=== PATIENT | female | born 1965 | race African-American/Black ===

== ENCOUNTER 2018-10-23 08:36 | Emergency (ER) | payer MEDICARE, MEDICAID ==
--- NOTE | 2018-10-23 09:16 | RAD ---
EXAM: XR Ankle Rt 3 View STANDARD PROVIDED CLINICAL HISTORY: Pain FINDINGS: There is no evidence for fracture or other acute osseous abnormality. Alignment appears anatomic. Sofia nt spaces appear preserved. IMPRESSION: No evidence for an acute osseous abnormality. If there is persistent clinical concern, conservative m anagement and follow-up imaging advised.
[2018-10-23] MEDS ORDERED: Ibuprofen 800 MG TAB ONE (09:46)
== END 2018-10-23 09:52 | disposition home or self-care (01) ==
LOC: ERS 08:36
DX: M77.9 Enthesopathy, unspecified (principal); Q85.00 Neurofibromatosis, unspecified; M41.9 Scoliosis, unspecified

== ENCOUNTER 2019-11-24 17:56 | Emergency (ER) | payer MEDICARE, OTHER ==
[2019-11-25 14:12] LABS: SARS-CoV-2 MS2 Positive; SARS-CoV-2 N Gene Positive; SARS-CoV-2 S Gene Positive; SARS-CoV-2 by NAA DETECTED (NotDetected); SARS-CoV-2 orf1ab Positive
== END 2019-11-24 18:16 | disposition home or self-care (01) ==
LOC: ERS 17:56
DX: U07.1 COVID-19 (principal); G43.909 Migraine, unspecified, not intractable, without status migrainosus; Z79.899 Other long term (current) drug therapy
CPT/HCPCS: 99283; U0003; 87635

== ENCOUNTER 2020-01-09 09:10 | Emergency (ER) | payer MEDICARE, OTHER ==
[2020-01-09 18:07] LABS: SARS-CoV-2 MS2 Positive; SARS-CoV-2 N Gene Negative; SARS-CoV-2 S Gene Negative; SARS-CoV-2 by NAA Not Detected (NotDetected); SARS-CoV-2 orf1ab Negative
== END 2020-01-09 09:40 | disposition home or self-care (01) ==
LOC: ERS 09:10
DX: R05 Cough (principal); Z20.828 Contact with and (suspected) exposure to other viral communicable diseases; G43.909 Migraine, unspecified, not intractable, without status migrainosus; Z79.899 Other long term (current) drug therapy
CPT/HCPCS: 99283; U0003; 87635

== ENCOUNTER 2020-03-03 14:11 | Inpatient (IN) | payer MEDICARE, OTHER ==
[2020-03-03] MEDS ORDERED: Rocuronium Bromide 10 MG/ML (10ML VIAL) ONE ×2 (14:32→17:20)
[2020-03-03] MEDS ORDERED: Fentanyl 100 MCG/2 ML VIAL ONE (14:47)
[2020-03-03 15:07] LABS: Actual Bicarbonate (HCO3a) 29.6 mEq/L (22-28); Analyzer IN Cardio ER; Base Excess (BEa) 3.7 mEq/L (-2.0 to +3.0); CO2 Tension 49.2 mmHg (35.0-45.0); Calcium, Ionized (arterial) 1.11 mmol/L (1.12-1.30); Carboxyhemoglobin (COHb) 5.8 gm% (0.0-3.0); Hemoglobin (Hb) 15.1 g/dL (12.0-16.0); O2 Tension (PaO2), arterial 223.1 mmHg (80.0-100.0); Potassium - ABG Lab 4.34 mmol/L (3.70-5.30)
[2020-03-03 15:13] LABS: Puncture Site RBRACH
[2020-03-03] MEDS ORDERED: fentaNYL Citrate/PF 2,000 MCG in Sodium Chloride 0.9% 60 ML IV SCH (15:15)
[2020-03-03 15:43] LABS: Hemoglobin 15.1 g/dL (12.0-16.0); Mean Corpuscular HGB CONC 30.3 g/dL (32.0-36.0); Mean Corpuscular Hemoglobin 27.8 pg (27.0-31.0); Mean Corpuscular Volume 91.5 fL (78.0-98.0); Mean Platelet Volume 9.4 fL (7.4-10.4); Platelet Count 269 thou/uL (130-400); RBC Distribution Width 15.2 % (11.5-14.5); Red Blood Cell (RBC) Count 5.42 mill/uL (4.20-5.40)
[2020-03-03 15:59] LABS: Anisocytosis SLIGHT = 6-15 cells (100X) (0-5/hpf); Eosinophils 1 % (0-10); Lymphocytes 24 % (21-51); MDiff Complete? YES; Monocytes 4 % (0-10); Neutrophil 71 % (42-75); Nucleated RBC 1 % (0); Platelet Morphology Comment Appears Adequate; Polychromasia SLIGHT = 2-3 cells (100X) (0-2/hpf)
[2020-03-03] MEDS ORDERED: Propofol 1,000 MG/100 ML VIAL IV ONE (16:00)
[2020-03-03 16:02] LABS: ALT (SGPT) 45 U/L (8-55); AST (SGOT) 29 U/L (5-34); Albumin 3.4 g/dL (3.5-5.0); Alkaline Phosphatase 61 U/L (40-110); Anion Gap 17 mmol/L (10-20); BUN (Urea Nitrogen) 29 mg/dL (9.8-20.1); Bilirubin, Total 1.2 mg/dL (0.2-1.2); CK (CPK) 68 U/L (29-168); Calc. Creatinine Clearance 0 mL/min (70-130); Calcium 8.5 mg/dL (7.8-10.44); Carbon Dioxide 30 mmol/L (22-29); Chloride 99 mmol/L (98-107); Globulin 3.2 g/dL (2.4-3.5); Glucose 93 mg/dL (70-105); Potassium 4.9 mmol/L (3.5-5.1); Protein, Total 6.6 g/dL (6.0-8.3); Sodium 141 mmol/L (136-145)
[2020-03-03] MEDS ORDERED: Furosemide 40 MG/4 ML VIAL ONE (16:02)
[2020-03-03 16:03] LABS: Bacteria/HPF None Seen HPF (None Seen); Bilirubin Negative (Negative); Blood, Urine Negative (Negative); Clarity Clear (Clear); Glucose, Urine (Dipstick) Normal (Negative); Ketone, Urine Negative (Negative); Leukocyte Negative Leu/uL (Negative); Nitrite Negative (Negative); Protein, Urine (Dipstick) 30 mg/dL (Neg-Trace); RBC/HPF 0-3 HPF (0-3); Specific Gravity, Urine 1.012 (1.002-1.036); Squamous Epithelial 0-3 HPF (0-3); WBC/HPF 0-3 HPF (0-3); pH, Urine 5.5 (5.0-9.0)
--- NOTE | 2020-03-03 16:35 | RAD ---
PORTABLE CHEST: Date: 03-03-2020 PROVIDED CLINICAL HISTORY: Difficulty breathing FINDINGS: Comparison is made with 10-27-15. Evaluation is limited by patient body habitus. Spinal faheem and surgical clips overlying the mediastinum are again noted. There is mass like density a t the right lung apex, incompletely characterized on the basis of this study. Absence of multiple lef t sided ribs. Diffuse bilateral airspace disease and prominence of the pulmonary vasculature. Presume d endotracheal tube and enteric catheter, the tip of the presumed endotracheal tube terminating over the thoracic inlet and the tip of the enteric catheter not visualized but below the diaphragm. IMPRESSION: 1. Limited study. Incompletely characterized mass-like density at the right lung apex. Extensive bilateral airspace disease and pulmonary vascular congestion, the former of which may reflect alveol ar edema and/or pneumonia. POS: ANOOP
[2020-03-03] MEDS ORDERED: cefTRIAXone\\ROCEPHIN 2 GM VIAL ONE (17:14)
[2020-03-03] MEDS ORDERED: Azithromycin 500 MG VIAL ONE (17:14)
--- NOTE | 2020-03-03 18:03 | RAD ---
Chest AP view INDICATION: Emergency examination chest pain COMPARISON: March 03, 2020 at 3:18 PM FINDINGS: Lungs: Masslike density in the right lung apex is stable. Scattered airspace disease is stable. Cardiac silhouette: Moderate cardiomegaly is stable. Pulmonary vasculature: Pulmonary vascular congestion persists Pleural spaces: Small bilateral pleural effusions, right greater than left persists. Upper abdomen: No abnormality seen. Osseous structures: No acute osseous abnormality. Additional findings: Patient remains intubated with gastric catheter placement. IMPRESSION: Stable exam
[2020-03-03] MEDS ORDERED: Acetaminophen 325 MG TAB PO PRN (18:16)
[2020-03-03] MEDS ORDERED: Ondansetron PF 4 MG/2 ML Vial IVP PRN (18:16)
[2020-03-03] MEDS ORDERED: Ventilator Sedation Protocol 1 EACH FS SCH (18:16)
[2020-03-03] MEDS ORDERED: Communication Order-Pharmacy FS SCH (18:16)
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
[2020-03-03] MEDS ORDERED: Enoxaparin Sodium 40 MG/0.4 ML SYRINGE SC SCH (18:30)
[2020-03-03] MEDS ORDERED: Morphine 2 MG/ML VIAL SLOW IVP PRN (19:30)
[2020-03-03] MEDS ORDERED: DISCONTINUE PREVIOUS NARCOTIC PAIN MEDICATIONS AND BENZODIAZEPINES FS SCH (19:30)
[2020-03-03] MEDS ORDERED: Propofol BOLUS 1,000 MG/100 ML VIAL IV PRN (19:30)
[2020-03-03] MEDS ORDERED: Fentanyl BOLUS 250 ML IVPB PRN (19:30)
--- NOTE | 2020-03-03 19:33 | CT ---
CT Brain WO Con: 03/03/2020 7:10 PM CLINICAL HISTORY: Altered mental status. IMAGING TECHNIQUE: Multiple CT images were obtained of the brain without IV contrast. COMPARISON: CT the brain dated October 27, 2015 FINDINGS: BRAIN: Evidence of acute infarct: None. Evidence of chronic ischemic change:None. Evidence of intracranial hemorrhage: None. Evidence of brain volume loss:None. Evidence of midline shift: Third ventricle and septum pellucidum are midline. Ventricles: Normal. No hydrocephalus. SKULL: Intact. VISUALIZED PARANASAL SINUSES: There is a suspected periodontal cyst projecting in the region of the inferior aspect of the right maxillary sinus. MASTOID AIR CELLS: Clear. EXTRACRANIAL SOFT TISSUES: Normal. IMPRESSION: No acute intracranial abnormality.
[2020-03-03] MEDS: Lactated Ringer's 1,000 ML IV SCH (20:48)
[2020-03-03] MEDS: Cefepime 2 GM in Sodium Chloride 0.9% 100 ML IVPB SCH (20:48)
[2020-03-03] MEDS: Famotidine/PF 20 mg/2ml Vial SLOW IVP SCH (20:49)
[2020-03-03] MEDS: methylPREDNISolone Sod Succ 40 MG VIAL IVP SCH (20:49)
[2020-03-03] MEDS ORDERED: Vancomycin HCl 2.5 GM in Sodium Chloride 0.9% 500 ML IVPB SCH (22:00)
[2020-03-03] MEDS: Propofol 1,000 MG/100 ML VIAL IV PRN (22:41)
[2020-03-04] MEDS: fentaNYL Citrate/PF 2,000 MCG in Sodium Chloride 0.9% 60 ML IV SCH ×2 (02:25→15:09)
--- NOTE | 2020-03-04 02:47 | CON ---
DATE OF CONSULTATION: 03/03/2020 INDICATION FOR CONSULTATION: Respiratory failure. HISTORY OF PRESENT ILLNESS: Ms. Parr is a 54-year-old female for whom we have relatively little information. It has been reported that she had COVID in October, but was not hospitalized rather self quarantine. We do not have access to confirmatory studies. She presented to the emergency room today with symptoms of increasing shortness of breath. It was reported that these had been present for a month, although the exact duration is unclear. In the emergency room, she was extremely hypertensive with blood pressure as high as 220/120. She was tachycardic and had marginal oxygen saturation even on non-rebreather face mask. There was some description that she was drooling and was unable to control her airway. There was no report of significant tongue or neck swelling and she was apparently intubated for inability to control her airway without difficulty. She did extubate herself in the emergency room and required repeat intubation, again without difficulty. She had a chest x-ray demonstrating normal size cardiac silhouette. She has a faheem overlying the entire thoracic spine. There are surgical clips in the upper mediastinum. There are multiple left ribs, which have been removed presumably as a conduit for her surgical procedures. There is some density in the right apex, which is poorly defined. There is also what appears to be an area of consolidation in the right base. She has been given broad-spectrum antibiotic therapy. COVID test has been obtained and is pending. Influenza test is negative. Pulmonary Service is consulted. I have reviewed the medical record. No family is available. SOCIAL HISTORY: The patient is a 54-year-old female. She reportedly has an intolerance to aspirin. I do not have her medication list from home. The remainder of her social history is unknown. PAST MEDICAL HISTORY: Remarkable for neurofibromatosis with multiple fibroma over the skin. She is obese. There is comment about possible DVT in the past, although I am not sure what the source for that. REVIEW OF SYSTEMS: Unobtainable. PHYSICAL EXAMINATION: VITAL SIGNS: Height 5 feet 2 inches, weight 270, with BMI of 49. Current blood pressure is 154/108 with heart rate of 102 and saturation 94%. She is currently receiving ventilatory support including FiO2 of 50%. She is orally intubated. HEENT: Shows no icterus. I cannot evaluate her oropharynx. NECK: Enlarged. LUNGS: Coarse rhonchi bilaterally. HEART: Regular rate and rhythm with a grade 1 murmur. ABDOMEN: Obese. Bowel sounds are normal. There is no guarding. SKIN: Diffuse neurofibroma. She has some erythema and warmth of the left lower calf with a possible cellulitis. NEUROLOGIC: She is sedated and not responsive. LABORATORY DATA: White count 8000, hemoglobin 15.1 with hematocrit of 49.6, and platelet count of 269,000. She had 71 segs, 24 lymphocytes. No bands were noted. A blood gas on the ventilator showed pH of 7.4, CO2 of 49, PO2 of 222, and bicarbonate of 29. This was obtained with a rate of 16, tidal volume 500, pressure support of 10, PEEP of 5 and FiO2 of 100%. Chemistries include sodium 141, potassium 4.9, chloride 99, CO2 is 30, BUN is 29, creatinine 1.1. Liver tests are negative. Troponin was negative. BNP minimally elevated at 360. Urinalysis was negative and flu swab is negative A and negative B. COVID test is pending. X-rays are as described above. IMPRESSION: 1. Acute on chronic respiratory failure. It is reported that the patient has had symptoms for as much as a month prior to presentation, but clearly worsened now. There was a description of drooling and question whether she may have been developing angioedema. We do not have her medication list. She was quite hypertensive and certainly that may have contributed with evidence of diastolic dysfunction. I am concerned that she could have an underlying infection. She reportedly had COVID earlier this year, although self quarantine and we do not have confirmation of her test is quite possible that was erroneous and she could have baltazar now. She also could have community-acquired pneumonia and appropriate broad-spectrum antibiotic therapy has been provided. I think it would be reasonable to get an echocardiogram to rule out diastolic dysfunction and given her obesity, she may well have obstructive sleep apnea with cor pulmonale/obesity hypoventilation syndrome. 2. Neurofibromatosis. 3. History of faheem at the thoracic spine via the left thoracotomy approach with multiple ribs resected. 4. Density in the right upper lobe, unclear. At some point, she will need a CT scan, but certainly that is not a pressing issue at this moment. 5. Possible cellulitis of the left lower leg, on antibiotics. PLAN: She is admitted to the intensive care unit, receiving ventilatory support. We will wean as tolerated. She has pending COVID test and that would definitely alter our management if it were to be positive. I think an echocardiogram would be reasonable at some point and CT of the chest also reasonable, both easily deferred until she is a bit more stable and we have a better handle on her underlying pathology. She is receiving broad-spectrum antibiotics. Blood pressure control will be initiated. Thank you for this very challenging consultation. Critical care time 55 minutes. Job ID: [id number]
[2020-03-04 03:22] LABS: #Basophils 0.1 thou/uL (0.0-0.2); #Monocytes 0.4 thou/uL (0.11-0.59); %Basophils 1.3 % (0.0-1.0); %Eosinophils 0.4 % (0.0-10.0); %Lymphocytes 9.9 % (21.0-51.0); %Monocytes 4.5 % (0.0-10.0); %Neutrophils 83.9 % (42.0-75.0); Hemoglobin 14.7 g/dL (12.0-16.0); Mean Corpuscular HGB CONC 31.2 g/dL (32.0-36.0); Mean Corpuscular Hemoglobin 27.8 pg (27.0-31.0); Mean Corpuscular Volume 89.1 fL (78.0-98.0); Mean Platelet Volume 8.9 fL (7.4-10.4); Platelet Count 264 thou/uL (130-400); RBC Distribution Width 15.4 % (11.5-14.5); Red Blood Cell (RBC) Count 5.28 mill/uL (4.20-5.40); White Blood Cell (WBC) Count 9.5 thou/uL (4.8-10.8)
[2020-03-04 03:46] LABS: ALT (SGPT) 40 U/L (8-55); AST (SGOT) 31 U/L (5-34); Albumin 2.9 g/dL (3.5-5.0); Alkaline Phosphatase 52 U/L (40-110); Anion Gap 17 mmol/L (10-20); BUN (Urea Nitrogen) 24 mg/dL (9.8-20.1); Bilirubin, Total 1.5 mg/dL (0.2-1.2); Calc. Creatinine Clearance 130 mL/min (70-130); Calcium 8.5 mg/dL (7.8-10.44); Carbon Dioxide 29 mmol/L (22-29); Chloride 100 mmol/L (98-107); Globulin 3.2 g/dL (2.4-3.5); Glucose 95 mg/dL (70-105); Protein, Total 6.1 g/dL (6.0-8.3); Sodium 142 mmol/L (136-145)
[2020-03-04] MEDS: Propofol 1,000 MG/100 ML VIAL IV PRN ×5 (04:19→19:44)
[2020-03-04] MEDS: methylPREDNISolone Sod Succ 40 MG VIAL IVP SCH ×3 (05:09→21:19)
[2020-03-04] MEDS: Lorazepam 2 MG/ML VIAL SLOW IVP PRN ×2 (07:22→15:57)
[2020-03-04 08:00] LABS: Actual Bicarbonate (HCO3a) 32.6 mEq/L (22-28); CO2 Tension 44.8 mmHg (35.0-45.0); Calcium, Ionized (arterial) 1.07 mmol/L (1.12-1.30); Carboxyhemoglobin (COHb) 1.6 gm% (0.0-3.0); Hemoglobin (Hb) 15.1 g/dL (12.0-16.0); O2 Tension (PaO2), arterial 63.8 mmHg (80.0-100.0); Potassium - ABG Lab 3.86 mmol/L (3.70-5.30); pH, Arterial 7.48 (7.35-7.45)
[2020-03-04 08:04] LABS: Puncture Site RR
[2020-03-04] MEDS: Lactated Ringer's 1,000 ML IV SCH ×2 (09:00→20:01)
[2020-03-04] MEDS: Cefepime 2 GM in Sodium Chloride 0.9% 100 ML IVPB SCH ×2 (09:07→20:00)
[2020-03-04] MEDS: Famotidine/PF 20 mg/2ml Vial SLOW IVP SCH ×2 (09:08→20:00)
[2020-03-04] MEDS: Vancomycin 1.5 GRAM/300 ML BAG 1.5 GM in Premix Bag 1 BAG IVPB SCH ×2 (09:50→21:19)
--- NOTE | 2020-03-04 10:28 | PRG ---
DATE OF SERVICE: 03/04/2020 SUBJECTIVE: Luma Parr remains in the vent, intubated. Sedated. OBJECTIVE: VITAL SINGS: Her blood pressure is 130/86 and pulse 113. She is on 30% and PEEP of . She is afebrile. Sats are 98%. CHEST: Decreased breath sounds. No wheezing. No crackles. CARDIAC: Normal S1 and S2. No gallops. ABDOMEN: Soft. DIAGNOSTIC STUDIES: LABORATORY RESULTS: White count 9000, H and H is 14 and 47, platelet count is normal. PO2 of 63, pCO2 of 44, pH of 7.48, rate of 16, PEEP of 5. Lytes are normal. BNP 358. IMPRESSION: Respiratory failure, baltazar positive status two months ago. Repeat test pending. pneumonia, a thoracic faheem in place. PLAN: Agree with the antibiotics, broad-spectrum steroids. Awaiting results of the repeat test before we decide additional treatment at this stage. As of today, she is not weanable. Probably start nutrition. One-half hour critical care time. Job ID: [id number]
[2020-03-04 13:01] LABS: SARS-CoV-2 MS2 Positive; SARS-CoV-2 N Gene Negative; SARS-CoV-2 S Gene Negative; SARS-CoV-2 by NAA Not Detected (NotDetected); SARS-CoV-2 orf1ab Negative
--- NOTE | 2020-03-04 14:06 | PDOC.HOSPP ---
- Subjective Encounter Date: 03/04/20 Encounter Time: 14:02 non-verbal Subjective: Ms. Parr is a 54-year-old female who was admitted to the hospital for altered mental status. She was intubated when she arrived in the emergency room. There is no clear history about while is her chief complaint HPI. However she was sick enough to be intubated and I saw her in ICU today. She remains on a ve ntilator. Apparently she was diagnosed with Covid earlier in the summer. No other information is obtainable at this time. She is being followed by pulmonary services who are managing the vent. Her Covid screen here is negative. - Objective Vital Signs & Weight: Vital Signs (12 hours) Temp Pulse Resp BP Pulse Ox 03/04/20 12:00 98.9 F 16 03/04/20 11:09 95 107/56 L 03/04/20 10:00 16 03/04/20 08:00 99.0 F 22 H 92 L 03/04/20 07:32 113 H 133/86 03/04/20 06:00 16 03/04/20 04:00 97.6 F 16 03/04/20 02:30 110 H 148/112 H Weight Admit Weight 270 lb Weight 270 lb 1.06 oz Most Recent Monitor Data Heart Rate from ECG 92 NIBP 102/57 NIBP BP-Mean 72 Respiration from ECG 16 SpO2 92 I&O: 03/03/20 03/04/20 03/05/20 06:59 06:59 06:59 Intake Total 1281.1 Output Total 2110 281 Balance -828.9 -281 Result Diagrams: 03/04/20 03:13 03/04/20 03:13 Additional Labs: Accuchecks 03/04/20 03/04/20 03/03/20 10:06 04:22 22:45 POC Glucose 93 93 75 Radiology Reviewed by me: Yes EKG Reviewed by me: Yes Hospitalist ROS - Review of Systems Constitutional: reports: weakness All other systems reviewed; all pertinent +/- noted in HPI/Subj - Medication Medications: Active Medications Generic Name Dose Route Start Last Admin Trade Name Freq PRN Reason Stop Dose Admin Famotidine 20 mg 03/03/20 21:00 03/04/20 09:08 Famotidine/Pf 20 Mg/2ml Vial SLOW IVP 20 mg Q12HR HALIE Administration Vancomycin HCl 1.5 gm/ Device 300 mls @ 200 mls/hr 03/04/20 10:00 03/04/20 09:50 IVPB 300 mls 1000,2200 HALIE Administration Cefepime HCl 2 gm/ Sodium 100 mls @ 200 mls/hr 03/03/20 21:00 03/04/20 09:07 Chloride IVPB 100 mls Q12HR HALIE Administration Lactated Ringer's 1,000 mls @ 75 mls/hr 03/03/20 18:30 03/04/20 09:00 Lactated Ringer's IV 1,000 mls .[id number] HALIE Administration Fentanyl Citrate 2,000 mcg/ 100 mls @ 0 mls/hr 03/03/20 19:30 03/04/20 02:25 Sodium Chloride IV 04/02/20 19:30 100 mls INF HALIE Administration Protocol Per Protocol Lorazepam 2 mg 03/03/20 19:30 03/04/20 07:22 Lorazepam 2 Mg/Ml Vial SLOW IVP 04/02/20 19:30 2 mg Q1H PRN Administration Breakthrough agitation Methylprednisolone Sodium Succinate 40 mg 03/03/20 22:00 03/04/20 05:09 Methylprednisolone Sod Succ 40 Mg Vial IVP 40 mg Q8HR HALIE Administration Propofol 1,000 mg 03/03/20 19:30 03/04/20 12:45 Propofol 1,000 Mg/100 Ml Vial IV 04/02/20 19:30 1,000 mg INF PRN Administration TO ACHIEVE GOAL RASS Protocol Sodium Chloride 10 ml 03/03/20 21:00 03/04/20 09:08 Flush - Normal Saline 10 Ml Syringe IVF 10 ml Q12HR HALIE Administration - Exam General Appearance: ill appearing ENT: moist mucosa Neck: supple, no JVD, no lymphadenopathy Heart: RRR, no murmur, no gallops, no rubs, normal peripheral pulses Respiratory: CTAB, normal chest expansion, no tachypnea, normal percussion Gastrointestinal: soft, non-tender, non-distended, normal bowel sounds, no palpable masses, no hepatomegaly, no splenomegaly Musculoskeletal: normal tone, no muscle wasting Psychiatric: somnolent (intubated) Hosp A/P (1) Respiratory failure with hypoxia and hypercapnia Code(s): J96.91 - RESPIRATORY FAILURE, UNSPECIFIED WITH HYPOXIA; J96.92 - RESPIR ATORY FAILURE, UNSPECIFIED WITH HYPERCAPNIA Status: Acute Qualifiers: Chronicity: acute Qualified Code(s): J96.01 - Acute respiratory failure with hypoxia; J96.02 - Acute respiratory failure with hypercapnia Plan: She was intubated in the emergency room. She remains intubated but she is in the process of being weaned off. Unclear etiology of respiratory failure. Her Covid screening was negative. May be bacterial pneumonia. Checks x-ray shows extensive bilateral infiltrate. I agree with IV antibiotics. (2) PNA (pneumonia) Code(s): J18.9 - PNEUMONIA, UNSPECIFIED ORGANISM Status: Acute Qualifiers: Pneumonia type: due to unspecified organism Laterality: bilateral Lung location: lower lobe of lung Qualified Code(s): J18.9 - Pneumonia, unspecified organism Plan: I agree with empiric IV antibiotics. (3) Neurofibromatosis Status: Chronic (4) Congestive heart failure (CHF) Code(s): I50.9 - HEART FAILURE, UNSPECIFIED Status: Acute Qualifiers: Heart failure chronicity: acute Plan: This is suspected based on her symptoms and based on her BNP being elevated in addition to the chest x-ray. She could benefit from diuresis. I would like to obtain an echocardiogram. She may ultimately need engineer conductor input. - Plan #1. Acute respiratory failure with hypoxia. Likely secondary to combination of pneumonia and CHF. She is currently intubated and on mechanical ventilation. This will be continued for now until she can be weaned off. 2. Suspected bacterial pneumonia. Likely community-acquired from gram-positive infections. Continue empiric IV antibiotics. 3. Congestive heart failure. She does have evidence of increased pulmonary vascularization suspicious for CHF. Her BNP is also elevated. I agree with diuresis. 4. Metabolic encephalopathy. Likely combination of 1 and 2 above.
[2020-03-04 14:36] LABS: Medtox Reader # READER 1
[2020-03-04 14:37] LABS: Amphetamine Not Detected (NotDetected); Barbiturates Screen Not Detected (NotDetected); Benzodiazepine Screen Detected (NotDetected); Cocaine Metabolite Screen Detected (NotDetected); Medtox Control Line Valid? VALID (VALID); Methadone Not Detected (NotDetected); Methamphetamine Not Detected (NotDetected); Opiate Screen Not Detected (NotDetected); Oxycodone Screen Not Detected (NotDetected); Phencyclidine (PCP) Not Detected (NotDetected); THC/Cannabinoid Screen Not Detected (NotDetected); Tricyclic Screen Detected (NotDetected)
[2020-03-04 17:41] LABS: Anisocytosis SLIGHT = 6-15 cells (100X) (0-5/hpf); Band 1 % (5-11); Hemoglobin 14.1 g/dL (12.0-16.0); Lymphocytes 6 % (21-51); MDiff Complete? YES; Mean Corpuscular HGB CONC 31.6 g/dL (32.0-36.0); Mean Corpuscular Volume 88.6 fL (78.0-98.0); Mean Platelet Volume 9.4 fL (7.4-10.4); Monocytes 5 % (0-10); Neutrophil 88 % (42-75); Platelet Count 268 thou/uL (130-400); Platelet Morphology Comment Appears Adequate; RBC Distribution Width 15.7 % (11.5-14.5); Red Blood Cell (RBC) Count 5.02 mill/uL (4.20-5.40); Target Cells SLIGHT = 2-5 cells (100X) (0-1/hpf); White Blood Cell (WBC) Count 9.9 thou/uL (4.8-10.8)
[2020-03-05] MEDS: Propofol 1,000 MG/100 ML VIAL IV PRN ×2 (00:36→04:28)
[2020-03-05 04:07] LABS: Anion Gap 18 mmol/L (10-20); BUN (Urea Nitrogen) 22 mg/dL (9.8-20.1); Calc. Creatinine Clearance 132 mL/min (70-130); Calcium 7.9 mg/dL (7.8-10.44); Carbon Dioxide 25 mmol/L (22-29); Chloride 103 mmol/L (98-107); Glucose 105 mg/dL (70-105); Potassium 3.9 mmol/L (3.5-5.1); Sodium 142 mmol/L (136-145)
[2020-03-05] MEDS: Lorazepam 2 MG/ML VIAL SLOW IVP PRN (04:29)
[2020-03-05] MEDS: fentaNYL Citrate/PF 2,000 MCG in Sodium Chloride 0.9% 60 ML IV SCH (04:56)
[2020-03-05] MEDS: methylPREDNISolone Sod Succ 40 MG VIAL IVP SCH ×3 (06:31→21:21)
[2020-03-05 07:26] LABS: Actual Bicarbonate (HCO3a) 30.2 mEq/L (22-28); Base Excess (BEa) 7.2 mEq/L (-2.0 to +3.0); CO2 Tension 37.1 mmHg (35.0-45.0); Calcium, Ionized (arterial) 1.03 mmol/L (1.12-1.30); Hemoglobin (Hb) 14.2 g/dL (12.0-16.0); Potassium - ABG Lab 3.44 mmol/L (3.70-5.30); pH, Arterial 7.53 (7.35-7.45)
[2020-03-05 07:29] LABS: O2 Tension (PaO2), arterial 54.8 mmHg (80.0-100.0); Puncture Site RR
[2020-03-05 07:30] LABS: ALV-art Gradient 255.325 mmHg (0-20)
[2020-03-05] MEDS: Famotidine/PF 20 mg/2ml Vial SLOW IVP SCH ×2 (08:43→20:11)
[2020-03-05] MEDS: Vancomycin 1.5 GRAM/300 ML BAG 1.5 GM in Premix Bag 1 BAG IVPB SCH ×2 (08:43→22:05)
--- NOTE | 2020-03-05 09:07 | RAD ---
Exam: Chest one view HISTORY:Ventilated patient. Respiratory distress. Comparison: 03/03/2020 FINDINGS: Cardiac silhouette:Limited evaluation cardiac silhouette bibasilar opacities. Lines and tubes: Stable endotracheal tube, nasogastric tube. Aorta: Unremarkable Pulmonary vessels: Normal Costophrenic angles: Slight worsening bilateral pleural effusions. LUNGS: Persistent multifocal opacities. Pneumothorax: None Osseous abnormalities: Chronic changes to the left ribs. Single Alvares faheem is identified. IMPRESSION: Persistent multi focal interstitial and alveolar opacities. Bilateral effusions.
[2020-03-05 09:39] LABS: Vancomycin, Trough 31.2 ug/mL
[2020-03-05] MEDS: Cefepime 2 GM in Sodium Chloride 0.9% 100 ML IVPB SCH ×2 (09:41→20:11)
--- NOTE | 2020-03-05 09:46 | PRG ---
DATE OF SERVICE: 03/05/2020 SUBJECTIVE: Luma Parr is a morbidly obese female, remains intubated in the vent, sedated. Blood gas shows ongoing severe hypoxemia. X-ray pending this morning. OBJECTIVE: VITAL SIGNS: Pulse 76, saturations 100% on the vent, respirations 13, blood pressure . CHEST: Decreased breath sounds. No wheezing. CARDIAC: Normal S1 and S2. No gallops. ABDOMEN: . NEUROLOGIC: Sedated. LABORATORY DATA: White count 9000, H and H of 14 and 44, platelet count is normal. PO2 of 54, pCO2 of 30, pH 7.54, rate of 16, 50%, PEEP of 8. Lytes are normal. She had a coronavirus test, which was positive in October. Negative right now. She had cocaine and benzos in serology. So far cultures are negative. ASSESSMENT: Respiratory failure, congestive heart failure, pneumonia, morbid obesity. PLAN: Continue antibiotics, neb treatments, supportive care. She is not weanable. We are going to start nutrition. If cultures are negative, we are going to try and de-escalate all her antibiotics. One-half hour of critical care time. Job ID: [id number]
[2020-03-05] MEDS: Lactated Ringer's 1,000 ML IV SCH ×2 (13:58→22:06)
[2020-03-05] MEDS ORDERED: diphenhydrAMINE 12.5 MG/5 ML UDCUP PO PRN (13:59)
--- NOTE | 2020-03-05 14:05 | PDOC.HOSPP ---
- Subjective Encounter Date: 03/05/20 Encounter Time: 14:03 Subjective: Ms. Parr was seen and evaluated. Her urine drug screen showed cocaine, benzodiazepine and tricyclic antidepressants. Her chest x-ray showed a multifocal pneumonia. She is appropriately on IV antibiotics. She was just extubated this morning and seems somewhat groggy and confused. - Objective Vital Signs & Weight: Vital Signs (12 hours) Temp Pulse Resp BP Pulse Ox 03/05/20 12:00 97.8 F 03/05/20 10:16 98 03/05/20 10:00 25 H 03/05/20 09:15 103 H 141/107 H 03/05/20 08:00 97.4 F L 03/05/20 07:25 10 L 96 03/05/20 07:03 83 127/82 03/05/20 06:00 16 03/05/20 04:00 98.5 F 16 03/05/20 02:05 84 Weight Admit Weight 270 lb Weight 270 lb 1.06 oz Most Recent Monitor Data Heart Rate from ECG 100 NIBP 143/108 NIBP BP-Mean 119 Respiration from ECG 15 SpO2 92 I&O: 03/04/20 03/05/20 03/06/20 06:59 06:59 06:59 Intake Total 1281.1 3064.2 Output Total 2110 1086 310 Balance -828.9 1978.2 -310 Result Diagrams: 03/04/20 16:37 03/05/20 03:34 Additional Labs: Accuchecks 03/05/20 03/04/20 03:38 15:44 POC Glucose 99 96 Radiology Reviewed by me: Yes EKG Reviewed by me: Yes Hospitalist ROS - Review of Systems ROS unobtainable: due to mental status Constitutional: reports: chills Respiratory: reports: cough, shortness of breath, SOB with excertion, sputum Cardiovascular: reports: paroxysmal noc. dyspnea Gastrointestinal: reports: nausea, vomiting, abdominal pain, constipation Neurological: reports: weakness, numbness, confusion - Medication Medications: Active Medications Generic Name Dose Route Start Last Admin Trade Name Freq PRN Reason Stop Dose Admin Famotidine 20 mg 03/03/20 21:00 03/05/20 08:43 Famotidine/Pf 20 Mg/2ml Vial SLOW IVP 20 mg Q12HR HALIE Administration Vancomycin HCl 1.5 gm/ Device 300 mls @ 200 mls/hr 03/04/20 10:00 03/05/20 08:43 IVPB 300 mls 1000,2200 HALIE Administration Cefepime HCl 2 gm/ Sodium 100 mls @ 200 mls/hr 03/03/20 21:00 03/05/20 09:41 Chloride IVPB 100 mls Q12HR HALIE Administration Lactated Ringer's 1,000 mls @ 75 mls/hr 03/03/20 18:30 03/05/20 13:58 Lactated Ringer's IV 1,000 mls .[id number] HALIE Administration Fentanyl Citrate 2,000 mcg/ 100 mls @ 0 mls/hr 03/03/20 19:30 03/05/20 04:56 Sodium Chloride IV 04/02/20 19:30 100 mls INF HALIE Administration Protocol Per Protocol Lorazepam 2 mg 03/03/20 19:30 03/05/20 04:29 Lorazepam 2 Mg/Ml Vial SLOW IVP 04/02/20 19:30 2 mg Q1H PRN Administration Breakthrough agitation Methylprednisolone Sodium Succinate 40 mg 03/03/20 22:00 03/05/20 13:58 Methylprednisolone Sod Succ 40 Mg Vial IVP 40 mg Q8HR HALIE Administration Propofol 1,000 mg 03/03/20 19:30 03/05/20 04:28 Propofol 1,000 Mg/100 Ml Vial IV 04/02/20 19:30 1,000 mg INF PRN Administration TO ACHIEVE GOAL RASS Protocol Sodium Chloride 10 ml 03/03/20 21:00 03/05/20 08:48 Flush - Normal Saline 10 Ml Syringe IVF 10 ml Q12HR HALIE Administration - Exam General Appearance: NAD, ill appearing Eye: PERRL ENT: normocephalic atraumatic, no oropharyngeal lesions, moist mucosa Neck: supple, symmetric, no JVD, no lymphadenopathy, no carotid bruit Heart: RRR, no murmur, no gallops Respiratory: CTAB, no ronchi, normal chest expansion, no tachypnea, rales Gastrointestinal: soft, non-tender, non-distended, normal bowel sounds, no palpable masses, no hepatomegaly, no splenomegaly Extremities: 2+ LE edema Neurological: cranial nerve grossly intact Musculoskeletal: normal tone, normal strength, no muscle wasting Psychiatric: normal affect, normal behavior, A&O x 3, flat affect, somnolent Hosp A/P (1) Respiratory failure with hypoxia and hypercapnia Code(s): J96.91 - RESPIRATORY FAILURE, UNSPECIFIED WITH HYPOXIA; J96.92 - RESPIRATORY FAILURE, UNSPECIFIED WITH HYPERCAPNIA Status: Acute Qualifiers: Chronicity: acute Qualified Code(s): J96.01 - Acute respiratory failure with hypoxia; J96.02 - Acute respiratory failure with hypercapnia (2) PNA (pneumonia) Code(s): J18.9 - PNEUMONIA, UNSPECIFIED ORGANISM Status: Acute Qualifiers: Pneumonia type: due to unspecified organism Laterality: bilateral Lung location: lower lobe of lung Qualified Code(s): J18.9 - Pneumonia, unspecified organism (3) Neurofibromatosis Status: Chronic (4) Congestive heart failure (CHF) Code(s): I50.9 - HEART FAILURE, UNSPECIFIED Status: Acute Qualifiers: Heart failure chronicity: acute (5) Polysubstance abuse Code(s): F19.10 - OTHER PSYCHOACTIVE SUBSTANCE ABUSE, UNCOMPLICATED Status: Acute Plan: Supportive care. - Plan #1. Acute respiratory failure with hypoxia. Likely secondary to combination of pneumonia and CHF. She is currently intubated and on mechanical ventilation. This will be continued for now until she can be weaned off. 03/05/2020. She was just extubated this morning. We appreciate pulmonary services. 2. Suspected bacterial pneumonia. Likely community-acquired from gram-positive infections. Continue empiric IV antibiotics. 3. Congestive heart failure. She does have evidence of increased pulmonary vascularization suspicious for CHF. Her BNP is also elevated. I agree with diuresis. 4. Metabolic encephalopathy. Likely combination of 1 and 2 above. #5. Polysubstance abuse. Her urine drug screen showed cocaine, benzodiazepines and tricyclic antidepressants.
[2020-03-05] MEDS ORDERED: Nitroglycerin 50 MG/250 ML BOT 0 ML ONE (14:28)
[2020-03-05] MEDS ORDERED: HYDROCORTISONE BUTYRATE 0.1% TOP SCH (21:00)
[2020-03-05 21:57] LABS: Vancomycin, Trough 27.8 ug/mL
[2020-03-06] MEDS ORDERED: Lorazepam 2 MG/ML VIAL SLOW IVP SCH ×2 (03:15→23:59)
[2020-03-06 06:09] LABS: #Basophils 0.1 thou/uL (0.0-0.2); #Lymphocytes 0.7 thou/uL (1.20-3.40); #Monocytes 0.4 thou/uL (0.11-0.59); #Neutrophils 7.3 thou/uL (1.40-6.50); %Eosinophils 0.2 % (0.0-10.0); %Lymphocytes 8.2 % (21.0-51.0); %Monocytes 4.9 % (0.0-10.0); %Neutrophils 85.7 % (42.0-75.0); Hemoglobin 15.2 g/dL (12.0-16.0); Mean Corpuscular HGB CONC 30.7 g/dL (32.0-36.0); Mean Corpuscular Hemoglobin 27.9 pg (27.0-31.0); Mean Corpuscular Volume 91.1 fL (78.0-98.0); Mean Platelet Volume 9.4 fL (7.4-10.4); Platelet Count 258 thou/uL (130-400); RBC Distribution Width 15.9 % (11.5-14.5); Red Blood Cell (RBC) Count 5.43 mill/uL (4.20-5.40); White Blood Cell (WBC) Count 8.5 thou/uL (4.8-10.8)
[2020-03-06 06:30] LABS: Anion Gap 18 mmol/L (10-20); BUN (Urea Nitrogen) 27 mg/dL (9.8-20.1); CRP (Inflammatory) 1.59 mg/dL (= or < 0.5); Calc. Creatinine Clearance 143 mL/min (70-130); Calcium 7.9 mg/dL (7.8-10.44); Carbon Dioxide 24 mmol/L (22-29); Chloride 104 mmol/L (98-107); Glucose 118 mg/dL (70-105); Potassium 3.9 mmol/L (3.5-5.1); Sodium 142 mmol/L (136-145)
[2020-03-06] MEDS: methylPREDNISolone Sod Succ 40 MG VIAL IVP SCH ×3 (06:30→22:37)
--- NOTE | 2020-03-06 07:57 | RAD ---
Chest AP view INDICATION: Intubation COMPARISON: Prior exam dated March 05, 2020 FINDINGS: Lungs: Bilateral airspace disease is stable. Right upper lobe masslike density is stable. Cardiac silhouette: Cardiomegaly is stable. Pulmonary vasculature: Pulmonary vascular congestion persists Pleural spaces: There are small bilateral pleural effusions which are stable Upper abdomen: No abnormality seen. Osseous structures: Chest wall deformity of the left hemithorax is stable. Additional findings: Patient has been extubated with removal of a gastric catheter. Surgical clips o verlying the upper mediastinum is stable. Thoracolumbar spinal consultation is stable. IMPRESSION: Interval extubation and gastric catheter removal. Stable stable cardiomegaly and pulmonary vascular c ongestion with bilateral airspace disease and small bilateral pleural effusions. Findings are suspicious for CHF; however, superimposed pneumonia is not excluded. Right upper lobe lung mass is st able.
[2020-03-06] MEDS ORDERED: DC Sedation Protocol FS ONE (08:00)
[2020-03-06] MEDS ORDERED: Furosemide 40 MG/4 ML VIAL IVP SCH (08:15)
--- NOTE | 2020-03-06 08:28 | PRG ---
DATE OF SERVICE: 03/06/2020 SUBJECTIVE: Keshav remains in the ICU. She was extubated yesterday, remains encephalopathic. OBJECTIVE: VITAL SIGNS: Temperature is 98, pulse 87, blood pressure respiratory rate 18, saturation . CHEST: Bilateral rhonchi. CARDIAC: Normal S1, S2. No gallops. ABDOMEN: No masses. LABORATORY DATA: White count 8000, H and H 15 and 49, and platelets 258. Lytes are normal. We are awaiting results of the echo. Vancomycin levels elevated. All cultures are negative. Chest x-ray read this morning, shows a questionable right-sided density, may be some airspace disease, small pleural effusion. PLAN: I am going to give a trial of Lasix and Haldol. Supportive care. Switch over to high-flow. One-half hour of critical care time. Job ID: [id number]
[2020-03-06] MEDS: Cefepime 2 GM in Sodium Chloride 0.9% 100 ML IVPB SCH ×2 (09:24→19:58)
[2020-03-06] MEDS: Famotidine/PF 20 mg/2ml Vial SLOW IVP SCH ×2 (09:25→19:58)
[2020-03-06] MEDS: Haloperidol Lactate 5 MG/ML VIAL SLOW IVP PRN ×2 (09:25→13:31)
[2020-03-06] MEDS: Lactated Ringer's 1,000 ML IV SCH (09:27)
[2020-03-06] MEDS ORDERED: Metoprolol Tartrate 5 MG/5 ML VIAL IVP PRN (15:38)
--- NOTE | 2020-03-06 15:41 | PDOC.HOSPP ---
- Subjective Encounter Date: 03/06/20 Encounter Time: 15:39 Subjective: Patient remains in the ICU where I saw and evaluated her this evening. She remains extubated but appears to be confused. She is on high flow nasal cannula. We will continue on current management plan. - Objective Vital Signs & Weight: Vital Signs (12 hours) Temp Pulse Ox 03/06/20 10:00 96 03/06/20 09:00 97.9 F 03/06/20 04:00 98.0 F Weight Admit Weight 270 lb Weight 270 lb 1.06 oz Most Recent Monitor Data Heart Rate from ECG 75 NIBP 178/138 NIBP BP-Mean 151 Respiration from ECG 11 SpO2 95 I&O: 03/05/20 03/06/20 03/07/20 06:59 06:59 06:59 Intake Total 3064.2 977.1 Output Total 1086 1010 725 Balance 1978.2 -32.9 -725 Result Diagrams: 03/06/20 06:00 03/06/20 06:00 Additional Labs: Accuchecks 03/06/20 03/05/20 03/05/20 10:27 22:10 17:14 POC Glucose 157 H 114 H 104 H Radiology Reviewed by me: Yes EKG Reviewed by me: Yes Hospitalist ROS - Review of Systems ROS unobtainable: due to mental status Constitutional: reports: weakness, malaise Respiratory: reports: cough, shortness of breath, SOB with excertion Cardiovascular: reports: edema Neurological: reports: weakness, confusion - Medication Medications: Active Medications Generic Name Dose Route Start Last Admin Trade Name Freq PRN Reason Stop Dose Admin Diphenhydramine HCl 25 mg 03/05/20 13:59 03/05/20 21:17 Diphenhydramine 12.5 Mg/5 Ml Udcup PO 25 mg Q8H PRN Administration Topical Irritations Famotidine 20 mg 03/03/20 21:00 03/06/20 09:25 Famotidine/Pf 20 Mg/2ml Vial SLOW IVP 20 mg Q12HR HALIE Administration Haloperidol Lactate 5 mg 03/06/20 08:03 03/06/20 13:31 Haloperidol Lactate 5 Mg/Ml Vial SLOW IVP 5 mg Q4H PRN Administration Agitation Cefepime HCl 2 gm/ Sodium 100 mls @ 200 mls/hr 03/03/20 21:00 03/06/20 09:24 Chloride IVPB 100 mls Q12HR HALIE Administration Dexmedetomidine HCl 400 mcg/ 100 mls @ 0 mls/hr 03/06/20 04:30 03/06/20 09:25 Sodium Chloride IVPB 100 mls INF HALIE Administration Per Protocol Lactated Ringer's 1,000 mls @ 50 mls/hr 03/06/20 08:01 03/06/20 09:27 Lactated Ringer's IV Not Given .Q20H HALIE Methylprednisolone Sodium Succinate 40 mg 03/03/20 22:00 03/06/20 13:31 Methylprednisolone Sod Succ 40 Mg Vial IVP 40 mg Q8HR HALIE Administration Sodium Chloride 10 ml 03/03/20 21:00 03/06/20 09:27 Flush - Normal Saline 10 Ml Syringe IVF Not Given Q12HR HALIE - Exam General Appearance: awake alert, ill appearing Eye: PERRL ENT: normocephalic atraumatic, moist mucosa Neck: supple, symmetric, no lymphadenopathy Heart: RRR, no murmur, normal peripheral pulses Respiratory: CTAB, no wheezes, no rales, normal chest expansion Gastrointestinal: soft, non-tender, non-distended, normal bowel sounds, no palpable masses Extremities: no cyanosis, 2+ LE edema Neurological: cranial nerve grossly intact, normal sensation to touch, no weakness, no new deficit Musculoskeletal: normal tone, generalized weakness Psychiatric: somnolent, lethargic Hosp A/P (1) Respiratory failure with hypoxia and hypercapnia Code(s): J96.91 - RESPIRATORY FAILURE, UNSPECIFIED WITH HYPOXIA; J96.92 - RESPIRATORY FAILURE, UNSPECIFIED WITH HYPERCAPNIA Status: Acute Qualifiers: Chronicity: acute Qualified Code(s): J96.01 - Acute respiratory failure with hypoxia; J96.02 - Acute respiratory failure with hypercapnia (2) PNA (pneumonia) Code(s): J18.9 - PNEUMONIA, UNSPECIFIED ORGANISM Status: Acute Qualifiers: Pneumonia type: due to unspecified organism Laterality: bilateral Lung location: lower lobe of lung Qualified Code(s): J18.9 - Pneumonia, unspecified organism (3) Neurofibromatosis Status: Chronic (4) Congestive heart failure (CHF) Code(s): I50.9 - HEART FAILURE, UNSPECIFIED Status: Acute Qualifiers: Heart failure chronicity: acute (5) Polysubstance abuse Code(s): F19.10 - OTHER PSYCHOACTIVE SUBSTANCE ABUSE, UNCOMPLICATED Status: Acute - Plan plan discussed w/ family, cartwright catheter, PT/OT, speech therapy, respiratory therapy, incentive spirometry #1. Acute respiratory failure with hypoxia. Likely secondary to combination of pneumonia and CHF. She is currently intubated and on mechanical ventilation. This will be continued for now until she can be weaned off. 03/05/2020. She was just extubated this morning. We appreciate pulmonary services. 03/06/2020. She remains extubated but on high flow nasal cannula. 2. Suspected bacterial pneumonia. Likely community-acquired from gram-positive infections. Continue empiric IV antibiotics. 3. Congestive heart failure. She does have evidence of increased pulmonary vascularization suspicious for CHF. Her BNP is also elevated. I agree with diuresis. 4. Metabolic encephalopathy. Likely combination of 1 and 2 above. #5. Polysubstance abuse. Her urine drug screen showed cocaine, benzodiazepines and tricyclic antidepressants.
[2020-03-06] MEDS: Enalaprilat Dihydrate 1.25 MG/ML VIAL SLOW IVP SCH ×2 (18:39→22:41)
[2020-03-06] MEDS ORDERED: Lorazepam 0.5 MG TAB PO SCH (23:59)
[2020-03-07] MEDS: Lactated Ringer's 1,000 ML IV SCH (03:35)
[2020-03-07] MEDS: Enalaprilat Dihydrate 1.25 MG/ML VIAL SLOW IVP SCH ×3 (05:38→18:24)
[2020-03-07] MEDS: methylPREDNISolone Sod Succ 40 MG VIAL IVP SCH ×2 (05:39→14:48)
[2020-03-07] MEDS: Haloperidol Lactate 5 MG/ML VIAL SLOW IVP PRN ×2 (07:24→11:50)
--- NOTE | 2020-03-07 08:48 | PRG ---
DATE OF SERVICE: 03/07/2020 SUBJECTIVE: Luma Parr is a morbidly obese female, remains in the ICU. She is still encephalopathic, but better. She is complaining of significant leg pain and swelling, painful to touch. X-ray shows worsening what looks like pulmonary edema. OBJECTIVE: VITAL SIGNS: Temperature 98, blood pressure 106/74, sats on 5 L at about 96%, she was on high flow earlier. CHEST: Decreased breath sounds. No wheezing. CARDIAC: Normal S1 and S2. No gallop. ABDOMEN: No masses. LABORATORY DATA: Her glucose is 103, C-reactive protein 1.59, and prolactin is 0.06. Her I's and O's have been consistently even. IMPRESSION: Abnormal x-ray, rule out congestive heart failure, awaiting echo, slightly elevated BNP, leg swelling, rule out deep venous thrombosis, morbid obesity, encephalopathy. I am concerned about overall status that she is not getting better, morbidly obese patient who has probably gotten sleep apnea. We are going to try and avoid intubation if possible. She has probably gotten [id number] respiratory failure with a faheem in the back. Continue antibiotics, steroids, and diuretics will be initiated. One-half hour of critical care time. Job ID: [id number]
--- NOTE | 2020-03-07 09:03 | RAD ---
PORTABLE CHEST: Date: 03/07/2020 HISTORY: CCU follow-up. Ventilator follow-up. COMPARISON: 03/06/2020. FINDINGS: Cardiomegaly with vascular congestion. Bilateral lung opacification. The right lung base is opacified obscuring the hemidiaphragm. Findings suggest bilateral effusions with diffuse bilateral infiltrates . There may be associated edema. More confluent infiltrate in the right upper lobe is again noted. IMPRESSION: Not significantly changed from yesterday. POS: AGW
[2020-03-07] MEDS: Furosemide 40 MG/4 ML VIAL IVP SCH (09:16)
[2020-03-07] MEDS: Enoxaparin Sodium 40 MG/0.4 ML SYRINGE SC SCH ×2 (09:16→20:16)
[2020-03-07] MEDS: Cefepime 2 GM in Sodium Chloride 0.9% 100 ML IVPB SCH ×2 (09:16→20:16)
[2020-03-07] MEDS: Famotidine/PF 20 mg/2ml Vial SLOW IVP SCH ×2 (09:16→20:17)
--- NOTE | 2020-03-07 09:27 | ULT ---
ULTRASOUND DOPPLER DUPLEX VENOUS BILATERAL LOWER EXTREMITIES: DATE: 03/07/2020 HISTORY: 54-year-old female with bilateral lower extremity pain and swelling TECHNIQUE: Grayscale, color-flow, and spectral analysis, of major veins of bilateral lower extremities. FINDINGS: There is demonstration of blood flow with normal compressibility, of the bilateral common femoral, pr ofunda femoral, greater saphenous, femoral, popliteal, and posterior tibial, veins. There is at least mild soft tissue edema in the bilateral lower extremities. There is increased transmission of c ardiac pulsatility in the pulse Doppler waveforms, suggestive of congestive heart failure. IMPRESSION: 1. No deep venous thrombosis of bilateral lower extremities. 2. At least mild bilateral lower extremity soft tissue edema. 3. Evidence for congestive heart failure
--- NOTE | 2020-03-07 17:45 | PDOC.HOSPP ---
- Subjective Encounter Date: 03/07/20 Encounter Time: 17:17 Subjective: Patient seen and evaluated earlier today. She remains extubated but somewhat delirious. Her family member was at the bedside when I visited. We will continue antibiotic. PT and OT evaluation has been obtained. I will also continue her on diuretics. - Objective Vital Signs & Weight: Vital Signs (12 hours) BP Pulse Ox 03/07/20 11:50 166/104 H 03/07/20 08:00 94 L 03/07/20 05:38 166/104 H Weight Admit Weight 270 lb Weight 272 lb 11.389 oz Most Recent Monitor Data Heart Rate from ECG 89 NIBP 140/108 NIBP BP-Mean 118 Respiration from ECG 14 SpO2 95 I&O: 03/06/20 03/07/20 03/08/20 06:59 06:59 06:59 Intake Total 977.1 1662 313 Output Total 1010 1539 2370 Balance -32.9 123 -2057 Result Diagrams: 03/06/20 06:00 03/06/20 06:00 Additional Labs: Accuchecks 03/07/20 03/07/20 03/06/20 11:27 04:35 22:10 POC Glucose 157 H 103 H 89 03/06/20 17:51 POC Glucose 114 H Radiology Reviewed by me: Yes EKG Reviewed by me: Yes Hospitalist ROS - Review of Systems ROS unobtainable: due to mental status Cardiovascular: reports: chest pain, orthopnea, paroxysmal noc. dyspnea, edema - Medication Medications: Active Medications Generic Name Dose Route Start Last Admin Trade Name Freq PRN Reason Stop Dose Admin Enalaprilat 2.5 mg 03/06/20 18:00 03/07/20 11:50 Enalaprilat Dihydrate 1.25 Mg/Ml Vial SLOW IVP 2.5 mg Q6HR HALIE Administration Enoxaparin Sodium 40 mg 03/07/20 09:00 03/07/20 09:16 Enoxaparin Sodium 40 Mg/0.4 Ml Syringe SC 40 mg 0900,2100 HALIE Administration Famotidine 20 mg 03/03/20 21:00 03/07/20 09:16 Famotidine/Pf 20 Mg/2ml Vial SLOW IVP 20 mg Q12HR HALIE Administration Furosemide 40 mg 03/07/20 09:00 03/07/20 09:16 Furosemide 40 Mg/4 Ml Vial IVP 40 mg DAILY HALIE Administration Haloperidol Lactate 5 mg 03/06/20 08:03 03/07/20 11:50 Haloperidol Lactate 5 Mg/Ml Vial SLOW IVP 5 mg Q4H PRN Administration Agitation Cefepime HCl 2 gm/ Sodium 100 mls @ 200 mls/hr 03/03/20 21:00 03/07/20 09:16 Chloride IVPB 100 mls Q12HR HALIE Administration Lactated Ringer's 1,000 mls @ 50 mls/hr 03/06/20 08:01 03/07/20 03:35 Lactated Ringer's IV 1,000 mls .Q20H HALIE Administration Methylprednisolone Sodium Succinate 40 mg 03/03/20 22:00 03/07/20 14:48 Methylprednisolone Sod Succ 40 Mg Vial IVP 40 mg Q8HR HALIE Administration Sodium Chloride 10 ml 03/03/20 21:00 03/07/20 09:26 Flush - Normal Saline 10 Ml Syringe IVF Not Given Q12HR HALIE - Exam General Appearance: awake alert, ill appearing Eye: PERRL ENT: normocephalic atraumatic, no oropharyngeal lesions, moist mucosa Neck: supple, no lymphadenopathy Heart: RRR, no murmur, normal peripheral pulses Respiratory: CTAB, no wheezes, no rales, normal percussion Gastrointestinal: soft, non-tender, non-distended, normal bowel sounds Extremities: 2+ LE edema Psychiatric: normal affect, normal behavior, A&O x 3 Hosp A/P (1) Respiratory failure with hypoxia and hypercapnia Code(s): J96.91 - RESPIRATORY FAILURE, UNSPECIFIED WITH HYPOXIA; J96.92 - RESPIRATORY FAILURE, UNSPECIFIED WITH HYPERCAPNIA Status: Acute Qualifiers: Chronicity: acute Qualified Code(s): J96.01 - Acute respiratory failure with hypoxia; J96.02 - Acute respiratory failure with hypercapnia (2) PNA (pneumonia) Code(s): J18.9 - PNEUMONIA, UNSPECIFIED ORGANISM Status: Acute Qualifiers: Pneumonia type: due to unspecified organism Laterality: bilateral Lung location: lower lobe of lung Qualified Code(s): J18.9 - Pneumonia, unspecified organism (3) Neurofibromatosis Status: Chronic (4) Congestive heart failure (CHF) Code(s): I50.9 - HEART FAILURE, UNSPECIFIED Status: Acute Qualifiers: Heart failure chronicity: acute (5) Polysubstance abuse Code(s): F19.10 - OTHER PSYCHOACTIVE SUBSTANCE ABUSE, UNCOMPLICATED Status: Acute - Plan #1. Acute respiratory failure with hypoxia. Likely secondary to combination of pneumonia and CHF. She is currently intubated and on mechanical ventilation. This will be continued for now until she can be weaned off. 03/05/2020. She was just extubated this morning. We appreciate pulmonary services. 03/06/2020. She remains extubated but on high flow nasal cannula. 2. Suspected bacterial pneumonia. Likely community-acquired from gram-positive infections. Continue empiric IV antibiotics. 3. Congestive heart failure. She does have evidence of increased pulmonary vascularization suspicious for CHF. Her BNP is also elevated. I agree with diuresis. 4. Metabolic encephalopathy. Likely combination of 1 and 2 above. #5. Polysubstance abuse. Her urine drug screen showed cocaine, benzodiazepines and tricyclic antidepressants.
[2020-03-08] MEDS: methylPREDNISolone Sod Succ 40 MG VIAL IVP SCH ×4 (01:42→21:16)
[2020-03-08] MEDS: Enalaprilat Dihydrate 1.25 MG/ML VIAL SLOW IVP SCH ×4 (02:04→20:22)
[2020-03-08] MEDS: Melatonin 3 MG TAB PO PRN ×2 (02:09→20:27)
[2020-03-08 04:05] LABS: Anion Gap 13 mmol/L (10-20); BUN (Urea Nitrogen) 21 mg/dL (9.8-20.1); Calc. Creatinine Clearance 182 mL/min (70-130); Calcium 8.2 mg/dL (7.8-10.44); Carbon Dioxide 30 mmol/L (22-29); Chloride 101 mmol/L (98-107); Glucose 104 mg/dL (70-105); Potassium 3.9 mmol/L (3.5-5.1); Sodium 140 mmol/L (136-145)
[2020-03-08 04:54] LABS: Band 1 % (5-11); Hemoglobin 14.9 g/dL (12.0-16.0); Lymphocytes 15 % (21-51); MDiff Complete? YES; Mean Corpuscular HGB CONC 30.8 g/dL (32.0-36.0); Mean Corpuscular Hemoglobin 28.3 pg (27.0-31.0); Mean Platelet Volume 9.3 fL (7.4-10.4); Monocytes 4 % (0-10); Neutrophil 80 % (42-75); Platelet Count 210 thou/uL (130-400); RBC Distribution Width 15.6 % (11.5-14.5); Red Blood Cell (RBC) Count 5.24 mill/uL (4.20-5.40); White Blood Cell (WBC) Count 7.3 thou/uL (4.8-10.8)
[2020-03-08] MEDS: Lactated Ringer's 1,000 ML IV SCH ×2 (05:51→20:23)
--- NOTE | 2020-03-08 08:09 | RAD ---
Chest AP view INDICATION: Chest pain COMPARISON: Prior exam dated March 07, 2020 FINDINGS: Lungs: Bilateral airspace disease is stable. Right upper lobe lung mass is stable. Cardiac silhouette: Cardiomegaly is stable. Pulmonary vasculature: Pulmonary vascular congestion persists. Pleural spaces: Small bilateral pleural effusions persist. No pneumothorax is grossly evident. Soft tissues limits evaluation of the lung apices. Upper abdomen: No abnormality seen. Osseous structures: Chronic osseous changes are stable. Additional findings: None. IMPRESSION: Stable examination. No pneumothorax.
[2020-03-08] MEDS: Cefepime 2 GM in Sodium Chloride 0.9% 100 ML IVPB SCH ×2 (09:21→20:23)
[2020-03-08] MEDS: Enoxaparin Sodium 40 MG/0.4 ML SYRINGE SC SCH ×2 (09:22→20:24)
[2020-03-08] MEDS: Famotidine/PF 20 mg/2ml Vial SLOW IVP SCH ×2 (09:22→20:23)
[2020-03-08] MEDS: Furosemide 40 MG/4 ML VIAL SLOW IVP SCH ×2 (09:22→12:51)
[2020-03-08] MEDS: Furosemide 40 MG/4 ML VIAL IVP SCH (09:26)
--- NOTE | 2020-03-08 10:57 | PRG ---
DATE OF SERVICE: 03/08/2020 SUBJECTIVE: This morning, the patient is awake, alert, responsive, less agitated. OBJECTIVE: VITAL SIGNS: Temperature 97. On nasal O2 at 4 L, saturations are 95%. Blood pressure 131/81. I's and O's have been consistently even. CHEST: No wheezing. No crackles. CARDIAC: Normal S1, normal S2. No gallops. ABDOMEN: Massive. NEUROLOGIC: She is otherwise unremarkable. DIAGNOSTIC STUDIES: X-ray shows a density in the right apex and haziness, unknown findings. Echo showed normal EF, and venogram bilaterally was done for significant pain and swelling, which showed no evidence of any clots. IMPRESSION: Respiratory failure, metabolic encephalopathy. Normal EF. Abnormal x-ray. Hypertension. PLAN: A CT chest is being ordered. She can be transferred out of the ICU to medical floor. Continue PT, supportive care. Pulmonary is going to follow while in the MICU. Job ID: [id number]
[2020-03-08 11:59] VITALS: BMI 49.8
--- NOTE | 2020-03-08 12:26 | CT ---
CT OF CHEST PERFORMED WITH CONTRAST ENHANCEMENT: History: Chest pain, pleural effusion. Evaluation of abnormal chest radiograph with right lung mass. Comparison: Portable chest performed earlier today. 06-24-2013, in addition to the previous chest radi ograph. FINDINGS: The left lung is clear of any infiltrative process. There is some linear scarring in the left base. L eft rib deformity and what appears to be surgical resection of some of the posterior left ribs is aga in noted. 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 This accounts for a portion of the density seen within the right upper lobe. The remainder of the density is related to a moderate right sided pleural effusion. There is right lower lobe atelectatic lung ch anges seen. Thyroid gland is normal in size and appearance. Thoracic aorta is normal in caliber. No mediastinal l ymphadenopathy. Visualized liver parenchyma shows no focal findings. Small gallstones are present. Edema changes with in the subcutaneous fat are consistent with some anasarca type change. IMPRESSION: Large right lateral meningocele. This accounts for some of the density in the right upper chest. The remainder of the density is related to a moderate right sided pleural effusion. Pronounced atelectati c change of the right lower lobe. 2. Deformity to the left chest wall, unchanged since the prior exam. 3. Anasarca changes. 4. Small gallstones. POS: RILEY
[2020-03-08] MEDS ORDERED: Iopamidol-370 76% 500 ML 1 ML ONE (14:03)
--- NOTE | 2020-03-08 15:20 | PDOC.HOSPP ---
- Subjective Encounter Date: 03/08/20 Encounter Time: 15:17 Subjective: Ms. 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 She required intubation and mechanical ventilation on arrival but now she is e xtubated. She has evidence of pulmonary vascular congestion concerning for CHF. There is also an element of pneumonia. She is on diuresis and also empiric antibiotics. Her urine drug screen showed benzodiazepines, cocaine tricyclic antidepressants. - Objective Vital Signs & Weight: Vital Signs (12 hours) Temp BP Pulse Ox 03/08/20 12:51 166/104 H 03/08/20 11:19 98.2 F 03/08/20 08:00 97 03/08/20 07:17 97.8 F 03/08/20 05:51 166/104 H 03/08/20 03:59 97.8 F Weight Admit Weight 270 lb 1.06 oz Weight 272 lb 11.389 oz Most Recent Monitor Data Heart Rate from ECG 102 NIBP 153/111 NIBP BP-Mean 125 Respiration from ECG 24 SpO2 96 I&O: 03/07/20 03/08/20 03/09/20 06:59 06:59 06:59 Intake Total 1662 689 Output Total 1539 3520 150 Balance 123 -2831 -150 Result Diagrams: 03/08/20 03:19 03/08/20 03:19 Additional Labs: Accuchecks 03/08/20 03/08/20 12:01 05:58 POC Glucose 120 H 104 H Radiology Reviewed by me: Yes EKG Reviewed by me: Yes Hospitalist ROS - Review of Systems Respiratory: reports: shortness of breath Gastrointestinal: reports: nausea - Medication Medications: Active Medications Generic Name Dose Route Start Last Admin Trade Name Freq PRN Reason Stop Dose Admin Enalaprilat 2.5 mg 03/06/20 18:00 03/08/20 12:51 Enalaprilat Dihydrate 1.25 Mg/Ml Vial SLOW IVP 2.5 mg Q6HR HALIE Administration Enoxaparin Sodium 40 mg 03/07/20 09:00 03/08/20 09:22 Enoxaparin Sodium 40 Mg/0.4 Ml Syringe SC 40 mg 0900,2100 HALIE Administration Famotidine 20 mg 03/03/20 21:00 03/08/20 09:22 Famotidine/Pf 20 Mg/2ml Vial SLOW IVP 20 mg Q12HR HALIE Administration Furosemide 40 mg 03/08/20 14:00 03/08/20 12:51 Furosemide 40 Mg/4 Ml Vial SLOW IVP 40 mg 0600,1400 HALIE Administration Haloperidol Lactate 5 mg 03/06/20 08:03 03/07/20 11:50 Haloperidol Lactate 5 Mg/Ml Vial SLOW IVP 5 mg Q4H PRN Administration Agitation Cefepime HCl 2 gm/ Sodium 100 mls @ 200 mls/hr 03/03/20 21:00 03/08/20 09:21 Chloride IVPB 100 mls Q12HR HALIE Administration Lactated Ringer's 1,000 mls @ 50 mls/hr 03/06/20 08:01 03/08/20 05:51 Lactated Ringer's IV 1,000 mls .Q20H HALIE Administration Melatonin 3 mg 03/06/20 23:54 03/08/20 02:09 Melatonin 3 Mg Tab PO 3 mg HSPRN PRN Administration Insomnia Methylprednisolone Sodium Succinate 40 mg 03/03/20 22:00 03/08/20 12:51 Methylprednisolone Sod Succ 40 Mg Vial IVP 40 mg Q8HR HALIE Administration Sodium Chloride 10 ml 03/03/20 21:00 03/08/20 09:23 Flush - Normal Saline 10 Ml Syringe IVF 10 ml Q12HR HALIE Administration - Exam General Appearance: awake alert, ill appearing Eye: PERRL, anicteric sclera ENT: normocephalic atraumatic, no oropharyngeal lesions, moist mucosa Neck: supple, symmetric, no JVD, no thyromegaly, no lymphadenopathy Heart: RRR, no murmur Respiratory: CTAB, no wheezes, no rales, no ronchi, normal chest expansion, rhonchi Gastrointestinal: soft, non-tender, non-distended, normal bowel sounds Musculoskeletal: normal tone, normal strength, no muscle wasting Psychiatric: normal affect, normal behavior, A&O x 3 Hosp A/P (1) Respiratory failure with hypoxia and hypercapnia Code(s): J96.91 - RESPIRATORY FAILURE, UNSPECIFIED WITH HYPOXIA; J96.92 - RESPIRATORY FAILURE, UNSPECIFIED WITH HYPERCAPNIA Status: Acute Qualifiers: Chronicity: acute Qualified Code(s): J96.01 - Acute respiratory failure with hypoxia; J96.02 - Acute respiratory failure with hypercapnia (2) PNA (pneumonia) Code(s): J18.9 - PNEUMONIA, UNSPECIFIED ORGANISM Status: Acute Qualifiers: Pneumonia type: due to unspecified organism Laterality: bilateral Lung location: lower lobe of lung Qualified Code(s): J18.9 - Pneumonia, unspecified organism (3) Neurofibromatosis Status: Chronic (4) Congestive heart failure (CHF) Code(s): I50.9 - HEART FAILURE, UNSPECIFIED Status: Acute Qualifiers: Heart failure chronicity: acute (5) Polysubstance abuse Code(s): F19.10 - OTHER PSYCHOACTIVE SUBSTANCE ABUSE, UNCOMPLICATED Status: Acute - Plan #1. Acute respiratory failure with hypoxia. Likely secondary to combination of pneumonia and CHF. She is currently intubated and on mechanical ventilation. This will be continued for now until she can be weaned off. 03/05/2020. She was just extubated this morning. We appreciate pulmonary services. 03/06/2020. She remains extubated but on high flow nasal cannula. 2. Suspected bacterial pneumonia. Likely community-acquired from gram-positive infections. Continue empiric IV antibiotics. 3. Congestive heart failure. She does have evidence of increased pulmonary vascularization suspicious for CHF. Her BNP is also elevated. I agree with diuresis. 4. Metabolic encephalopathy. Likely combination of 1 and 2 above. #5. Polysubstance abuse. Her urine drug screen showed cocaine, benzodiazepines and tricyclic antidepressants.
[2020-03-09] MEDS: Enalaprilat Dihydrate 1.25 MG/ML VIAL SLOW IVP SCH ×4 (01:43→19:59)
[2020-03-09] MEDS: methylPREDNISolone Sod Succ 40 MG VIAL IVP SCH ×2 (05:33→15:03)
[2020-03-09] MEDS: Furosemide 40 MG/4 ML VIAL SLOW IVP SCH ×2 (05:34→15:03)
[2020-03-09 05:49] LABS: #Lymphocytes 0.9 thou/uL (1.20-3.40); #Monocytes 0.5 thou/uL (0.11-0.59); #Neutrophils 6.2 thou/uL (1.40-6.50); %Basophils 0.1 % (0.0-1.0); %Eosinophils 0.2 % (0.0-10.0); %Lymphocytes 11.1 % (21.0-51.0); %Neutrophils 81.6 % (42.0-75.0); Hemoglobin 15.5 g/dL (12.0-16.0); Mean Corpuscular HGB CONC 30.3 g/dL (32.0-36.0); Mean Corpuscular Hemoglobin 28.1 pg (27.0-31.0); Mean Corpuscular Volume 92.9 fL (78.0-98.0); Mean Platelet Volume 9.3 fL (7.4-10.4); Platelet Count 185 thou/uL (130-400); RBC Distribution Width 15.2 % (11.5-14.5); White Blood Cell (WBC) Count 7.6 thou/uL (4.8-10.8)
[2020-03-09 06:12] LABS: Anion Gap 14 mmol/L (10-20); BUN (Urea Nitrogen) 21 mg/dL (9.8-20.1); Calc. Creatinine Clearance 182 mL/min (70-130); Calcium 8.9 mg/dL (7.8-10.44); Carbon Dioxide 31 mmol/L (22-29); Chloride 101 mmol/L (98-107); Glucose 109 mg/dL (70-105); Potassium 3.8 mmol/L (3.5-5.1); Sodium 142 mmol/L (136-145)
[2020-03-09] MEDS: Cefepime 2 GM in Sodium Chloride 0.9% 100 ML IVPB SCH ×2 (08:34→20:01)
[2020-03-09] MEDS: Famotidine/PF 20 mg/2ml Vial SLOW IVP SCH ×2 (08:34→20:01)
[2020-03-09] MEDS: Enoxaparin Sodium 40 MG/0.4 ML SYRINGE SC SCH ×2 (08:34→20:02)
--- NOTE | 2020-03-09 08:52 | RAD ---
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 Heart size: Within normal limits. Lungs: Clear of acute process. Stable appearing small-moderate right-sided pleural effusion. Stable left costophrenic angle blunting . IMPRESSION: Stable appearing right-sided pleural effusion with numerous other findings but stable from prior stud y.
[2020-03-09] MEDS: Lactated Ringer's 1,000 ML IV SCH (16:30)
--- NOTE | 2020-03-09 17:35 | PDOC.HOSPP ---
- Subjective Encounter Date: 03/09/20 Encounter Time: 16:00 Subjective: F/u : pleural effusion, SOB The patient still feels short of breath when she lays down. She used melatonin to help her sleep, but she wakes up in the middle of the night and can't go back to sleep. She states she has sleep apnea and was diagnosed at [facility] with it, but never got her CPAP machine because she could not afford it She was on 5L of oxygen yesterday and has been weaned down to 3L. She denies cough or chest pain. She states her SOB started a month before she got admitted to the hospital and has been gradual. She was told she had a pleural effusion at that time, but no thoracentesis or drainage was recommended The patient states that she had venous stasis surgery last month and was prescribed narcotics on discharge. She sold her drugs for money and planned to spend her money on clothes and food, but instead bought drugs with it. She then smoked crack for two days straight. She says "I was so high, I don't even know how I made it home. I told my daughter to call the ambulance and next thing I knew I was in the hospital." She was previously sober for three years. - Objective Vital Signs & Weight: Vital Signs (12 hours) Temp Pulse Resp BP BP Pulse Ox 03/09/20 12:39 98.1 F 107 H 18 152/99 H 91 L 03/09/20 11:29 143/91 H 03/09/20 10:35 96 03/09/20 08:13 98.2 F 111 H 20 156/99 H 96 03/09/20 05:47 145/87 H 03/09/20 05:45 98.4 F 87 18 145/87 H 95 Weight Admit Weight 270 lb 1.06 oz Weight 272 lb 11.389 oz Most Recent Monitor Data Heart Rate from ECG 102 NIBP 153/111 NIBP BP-Mean 125 Respiration from ECG 24 SpO2 96 I&O: 03/08/20 03/09/20 03/10/20 06:59 06:59 06:59 Intake Total 689 120 Output Total 3520 150 Balance -2831 -30 Result Diagrams: 03/09/20 05:21 03/09/20 05:21 Additional Labs: Accuchecks 03/09/20 03/09/20 03/09/20 16:29 11:40 04:40 POC Glucose 102 H 132 H 112 H 03/09/20 00:32 POC Glucose 107 H Hospitalist ROS - Review of Systems Constitutional: denies: fever, chills - Medication Medications: Active Medications Generic Name Dose Route Start Last Admin Trade Name Freq PRN Reason Stop Dose Admin Enalaprilat 2.5 mg 03/06/20 18:00 03/09/20 11:29 Enalaprilat Dihydrate 1.25 Mg/Ml Vial SLOW IVP 2.5 mg Q6HR HALIE Administration Enoxaparin Sodium 40 mg 03/07/20 09:00 03/09/20 08:34 Enoxaparin Sodium 40 Mg/0.4 Ml Syringe SC 40 mg 0900,2100 HALIE Administration Famotidine 20 mg 03/03/20 21:00 03/09/20 08:34 Famotidine/Pf 20 Mg/2ml Vial SLOW IVP 20 mg Q12HR HALIE Administration Furosemide 40 mg 03/08/20 14:00 03/09/20 15:03 Furosemide 40 Mg/4 Ml Vial SLOW IVP 40 mg 0600,1400 HALIE Administration Haloperidol Lactate 5 mg 03/06/20 08:03 03/07/20 11:50 Haloperidol Lactate 5 Mg/Ml Vial SLOW IVP 5 mg Q4H PRN Administration Agitation Cefepime HCl 2 gm/ Sodium 100 mls @ 200 mls/hr 03/03/20 21:00 03/09/20 08:34 Chloride IVPB 100 mls Q12HR HALIE Administration Lactated Ringer's 1,000 mls @ 50 mls/hr 03/06/20 08:01 03/09/20 16:30 Lactated Ringer's IV Not Given .Q20H HALIE Melatonin 3 mg 03/06/20 23:54 03/08/20 20:27 Melatonin 3 Mg Tab PO 3 mg HSPRN PRN Administration Insomnia Methylprednisolone Sodium Succinate 40 mg 03/03/20 22:00 03/09/20 15:03 Methylprednisolone Sod Succ 40 Mg Vial IVP 40 mg Q8HR HALIE Administration Sodium Chloride 10 ml 03/03/20 21:00 03/09/20 08:35 Flush - Normal Saline 10 Ml Syringe IVF Not Given Q12HR HALIE - Exam General Appearance: NAD, awake alert General - other findings: morbidly obese Eye: anicteric sclera ENT: normocephalic atraumatic, no oropharyngeal lesions Neck: no JVD Heart: RRR, no murmur, no gallops, no rubs Respiratory: CTAB, no wheezes, no rales, no ronchi Gastrointestinal: soft, non-tender, non-distended, normal bowel sounds Extremities: no cyanosis, no clubbing, 1+ LE edema Skin - other findings: neurofibromatosis spot diffuse over body Neurological: cranial nerve grossly intact Musculoskeletal: normal tone, normal strength, no muscle wasting Hosp A/P - Plan Chest CT 03/08: extensive anasarca. Large right lateral meningocele. Atelectasis right lower lobe. Anasarca. Small gallstones Chest X ray 03/09: stable right sided pleural effusion ECHO: severe MR This is a 54 year old female with history of drug addiction, sleep apnea, who presented with shortness of breath after she smoked crack for two days. She was intubated and subsequently extubated on 03/05 and transferred to the floor . She continues on IV cefepime and diuretics Acute hypoxic respiratory failure - secondary to pulmonary edema possibly from severe MR, versus pneumonia - CT chest showed extensive anasarca. - continue IV cefepime for one more day. Continue IV lasix. Discontinue IV steroids and switch to oral prednisone - ECHO showed severe MR. Will place cardiology consult - continue to wean oxygen sat to 92% . KASI - will order CPAP therapy for at night History of crack use/TCA/benzo - patient states she will go to meetings on discharge, doesn't want rehab at this time Neurofibromatosis - follows with MD Castillo
--- NOTE | 2020-03-09 18:47 | PRG ---
DATE OF SERVICE: 03/09/2020 SUBJECTIVE: Luma Parr is clinically unchanged. She is sitting on the side of the bed. OBJECTIVE: VITAL SIGNS: She is afebrile, heart rate is 105, respiratory rate is 18, oximetry is 96% on 2 L cannula, and blood pressure is 152/99. LUNGS: Remarkable for decreased breath sounds at right base. She has distant breath sounds because of her size. HEART: Regular rhythm. S1 and S2 are distant. ABDOMEN: Fairly large. EXTREMITIES: Unchanged. DIAGNOSTIC STUDIES: CT of her chest showed a meningocele and an adjacent effusion. I am not sure if anything needs to be done with that. I asked her if she remember what Dr. Valente said yesterday and she said he told her "don't do drugs." Dr. Valente checked out to me, did mention that she was a drug user, so not sure that was in the conversation. She did have a drug screen positive for cocaine. Her moderate to severe mitral regurgitation may explain her effusion. We will continue to follow. Job ID: [id number] [facility]
[2020-03-09] MEDS: Lorazepam 0.5 MG TAB PO PRN (19:58)
[2020-03-09] MEDS: Melatonin 3 MG TAB PO PRN (20:01)
[2020-03-10] MEDS: Enalaprilat Dihydrate 1.25 MG/ML VIAL SLOW IVP SCH ×4 (00:20→18:52)
[2020-03-10] MEDS: Furosemide 40 MG/4 ML VIAL SLOW IVP SCH ×2 (05:39→13:32)
[2020-03-10 09:19] LABS: Anion Gap 14 mmol/L (10-20); BUN (Urea Nitrogen) 20 mg/dL (9.8-20.1); Calc. Creatinine Clearance 182 mL/min (70-130); Calcium 9.2 mg/dL (7.8-10.44); Carbon Dioxide 33 mmol/L (22-29); Chloride 99 mmol/L (98-107); Glucose 111 mg/dL (70-105); Potassium 3.5 mmol/L (3.5-5.1); Sodium 142 mmol/L (136-145)
[2020-03-10 09:43] LABS: Hemoglobin 15.8 g/dL (12.0-16.0); Lymphocytes 30 % (21-51); MDiff Complete? YES; Mean Corpuscular HGB CONC 29.5 g/dL (32.0-36.0); Mean Corpuscular Hemoglobin 27.3 pg (27.0-31.0); Mean Corpuscular Volume 92.5 fL (78.0-98.0); Mean Platelet Volume 9.5 fL (7.4-10.4); Monocytes 5 % (0-10); Neutrophil 65 % (42-75); Platelet Count 173 thou/uL (130-400); RBC Distribution Width 15.6 % (11.5-14.5); Red Blood Cell (RBC) Count 5.77 mill/uL (4.20-5.40); Target Cells SLIGHT = 2-5 cells (100X) (0-1/hpf); White Blood Cell (WBC) Count 8.3 thou/uL (4.8-10.8)
[2020-03-10] MEDS: predniSONE 20 MG TAB PO SCH (10:23)
[2020-03-10] MEDS: Cefuroxime Axetil 250 MG TAB PO SCH ×2 (10:24→19:35)
[2020-03-10] MEDS: Enoxaparin Sodium 40 MG/0.4 ML SYRINGE SC SCH ×2 (10:24→19:35)
[2020-03-10] MEDS: Famotidine/PF 20 mg/2ml Vial SLOW IVP SCH ×2 (10:24→19:35)
--- NOTE | 2020-03-10 16:20 | PDOC.HOSPP ---
- Subjective Encounter Date: 03/10/20 Encounter Time: 10:00 Subjective: F/u: pulmonary edema, KASI The patient is down to 1L nasal cannula 93% today. SHe reports improvement in her shortness of breath. She was sitting in the chair and sleeping with her head leaned forward on the bed, because she states this is more comfortable for her. She denies chest pain or cough SHe wore the BIPAP last night and reported urinating frequently with the BIPAP - Objective Vital Signs & Weight: Vital Signs (12 hours) Temp Pulse Resp BP BP Pulse Ox 03/10/20 15:27 93 L 03/10/20 13:32 145/94 H 03/10/20 12:43 93 L 03/10/20 12:00 93 L 03/10/20 08:16 97.9 F 97 20 153/89 H 93 L 03/10/20 08:15 93 L 03/10/20 05:39 145/94 H Weight Admit Weight 270 lb 1.06 oz Weight 272 lb 11.389 oz Most Recent Monitor Data Heart Rate from ECG 102 NIBP 153/111 NIBP BP-Mean 125 Respiration from ECG 24 SpO2 96 I&O: 03/09/20 03/10/20 03/11/20 06:59 06:59 06:59 Intake Total 120 1500 Output Total 150 Balance -30 1500 Result Diagrams: 03/10/20 08:50 03/10/20 08:50 Additional Labs: Accuchecks 03/10/20 03/10/20 03/10/20 16:02 11:07 05:32 POC Glucose 107 H 86 92 03/10/20 03/09/20 00:18 16:29 POC Glucose 114 H 102 H Hospitalist ROS - Review of Systems Constitutional: denies: fever, chills - Medication Medications: Active Medications Generic Name Dose Route Start Last Admin Trade Name Freq PRN Reason Stop Dose Admin Cefuroxime Axetil 250 mg 03/10/20 09:00 03/10/20 10:24 Cefuroxime Axetil 250 Mg Tab PO 250 mg Q12HR HALIE Administration Enalaprilat 2.5 mg 03/06/20 18:00 03/10/20 13:32 Enalaprilat Dihydrate 1.25 Mg/Ml Vial SLOW IVP 2.5 mg Q6HR HALIE Administration Enoxaparin Sodium 40 mg 03/07/20 09:00 03/10/20 10:24 Enoxaparin Sodium 40 Mg/0.4 Ml Syringe SC 40 mg 0900,2100 HALIE Administration Famotidine 20 mg 03/03/20 21:00 03/10/20 10:24 Famotidine/Pf 20 Mg/2ml Vial SLOW IVP 20 mg Q12HR HALIE Administration Furosemide 40 mg 03/08/20 14:00 03/10/20 13:32 Furosemide 40 Mg/4 Ml Vial SLOW IVP 40 mg 0600,1400 HALIE Administration Haloperidol Lactate 5 mg 03/06/20 08:03 03/07/20 11:50 Haloperidol Lactate 5 Mg/Ml Vial SLOW IVP 5 mg Q4H PRN Administration Agitation Lorazepam 0.5 mg 03/09/20 13:22 03/09/20 19:58 Lorazepam 0.5 Mg Tab PO 0.5 mg Q4H PRN Administration Anxiety Melatonin 3 mg 03/06/20 23:54 03/09/20 20:01 Melatonin 3 Mg Tab PO 3 mg HSPRN PRN Administration Insomnia Prednisone 40 mg 03/10/20 08:00 03/10/20 10:23 Prednisone 20 Mg Tab PO 40 mg QAM-WM HALIE Administration Sodium Chloride 10 ml 03/03/20 21:00 03/10/20 10:29 Flush - Normal Saline 10 Ml Syringe IVF 10 ml Q12HR HALIE Administration - Exam General Appearance: NAD, awake alert Eye: PERRL, anicteric sclera ENT: normocephalic atraumatic, no oropharyngeal lesions Neck: no JVD Heart: RRR, no murmur, no gallops, no rubs Respiratory: CTAB, no wheezes, no rales, no ronchi Gastrointestinal: soft, non-tender, non-distended, normal bowel sounds, no hepatomegaly Extremities: no cyanosis, no clubbing, no edema Skin: normal turgor, no lesions, no rashes Hosp A/P - Plan Chest CT 03/08: extensive anasarca. Large right lateral meningocele. Atelectasis right lower lobe. Anasarca. Small gallstones Chest X ray 03/09: stable right sided pleural effusion ECHO: severe MR This is a 54 year old female with history of drug addiction, sleep apnea, who presented with shortness of breath after she smoked crack for two days. She was intubated and subsequently extubated on 03/05 and transferred to the floor . She continues on IV cefepime and diuretics Acute hypoxic respiratory failure - secondary to pulmonary edema possibly from severe MR, versus pneumonia - CT chest showed extensive anasarca. Continue IV lasix 40 mg IV BID. Cardiology consulted for severe MR, recommended a MAURICE so patient was transferred to telemetry - received 7 days of cefepime. Switched to oral cefuroxime. Continue oral prednisone -wean oxygen saturation to 92% KASI - will order CPAP therapy for at night History of crack use/TCA/benzo - patient states she will go to meetings on discharge, doesn't want rehab at this time Neurofibromatosis - follows with MD Castillo
[2020-03-10] MEDS: Lorazepam 0.5 MG TAB PO PRN (19:35)
[2020-03-10] MEDS: Melatonin 3 MG TAB PO PRN (19:35)
[2020-03-10 19:49] VITALS: TEMP 98.1
--- NOTE | 2020-03-11 00:07 | CON ---
DATE OF CONSULTATION: HISTORY OF PRESENT ILLNESS: Luma Parr is a 54-year-old black female, who was admitted on March 03 with respiratory failure, requiring intubation. In October, she tested positive for COVID. Then when she presented here with increased shortness of breath, was intubated in the emergency room. Chest x-ray showed bilateral infiltrates. She was treated with antibiotics and diuresed and ultimately improved. She has a history of obstructive sleep apnea, but has never used CPAP. She denies any chest discomfort. Ultimately, she was extubated. An echocardiogram revealed moderate to severe mitral regurgitation, and Cardiology consultation is requested. PAST MEDICAL HISTORY: Neurofibromatosis, obesity. MEDICATIONS: At home, none. ALLERGIES: ASPIRIN CAUSES ASTHMA. SOCIAL HISTORY: She abuses cocaine. PHYSICAL EXAMINATION: VITAL SIGNS: Blood pressure 145/94, pulse of 97. HEENT: PERRL. CHEST: Clear. CARDIAC: S1 and S2 normal without any S3 or S4. I do not hear a murmur. ABDOMEN: Obese. Normal bowel sounds. No tenderness or organomegaly. EXTREMITIES: Revealed 2+ pretibial edema. NEUROLOGIC: Grossly intact. SKIN: Revealed neurofibromatosis. LABORATORY DATA: I do not see an EKG on the chart. Echocardiogram revealed ejection fraction of 50% to 55% with moderately enlarged right ventricle, mild left atrial enlargement, moderate to severe mitral regurgitation, and moderate tricuspid regurgitation. Hemoglobin 15.8, hematocrit 53.4, white count 8300, platelets 173,000. Sodium 142, potassium 3.5, chloride 99, carbon dioxide 33, BUN 20, creatinine 0.69. Cardiac enzymes when admitted were normal. IMPRESSION: 1. Moderate to severe mitral regurgitation seen on echocardiogram. However, the left ventricular end-diastolic dimension is 4.5 cm and she has normal ejection fraction. Her mitral regurgitation is not hemodynamically significant with such a small left ventricle. 2. Right ventricular enlargement, probably related to untreated obstructive sleep apnea. 3. Status post respiratory arrest. 4. Obesity. 5. Cocaine abuse. 6. Neurofibromatosis. 7. Untreated KASI. RECOMMENDATIONS: The patient needs to continue to be diuresed and should also be discharged on diuretics and follow up with her primary physician. We discussed the cardiac dangers of cocaine. She also needs to be treated with CPAP at home. I will make arrangements to see her again in six months and will repeat an echocardiogram at that time. Job ID: [id number] [facility]
[2020-03-11] MEDS: Lorazepam 0.5 MG TAB PO PRN (00:26)
[2020-03-11] MEDS: Enalaprilat Dihydrate 1.25 MG/ML VIAL SLOW IVP SCH ×2 (00:26→06:02)
[2020-03-11] MEDS: Furosemide 40 MG/4 ML VIAL SLOW IVP SCH (06:02)
[2020-03-11 06:36] LABS: Anion Gap 11 mmol/L (10-20); BUN (Urea Nitrogen) 18 mg/dL (9.8-20.1); Calc. Creatinine Clearance 206 mL/min (70-130); Calcium 8.8 mg/dL (7.8-10.44); Carbon Dioxide 35 mmol/L (22-29); Chloride 101 mmol/L (98-107); Glucose 84 mg/dL (70-105); Potassium 3.5 mmol/L (3.5-5.1); Sodium 143 mmol/L (136-145)
[2020-03-11 07:00] LABS: #Eosinphils 0.1 thou/uL (0.0-0.7); #Lymphocytes 1.9 thou/uL (1.20-3.40); #Neutrophils 5.1 thou/uL (1.40-6.50); %Basophils 0.3 % (0.0-1.0); %Eosinophils 1.1 % (0.0-10.0); %Lymphocytes 23.4 % (21.0-51.0); %Neutrophils 63.2 % (42.0-75.0); Hemoglobin 14.8 g/dL (12.0-16.0); Mean Corpuscular Hemoglobin 27.6 pg (27.0-31.0); Mean Corpuscular Volume 92.2 fL (78.0-98.0); Mean Platelet Volume 9.7 fL (7.4-10.4); Platelet Count 149 thou/uL (130-400); RBC Distribution Width 15.5 % (11.5-14.5); Red Blood Cell (RBC) Count 5.34 mill/uL (4.20-5.40); White Blood Cell (WBC) Count 8.1 thou/uL (4.8-10.8)
[2020-03-11 07:41] VITALS: BP 150/99
[2020-03-11] MEDS: predniSONE 20 MG TAB PO SCH (09:41)
[2020-03-11] MEDS: Cefuroxime Axetil 250 MG TAB PO SCH (09:42)
[2020-03-11] MEDS: Enoxaparin Sodium 40 MG/0.4 ML SYRINGE SC SCH (09:42)
[2020-03-11] MEDS: Famotidine/PF 20 mg/2ml Vial SLOW IVP SCH (09:43)
--- NOTE | 2020-03-11 20:06 | PDOC.DS.DS ---
Provider - Provider Date of Admission: 03/03/20 15:42 Date of Discharge: 03/11/20 Admitting Provider: Jon Devi MD Consultations: Cardiology (Dr. Bustamante) Primary Care Physician: Tarun Merida MD Course - Hospital Course Hospital Course: Brief HPI: 50-year-old female with a past medical history of obesity, headaches, neurofibromatosis who presented to the emergency room due to worsening shortness of breath. Patient reported that she had smoked crack for 2 days straight and she felt very "high". She walked to her house and the following day was unable to breathe and came to the hospital. On arrival to the ER the patient was severely hypoxic and was intubated. Her chest x-ray showed bilateral infiltrates. He had a pH of 7.4 and a PCO2 of 49 on 03/03. She was started on IV antibiotics and admitted for further workup. Hospital Course: Acute hypoxic respiratory failure pulmonary edema from severe MR versus pneumonia versus KASI: The patient was intubated. She was also started on IV Lasix for possible pulmonary edema. She was extubated on 03/05. She was transferred to the floor and was continued on IV Lasix 40 mg twice daily. She completed 7 days of IV cefepime as well. ECHO showed severe MR. Cardiology was consulted and did not recommend any valve replacement due to her normal LV size and ejection fraction. She responded very well to diuretics and was weaned off oxygen. Repeat chest ray 03/09 showed stable right sided pleural effusion. Pulmonary was following and did no trecommend any thoracentesis. She had some crackles at the lung bases, so was was discharged on cefuroxime to 50 mg p.o. every 12 hours for 2 more days for pneumonia treatment and lasix 40 mg twice daily. She does have a history of KASI and states that she was not able to afford her CPAP at [facility], [place]. She was advised to follow-up with her PCP soon as possible and get her CPAP machine. Acute encephalopathy: Patient was confused after she was extubated for few days. This may have been secondary to drug withdrawal versus delirium. Her mental status returned to normal at the time of discharge. CT scan of her head was unremarkable History of cocaine use/TCA/benzo: Patient tested positive for cocaine, TCAs and benzos. Patient stated that she had relapsed when she had received narcotics from a varicose vein surgery last month. She denied wanting to go to inpatient rehab. She will go to susbstance abuse meetings on discharge. Peripheral edema: Patient was noted to have 2-3+ peripheral edema in bilateral lower extremities. Bilateral Doppler showed no evidence of DVT. She will be discharged with diuretics Neurofibromatosis: Patient falls with MD Castillo Pertinent Studies: CT brain 03/03: no acute abnormality Chest Xray 03/03: mass like density at the right lung apex. Extensive bilateral airspace disease and pulmonary vascular congestion Chest Xray 03/05: persistent multifocal interstitial and alveolar opacities. Bilateral effusions. Chest X ray 03/06: stable cardiomegaly and pulmonary vascular congestion with bilateral airspace disease and small bilateral effusions Chest CT 03/08: extensive anasarca. Large right lateral meningocele. Atelectasis right lower lobe. Anasarca. Small gallstones Chest X ray 03/09: stable right sided pleural effusion Venogram 03/07: no DVT of bilateral lower extremities. Mild bilateral lower extremity soft tissue edema. Evidence for CHF ECHO: severe MR , moderate TR, EF 50-55%. Procedures: Intubation Resuscitation Status: 03/03/20 18:16 Resuscitation Status Routine Resuscitation Status: FULL: Full Resuscitation - Labs Lab Results: 03/11/20 06:05 03/11/20 06:05 Abnormal Lab Results - Last 48 hrs 03/10/20 08:50: Carbon Dioxide 33 H 03/10/20 08:50: RBC 5.77 H, Hct 53.4 H, MCHC 29.5 L, RDW 15.6 H 03/11/20 06:05: Carbon Dioxide 35 H 03/11/20 06:05: Hct 49.2 H, MCHC 30.0 L, RDW 15.5 H, Monocytes % 12.0 H, Monocytes # 1.0 H Microbiology - Entire Visit 03/03/20 16:27 Venous blood - Left Arm Blood Culture - Final NO GROWTH IN 5 DAYS 03/03/20 10:51 Venous blood - Left Arm Blood Culture - Final NO GROWTH IN 5 DAYS 03/04/20 15:00 Sputum Respiratory Culture - Final 03/03/20 14:55 Urine cartwright catheter Urine Culture - Final NO GROWTH AT 48 HOURS 03/03/20 15:53 Nasal swab Influenza Types A,B Direct EIA - Final - Physical Exam Vitals: Weight Admit Weight 270 lb 1.06 oz Weight 272 lb 11.389 oz Most Recent Monitor Data Heart Rate from ECG 102 NIBP 153/111 NIBP BP-Mean 125 Respiration from ECG 24 SpO2 96 Physical Exam: General Appearance: NAD, awake alert Eye: PERRL, anicteric sclera ENT: normocephalic atraumatic, no oropharyngeal lesions Neck: no JVD Heart: RRR, no murmur, no gallops, no rubs Respiratory: mild crackles at the bases Gastrointestinal: soft, non-tender, non-distended, normal bowel sounds, no hepatomegaly Extremities: no cyanosis, no clubbing, 2+ pitting edema Skin: She has multiple caf au lait spots and neurofibromas on her skin Problem - Time spent with Patient (mins): 35 Plan - Discharge Medications Prescriptions: Cefuroxime Axetil [Ceftin] 250 mg PO Q12HR #4 tab Furosemide 40 mg PO BID #60 tablet predniSONE 40 mg PO QAM-WM #4 tab Home Medications: Medication Instructions Recorded Confirmed Type Cefuroxime Axetil [Ceftin] 250 mg PO Q12HR #4 tab 03/11/20 Rx Furosemide 40 mg PO BID #60 tablet 03/11/20 Rx predniSONE 40 mg PO QAM-WM #4 tab 03/11/20 Rx Allergies: aspirin Allergy (Verified 03/03/20 20:39) Nausea - Discharge Instructions Discharge Instructions:: You presented with fluid in your lungs versus pneumonia. You were treated with antibiotics for 8 days. Continue antibiotics for two more days. Take prednisone for four more days for chest congestion. Take lasix 40 mg twice daily. You do have a leaky mitral valve, but the sample collector here (Dr. Bustamante) did not feel it needs to be replaced at this time. Follow up with your primary doctor in a week and get repeat labs with kidney function and potassium level. You still have some fluid on the right side of your chest, consider a repeat chest X ray in a week. You also have sleep apnea. Please follow up with your primary and get a CPAP machine as soon as possible. Stop smoking cocaine and marijuana and consider following up with an outpatient rehab. Activity:: Activity as Tolerated Nourishment:: Heart Healthy Diet - Follow up Plan Referrals: Pual Bustamante MD [Active] - Tarun Merida MD [Primary Care Provider] - Robert Gallegos MD [Active] - Disposition: HOME Quality - Care Measures CORE MEASURES:: N/A
--- NOTE | 2020-03-18 01:27 | PQF ---
CLINICAL DOCUMENTATION CLARIFICATION FORM: Dear : Isabel Thorpe MD Date / Time: 03/18/2020 Please exercise your independent, professional judgment in responding to the clarification form. Clinical indicators are provided on the bottom of this form for your review Please check appropriate box(es): HEART FAILURE: A. ACUITY [X ] Acute [ ] Acute on Chronic [ ] Chronic B. TYPE: [ ] Systolic / HFrEF [ X ] Diastolic / HFpEF [ ] Combined Systolic / Diastolic [ ] Hypertensive Heart and Kidney disease [ ] Hypertensive Heart Disease [ ] Hypertensive Kidney Disease [ ] Other diagnosis (Please specify if any) [ ] Unable to determine In addition, please specify: Present on Admission (POA): [ X ] Yes [ ] No [ ] Unable to determine Physician Signature: Date/Time: For continuity of documentation, please document condition throughout progress notes and discharge summary. Thank You. To be completed by CDI/Coding staff for physician review: Present Clinical Indicators - Signs / Symptoms / Labs Results and Location in Medical Record [x] Ejection Fraction = 50-55% Echo on 03/07 [ ] Dyspnea, Hypoxia [ ] Peripheral edema [x] Elevated BNP 358.8 H Laboratory on 03/03 [x] Congestive heart failure Hospitalist PN on 03/04 [x] Orthopnea / SOB / dyspnea SOB- H&P on [x] Bilateral effusion Chest x ray on 03/05 [x] Chest: Pulmonary edema ED provider report on 03/14 [ ] Arrhythmia--tachycardia Present Risk Factors Results and Location in Medical Record [ ] History of CAD/ischemic heart disease [ ] CKD Hypertension [x] KASI Hospitalist PN on 03/09 Present Treatments Results and Location in Medical Record [x] Furosemide 40 mg Medication on 03/03 [x] Furosemide 40 mg IV Medication on 03/06 [x] Furosemide 40 mg IV Medication on 03/07,03/08 [ ] Oxygen [ ] AICD [ ] Cardiology Consult CDS/Inlayer Signature: AAS Phone #: Date/Time: 03/18/2020 This is a permanent part of the Medical Record MTDD
== END 2020-03-11 12:26 | disposition home or self-care (01) | DRG 208 ==
LOC: ERS 14:11 → CCU 15:42 → IMCU/EMU 03-07 12:18 → T4-B 03-08 14:03
PROVIDERS: ADMIT Hospitalist; ATTEND Hospitalist
PROC: 5A1945Z Respiratory Ventilation, 24-96 Consecutive Hours (ICD-10-PCS; principal; 2020-03-03)
PROC: 0BH17EZ Insertion of Endotracheal Airway into Trachea, Via Natural or Artificial Opening (ICD-10-PCS; 2020-03-03)
DX: J96.01 Acute respiratory failure with hypoxia (principal); G93.41 Metabolic encephalopathy; J18.9 Pneumonia, unspecified organism; I50.31 Acute diastolic (congestive) heart failure; Z68.42 Body mass index [BMI] 45.0-49.9, adult; L03.116 Cellulitis of left lower limb; E66.01 Morbid (severe) obesity due to excess calories; F19.10 Other psychoactive substance abuse, uncomplicated; J96.02 Acute respiratory failure with hypercapnia; G47.33 Obstructive sleep apnea (adult) (pediatric); G43.909 Migraine, unspecified, not intractable, without status migrainosus; I11.0 Hypertensive heart disease with heart failure; N18.9 Chronic kidney disease, unspecified; Z88.6 Allergy status to analgesic agent; Q85.00 Neurofibromatosis, unspecified; I34.0 Nonrheumatic mitral (valve) insufficiency; F14.10 Cocaine abuse, uncomplicated; F13.10 Sedative, hypnotic or anxiolytic abuse, uncomplicated; Z20.828 Contact with and (suspected) exposure to other viral communicable diseases; Z86.19 Personal history of other infectious and parasitic diseases
CPT/HCPCS: 31500; 36415; 36416; 51702; 70450; 71045; 71260; 80048; 80053; 80202; 80306; 81003; 81015; 82550; 82805; 83880; 84145; 84484; 85025; 86140; 87040; 87070; 87086; 87205; 87635; 87804; 93005; 93306; 93970; 94003; 94660; 94760; 96365; 96366; 96368; 96375; 96376; 99292; J0456; J0692; J0696; J1630; J1650; J1940; J2060; J2704; J2920; J3010; J3370; J3490; J7030; J7512; Q0163; Q9967; S0028; U0003

== ENCOUNTER 2020-05-26 21:15 | Inpatient (IN) | payer MEDICARE, OTHER ==
[~2020-05-26 21:15] MED LIST: Iopamidol 370 76% 100 ML VIAL ONE
--- NOTE | 2020-05-26 21:56 | RAD ---
Chest one view HISTORY: Dyspnea. Chest pain COMPARISON: 03/09/2020. FINDINGS: Cardiac silhouette is magnified and upper limits of normal in size. Pulmonary vasculature u pper limits of normal. Mediastinum is midline with postoperative changes. Hemidiaphragms are better visualized than on the p rior study. Very mild bibasilar parenchymal opacity. Large homogeneous mass at the medial aspect of the right apex is unchanged in appearance. Deformity o f the left chest is stable. No evidence of pneumothorax. IMPRESSION : Interval resolution or near complete resolution of pleural fluid. Mild residual bibasilar atelectasis . No new abnormalities are demonstrated.
[2020-05-26 22:00] LABS: #Eosinphils 0.1 thou/uL (0.0-0.7); #Lymphocytes 1.6 thou/uL (1.20-3.40); #Monocytes 0.8 thou/uL (0.11-0.59); #Neutrophils 4.4 thou/uL (1.40-6.50); %Basophils 0.5 % (0.0-1.0); %Eosinophils 2.1 % (0.0-10.0); %Lymphocytes 22.5 % (21.0-51.0); %Monocytes 10.8 % (0.0-10.0); %Neutrophils 64.2 % (42.0-75.0); Hemoglobin 14.6 g/dL (12.0-16.0); Mean Corpuscular HGB CONC 29.2 g/dL (32.0-36.0); Mean Corpuscular Hemoglobin 26.8 pg (27.0-31.0); Mean Corpuscular Volume 91.8 fL (78.0-98.0); Platelet Count 223 thou/uL (130-400); RBC Distribution Width 18.2 % (11.5-14.5); Red Blood Cell (RBC) Count 5.44 mill/uL (4.20-5.40); White Blood Cell (WBC) Count 6.9 thou/uL (4.8-10.8)
[2020-05-26 22:16] LABS: ALT (SGPT) 15 U/L (8-55); AST (SGOT) 21 U/L (5-34); Albumin 3.7 g/dL (3.5-5.0); Alkaline Phosphatase 110 U/L (40-110); Anion Gap 15 mmol/L (10-20); BUN (Urea Nitrogen) 14 mg/dL (9.8-20.1); Bilirubin, Total 0.4 mg/dL (0.2-1.2); CK (CPK) 39 U/L (29-168); Calc. Creatinine Clearance 0 mL/min (70-130); Carbon Dioxide 26 mmol/L (22-29); Chloride 103 mmol/L (98-107); Globulin 4.4 g/dL (2.4-3.5); Glucose 91 mg/dL (70-105); Potassium 4.8 mmol/L (3.5-5.1); Protein, Total 8.1 g/dL (6.0-8.3); Sodium 139 mmol/L (136-145)
[2020-05-26] MEDS ORDERED: Furosemide 40 MG/4 ML VIAL ONE (22:36)
[2020-05-26] MEDS ORDERED: Ondansetron PF 4 MG/2 ML Vial ONE (23:58)
[2020-05-27 00:45] LABS: Bilirubin Negative (Negative); Blood, Urine Negative (Negative); Clarity Clear (Clear); Glucose, Urine (Dipstick) Normal (Negative); Ketone, Urine Negative (Negative); Leukocyte Negative Leu/uL (Negative); Nitrite Negative (Negative); Protein, Urine (Dipstick) Negative (Neg-Trace); Specific Gravity, Urine 1.005 (1.002-1.036); Urobilinogen Normal mg/dL (Less than 2)
[2020-05-27] MEDS ORDERED: Acetaminophen 650 MG Suppository PR PRN (03:30)
[2020-05-27] MEDS ORDERED: Ondansetron PF 4 MG/2 ML Vial IVP PRN (03:30)
[2020-05-27] MEDS ORDERED: Ondansetron ODT 4 MG TAB PO PRN (03:30)
--- NOTE | 2020-05-27 03:36 | PDOC.HHP ---
Hospitalist HPI - History of Present Illness dyspnea History of Present Illness: Case of an 54y/o with a pmhx of chf, copd, ba and nuerofibromatosis who comes to hospital due to dyspnea. patient states she was on her usual state of health until about 2 weeks ago when she noted that her urine output had decreased, she stated that her lasix medication despite her taking it, was becoming less effective. she refers she noted progressive swelling on her legs up to her abdomen which was accompanied by ASHTON, orthopnea and PND. The patient denies chest pain, nausea, vomiting, diarrhea, fever, body aches, chills, or other symptoms at this time. 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 - Family History Family History: reports: no pertinent history - Social History Smoking Status: Current every day smoker Alcohol: reports: None Drugs: reports: none Living Situation: With Family - Exam General Appearance: NAD, awake alert Eye: PERRL, anicteric sclera ENT: normocephalic atraumatic, no oropharyngeal lesions Neck: supple, symmetric, no JVD Heart: RRR, no murmur, no gallops Respiratory: CTAB, no wheezes, no rales Gastrointestinal: soft, non-tender, non-distended Extremities: no cyanosis, no clubbing, no edema Skin: normal turgor, no lesions, no rashes Neurological: cranial nerve grossly intact, normal sensation to touch, no weakness Musculoskeletal: normal tone, normal strength, no muscle wasting Psychiatric: normal affect, normal behavior, A&O x 3 Hospitalist Results - Labs Result Diagrams: 05/26/20 21:43 05/26/20 21:43 Lab results: WBC 6.9 thou/uL (4.8-10.8) 05/26/20 21:43 Hgb 14.6 g/dL (12.0-16.0) 05/26/20 21:43 Hct 49.9 % (36.0-47.0) H 05/26/20 21:43 MCV 91.8 fL (78.0-98.0) 05/26/20 21:43 Plt Count 223 thou/uL (130-400) 05/26/20 21:43 Neutrophils % 64.2 % (42.0-75.0) 05/26/20 21:43 Sodium 139 mmol/L (136-145) 05/26/20 21:43 Potassium 4.8 mmol/L (3.5-5.1) 05/26/20 21:43 Chloride 103 mmol/L (98-107) 05/26/20 21:43 Carbon Dioxide 26 mmol/L (22-29) 05/26/20 21:43 BUN 14 mg/dL (9.8-20.1) 05/26/20 21:43 Creatinine 0.91 mg/dL (0.6-1.1) 05/26/20 21:43 Glucose 91 mg/dL (70-105) 05/26/20 21:43 Calcium 9.0 mg/dL (7.8-10.44) 05/26/20 21:43 Total Bilirubin 0.4 mg/dL (0.2-1.2) 05/26/20 21:43 AST 21 U/L (5-34) 05/26/20 21:43 ALT 15 U/L (8-55) 05/26/20 21:43 Alkaline Phosphatase 110 U/L (40-110) 05/26/20 21:43 Creatine Kinase 39 U/L (29-168) 05/26/20 21:43 Troponin I 0.010 ng/mL (< 0.028) 05/26/20 21:43 B-Natriuretic Peptide 226.4 pg/mL (0-100) H 05/26/20 21:43 Serum Total Protein 8.1 g/dL (6.0-8.3) 05/26/20 21:43 Albumin 3.7 g/dL (3.5-5.0) 05/26/20 21:43 Urine Ketones Negative mg/dL (Negative) 05/27/20 00:00 Urine Blood Negative (Negative) 05/27/20 00:00 Urine Nitrite Negative (Negative) 05/27/20 00:00 Ur Leukocyte Esterase Negative Ozzy/uL (Negative) 05/27/20 00:00 Hospitalist H&P A/P - Problem (1) Acute heart failure Code(s): I50.9 - HEART FAILURE, UNSPECIFIED Status: Acute (2) Pulmonary hypertension Code(s): I27.20 - PULMONARY HYPERTENSION, UNSPECIFIED Status: Acute (3) Obesity Code(s): E66.9 - OBESITY, UNSPECIFIED Status: Acute Qualifiers: Obesity type: unspecified obesity type (4) Neurofibromatosis Status: Chronic - Plan Plan: 54y/o female with a pmhx who present with dyspnea acute decompensation of heart failure - cxr with cardiomegaly - bnp at 226, but patient is morbidly obese which affects reading - will start lasix 40mg iv q 12 - will start beta aryan and acei - cardio evaluation - chest ct with possible pulmonary edema - recent 2d echo on 03/22 showed ef 50-55% with severe MR - 88% RA, will provide 02 supplementation pulmonary htn - chest ct suggestive of R sided heart dilation consistent with pulmonary htn - consider MAURICE vs RHC for dx - could explained presenting symptoms - likely type 2 pulmonary HTN in the settting of severe MR on last echo copd - chronic, stable, not in acute exacerbation - prn duo nebs smoker - advice to quit
[2020-05-27 06:09] LABS: #Eosinphils 0.1 thou/uL (0.0-0.7); #Lymphocytes 1.7 thou/uL (1.20-3.40); #Neutrophils 4.8 thou/uL (1.40-6.50); %Basophils 0.2 % (0.0-1.0); %Eosinophils 1.8 % (0.0-10.0); %Lymphocytes 22.4 % (21.0-51.0); %Monocytes 13.3 % (0.0-10.0); %Neutrophils 62.2 % (42.0-75.0); Hemoglobin 14.3 g/dL (12.0-16.0); Mean Corpuscular HGB CONC 30.1 g/dL (32.0-36.0); Mean Corpuscular Hemoglobin 27.9 pg (27.0-31.0); Mean Corpuscular Volume 92.6 fL (78.0-98.0); Mean Platelet Volume 9.5 fL (7.4-10.4); Platelet Count 196 thou/uL (130-400); RBC Distribution Width 17.7 % (11.5-14.5); Red Blood Cell (RBC) Count 5.13 mill/uL (4.20-5.40); White Blood Cell (WBC) Count 7.7 thou/uL (4.8-10.8)
[2020-05-27 06:16] LABS: ALT (SGPT) 15 U/L (8-55); AST (SGOT) 21 U/L (5-34); Albumin 3.4 g/dL (3.5-5.0); Alkaline Phosphatase 103 U/L (40-110); Anion Gap 14 mmol/L (10-20); BUN (Urea Nitrogen) 14 mg/dL (9.8-20.1); Bilirubin, Total 0.4 mg/dL (0.2-1.2); Calc. Creatinine Clearance 164 mL/min (70-130); Calcium 8.7 mg/dL (7.8-10.44); Carbon Dioxide 29 mmol/L (22-29); Chloride 104 mmol/L (98-107); Globulin 4.2 g/dL (2.4-3.5); Glucose 117 mg/dL (70-105); Magnesium 1.6 mg/dL (1.6-2.6); Potassium 5.5 mmol/L (3.5-5.1); Protein, Total 7.6 g/dL (6.0-8.3); Sodium 141 mmol/L (136-145)
[2020-05-27] MEDS ORDERED: Furosemide 40 MG/4 ML VIAL ONE ×2 (06:33→16:35)
[2020-05-27] MEDS: Furosemide 40 MG/4 ML VIAL SLOW IVP SCH ×2 (06:45→16:41)
--- NOTE | 2020-05-27 08:08 | CT ---
PRELIMINARY REPORT/[facility]/EMERGENCY AFTER HOURS PROCEDURE EXAM: CTA Chest, With Contrast. DATE/ TIME: 05/27/2020, 1:37 AM INDICATION: Shortness of breath x 7 days, worsening TECHNIQUE: During the rapid intravenous administration of 66 mL Isovue-370, helical CT of the chest was performed utilizing angiographic protocol. MPRs and multiplanar MIPs were generated and reviewed. Exam was performed using one or more of the following dose reduction techniques: automate d exposure control, adjustment of the mA and/or kV according to patient size, or use of iterative reconstruction technique. COMPARISON: None. FINDINGS: Patient's large body habitus results in significant image noise artifact. Also contributi ng to image noise artifact are the patient's arms which are within the gantry. A single posterior spinal rods stabilize his spine with a superior laminar hook at L3 and and inferio r laminar hook at L1. Numerous metallic clips in the paraspinous region from T4 caudally to T8 are seen. There is an abnormal process involving the thoracic spine from T3 caudally to T7. This includ es marked expansion of the central canal with thinning of bone along with expansion of the neural foramina. This process measures 11.2 x 6.3 cm in greatest transaxial dimension and extends approxima tely 10 cm longitudinally and is associated with dextroconvex scoliosis. Portions of the posterior aspect of the left 5th, 6th, 7th, 8th and 9th ribs have been resected. Layering right pleural effusion measures up to 3.5 cm in depth with a component of compressive atelec tasis of the right lower lobe. The postsurgical changes result in significant hypoventilation of the left lung. There is marked right atrial and right ventricular dilatation. Left ventricular cavity is small. RV :LV ratio is 1.85. Main pulmonary artery measures 3.0 cm in diameter. Respiratory motion limits assessment for peripheral pulmonary emboli. Pulmonary arterial system is fairly well-opacified and t here is no identifiable intraluminal filling defect. Aorta is without aneurysm or dissection. Imaging continues into the abdomen to a level below the kidneys. There are numerous gallstones. Per isplenic fluid is seen. Contrast has refluxed into the hepatic veins. Liver has a coarse parenchymal pattern. This may be due to a combination of fatty infiltration and passive hepatic luis estion. There is a excessive amount of extrathoracic and extra-abdominal adipose tissue. IMPRESSION: 1. No pulmonary thromboembolism. 2. Marked dilatation of the right heart with the appearance of severe pulmonary arterial hypertensio n. Transthoracic echocardiography is suggested for further assessment. 3. Postsurgical changes of the thoracic spine. Please correlate with past medical/ surgical history . 4. Moderate-sized right pleural effusion. 5. Cholelithiasis. 6. Upper abdominal ascites. ELECTRONICALLY SIGNED BY: Darrell Breen DO May 27, 2020 2:18:54 AM CAR INSTALLATIONS SUPERVISOR This report is intended for review by the ordering physician only, in accordance of law. If you recei ve this report in error, please call [facility] at [phone]. FINAL REPORT Emergent after hours CT angiogram thorax with IV contrast and 3-D reconstructions HISTORY: Dyspnea. Shortness of breath for one week. Worse today. COMPARISON: CT thorax on 03/08/2020 IMPRESSION: 1. Postoperative changes thoracic spine are again seen with large hypodense structure extending from the central canal of the thoracic spine from the level of T3-T7 which was also present on the prior exam likely related to large right lateral meningocele. 2. Moderate size right pleural effusion with consolidation right lung base which may be related to pa ssive atelectasis. Pneumonia would be difficult to exclude. 3. Dilatation of the right atrium and right ventricle compared to the left heart with reflux of contr ast into the IVC and hepatic veins. Echocardiogram may be helpful for further evaluation. 4. Limited evaluation of the pulmonary arteries, but there is no definite filling defect seen within the central or segmental pulmonary arteries to suggest pulmonary embolus at these levels. Subsegmental pulmonary arteries are not well evaluated. 5. Postoperative changes left hemithorax with chest wall deformity and resection of several posterior left-sided ribs and generalized volume loss of the left chest. This is a stable finding. 6. Cholelithiasis. 7. Small amount of free fluid in the upper abdomen. 8. Subcutaneous edema. 9. Enlarged left axillary lymph node measuring 1.9 cm in short axis dimension. There is evidence of a fatty hilum. 10. Findings are in agreement with preliminary report by [facility]. Transcribed Date/Time: 05/27/2020 8:13 AM
[2020-05-27] MEDS ORDERED: Enoxaparin Sodium 40 MG/0.4 ML SYRINGE ONE (08:16)
[2020-05-27 09:03] LABS: Troponin I 0.014 ng/mL (< 0.028)
[2020-05-27 09:15] LABS: SARS-CoV-2 PCR by NAA Not Detected (NotDetected)
[2020-05-27] MEDS: Enoxaparin Sodium 40 MG/0.4 ML SYRINGE SC SCH (09:46)
[2020-05-27] MEDS: Carvedilol 6.25 MG TAB PO SCH ×2 (09:46→22:22)
[2020-05-27] MEDS: Lisinopril 2.5 MG TAB PO SCH (09:47)
--- NOTE | 2020-05-27 10:54 | PDOC.HOSPP ---
- Subjective Encounter Date: 05/27/20 Encounter Time: 10:52 Subjective: Ms. Parr was seen today in follow-up of respiratory distress. When I came to see her she was very drowsy and difficult to awaken. I would shake her and shout her name, and she would just stare and then fall back to sleep. Her nurse tells me she was awake a few hours ago, got up to the bathroom. - Objective Vital Signs & Weight: Vital Signs (12 hours) Pulse BP 05/27/20 09:47 93 153/63 H 05/27/20 09:46 153/63 H Weight Weight 299 lb 9.731 oz Result Diagrams: 05/27/20 05:25 05/27/20 05:25 Hospitalist ROS - Medication Medications: Active Medications Generic Name Dose Route Start Last Admin Trade Name Freq PRN Reason Stop Dose Admin Carvedilol 6.25 mg 05/27/20 09:00 05/27/20 09:46 Carvedilol 6.25 Mg Tab PO 6.25 mg BID HALIE Administration Enoxaparin Sodium 40 mg 05/27/20 09:00 05/27/20 09:46 Enoxaparin Sodium 40 Mg/0.4 Ml Syringe SC 40 mg 0900 HALIE Administration Furosemide 40 mg 05/27/20 06:00 05/27/20 06:45 Furosemide 40 Mg/4 Ml Vial SLOW IVP 40 mg 0600,1400 HALIE Administration Lisinopril 2.5 mg 05/27/20 09:00 05/27/20 09:47 Lisinopril 2.5 Mg Tab PO 2.5 mg DAILY HALIE Administration - Exam General Appearance: NAD Eye: PERRL, anicteric sclera Heart: RRR, murmur present, III/IV Respiratory: rales (rales and rhonchi at both bases) Gastrointestinal: soft, non-tender, non-distended, normal bowel sounds, no palpable masses, no hepatomegaly Extremities: no cyanosis, 1+ LE edema Skin - other findings: + scattered nodules /fibromas over her entire body Hosp A/P (1) Acute and chronic respiratory failure Code(s): J96.20 - ACUTE AND CHR RESP FAILURE, UNSP W HYPOXIA OR HYPERCAPNIA Status: Acute (2) Acute on chronic diastolic heart failure Code(s): I50.33 - ACUTE ON CHRONIC DIASTOLIC (CONGESTIVE) HEART FAILURE Status: Acute (3) Obesity hypoventilation syndrome Code(s): E66.2 - MORBID (SEVERE) OBESITY WITH ALVEOLAR HYPOVENTILATION Status: Acute (4) Pulmonary hypertension Code(s): I27.20 - PULMONARY HYPERTENSION, UNSPECIFIED Status: Acute (5) Neurofibromatosis Status: Chronic (6) Morbid obesity with BMI of 50.0-59.9, adult Code(s): E66.01 - MORBID (SEVERE) OBESITY DUE TO EXCESS CALORIES; Z68.43 - BODY MASS INDEX [BMI] 50.0-59.9, ADULT Status: Chronic - Plan * Acute on chronic respiratory failure due to CHF exacerbation as well as Obesity hypoventilation- continue Lasix IV. She is difficult to awaken- Will check a stat ABG, as I suspect her serum CO2 level is elevated * Mitral regurgitation- Cardiology has been consulted- prior evaluation noted * Morbid Obesity- she has life-threatening obesity, which will complicate hre recovery * DVT and GI- prophylaxis
[2020-05-27 11:03] LABS: Actual Bicarbonate (HCO3a) 31.6 mEq/L (22-28); Analyzer IN Cardio ER; Base Excess (BEa) -0.2 mEq/L (-2.0 to +3.0); Calcium, Ionized (arterial) 1.25 mmol/L (1.12-1.30); Carboxyhemoglobin (COHb) 1.1 gm% (0.0-3.0); Hemoglobin (Hb) 14.7 g/dL (12.0-16.0); Potassium - ABG Lab 5.14 mmol/L (3.70-5.30)
[2020-05-27 11:08] LABS: CO2 Tension 92.2 mmHg (35.0-45.0); pH, Arterial 7.15 (7.35-7.45)
[2020-05-27 11:09] LABS: Puncture Site LRA
[2020-05-27] MEDS ORDERED: Sodium Bicarb 50 MEQ/50 ML Abboject 8.4% SYRINGE ONE (11:28)
[2020-05-27] MEDS ORDERED: Rocuronium Bromide 10 MG/ML (10ML VIAL) ONE (11:28)
[2020-05-27 12:00] LABS: Cocaine Metabolite Screen Detected (NotDetected); Medtox Reader # READER 4
[2020-05-27 12:01] LABS: Amphetamine Not Detected (NotDetected); Barbiturates Screen Not Detected (NotDetected); Benzodiazepine Screen Not Detected (NotDetected); Medtox Control Line Valid? VALID (VALID); Methadone Not Detected (NotDetected); Methamphetamine Not Detected (NotDetected); Opiate Screen Not Detected (NotDetected); Oxycodone Screen Not Detected (NotDetected); Phencyclidine (PCP) Not Detected (NotDetected); THC/Cannabinoid Screen Not Detected (NotDetected); Tricyclic Screen Not Detected (NotDetected)
[2020-05-27 13:12] LABS: Troponin I 0.013 ng/mL (< 0.028)
--- NOTE | 2020-05-27 14:44 | CON ---
DATE OF CONSULTATION: 05/27/2020 REASON FOR CONSULTATION: Hypercapnic respiratory failure. HISTORY OF PRESENT ILLNESS: The patient is a 54-year-old morbidly obese female, who presented to the ER last night with increased shortness of breath, lower extremity swelling. She has a history of mitral regurgitation - severe by previous echo in March 2020. PAST MEDICAL HISTORY: Mitral regurgitation, neurofibromatosis, possible DVT. 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 FAMILY MEDICAL HISTORY: Unremarkable. SOCIAL HISTORY: Currently smokes every day. Does not consume alcohol. MEDICATIONS: Prior to admission; 1. Prednisone. 2. Furosemide. 3. Ceftin. Current inpatient medications; 1. DuoNeb. 2. Carvedilol. 3. Enoxaparin. 4. Lasix. 5. Lisinopril. 6. Zofran. REVIEW OF SYSTEMS: Essentially unremarkable. PHYSICAL EXAMINATION: VITAL SIGNS: Heart rate 105, respiratory rate 17, O2 saturation 99% on BiPAP, and blood pressure 153/63. VITAL SIGNS: She is a morbidly obese female, who is 5 feet and 3 inches and weighs 299 pounds with a BMI of 53. HEENT: Unremarkable. NECK: No adenopathy or JVD. LUNGS: Poor air movement. CARDIAC: S1 and S2. Regular. ABDOMEN: Soft. EXTREMITIES: Edematous from the thighs downward. LABORATORY DATA: White blood cell count 7.7, hematocrit 47.5, and platelet count 196. PH of 7.15, pCO2 of . Sodium 141, potassium 5.5, chloride 104, CO2 of 29, BUN 14, creatinine 0.8, and glucose 117. BNP is 226. Cocaine test was positive. COVID test negative. Chest x-ray demonstrates cardiomegaly. It looks like she has some type of faheem going down her spinal column. CT of the chest demonstrates cardiomegaly, morbidly dilated right heart with severe pulmonary arterial hypertension, right pleural effusion, and upper abdominal ascites. She also has a dilated T-spine meningocele. No evidence of pulmonary thromboembolism. ASSESSMENT: Respiratory failure, probably secondary to mitral regurgitation and obstructive sleep apnea/obesity hypoventilation syndrome. PLAN: I agree with plan for diuresis and BiPAP. She needs to be in the ICU. We will recheck an ABG later this afternoon. Job ID: [id number]
[2020-05-27 15:02] LABS: Actual Bicarbonate (HCO3a) 32.7 mEq/L (22-28); Analyzer IN Cardio ER; Base Excess (BEa) 1.5 mEq/L (-2.0 to +3.0); Calcium, Ionized (arterial) 1.22 mmol/L (1.12-1.30); O2 Tension (PaO2), arterial 80.7 mmHg (80.0-100.0); Potassium - ABG Lab 5.25 mmol/L (3.70-5.30)
[2020-05-27 15:15] LABS: CO2 Tension 88.9 mmHg (35.0-45.0); Puncture Site LRA; pH, Arterial 7.18 (7.35-7.45)
[2020-05-27 15:17] LABS: ALV-art Gradient 93.375 mmHg (0-20)
[2020-05-27] MEDS ORDERED: Acetaminophen 325 MG TAB ONE ×2 (15:58→22:18)
[2020-05-27] MEDS: Acetaminophen 325 MG TAB PO PRN (16:15)
--- NOTE | 2020-05-27 22:12 | CON ---
DATE OF CONSULTATION: HISTORY OF PRESENT ILLNESS: Luma Parr is a 54-year-old morbidly obese black female, whom I initially evaluated in March 2020. In October, she tested positive for COVID. She then presented here on March 03 with increased shortness of breath and was intubated in the emergency room. Chest x-ray showed bilateral infiltrates. She was treated with antibiotics, diuresed and ultimately improved. She was extubated. Echocardiogram revealed [id number] mitral regurgitation. Ejection fraction was 50% to 55%. There was moderately enlarged right ventricle. Her left ventricular end-diastolic dimension was 4.5 cm and it was felt that the mitral regurgitation was probably not hemodynamically significant with a small ventricle. The right ventricle was enlarged probably due to her obstructive sleep apnea. She now presents complaining of 2 weeks of decreased urine output plus increased peripheral edema, increased shortness of breath. She denies any chest discomfort, fever, diarrhea, or chills. PAST MEDICAL HISTORY: Neurofibromatosis, obesity, obstructive sleep apnea. MEDICATIONS: 1. Furosemide 40 b.i.d. 2. Prednisone 40 q.a.m. 3. Ceftin 250 mg q.12. ALLERGIES: ASPIRIN, WHICH CAUSED ASTHMA. SOCIAL HISTORY: She continues to abuse cocaine with a positive urine drug screen on this admission. PHYSICAL EXAMINATION: VITAL SIGNS: Blood pressure 131/77, pulse 91. HEENT: PERRL. NECK: Supple. CHEST: Clear. CARDIAC: Chest reveals poor inspiratory effort. CARDIAC: S1 and S2 normal without any S3, S4 or murmurs. ABDOMEN: Morbidly obese. Normal bowel sounds. EXTREMITIES: Revealed 2+ edema. IMAGING: EKG revealed normal sinus rhythm, possible left atrial enlargement, right axis deviation. Chest CTA revealed no evidence of pulmonary embolism. There is marked dilatation at the right side of the heart with the appearance of severe pulmonary artery hypertension. There is a moderate size right pleural effusion, cholelithiasis, upper abdominal ascites. LABORATORY DATA: Hemoglobin 14.3, hematocrit 47.5, white count 7700, platelets 196,000, pH 7.18, pCO2 88.9, pO2 80.7. Sodium 141, potassium 5.5, chloride 104, carbon dioxide 29, BUN 14, creatinine 0.84. Troponin I is normal x3. TSH is normal. Urine drug screen is positive for cocaine. COVID is negative. IMPRESSION: 1. [id number] mitral regurgitation seen on previous echocardiograms, which did not appear to be hemodynamically significant with normal left ventricular function and a very small left ventricular size. 2. Obesity-hypoventilation syndrome with severe increased pCO2. 3. Right ventricular enlargement, probably related to untreated obstructive sleep apnea and pulmonary artery hypertension. 4. History of respiratory arrest in March 2020. 5. Obesity. 6. The continues to abuse cocaine. 7. Neurofibromatosis. PLAN: The patient will be diuresed and currently is on BiPAP. I will continue to follow the patient with you. Job ID: [id number] MTDD
[2020-05-27] MEDS ORDERED: Famotidine 20 MG TAB ONE (22:18)
[2020-05-27] MEDS: Famotidine 20 MG TAB PO SCH (22:23)
[2020-05-28] MEDS: Acetaminophen 325 MG TAB PO PRN (05:18)
[2020-05-28] MEDS: Furosemide 40 MG/4 ML VIAL SLOW IVP SCH ×2 (05:18→12:53)
[2020-05-28] MEDS: Carvedilol 6.25 MG TAB PO SCH ×2 (08:58→21:17)
[2020-05-28] MEDS: Lisinopril 2.5 MG TAB PO SCH (08:58)
[2020-05-28] MEDS: Famotidine 20 MG TAB PO SCH ×2 (08:58→21:17)
[2020-05-28] MEDS: Enoxaparin Sodium 40 MG/0.4 ML SYRINGE SC SCH (08:58)
[2020-05-28] MEDS ORDERED: HYDROcodone/Acetaminophen 7.5/325 mg Tablet PO PRN (10:03)
[2020-05-28] MEDS ORDERED: Topiramate 25 MG TAB PO SCH (10:15)
[2020-05-28] MEDS ORDERED: Pregabalin 75 MG CAP PO SCH (10:15)
[2020-05-28] MEDS ORDERED: DULoxetine 30 MG CAP PO SCH (10:15)
[2020-05-28] MEDS ORDERED: Furosemide 20 MG TAB PO SCH (10:15)
[2020-05-28] MEDS ORDERED: Pregabalin 50 MG CAP PO SCH (10:15)
--- NOTE | 2020-05-28 11:22 | PRG ---
DATE OF SERVICE: 05/28/2020 SUBJECTIVE: Luma Parr is a morbidly obese female who is a hospital patient who we had seen in the past . She is admitted last night with respiratory failure. She is on BiPAP. OBJECTIVE: VITAL SIGNS: This morning, her sats are 97% on 40% FiO2, temperature 97, blood pressure 190/76. CHEST: No wheezing. No crackles. CARDIAC: Normal S1 and S2. No gallops. ABDOMEN: No masses. LABORATORY DATA: Her pO2 was 80, pCO2 of 80, pH of 7.18 on a BiPAP 40%, rate of 15. She had some cocaine in her drug screen. X-ray shows cardiomegaly, pleural effusion, which appears to be loculated in the right apex. ASSESSMENT: 1. Respiratory failure. 2. Morbid Obesity. 3. Sleep apnea. 4. Diastolic dysfunction. 5. Elevated pulmonary hypertension. 6. Chronic obstructive pulmonary disease. 7. Major issues with body habitus, requiring optimum care with BiPAP. I suggested we try a nasal O2 during the daytime and high-flow at nighttime. The patient is moving around in the bed. PLAN: Severe mitral regurgitation may be accounted for most of her problems. Pulmonary not much to offer. If she gets intubated, she may require permanent trach. Minimize sedation. Low-dose steroids. We will follow. Job ID: [id number]
--- NOTE | 2020-05-28 15:17 | PDOC.HOSPP ---
- Subjective Encounter Date: 05/28/20 Subjective: Patient was verbal. She is fairly somnolent. She was unable to communicate much information. - Objective Vital Signs & Weight: Vital Signs (12 hours) Temp Pulse Resp BP Pulse Ox 05/28/20 14:07 62 20 104/64 94 L 05/28/20 13:12 86 19 93 L 05/28/20 12:17 97.6 F 62 20 104/64 92 L 05/28/20 10:04 67 20 119/79 95 05/28/20 08:58 65 05/28/20 08:09 94 L 05/28/20 07:38 97.6 F 65 24 H 115/69 100 05/28/20 07:30 100 05/28/20 07:18 70 24 H 94 L 05/28/20 05:14 95.9 F L 70 18 125/60 96 Weight Weight 315 lb 14.4 oz I&O: 05/27/20 05/28/20 05/29/20 06:59 06:59 06:59 Intake Total 300 Balance 300 Result Diagrams: 05/27/20 05:25 05/27/20 05:25 Hospitalist ROS - Medication Medications: Active Medications Generic Name Dose Route Start Last Admin Trade Name Freq PRN Reason Stop Dose Admin Acetaminophen 650 mg 05/27/20 03:30 05/28/20 05:18 Acetaminophen 325 Mg Tab PO 650 mg Q4H PRN Administration Headache/Fever/Mild Pain (1-3) Acetaminophen 650 mg 05/27/20 03:30 05/27/20 22:23 Acetaminophen 650 Mg Suppository VA 650 mg Q4H PRN Administration Headache/Fever/Mild Pain (1-3) Hydrocodone Bitart/Acetaminophen 1 tab 05/28/20 10:03 05/28/20 10:43 Hydrocodone/Acetaminophen 7.5/325 Mg Tablet PO 1 tab Q6HR PRN Administration Mild-Moderate Pain (1-5) Albuterol/Ipratropium 3 ml 05/28/20 13:00 05/28/20 13:12 Ipratropium/Albuterol Sulfate 3 Ml Neb NEB 3 ml [id number] HALIE Administration Carvedilol 6.25 mg 05/27/20 09:00 05/28/20 08:58 Carvedilol 6.25 Mg Tab PO 6.25 mg BID HALIE Administration Enoxaparin Sodium 40 mg 05/27/20 09:00 05/28/20 08:58 Enoxaparin Sodium 40 Mg/0.4 Ml Syringe SC 40 mg 0900 HALIE Administration Famotidine 20 mg 05/27/20 21:00 05/28/20 08:58 Famotidine 20 Mg Tab PO 20 mg BID HALIE Administration Furosemide 40 mg 05/27/20 06:00 05/28/20 12:53 Furosemide 40 Mg/4 Ml Vial SLOW IVP 40 mg 0600,1400 HALIE Administration Lisinopril 2.5 mg 05/27/20 09:00 05/28/20 08:58 Lisinopril 2.5 Mg Tab PO 2.5 mg DAILY HALIE Administration Hospitalist Exam Vitals: Vital Signs (12 hours) Temp Pulse Resp BP Pulse Ox 05/28/20 14:07 62 20 104/64 94 L 05/28/20 13:12 86 19 93 L 05/28/20 12:17 97.6 F 62 20 104/64 92 L 05/28/20 10:04 67 20 119/79 95 05/28/20 08:58 65 05/28/20 08:09 94 L 05/28/20 07:38 97.6 F 65 24 H 115/69 100 05/28/20 07:30 100 05/28/20 07:18 70 24 H 94 L 05/28/20 05:14 95.9 F L 70 18 125/60 96 Weight Weight 315 lb 14.4 oz General - other findings: Somnolent. Morbidly obese. ENT: normocephalic atraumatic Heart: RRR, no gallops, no rubs, II/IV Respiratory: CTAB, no wheezes, no rales, no ronchi Respiratory - other findings: Paradoxical breathing. Obstructive apnea. Gastrointestinal: soft, non-tender, non-distended, normal bowel sounds, no palpable masses, no hepatomegaly, no splenomegaly, no bruit Extremities: no cyanosis, no clubbing Extremities - other findings: Trace edema Skin: normal turgor Skin - other findings: Numerous neurofibromatosis lesions over her body Neurological: no new deficit Musculoskeletal: generalized weakness Psychiatric: somnolent, lethargic Hosp A/P (1) Acute on chronic respiratory failure with hypercapnia Code(s): J96.22 - ACUTE AND CHRONIC RESPIRATORY FAILURE WITH HYPERCAPNIA Status: Acute (2) Acute on chronic diastolic heart failure Code(s): I50.33 - ACUTE ON CHRONIC DIASTOLIC (CONGESTIVE) HEART FAILURE Status: Acute (3) Obesity hypoventilation syndrome Code(s): E66.2 - MORBID (SEVERE) OBESITY WITH ALVEOLAR HYPOVENTILATION Status: Acute (4) Pulmonary hypertension Code(s): I27.20 - PULMONARY HYPERTENSION, UNSPECIFIED Status: Acute (5) Morbid obesity with BMI of 50.0-59.9, adult Code(s): E66.01 - MORBID (SEVERE) OBESITY DUE TO EXCESS CALORIES; Z68.43 - BODY MASS INDEX [BMI] 50.0-59.9, ADULT Status: Chronic (6) Polysubstance abuse Code(s): F19.10 - OTHER PSYCHOACTIVE SUBSTANCE ABUSE, UNCOMPLICATED Status: Acute (7) Neurofibromatosis Status: Chronic (8) Hyperkalemia Code(s): E87.5 - HYPERKALEMIA Status: Acute - Plan Acute on chronic respiratory failure with hypercapnia: Patient's blood gas reveals persistent hypercapnia. She appears to have some encephalopathy related to her hypercapnia. Patient was on BiPAP but primarily using that at nighttime. Clarified that the patient should be on this as needed anytime she is sleeping. She clearly had some obstructive apnea even while I was examining her. Pulmonary consulted. Patient will likely require some aggressive BiPAP. Secondary to hypoventilation of obesity syndrome. Given the severity of her symptoms she will likely require a lot of BiPAP suppo rt. Should she fail to improve with that, she would have to consider options like long-term trach. Hypoventilation of obesity syndrome: As above Pulmonary hypertension: Confirmed on prior echocardiograms. Secondary to obesity and apnea. Substance abuse: Patient's UDS was positive for cocaine. Unclear how her substance abuse may be worsening her encephalopathy. Acute metabolic encephalopathy: Secondary to CO2 retention. Persists at this time. Possible component of substance abuse. Hyperkalemia: Likely secondary to her respiratory acidosis. We will recheck BMP now. Respiratory acidosis: Secondary to CO2 retention.
[2020-05-28] MEDS ORDERED: Sodium Chloride 0.9% 1,000 ML IV SCH (16:15)
[2020-05-28 16:20] LABS: Anion Gap 14 mmol/L (10-20); BUN (Urea Nitrogen) 21 mg/dL (9.8-20.1); Calc. Creatinine Clearance 79 mL/min (70-130); Calcium 8.2 mg/dL (7.8-10.44); Carbon Dioxide 24 mmol/L (22-29); Chloride 103 mmol/L (98-107); Glucose 106 mg/dL (70-105); Potassium 6.7 mmol/L (3.5-5.1); Sodium 134 mmol/L (136-145)
[2020-05-28] MEDS ORDERED: Dextrose 50% Abboject 50 ML SYRINGE ONE (16:32)
[2020-05-28] MEDS ORDERED: HumaLOG 300 UNITS/3 ML VIAL SC SCH (16:45)
[2020-05-28] MEDS ORDERED: Dextrose 50% Abboject 50 ML SYRINGE SLOW IVP SCH ×2 (16:45→21:00)
--- NOTE | 2020-05-28 17:32 | PDOC.EVN ---
Event Note - Event Note Event Note: Was notified that the patient's blood pressure had dropped into the lower 70s upper 60s systolic. Fluid bolus was ordered. On my arrival to assess the patient she appeared to be basically unchanged. Still very somnolent and lethargic although she would wake up and answer questions briefly. Her IV was infiltrated and leaking therefore a new IV had to be started prior to the patient receiving the fluid bolus. Her labs returned with a potassium of 6.7 and a GFR in the 30s. She was given an amp of D50 and 10 units of Humalog IV x1. We will need to reassess her potassium level soon. Suspect it is primarily related to the acidosis. May need to consider bicarb. Discussed the case with Dr. Bustamante. Her right ventricle appears to be generally normal. That being the case its unlikely that she has had significant hemodynamic changes related to her tricuspid valve. Seems to be primarily related to the hypoventilation and apnea syndrome causing severe pulmonary hypertension. Patient has had very poor urine output throughout the day. Price catheter was placed and very little urine obtained. Consulted nephrology and discussed the case with Dr. Isaac. He will see the patient as well. Called the patient's mother, Aurelia Og, and explained the situation to her. The patient is full code and would proceed with intubation and mechanical ventilation if indicated. Prior to leaving the patient room her blood pressure had come up to 99 systolic. CC time 40 minutes
[2020-05-28 17:49] LABS: Actual Bicarbonate (HCO3a) 31.3 mEq/L (22-28); Base Excess (BEa) -1.6 mEq/L (-2.0 to +3.0); Calcium, Ionized (arterial) 1.19 mmol/L (1.12-1.30); Carboxyhemoglobin (COHb) 1.4 gm% (0.0-3.0); Hemoglobin (Hb) 13.6 g/dL (12.0-16.0); O2 Tension (PaO2), arterial 108.5 mmHg (80.0-100.0); Potassium - ABG Lab 5.53 mmol/L (3.70-5.30)
[2020-05-28 17:50] LABS: CO2 Tension 105.2 mmHg (35.0-45.0); Puncture Site RRA; pH, Arterial 7.09 (7.35-7.45)
[2020-05-28] MEDS ORDERED: Fentanyl CADD 100 ML ONE (18:48)
[2020-05-28] MEDS ORDERED: Ventilator Sedation Protocol 1 EACH FS SCH (19:15)
[2020-05-28] MEDS ORDERED: Lorazepam 2 MG/ML VIAL SLOW IVP PRN (19:30)
[2020-05-28] MEDS ORDERED: DISCONTINUE PREVIOUS NARCOTIC PAIN MEDICATIONS AND BENZODIAZEPINES FS SCH (19:30)
[2020-05-28] MEDS ORDERED: Propofol BOLUS 1,000 MG/100 ML VIAL IV PRN (19:30)
[2020-05-28] MEDS ORDERED: Morphine 2 MG/ML VIAL SLOW IVP PRN (19:30)
[2020-05-28] MEDS ORDERED: Fentanyl BOLUS 250 ML IVPB PRN (19:30)
[2020-05-28 20:09] LABS: Actual Bicarbonate (HCO3a) 29.9 mEq/L (22-28); Base Excess (BEa) 1.8 mEq/L (-2.0 to +3.0); Calcium, Ionized (arterial) 1.16 mmol/L (1.12-1.30); Carboxyhemoglobin (COHb) 1.5 gm% (0.0-3.0); Hemoglobin (Hb) 14.5 g/dL (12.0-16.0); Potassium - ABG Lab 5.43 mmol/L (3.70-5.30)
--- NOTE | 2020-05-28 20:09 | RAD ---
PORTABLE SUPINE CHEST: 05/28/20 HISTORY: Intubation. Comparison made to exam of 05/26/20. ET tube is directed into the right mainstem bronchus and should be retracted. Bilateral lung infiltrates again noted. IMPRESSION: ET tube directed into the right mainstem bronchus. POS: AGW
[2020-05-28 20:13] LABS: CO2 Tension 62.5 mmHg (35.0-45.0)
[2020-05-28 20:15] LABS: ALV-art Gradient 219.375 mmHg (0-20)
[2020-05-28 20:35] LABS: Anion Gap 21 mmol/L (10-20); BUN (Urea Nitrogen) 22 mg/dL (9.8-20.1); Calc. Creatinine Clearance 70 mL/min (70-130); Calcium 8.3 mg/dL (7.8-10.44); Carbon Dioxide 16 mmol/L (22-29); Chloride 108 mmol/L (98-107); Glucose 65 mg/dL (70-105); Potassium 7.5 mmol/L (3.5-5.1); Sodium 137 mmol/L (136-145)
[2020-05-28] MEDS: Mometasone 200 MCG/Formoterol 5 MCG 120 PUFF INHALER INH SCH (20:37)
--- NOTE | 2020-05-28 20:58 | CON ---
DATE OF CONSULTATION: 05/28/2020 SERVICE: Nephrology. REASON FOR CONSULTATION: Hyperkalemia and acute kidney injury. REQUESTING PHYSICIAN: Johnie Carrizales MD HISTORY OF PRESENT ILLNESS: The patient is currently intubated and mechanically ventilated. The following history was obtained from review of medical record as the patient was unable to provide any history at this point. A 54-year-old obese female with COPD, CHF, neurofibromatosis, admitted on May 27, 2020 due to worsening shortness of breath as well as edema associated with dyspnea on exertion, orthopnea, and PND. Impression of congestive heart failure was made and the patient was started on diuretic therapy. She was subsequently noted to be lethargic and further evaluation with arterial blood gas showed respiratory acidosis. The patient reported decreasing urine output despite diuretic therapy prior to coming to the hospital. It was also observed that the patient had poor urine output since admission, which got worse even today, and the patient also was noted to have acute elevation in creatinine from baseline of 0.8 to 1.8, hence Nephrology consult. Review of medical record showed that the patient has been on diclofenac prior to hospitalization and this patient was also started on low- dose lisinopril 2.5 yesterday, May 27. Of note, the patient was not on NSAID since hospitalization and there is no other known nephrotoxic agent. The patient also was found to have hyperkalemia with potassium of 6.7, hence was treated with dextrose and insulin. PAST MEDICAL HISTORY: 1. Neurofibromatosis. 2. Morbid obesity. 3. Obstructive sleep apnea. 4. COPD. 5. CHF. 6. Tobacco abuse disorder. 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 FAMILY HISTORY: Could not be obtained due to the patient's condition. SOCIAL HISTORY: Reportedly lives with family. Said to be current everyday smoker, smoking about a pack per day. ALLERGIES: ASPIRIN. MEDICATIONS: Prior to hospital, medications are as follows; 1. Hydrocodone 7.5/325 q.6 hours p.r.n. 2. Cymbalta 30 mg p.o. daily. 3. Diclofenac gel topically p.r.n. 4. Lasix 20 mg p.o. b.i.d. 5. Lyrica 300 mg p.o. b.i.d. 6. Topamax 50 mg p.o. b.i.d. 7. Albuterol sulfate two puffs inhalation every 6 hours p.r.n. Current hospital medications are as follows; 1. Cymbalta 30 mg p.o. daily. 2. Lovenox 40 mg daily. 3. Pepcid 20 mg b.i.d. 4. Lasix 20 mg p.o. b.i.d. 5. Lisinopril 2.5 mg p.o. daily. 6. Mometasone/formoterol inhalation b.i.d. 7. Lyrica 100 mg p.o. b.i.d. 8. Topamax 50 mg b.i.d. 9. Sedatives. 10. DuoNeb inhalation p.r.n. REVIEW OF SYSTEMS: Could not be performed due to the patient's condition. PHYSICAL EXAMINATION: VITAL SIGNS: Temperature 97.3, pulse 59, respiratory rate 15, SpO2 of 93% on the ventilator, and blood pressure 98/50. GENERAL: Obese female, intubated, and mechanically ventilated. HEENT: Atraumatic. ET tube is in place. Scattered nodules on the head and face noted. NECK: Supple and symmetrical. CARDIOVASCULAR: Regular rhythm and rate, but bradycardic. RESPIRATORY: Ventilator transmitted breath sounds heard in all lung zones. GASTROINTESTINAL: Abdomen is obese and protuberant. Bowel sound is hypoactive. UROGENITAL: Price catheter is in place with little or no urine in urine bag. EXTREMITIES: Mild to moderate edema of the legs noted. FORMER HAND: The patient is sedated. DIAGNOSTIC DATA: CBC on May 27 showed WBC of 7.7, hemoglobin of 14.7, MCV of 92.6, and platelet of 196. BMP performed earlier today at 1540 hours showed sodium 134, potassium 6.7, chloride 103, CO2 of 24, BUN 21, creatinine 1.85, glucose 106, calcium 8.2. Of note, yesterday, May 27, sodium was 141, potassium 5.5, chloride 104, BUN 14, creatinine 0.84. Blood gas performed earlier today at 1729 hours showed pH of 7.09, pCO2 of 105, pO2 of 108.5. Ionized calcium is 1.19. Of note, about 4 hours prior, the patient had pH of 7.18, pCO2 of 88, pO2 of 80.7. Urinalysis performed yesterday showed colorless clear urine with pH of 6.0, specific gravity of 1.005, negative protein, normal glucose, negative ketone, blood, nitrite, bilirubin, and leukocyte esterase. Urine drug screen was positive for cocaine. COVID test was negative. Chest x-ray performed on presentation on May 26 showed interval resolution or near-complete resolution of pleural effusion noted on March 09, 2020. Large homogeneous mass at the medial aspect of the right apex is again noted, which is unchanged from prior imaging. CT angio of the chest performed on May 26 showed no pulmonary embolism. Marked dilatation of the right atrium with the appearance of severe pulmonary arterial hypertension is noted, as well as moderate size right pleural effusion, cholelithiasis, and upper abdominal ascites. ASSESSMENT: 1. Acute renal failure: This seems to be due to hemodynamic factors most likely due to volume deletion given diuretics and lisinopril use. Contrast-induced nephropathy may be contributory given that the patient had contrast study two days prior to increase in creatinine. Creatinine trending up post commencement of lisinopril also raises a concern for hemodynamic factors related to possible renal artery stenosis. 2. Hyperkalemia: Multifactorial from acute kidney injury to metabolic acidosis as well as possible potassium shift related to use of iv contrast. 3. Severe acidosis, multifactorial from acute kidney injury, severe respiratory acidosis as well as possible contribution from use of Topamax. 4. Presumed obesity hypoventilation and obstructive sleep apnea. 5. Acute respiratory failure with hypercarbia and hypoxia, now intubated and mechanically ventilated. 6. Hypotension: Most likely related to volume depletion and medications like lisinopril. The patient had required fluid resuscitation and blood pressure is slightly better. PLAN: 1. We will give a dose of Kayexalate. We will also recheck BMP to ascertain current potassium level. 2. We will also start the patient on bicarb containing fluids as normal saline will worsen metabolic acidosis. 3. Recommend adjustment of ventilator setting as per multi line claims adjuster to help with respiratory acidosis. 4. We will also get urine electrolytes. 5. We will also get renal ultrasound to assess renal artery and renal veins. 6. Further treatment to follow depending on hospital course. Many thanks for involving us in the care of this patient. We will avoid nephrotoxic agents and renally dose all medication. Rechecked BMP showed potassium of 7.5. Creatinine also went further to 2. Will give additional medical treatment with insulin/dextrose and albuterol inhalation We will also 150 meq of NaCO3 in dextrose water and run it at 100 cc/hr. Will repeat BMP in 4 hours. If still high, we will arrange for stat HD given associated bradycardia. critically ill with gurded prognosis. cc time at least 41 minutes. Job ID: [id number] MTDD
[2020-05-28] MEDS ORDERED: Albuterol Sulfate 2.5 mg/3 ml Neb NEB SCH (21:00)
[2020-05-28] MEDS ORDERED: FLU VACC QS2020-21(6MOS UP)/PF 60 MCG/0.5 ML SYRINGE IM ONE (21:00)
[2020-05-28] MEDS ORDERED: Insulin Regular 300 UNITS/3 ML VIAL IVP SCH (21:00)
[2020-05-28] MEDS ORDERED: Sodium Bicarbonate 150 MEQ in Dextrose 5% in Water 1,000 ML IV SCH (21:00)
[2020-05-28] MEDS: Pregabalin 75 MG CAP PO SCH (21:15)
[2020-05-28] MEDS: Furosemide 40 MG TAB PO SCH (21:16)
[2020-05-28] MEDS: Dexamethasone 4 mg/ml Vial SLOW IVP SCH (21:17)
[2020-05-28] MEDS ORDERED: Rocuronium Bromide 50 MG/5 ML VIAL ONE (21:36)
[2020-05-28] MEDS ORDERED: Vecuronium 10 MG VIAL IV SCH (21:45)
[2020-05-28 22:04] LABS: Creatinine, Urine 152.26 mg/dL (47-110); Sodium, Urine Less than 20 mmol/L (Not Available); Urea Nitrogen, Random Urine 127 mg/dl
[2020-05-28] MEDS ORDERED: Rocuronium Bromide 50 MG/5 ML VIAL IVP SCH (22:15)
[2020-05-28 22:18] LABS: Protein, Urine Random Quant 277 mg/dL (1-14)
[2020-05-28] MEDS: Topiramate 25 MG TAB PO SCH (23:30)
[2020-05-29 01:30] LABS: Anion Gap 15 mmol/L (10-20); BUN (Urea Nitrogen) 23 mg/dL (9.8-20.1); Calc. Creatinine Clearance 95 mL/min (70-130); Calcium 8.7 mg/dL (7.8-10.44); Carbon Dioxide 29 mmol/L (22-29); Chloride 100 mmol/L (98-107); Glucose 105 mg/dL (70-105); Potassium 3.9 mmol/L (3.5-5.1); Sodium 140 mmol/L (136-145)
[2020-05-29 05:25] LABS: ALT (SGPT) 10 U/L (8-55); AST (SGOT) 16 U/L (5-34); Albumin 2.8 g/dL (3.5-5.0); Alkaline Phosphatase 89 U/L (40-110); Anion Gap 14 mmol/L (10-20); BUN (Urea Nitrogen) 23 mg/dL (9.8-20.1); Calc. Creatinine Clearance 94 mL/min (70-130); Calcium 8.7 mg/dL (7.8-10.44); Carbon Dioxide 30 mmol/L (22-29); Chloride 100 mmol/L (98-107); Globulin 3.8 g/dL (2.4-3.5); Glucose 93 mg/dL (70-105); Protein, Total 6.6 g/dL (6.0-8.3); Sodium 140 mmol/L (136-145)
[2020-05-29] MEDS: Propofol 1,000 MG/100 ML VIAL IV PRN ×2 (05:45→17:00)
[2020-05-29] MEDS: Mometasone 200 MCG/Formoterol 5 MCG 120 PUFF INHALER INH SCH ×2 (06:30→19:06)
[2020-05-29 07:01] LABS: #Lymphocytes 0.7 thou/uL (1.20-3.40); #Monocytes 0.4 thou/uL (0.11-0.59); %Basophils 0.1 % (0.0-1.0); %Eosinophils 0.2 % (0.0-10.0); %Lymphocytes 6.6 % (21.0-51.0); %Monocytes 4.2 % (0.0-10.0); %Neutrophils 88.9 % (42.0-75.0); Hemoglobin 13.4 g/dL (12.0-16.0); Mean Corpuscular HGB CONC 29.2 g/dL (32.0-36.0); Mean Corpuscular Hemoglobin 26.2 pg (27.0-31.0); Mean Corpuscular Volume 89.7 fL (78.0-98.0); Mean Platelet Volume 9.5 fL (7.4-10.4); Platelet Count 236 thou/uL (130-400); RBC Distribution Width 17.8 % (11.5-14.5); Red Blood Cell (RBC) Count 5.11 mill/uL (4.20-5.40); White Blood Cell (WBC) Count 10.1 thou/uL (4.8-10.8)
--- NOTE | 2020-05-29 07:06 | RAD ---
PORTABLE CHEST: Date: 05/28/2020 INDICATION: Central line placement. Comparison made to the film at 10:00 p.m. FINDINGS: Central line has been readjusted. The line now has tip overlying the SVC near the right atrium. ET tube has tip above jakob. Tip of the NG tube is not identified, but appears to pass through the E G junction. The lung infiltrates are unchanged. The left rib deformities are again noted. IMPRESSION: Central line has been readjusted with tip overlying the SVC. POS: AGW
--- NOTE | 2020-05-29 07:11 | RAD ---
PORTABLE CHEST: Date: 05/28/2020 HISTORY: Central line placement. COMPARISON: Exam at 6:52 p.m. FINDINGS/IMPRESSION: Central line has been placed via the left jugular. The line crosses the midline and enters the right innominate vein and points superiorly. ET tube has been slightly retracted, but still resides just above the jakob. The bilateral lung infiltrates are again noted. POS: AGW
--- NOTE | 2020-05-29 07:35 | ULT ---
Exam: Bilateral renal ultrasound with renal artery Doppler HISTORY: Evaluate for renal artery stenosis. Acute renal failure COMPARISON: None TECHNIQUE: Grayscale, color flow, Doppler imaging and spectral waveform analysis of the kidneys perfo rmed FINDINGS: Evaluation is limited due to body habitus and patient being on a respirator. Right kidney: Normal cortical echotexture. No hydronephrosis. Right kidney measurements: 12.0 x 4.9 x 5.3 cm. Left kidney: Normal cortical echotexture. No hydronephrosis Left kidney measurements 9.7 x 4.6 x 4.3 cm. Urinary bladder: Normal mucosa. Renal Doppler: Right renal artery: 39.5 cm/s Left renal artery: 56.4 cm/s Aorta: 89.2 cm/s Right renal artery to aorta ratio: 0.44 Left renal artery to aorta ratio: 0.63 Arcuate artery resistive indices: Right marker artery resistive index: 0.63 Left arcuate artery resistive index: 0.52 IMPRESSION: 1. No hydronephrosis. 2. Normal arcuate artery resistive indices. Transcribed Date/Time: 05/29/2020 8:29 AM
--- NOTE | 2020-05-29 08:12 | PDOC.NEPPN ---
- Subjective Encounter Date: 05/29/20 Subjective: Seen and examined. Still intubated, sedated and mechanically ventilated. - Objective Vital Signs & Weight: Vital Signs (12 hours) Temp Pulse Resp BP Pulse Ox 05/29/20 06:20 89 20 90 L 05/29/20 06:16 89 117/76 90 L 05/29/20 06:00 20 05/29/20 04:00 97.9 F 05/29/20 02:28 80 116/78 05/29/20 02:00 20 05/29/20 00:08 88 161/102 H 05/29/20 00:00 97.7 F 20 05/28/20 22:00 20 05/28/20 21:39 73 20 97 05/28/20 21:17 163/111 H 05/28/20 21:00 97.5 F L 05/28/20 20:45 91 L Weight Weight 315 lb 14.4 oz Most Recent Monitor Data Heart Rate from ECG 81 NIBP 117/71 NIBP BP-Mean 86 Respiration from ECG 20 SpO2 89 I&O: 05/28/20 05/29/20 05/30/20 06:59 06:59 06:59 Intake Total 1327.1 Output Total 783 65 Balance 544.1 -65 Result Diagrams: 05/29/20 06:30 05/29/20 03:45 Nephrology ROS - Medication Medications: Active Medications Generic Name Dose Route Start Last Admin Trade Name Freq PRN Reason Stop Dose Admin Acetaminophen 650 mg 05/27/20 03:30 05/28/20 05:18 Acetaminophen 325 Mg Tab PO 650 mg Q4H PRN Administration Headache/Fever/Mild Pain (1-3) Acetaminophen 650 mg 05/27/20 03:30 05/27/20 22:23 Acetaminophen 650 Mg Suppository ME 650 mg Q4H PRN Administration Headache/Fever/Mild Pain (1-3) Albuterol/Ipratropium 3 ml 05/29/20 01:00 05/29/20 06:20 Ipratropium/Albuterol Sulfate 3 Ml Neb NEB 3 ml [id number] HALIE Administration Carvedilol 6.25 mg 05/27/20 09:00 05/28/20 21:17 Carvedilol 6.25 Mg Tab PO 6.25 mg BID HALIE Administration Dexamethasone 4 mg 05/28/20 21:00 05/28/20 21:17 Dexamethasone 4 Mg/Ml Vial SLOW IVP 05/31/20 21:01 4 mg BID HALIE Administration Enoxaparin Sodium 40 mg 05/27/20 09:00 05/28/20 08:58 Enoxaparin Sodium 40 Mg/0.4 Ml Syringe SC 40 mg 0900 HALIE Administration Famotidine 20 mg 05/27/20 21:00 05/28/20 21:17 Famotidine 20 Mg Tab PO 20 mg BID HALIE Administration Furosemide 20 mg 05/28/20 21:00 05/28/20 21:16 Furosemide 40 Mg Tab PO 20 mg BID HALIE Administration Mometasone Furoate/Formoterol Fumar 2 puff 05/28/20 18:30 05/29/20 06:30 Mometasone 200 Mcg/Formoterol 5 Mcg 120 Puff Inhaler INH 2 puff BID-RT HALIE Administration Pregabalin 300 mg 05/28/20 21:00 05/28/20 21:15 Pregabalin 75 Mg Cap PO 300 mg BID HALIE Administration Propofol 1,000 mg 05/28/20 19:30 05/29/20 05:45 Propofol 1,000 Mg/100 Ml Vial IV 06/27/20 19:30 1,000 mg INF PRN Administration TO ACHIEVE GOAL RASS Protocol Topiramate 50 mg 05/28/20 21:00 05/28/20 23:30 Topiramate 25 Mg Tab PO 50 mg BID HALIE Administration - Exam General - other findings: sedated and unresponsive ENT - other findings: scattered nodules of various sized noted on the face. ET tube in place Neck: symmetric Respiratory - other findings: ventilator transmitted sound noted. Cardiovascular: RRR Gastrointestinal - other findings: obese and protuberant Extremities: 1+ LE edema Neurological - other findings: sedated and unresponsive Nephrology Results - Labs Result Diagrams: 05/29/20 06:30 05/29/20 03:45 Lab results: WBC 10.1 thou/uL (4.8-10.8) 05/29/20 06:30 Hgb 13.4 g/dL (12.0-16.0) 05/29/20 06:30 Hct 45.9 % (36.0-47.0) 05/29/20 06:30 MCV 89.7 fL (78.0-98.0) 05/29/20 06:30 Plt Count 236 thou/uL (130-400) 05/29/20 06:30 Neutrophils % 88.9 % (42.0-75.0) H 05/29/20 06:30 ABG pH 7.30 (7.35-7.45) L 05/28/20 19:49 ABG pCO2 62.5 mmHg (35.0-45.0) H* 05/28/20 19:49 ABG pO2 59.0 mmHg (80.0-100.0) L* 05/28/20 19:49 Sodium 140 mmol/L (136-145) 05/29/20 03:45 Potassium 4.0 mmol/L (3.5-5.1) 05/29/20 03:45 Chloride 100 mmol/L (98-107) 05/29/20 03:45 Carbon Dioxide 30 mmol/L (22-29) H 05/29/20 03:45 BUN 23 mg/dL (9.8-20.1) H 05/29/20 03:45 Creatinine 1.54 mg/dL (0.6-1.1) H 05/29/20 03:45 Glucose 93 mg/dL (70-105) 05/29/20 03:45 Calcium 8.7 mg/dL (7.8-10.44) 05/29/20 03:45 Total Bilirubin 1.0 mg/dL (0.2-1.2) 05/29/20 03:45 AST 16 U/L (5-34) 05/29/20 03:45 ALT 10 U/L (8-55) 05/29/20 03:45 Alkaline Phosphatase 89 U/L (40-110) 05/29/20 03:45 Creatine Kinase 39 U/L (29-168) 05/26/20 21:43 Troponin I 0.013 ng/mL (< 0.028) 05/27/20 12:08 B-Natriuretic Peptide 226.4 pg/mL (0-100) H 05/26/20 21:43 Serum Total Protein 6.6 g/dL (6.0-8.3) 05/29/20 03:45 Albumin 2.8 g/dL (3.5-5.0) L 05/29/20 03:45 Urine Ketones Negative mg/dL (Negative) 05/27/20 00:00 Urine Blood Negative (Negative) 05/27/20 00:00 Urine Nitrite Negative (Negative) 05/27/20 00:00 Ur Leukocyte Esterase Negative Ozzy/uL (Negative) 05/27/20 00:00 Sodium 140 mmol/L (136-145) 05/29/20 03:45 Potassium 4.0 mmol/L (3.5-5.1) 05/29/20 03:45 Chloride 100 mmol/L (98-107) 05/29/20 03:45 Carbon Dioxide 30 mmol/L (22-29) H 05/29/20 03:45 Anion Gap 14 mmol/L (10-20) 05/29/20 03:45 BUN 23 mg/dL (9.8-20.1) H 05/29/20 03:45 Creatinine 1.54 mg/dL (0.6-1.1) H 05/29/20 03:45 Glucose 93 mg/dL (70-105) 05/29/20 03:45 Calcium 8.7 mg/dL (7.8-10.44) 05/29/20 03:45 Magnesium 1.6 mg/dL (1.6-2.6) 05/27/20 05:25 Albumin 2.8 g/dL (3.5-5.0) L 05/29/20 03:45 Nephrology AP PN - Plan GALINA: Most likely due to hemodynamic factors related to voilume depletion and ACEI use. FENa and FEurae are consistent. Creat is better from 2 to 1.5 with alkali and crystalloid therapy. Contrast induced nephropathy is unlikely with i mprovement with IVF. Renal artery stenosis is unlikely given renal artery doppler report Hyperkalemia: Resolved with medical treatment. Metabolic acidosis: 2/2 GALINA with possible contribution from topamax Respiratory acidosis Morbid obesity with presumed KASI/OHS. COPD Bilateral leg edema: Due to venous insufficiency and possible right heart/diastolic heart failure. Neurofibromatosis. PLAN Start 1/2 NS with bicarb and at a lower rate to avoid fluid overload. Avoid nephrotoxic agent. Avoid lasix and RAAS aryan for now. Monitor intake and output. Follow renal function and electrolytes.
[2020-05-29] MEDS ORDERED: Sodium Bicarbonate 50 MEQ in Sodium Chloride 0.45% 1,000 ML IV SCH (08:15)
[2020-05-29] MEDS: Pregabalin 75 MG CAP PO SCH (08:50)
[2020-05-29] MEDS: Carvedilol 6.25 MG TAB PO SCH ×2 (08:53→21:04)
[2020-05-29] MEDS: Topiramate 25 MG TAB PO SCH ×2 (08:53→21:07)
[2020-05-29] MEDS: DULoxetine 30 MG CAP PO SCH (08:53)
[2020-05-29] MEDS: Furosemide 40 MG TAB PO SCH (08:53)
[2020-05-29] MEDS: Dexamethasone 4 mg/ml Vial SLOW IVP SCH ×2 (08:54→21:04)
[2020-05-29] MEDS: Famotidine 20 MG TAB PO SCH (08:54)
[2020-05-29] MEDS: Enoxaparin Sodium 40 MG/0.4 ML SYRINGE SC SCH (08:54)
[2020-05-29] MEDS ORDERED: Senokot S 8.6-50 MG TAB PO PRN (08:58)
[2020-05-29] MEDS ORDERED: hydrALAZINE 20 MG/ML VIAL SLOW IVP PRN (08:58)
[2020-05-29] MEDS ORDERED: Bisacodyl 5 MG TAB PO PRN (08:58)
[2020-05-29] MEDS ORDERED: GUAIFENESIN SF SOLN 200 MG/10 ML UDCUP PO PRN (08:58)
[2020-05-29] MEDS: Pantoprazole 40 MG VIAL IVP SCH (09:14)
[2020-05-29 09:30] LABS: Band 2 % (5-11); Lymphocytes 9 % (21-51); MDiff Complete? YES; Monocytes 3 % (0-10); Neutrophil 86 % (42-75); Platelet Morphology Comment Appears Adequate; Polychromasia SLIGHT = 2-3 cells (100X) (0-2/hpf); Stomatocytes SLIGHT = 2-5 cells (100X) (0-1/hpf)
[2020-05-29] MEDS ORDERED: Fentanyl CADD 100 ML ONE (09:36)
--- NOTE | 2020-05-29 09:48 | PRG ---
DATE OF SERVICE: 05/29/2020 SUBJECTIVE: Luma Parr is a morbidly obese female, 5 feet 4 inches, 315 pounds, BMI greater than 54. She was intubated yesterday with progressive respiratory failure. Her blood gas shows pO2 of 108, pCO2 of 105, pH 7.0 on a BiPAP 30%. This morning her blood gases; pO2 is 59, pCO2 of 62, pH 7.30 on 50%, rate of 16, PEEP of 10. OBJECTIVE: VITAL SIGNS: Temperature 98, blood pressure 117/76, sats are 92% to 93%. CHEST: Bilateral rhonchi and crackles. CARDIAC: Normal S1 and S2. No gallops. ABDOMEN: No masses. LABORATORY DATA: White count 10,000, hemoglobin and hematocrit of 13 and 43, platelet count is normal. Creatinine 1.5, bicarb is 30. ASSESSMENT: Acute on chronic respiratory failure, morbid obesity, diastolic dysfunction, mild azotemia. PLAN: Minimize sedation as much as possible. Continue antibiotics, supportive care, PT. One-half hour of critical care time. Job ID: [id number]
[2020-05-29] MEDS: cefTRIAXone\\ROCEPHIN 1 GM in Sodium Chloride 0.9% 100 ML IVPB SCH (11:00)
--- NOTE | 2020-05-29 13:01 | PDOC.HOSPP ---
- Subjective Encounter Date: 05/29/20 Encounter Time: 10:00 Subjective: Patient is intubated, no overnight event, - Objective Vital Signs & Weight: Vital Signs (12 hours) Temp Pulse Resp BP Pulse Ox 05/29/20 12:06 82 20 89 L 05/29/20 12:03 82 107/69 05/29/20 08:53 117/76 05/29/20 08:00 98.9 F 05/29/20 06:20 89 20 90 L 05/29/20 06:16 89 117/76 90 L 05/29/20 06:00 20 05/29/20 04:00 97.9 F 20 05/29/20 02:28 80 116/78 05/29/20 02:00 20 Weight Admit Weight 299 lb 9.731 oz Weight 315 lb 14.4 oz Most Recent Monitor Data Heart Rate from ECG 98 NIBP 114/69 NIBP BP-Mean 84 Respiration from ECG 18 SpO2 91 I&O: 05/28/20 05/29/20 05/30/20 06:59 06:59 06:59 Intake Total 1327.1 111 Output Total 783 230 Balance 544.1 -119 Result Diagrams: 05/29/20 06:30 05/29/20 03:45 Radiology Reviewed by me: Yes EKG Reviewed by me: Yes Hospitalist ROS - Review of Systems ROS unobtainable: due to endotracheal tube - Medication Medications: Active Medications Generic Name Dose Route Start Last Admin Trade Name Freq PRN Reason Stop Dose Admin Acetaminophen 650 mg 05/27/20 03:30 05/28/20 05:18 Acetaminophen 325 Mg Tab PO 650 mg Q4H PRN Administration Headache/Fever/Mild Pain (1-3) Acetaminophen 650 mg 05/27/20 03:30 05/27/20 22:23 Acetaminophen 650 Mg Suppository IN 650 mg Q4H PRN Administration Headache/Fever/Mild Pain (1-3) Albuterol/Ipratropium 3 ml 05/29/20 01:00 05/29/20 12:06 Ipratropium/Albuterol Sulfate 3 Ml Neb NEB 3 ml [id number] HALIE Administration Carvedilol 6.25 mg 05/27/20 09:00 05/29/20 08:53 Carvedilol 6.25 Mg Tab PO 6.25 mg BID HALIE Administration Dexamethasone 4 mg 05/28/20 21:00 05/29/20 08:54 Dexamethasone 4 Mg/Ml Vial SLOW IVP 05/31/20 21:01 4 mg BID HALIE Administration Duloxetine HCl 30 mg 05/29/20 09:00 05/29/20 08:53 Duloxetine 30 Mg Cap PO 30 mg DAILY HALIE Administration Enoxaparin Sodium 40 mg 05/27/20 09:00 05/29/20 08:54 Enoxaparin Sodium 40 Mg/0.4 Ml Syringe SC 40 mg 0900 HALIE Administration Sodium Bicarbonate 50 meq/ 1,050 mls @ 50 mls/hr 05/29/20 08:15 05/29/20 08:53 Sodium Chloride IV 05/30/20 05:14 1,050 mls NOW HALIE Administration Ceftriaxone Sodium 1 gm/ 100 mls @ 200 mls/hr 05/29/20 10:00 05/29/20 11:00 Sodium Chloride IVPB 100 mls Q24HR HALIE Administration Mometasone Furoate/Formoterol Fumar 2 puff 05/28/20 18:30 05/29/20 06:30 Mometasone 200 Mcg/Formoterol 5 Mcg 120 Puff Inhaler INH 2 puff BID-RT HALIE Administration Pantoprazole Sodium 40 mg 05/29/20 09:00 05/29/20 09:14 Pantoprazole 40 Mg Vial IVP 40 mg DAILY HALIE Administration Propofol 1,000 mg 05/28/20 19:30 05/29/20 05:45 Propofol 1,000 Mg/100 Ml Vial IV 06/27/20 19:30 1,000 mg INF PRN Administration TO ACHIEVE GOAL RASS Protocol Sodium Chloride 10 ml 05/29/20 09:00 05/29/20 09:10 Flush - Normal Saline 10 Ml Syringe IVF 10 ml Q12HR HALIE Administration Topiramate 50 mg 05/28/20 21:00 05/29/20 08:53 Topiramate 25 Mg Tab PO 50 mg BID HALIE Administration Hospitalist Exam Vitals: Vital Signs (12 hours) Temp Pulse Resp BP Pulse Ox 05/29/20 12:06 82 20 89 L 05/29/20 12:03 82 107/69 05/29/20 08:53 117/76 05/29/20 08:00 98.9 F 05/29/20 06:20 89 20 90 L 05/29/20 06:16 89 117/76 90 L 05/29/20 06:00 20 05/29/20 04:00 97.9 F 20 05/29/20 02:28 80 116/78 05/29/20 02:00 20 Weight Admit Weight 299 lb 9.731 oz Weight 315 lb 14.4 oz Most Recent Monitor Data Heart Rate from ECG 98 NIBP 114/69 NIBP BP-Mean 84 Respiration from ECG 18 SpO2 91 General Appearance: NAD General - other findings: Intubated ENT: normocephalic atraumatic Neck: supple, symmetric, no JVD Heart: RRR, no murmur, no gallops, no rubs Respiratory: no wheezes, no rales, no ronchi Gastrointestinal: soft, non-distended, normal bowel sounds Gastrointestinal - other findings: Morbid obesity noted Hosp A/P (1) Acute on chronic diastolic heart failure Code(s): I50.33 - ACUTE ON CHRONIC DIASTOLIC (CONGESTIVE) HEART FAILURE Status: Acute (2) Acute on chronic respiratory failure with hypercapnia Code(s): J96.22 - ACUTE AND CHRONIC RESPIRATORY FAILURE WITH HYPERCAPNIA Status: Acute (3) Hyperkalemia Code(s): E87.5 - HYPERKALEMIA Status: Acute (4) Obesity hypoventilation syndrome Code(s): E66.2 - MORBID (SEVERE) OBESITY WITH ALVEOLAR HYPOVENTILATION Status: Acute (5) Pulmonary hypertension Code(s): I27.20 - PULMONARY HYPERTENSION, UNSPECIFIED Status: Acute (6) Morbid obesity with BMI of 50.0-59.9, adult Code(s): E66.01 - MORBID (SEVERE) OBESITY DUE TO EXCESS CALORIES; Z68.43 - BODY MASS INDEX [BMI] 50.0-59.9, ADULT Status: Chronic (7) Polysubstance abuse Code(s): F19.10 - OTHER PSYCHOACTIVE SUBSTANCE ABUSE, UNCOMPLICATED Status: Acute (8) Neurofibromatosis Status: Chronic - Plan old records reviewed/req Continue ventilator as per pulmonology Potassium has significant improved, Medication reviewed and continue for symptomatic and supportive care
[2020-05-29] MEDS: Fentanyl CADD 100 ML IV SCH (16:24)
[2020-05-30] MEDS: Propofol 1,000 MG/100 ML VIAL IV PRN ×3 (01:55→20:39)
[2020-05-30 04:22] LABS: #Lymphocytes 0.9 thou/uL (1.20-3.40); #Monocytes 0.6 thou/uL (0.11-0.59); #Neutrophils 11.2 thou/uL (1.40-6.50); %Basophils 0.2 % (0.0-1.0); %Lymphocytes 7.1 % (21.0-51.0); %Monocytes 4.4 % (0.0-10.0); %Neutrophils 88.4 % (42.0-75.0); Hemoglobin 13.2 g/dL (12.0-16.0); Mean Corpuscular HGB CONC 29.4 g/dL (32.0-36.0); Mean Corpuscular Hemoglobin 25.8 pg (27.0-31.0); Mean Corpuscular Volume 87.5 fL (78.0-98.0); Mean Platelet Volume 9.5 fL (7.4-10.4); Platelet Count 263 thou/uL (130-400); RBC Distribution Width 17.9 % (11.5-14.5); Red Blood Cell (RBC) Count 5.14 mill/uL (4.20-5.40); White Blood Cell (WBC) Count 12.7 thou/uL (4.8-10.8)
[2020-05-30 05:06] LABS: ALT (SGPT) 8 U/L (8-55); AST (SGOT) 13 U/L (5-34); Albumin 2.7 g/dL (3.5-5.0); Alkaline Phosphatase 83 U/L (40-110); Anion Gap 15 mmol/L (10-20); BUN (Urea Nitrogen) 23 mg/dL (9.8-20.1); Bilirubin, Total 0.7 mg/dL (0.2-1.2); Calc. Creatinine Clearance 165 mL/min (70-130); Calcium 8.4 mg/dL (7.8-10.44); Carbon Dioxide 30 mmol/L (22-29); Chloride 100 mmol/L (98-107); Globulin 3.8 g/dL (2.4-3.5); Glucose 119 mg/dL (70-105); Potassium 3.6 mmol/L (3.5-5.1); Protein, Total 6.5 g/dL (6.0-8.3); Sodium 141 mmol/L (136-145)
[2020-05-30] MEDS ORDERED: Albumin 25% 25 GM/100 ML BOT IVPB SCH (05:30)
[2020-05-30] MEDS: Mometasone 200 MCG/Formoterol 5 MCG 120 PUFF INHALER INH SCH ×2 (06:30→19:21)
--- NOTE | 2020-05-30 07:18 | EKG ---
Test Reason : STAT Blood Pressure : / mmHG Vent. Rate : 059 BPM Atrial Rate : 059 BPM P-R Int : 160 ms QRS Dur : 064 ms QT Int : 434 ms P-R-T Axes : 058 112 059 degrees QTc Int : 429 ms Sinus bradycardia Possible Left atrial enlargement Right axis deviation Low voltage QRS Abnormal ECG Confirmed by DR. Brigitte LARA ([id number]) on 05/30/2020 7:18:44 AM Referred By: ARIS Confirmed By:DR. Brigitte LARA
--- NOTE | 2020-05-30 08:46 | RAD ---
Chest one view HISTORY: Pneumonia. Follow-up. COMPARISON: 05/28/2020. FINDINGS: Cardiac silhouette is magnified and upper limits of normal in size. Pulmonary vasculature r emains engorged. Ill-defined patchy areas of parenchymal infiltrate throughout each lower lobe in the central aspect o f each upper lobe similar in appearance to the prior study. Tip of the left internal jugular central venous catheter is now projected to or away from the x-ray b eam. Just above the level of the right mainstem bronchus. Other lines and tubes unchanged in position. Hazy opacity over the inferior aspect of each hemithorax unchanged in appearance. IMPRESSION : Left internal jugular central venous catheter tip now within the azygos vein. Consider repositioning. Bilateral pleural fluid, bilateral infiltrates, and other findings are otherwise stable.
[2020-05-30] MEDS: Enoxaparin Sodium 40 MG/0.4 ML SYRINGE SC SCH (09:38)
[2020-05-30] MEDS: Pantoprazole 40 MG VIAL IVP SCH (09:39)
[2020-05-30] MEDS: DULoxetine 30 MG CAP PO SCH (09:39)
[2020-05-30] MEDS: Carvedilol 6.25 MG TAB PO SCH ×2 (09:39→21:34)
[2020-05-30] MEDS: Topiramate 25 MG TAB PO SCH ×2 (09:39→21:40)
[2020-05-30] MEDS: Furosemide 40 MG/4 ML VIAL SLOW IVP SCH ×2 (09:39→21:31)
--- NOTE | 2020-05-30 09:40 | PRG ---
DATE OF SERVICE: SUBJECTIVE: Luma Parr is a 54-year-old morbidly obese female, who is intubated in the vent, opens her eyes, minimal sedation. OBJECTIVE: VITAL SIGNS: Temperature 97, blood pressure 105/55, sats , and respiratory rate 18. CHEST: No wheezing. No crackles. CARDIAC: Normal S1 and S2. No gallops. ABDOMEN: Soft. LABORATORY DATA: White count 12,000. Bicarb is 30. Lytes are normal. ASSESSMENT: 1. Morbid obesity, respiratory failure, sleep apnea. 2. Diastolic dysfunction. PLAN: Minimize sedation, Diamox for several days, steroids, supportive care. One-half hour of critical time. Job ID: [id number]
[2020-05-30] MEDS: Dexamethasone 4 mg/ml Vial SLOW IVP SCH (10:19)
[2020-05-30] MEDS: cefTRIAXone\\ROCEPHIN 1 GM in Sodium Chloride 0.9% 100 ML IVPB SCH (10:20)
--- NOTE | 2020-05-30 11:32 | PDOC.NEPPN ---
- Subjective Encounter Date: 05/30/20 Subjective: Seen and examined. Still intubated. - Objective Vital Signs & Weight: Vital Signs (12 hours) Temp Pulse Resp BP Pulse Ox 05/30/20 10:57 86 05/30/20 09:39 104/64 05/30/20 08:00 97.9 F 05/30/20 06:33 80 104/64 91 L 05/30/20 06:32 84 16 91 L 05/30/20 06:00 16 05/30/20 04:00 98.6 F 16 05/30/20 02:00 16 05/30/20 00:52 70 16 05/30/20 00:00 98.2 F 16 Weight Admit Weight 299 lb 9.731 oz Weight 315 lb 14.4 oz Most Recent Monitor Data Heart Rate from ECG 81 NIBP 117/74 NIBP BP-Mean 88 Respiration from ECG 10 SpO2 92 I&O: 05/29/20 05/30/20 05/31/20 06:59 06:59 06:59 Intake Total 1327.1 1791.9 405 Output Total 783 968 185 Balance 544.1 823.9 220 Result Diagrams: 05/30/20 03:55 05/30/20 03:55 Nephrology ROS - Medication Medications: Active Medications Generic Name Dose Route Start Last Admin Trade Name Freq PRN Reason Stop Dose Admin Acetaminophen 650 mg 05/27/20 03:30 05/28/20 05:18 Acetaminophen 325 Mg Tab PO 650 mg Q4H PRN Administration Headache/Fever/Mild Pain (1-3) Acetaminophen 650 mg 05/27/20 03:30 05/27/20 22:23 Acetaminophen 650 Mg Suppository IN 650 mg Q4H PRN Administration Headache/Fever/Mild Pain (1-3) Albuterol/Ipratropium 3 ml 05/29/20 01:00 05/30/20 06:32 Ipratropium/Albuterol Sulfate 3 Ml Neb NEB 3 ml [id number] HALIE Administration Carvedilol 6.25 mg 05/27/20 09:00 05/30/20 09:39 Carvedilol 6.25 Mg Tab PO 6.25 mg BID HALIE Administration Duloxetine HCl 30 mg 05/29/20 09:00 05/30/20 09:39 Duloxetine 30 Mg Cap PO 30 mg DAILY HALIE Administration Enoxaparin Sodium 40 mg 05/27/20 09:00 05/30/20 09:38 Enoxaparin Sodium 40 Mg/0.4 Ml Syringe SC 40 mg 0900 HALIE Administration Furosemide 40 mg 05/30/20 09:00 05/30/20 09:39 Furosemide 40 Mg/4 Ml Vial SLOW IVP 40 mg BID HALIE Administration Fentanyl 100 mls @ 0 mls/hr 05/28/20 19:30 05/29/20 16:24 Fentanyl Cadd IV 06/27/20 19:30 100 mls INF HALIE Administration Protocol Per Protocol Ceftriaxone Sodium 1 gm/ 100 mls @ 200 mls/hr 05/29/20 10:00 05/30/20 10:20 Sodium Chloride IVPB 100 mls Q24HR HALIE Administration Mometasone Furoate/Formoterol Fumar 2 puff 05/28/20 18:30 05/29/20 19:06 Mometasone 200 Mcg/Formoterol 5 Mcg 120 Puff Inhaler INH 2 puff BID-RT HALIE Administration Pantoprazole Sodium 40 mg 05/29/20 09:00 05/30/20 09:39 Pantoprazole 40 Mg Vial IVP 40 mg DAILY HALIE Administration Propofol 1,000 mg 05/28/20 19:30 05/30/20 09:43 Propofol 1,000 Mg/100 Ml Vial IV 06/27/20 19:30 1,000 mg INF PRN Administration TO ACHIEVE GOAL RASS Protocol Sodium Chloride 10 ml 05/29/20 09:00 05/30/20 09:39 Flush - Normal Saline 10 Ml Syringe IVF 10 ml Q12HR HALIE Administration Topiramate 50 mg 05/28/20 21:00 05/30/20 09:39 Topiramate 25 Mg Tab PO 50 mg BID HALIE Administration - Exam General - other findings: sedated and unresponsive ENT - other findings: ET tube in place Respiratory - other findings: ventilator transmitted sound noted Cardiovascular: RRR Gastrointestinal: non-distended, diminished bowl sounds Gastrointestinal - other findings: obese Extremities - other findings: moderate to severe edema of the extremities Neurological - other findings: sedated and unresponsive Nephrology Results - Labs Result Diagrams: 05/30/20 03:55 05/30/20 03:55 Lab results: WBC 12.7 thou/uL (4.8-10.8) H 05/30/20 03:55 Hgb 13.2 g/dL (12.0-16.0) 05/30/20 03:55 Hct 45.0 % (36.0-47.0) 05/30/20 03:55 MCV 87.5 fL (78.0-98.0) 05/30/20 03:55 Plt Count 263 thou/uL (130-400) 05/30/20 03:55 Neutrophils % 88.4 % (42.0-75.0) H 05/30/20 03:55 Band Neuts % (Manual) 2 % (5-11) L 05/29/20 06:30 ABG pH 7.30 (7.35-7.45) L 05/28/20 19:49 ABG pCO2 62.5 mmHg (35.0-45.0) H* 05/28/20 19:49 ABG pO2 59.0 mmHg (80.0-100.0) L* 05/28/20 19:49 Sodium 141 mmol/L (136-145) 05/30/20 03:55 Potassium 3.6 mmol/L (3.5-5.1) 05/30/20 03:55 Chloride 100 mmol/L (98-107) 05/30/20 03:55 Carbon Dioxide 30 mmol/L (22-29) H 05/30/20 03:55 BUN 23 mg/dL (9.8-20.1) H 05/30/20 03:55 Creatinine 0.88 mg/dL (0.6-1.1) 05/30/20 03:55 Glucose 119 mg/dL (70-105) H 05/30/20 03:55 Calcium 8.4 mg/dL (7.8-10.44) 05/30/20 03:55 Total Bilirubin 0.7 mg/dL (0.2-1.2) 05/30/20 03:55 AST 13 U/L (5-34) 05/30/20 03:55 ALT 8 U/L (8-55) 05/30/20 03:55 Alkaline Phosphatase 83 U/L (40-110) 05/30/20 03:55 Creatine Kinase 39 U/L (29-168) 05/26/20 21:43 Troponin I 0.013 ng/mL (< 0.028) 05/27/20 12:08 B-Natriuretic Peptide 226.4 pg/mL (0-100) H 05/26/20 21:43 Serum Total Protein 6.5 g/dL (6.0-8.3) 05/30/20 03:55 Albumin 2.7 g/dL (3.5-5.0) L 05/30/20 03:55 Urine Ketones Negative mg/dL (Negative) 05/27/20 00:00 Urine Blood Negative (Negative) 05/27/20 00:00 Urine Nitrite Negative (Negative) 05/27/20 00:00 Ur Leukocyte Esterase Negative Ozzy/uL (Negative) 05/27/20 00:00 Sodium 141 mmol/L (136-145) 05/30/20 03:55 Potassium 3.6 mmol/L (3.5-5.1) 05/30/20 03:55 Chloride 100 mmol/L (98-107) 05/30/20 03:55 Carbon Dioxide 30 mmol/L (22-29) H 05/30/20 03:55 Anion Gap 15 mmol/L (10-20) 05/30/20 03:55 BUN 23 mg/dL (9.8-20.1) H 05/30/20 03:55 Creatinine 0.88 mg/dL (0.6-1.1) 05/30/20 03:55 Glucose 119 mg/dL (70-105) H 05/30/20 03:55 Calcium 8.4 mg/dL (7.8-10.44) 05/30/20 03:55 Magnesium 1.6 mg/dL (1.6-2.6) 05/27/20 05:25 Albumin 2.7 g/dL (3.5-5.0) L 05/30/20 03:55 Nephrology AP PN - Plan Anasarca: Due to hypoalbuminemia and mitral regurgitation. Worse with fluid resuscitation GALINA: Due to hemodynamic factors related to voilume depletion and ACEI use. FENa and FEurae are consistent. Resolved with crystalloid and discontinuation of RAAS aryan Hyperkalemia: Resolved Metabolic acidosis: 2/2 GALINA with possible contribution from topamax Respiratory acidosis Morbid obesity with presumed KASI/OHS. COPD Neurofibromatosis. PLAN Give a dose of albumin 25 grams. Start lasix 40 mg IV bid. Start spironolactone. per tube DC IVF. Monitor intake and output. Follow renal function and electrolytes.
[2020-05-30] MEDS ORDERED: Spironolactone 25 MG TAB PER TUBE SCH (11:45)
--- NOTE | 2020-05-30 11:52 | PDOC.HOSPP ---
- Subjective Encounter Date: 05/30/20 Encounter Time: 10:15 Subjective: Patient seen and examined bedside today, patient is on ventilator, no overall change in condition, - Objective Vital Signs & Weight: Vital Signs (12 hours) Temp Pulse Resp BP Pulse Ox 05/30/20 10:57 86 05/30/20 09:39 104/64 05/30/20 08:00 97.9 F 05/30/20 06:33 80 104/64 91 L 05/30/20 06:32 84 16 91 L 05/30/20 06:00 16 05/30/20 04:00 98.6 F 16 05/30/20 02:00 16 05/30/20 00:52 70 16 05/30/20 00:00 98.2 F 16 Weight Admit Weight 299 lb 9.731 oz Weight 315 lb 14.4 oz Most Recent Monitor Data Heart Rate from ECG 81 NIBP 117/74 NIBP BP-Mean 88 Respiration from ECG 10 SpO2 92 I&O: 05/29/20 05/30/20 05/31/20 06:59 06:59 06:59 Intake Total 1327.1 1791.9 405 Output Total 783 968 225 Balance 544.1 823.9 180 Result Diagrams: 05/30/20 03:55 05/30/20 03:55 Radiology Reviewed by me: Yes EKG Reviewed by me: Yes Hospitalist ROS - Review of Systems ROS unobtainable: due to endotracheal tube - Medication Medications: Active Medications Generic Name Dose Route Start Last Admin Trade Name Freq PRN Reason Stop Dose Admin Acetaminophen 650 mg 05/27/20 03:30 05/28/20 05:18 Acetaminophen 325 Mg Tab PO 650 mg Q4H PRN Administration Headache/Fever/Mild Pain (1-3) Acetaminophen 650 mg 05/27/20 03:30 05/27/20 22:23 Acetaminophen 650 Mg Suppository ID 650 mg Q4H PRN Administration Headache/Fever/Mild Pain (1-3) Albuterol/Ipratropium 3 ml 05/29/20 01:00 05/30/20 06:32 Ipratropium/Albuterol Sulfate 3 Ml Neb NEB 3 ml [id number] HALIE Administration Carvedilol 6.25 mg 05/27/20 09:00 05/30/20 09:39 Carvedilol 6.25 Mg Tab PO 6.25 mg BID HALIE Administration Duloxetine HCl 30 mg 05/29/20 09:00 05/30/20 09:39 Duloxetine 30 Mg Cap PO 30 mg DAILY HALIE Administration Enoxaparin Sodium 40 mg 05/27/20 09:00 05/30/20 09:38 Enoxaparin Sodium 40 Mg/0.4 Ml Syringe SC 40 mg 0900 HALIE Administration Furosemide 40 mg 05/30/20 09:00 05/30/20 09:39 Furosemide 40 Mg/4 Ml Vial SLOW IVP 40 mg BID HALIE Administration Fentanyl 100 mls @ 0 mls/hr 05/28/20 19:30 05/29/20 16:24 Fentanyl Cadd IV 06/27/20 19:30 100 mls INF HALIE Administration Protocol Per Protocol Ceftriaxone Sodium 1 gm/ 100 mls @ 200 mls/hr 05/29/20 10:00 05/30/20 10:20 Sodium Chloride IVPB 100 mls Q24HR HALIE Administration Mometasone Furoate/Formoterol Fumar 2 puff 05/28/20 18:30 05/29/20 19:06 Mometasone 200 Mcg/Formoterol 5 Mcg 120 Puff Inhaler INH 2 puff BID-RT HALIE Administration Pantoprazole Sodium 40 mg 05/29/20 09:00 05/30/20 09:39 Pantoprazole 40 Mg Vial IVP 40 mg DAILY HALIE Administration Propofol 1,000 mg 05/28/20 19:30 05/30/20 09:43 Propofol 1,000 Mg/100 Ml Vial IV 06/27/20 19:30 1,000 mg INF PRN Administration TO ACHIEVE GOAL RASS Protocol Sodium Chloride 10 ml 05/29/20 09:00 05/30/20 09:39 Flush - Normal Saline 10 Ml Syringe IVF 10 ml Q12HR HALIE Administration Topiramate 50 mg 05/28/20 21:00 05/30/20 09:39 Topiramate 25 Mg Tab PO 50 mg BID HALIE Administration Hospitalist Exam Vitals: Vital Signs (12 hours) Temp Pulse Resp BP Pulse Ox 05/30/20 10:57 86 05/30/20 09:39 104/64 05/30/20 08:00 97.9 F 05/30/20 06:33 80 104/64 91 L 05/30/20 06:32 84 16 91 L 05/30/20 06:00 16 05/30/20 04:00 98.6 F 16 05/30/20 02:00 16 05/30/20 00:52 70 16 05/30/20 00:00 98.2 F 16 Weight Admit Weight 299 lb 9.731 oz Weight 315 lb 14.4 oz Most Recent Monitor Data Heart Rate from ECG 81 NIBP 117/74 NIBP BP-Mean 88 Respiration from ECG 10 SpO2 92 General Appearance: NAD Eye: anicteric sclera Eye - other findings: Intubated ENT: normocephalic atraumatic Neck: supple, symmetric, no JVD Heart: RRR, no murmur, no gallops, no rubs Respiratory: no wheezes, no rales, no ronchi Gastrointestinal: soft, non-distended, normal bowel sounds Gastrointestinal - other findings: Morbid obesity noted Extremities: 2+ LE edema Skin: normal turgor Hosp A/P (1) Acute on chronic respiratory failure with hypercapnia Code(s): J96.22 - ACUTE AND CHRONIC RESPIRATORY FAILURE WITH HYPERCAPNIA Status: Acute (2) Acute on chronic diastolic heart failure Code(s): I50.33 - ACUTE ON CHRONIC DIASTOLIC (CONGESTIVE) HEART FAILURE Status: Acute (3) Hyperkalemia Code(s): E87.5 - HYPERKALEMIA Status: Resolved (4) Obesity hypoventilation syndrome Code(s): E66.2 - MORBID (SEVERE) OBESITY WITH ALVEOLAR HYPOVENTILATION Status: Chronic (5) Pulmonary hypertension Code(s): I27.20 - PULMONARY HYPERTENSION, UNSPECIFIED Status: Chronic (6) Morbid obesity with BMI of 50.0-59.9, adult Code(s): E66.01 - MORBID (SEVERE) OBESITY DUE TO EXCESS CALORIES; Z68.43 - BODY MASS INDEX [BMI] 50.0-59.9, ADULT Status: Chronic (7) Polysubstance abuse Code(s): F19.10 - OTHER PSYCHOACTIVE SUBSTANCE ABUSE, UNCOMPLICATED Status: Acute (8) Neurofibromatosis Status: Chronic - Plan old records reviewed/req, continue antibiotics, respiratory therapy, DVT proph w/lovenox Patient is currently on Rocephin, Nephrology following, Discontinue IV fluid Continue Diamox, Albumin given today by nephrology Continue Solu-Medrol, Continue DuoNeb and Dulera Ventilator management as per pulmonology,
--- NOTE | 2020-05-30 11:54 | ULT ---
Exam: Bilateral renal ultrasound with renal artery Doppler HISTORY: Evaluate for renal artery stenosis. Acute renal failure COMPARISON: None TECHNIQUE: Grayscale, color flow, Doppler imaging and spectral waveform analysis of the kidneys perfo rmed FINDINGS: Evaluation is limited due to body habitus and patient being on a respirator. Right kidney: Normal cortical echotexture. No hydronephrosis. Right kidney measurements: 12.0 x 4.9 x 5.3 cm. Left kidney: Normal cortical echotexture. No hydronephrosis Left kidney measurements 9.7 x 4.6 x 4.3 cm. Urinary bladder: Normal mucosa. Renal Doppler: Right renal artery: 39.5 cm/s Left renal artery: 56.4 cm/s Aorta: 89.2 cm/s Right renal artery to aorta ratio: 0.44 Left renal artery to aorta ratio: 0.63 Arcuate artery resistive indices: Right marker artery resistive index: 0.63 Left arcuate artery resistive index: 0.52 IMPRESSION: 1. No hydronephrosis. 2. Normal arcuate artery resistive indices. Transcribed Date/Time: 05/30/2020 11:54 AM
[2020-05-30] MEDS: methylPREDNISolone Sod Succ 40 MG VIAL IVP SCH (21:37)
[2020-05-30] MEDS: AcetaZOLAMIDE 250 MG TAB PO SCH (21:38)
[2020-05-31] MEDS ORDERED: Fentanyl CADD 100 ML ONE (03:33)
[2020-05-31] MEDS: Fentanyl CADD 100 ML IV SCH (03:36)
[2020-05-31 03:51] LABS: ALT (SGPT) 9 U/L (8-55); AST (SGOT) 11 U/L (5-34); Albumin 3.3 g/dL (3.5-5.0); Alkaline Phosphatase 80 U/L (40-110); Anion Gap 13 mmol/L (10-20); BUN (Urea Nitrogen) 26 mg/dL (9.8-20.1); Bilirubin, Total 0.5 mg/dL (0.2-1.2); Calc. Creatinine Clearance 182 mL/min (70-130); Calcium 8.6 mg/dL (7.8-10.44); Carbon Dioxide 32 mmol/L (22-29); Chloride 100 mmol/L (98-107); Glucose 133 mg/dL (70-105); Potassium 4.1 mmol/L (3.5-5.1); Protein, Total 7.3 g/dL (6.0-8.3); Sodium 141 mmol/L (136-145)
[2020-05-31 05:30] LABS: #Basophils 0.3 thou/uL (0.0-0.2); #Lymphocytes 0.6 thou/uL (1.20-3.40); #Monocytes 0.6 thou/uL (0.11-0.59); #Neutrophils 13.2 thou/uL (1.40-6.50); %Basophils 2.1 % (0.0-1.0); %Eosinophils 0.1 % (0.0-10.0); %Lymphocytes 4.2 % (21.0-51.0); %Neutrophils 89.5 % (42.0-75.0); Hemoglobin 13.4 g/dL (12.0-16.0); MDiff Complete? YES; Mean Corpuscular HGB CONC 29.3 g/dL (32.0-36.0); Mean Corpuscular Hemoglobin 26.1 pg (27.0-31.0); Mean Corpuscular Volume 89.1 fL (78.0-98.0); Mean Platelet Volume 9.3 fL (7.4-10.4); Platelet Count 222 thou/uL (130-400); RBC Distribution Width 18.1 % (11.5-14.5); Red Blood Cell (RBC) Count 5.13 mill/uL (4.20-5.40); Target Cells SLIGHT = 2-5 cells (100X) (0-1/hpf); White Blood Cell (WBC) Count 14.7 thou/uL (4.8-10.8)
[2020-05-31] MEDS: Propofol 1,000 MG/100 ML VIAL IV PRN ×3 (06:18→21:00)
[2020-05-31] MEDS: Mometasone 200 MCG/Formoterol 5 MCG 120 PUFF INHALER INH SCH ×2 (07:40→19:01)
--- NOTE | 2020-05-31 08:44 | RAD ---
CHEST ONE VIEW: History: Ventilated patient Comparison: Prior day FINDINGS: Endotracheal tube tip at the clavicular level. Left IJ central venous catheter tip projects over the azygos vein. Enteric tube tip below the diaphragm and out of the field of view. Unilateral left sided hardware in the thoracic spine is similar. Airspace consolidation is similar. No pneumothorax or pneumomediastinum. IMPRESSION: No significant improved lung aeration. POS: HOME
[2020-05-31] MEDS: Enoxaparin Sodium 40 MG/0.4 ML SYRINGE SC SCH (09:19)
[2020-05-31] MEDS: AcetaZOLAMIDE 250 MG TAB PO SCH ×2 (09:19→20:22)
[2020-05-31] MEDS: Furosemide 40 MG/4 ML VIAL SLOW IVP SCH ×2 (09:19→20:23)
[2020-05-31] MEDS: DULoxetine 30 MG CAP PO SCH (09:19)
[2020-05-31] MEDS: methylPREDNISolone Sod Succ 40 MG VIAL IVP SCH ×2 (09:19→20:23)
[2020-05-31] MEDS: Pantoprazole 40 MG VIAL IVP SCH (09:19)
[2020-05-31] MEDS: Carvedilol 6.25 MG TAB PO SCH ×2 (09:19→20:22)
[2020-05-31] MEDS: Topiramate 25 MG TAB PO SCH ×2 (09:19→20:25)
[2020-05-31] MEDS: Spironolactone 25 MG TAB PO SCH (09:19)
[2020-05-31] MEDS: cefTRIAXone\\ROCEPHIN 1 GM in Sodium Chloride 0.9% 100 ML IVPB SCH (11:00)
--- NOTE | 2020-05-31 11:53 | PDOC.HOSPP ---
- Subjective Encounter Date: 05/31/20 Encounter Time: 10:15 Subjective: Patient seen and examined bedside today, patient is still intubated, no overnight event - Objective Vital Signs & Weight: Vital Signs (12 hours) Temp Pulse Resp BP Pulse Ox 05/31/20 10:00 12 05/31/20 09:19 97/64 05/31/20 07:40 73 16 95 05/31/20 07:36 74 10 L 90 L 05/31/20 07:32 94 L 05/31/20 07:00 97.7 F 05/31/20 06:00 12 05/31/20 04:00 98.0 F 12 05/31/20 02:00 12 05/31/20 00:35 74 10 L 90 L 05/31/20 00:00 97.3 F L 12 Weight Admit Weight 299 lb 9.731 oz Weight 317 lb 7.45 oz Most Recent Monitor Data Heart Rate from ECG 63 NIBP 109/67 NIBP BP-Mean 81 Respiration from ECG 14 SpO2 92 I&O: 05/30/20 05/31/20 06/01/20 06:59 06:59 06:59 Intake Total 1791.9 1518.5 216 Output Total 968 1263 445 Balance 823.9 255.5 -229 Result Diagrams: 05/31/20 03:15 05/31/20 03:15 Radiology Reviewed by me: Yes EKG Reviewed by me: Yes Hospitalist ROS - Review of Systems ROS unobtainable: due to endotracheal tube - Medication Medications: Active Medications Generic Name Dose Route Start Last Admin Trade Name Freq PRN Reason Stop Dose Admin Acetaminophen 650 mg 05/27/20 03:30 05/28/20 05:18 Acetaminophen 325 Mg Tab PO 650 mg Q4H PRN Administration Headache/Fever/Mild Pain (1-3) Acetaminophen 650 mg 05/27/20 03:30 05/27/20 22:23 Acetaminophen 650 Mg Suppository PA 650 mg Q4H PRN Administration Headache/Fever/Mild Pain (1-3) Acetazolamide 250 mg 05/30/20 21:00 05/31/20 09:19 Acetazolamide 250 Mg Tab PO 06/03/20 21:01 250 mg BID HALIE Administration Albuterol/Ipratropium 3 ml 05/29/20 01:00 05/31/20 07:36 Ipratropium/Albuterol Sulfate 3 Ml Neb NEB 3 ml [id number] HALIE Administration Carvedilol 6.25 mg 05/27/20 09:00 05/31/20 09:19 Carvedilol 6.25 Mg Tab PO 6.25 mg BID HALIE Administration Duloxetine HCl 30 mg 05/29/20 09:00 05/31/20 09:19 Duloxetine 30 Mg Cap PO 30 mg DAILY HALIE Administration Enoxaparin Sodium 40 mg 05/27/20 09:00 05/31/20 09:19 Enoxaparin Sodium 40 Mg/0.4 Ml Syringe SC 40 mg 0900 HALIE Administration Furosemide 40 mg 05/30/20 09:00 05/31/20 09:19 Furosemide 40 Mg/4 Ml Vial SLOW IVP 40 mg BID HALIE Administration Fentanyl 100 mls @ 0 mls/hr 05/28/20 19:30 05/31/20 03:36 Fentanyl Cadd IV 06/27/20 19:30 100 mls INF HALIE Administration Protocol Per Protocol Ceftriaxone Sodium 1 gm/ 100 mls @ 200 mls/hr 05/29/20 10:00 05/31/20 11:00 Sodium Chloride IVPB 100 mls Q24HR HALIE Administration Methylprednisolone Sodium Succinate 40 mg 05/30/20 21:00 05/31/20 09:19 Methylprednisolone Sod Succ 40 Mg Vial IVP 40 mg BID HALIE Administration Mometasone Furoate/Formoterol Fumar 2 puff 05/28/20 18:30 05/31/20 07:40 Mometasone 200 Mcg/Formoterol 5 Mcg 120 Puff Inhaler INH 2 puff BID-RT HALIE Administration Pantoprazole Sodium 40 mg 05/29/20 09:00 05/31/20 09:19 Pantoprazole 40 Mg Vial IVP 40 mg DAILY HALIE Administration Propofol 1,000 mg 05/28/20 19:30 05/31/20 06:18 Propofol 1,000 Mg/100 Ml Vial IV 06/27/20 19:30 1,000 mg INF PRN Administration TO ACHIEVE GOAL RASS Protocol Sodium Chloride 10 ml 05/29/20 09:00 05/31/20 09:20 Flush - Normal Saline 10 Ml Syringe IVF 10 ml Q12HR HALIE Administration Spironolactone 50 mg 05/31/20 08:00 01/29/21 09:19 Spironolactone 25 Mg Tab PO 50 mg QAM-WM HALIE Administration Topiramate 50 mg 05/28/20 21:00 05/31/20 09:19 Topiramate 25 Mg Tab PO 50 mg BID HALIE Administration Hospitalist Exam Vitals: Vital Signs (12 hours) Temp Pulse Resp BP Pulse Ox 05/31/20 10:00 12 05/31/20 09:19 97/64 05/31/20 07:40 73 16 95 05/31/20 07:36 74 10 L 90 L 05/31/20 07:32 94 L 05/31/20 07:00 97.7 F 05/31/20 06:00 12 05/31/20 04:00 98.0 F 12 05/31/20 02:00 12 05/31/20 00:35 74 10 L 90 L 05/31/20 00:00 97.3 F L 12 Weight Admit Weight 299 lb 9.731 oz Weight 317 lb 7.45 oz Most Recent Monitor Data Heart Rate from ECG 63 NIBP 109/67 NIBP BP-Mean 81 Respiration from ECG 14 SpO2 92 General Appearance: NAD General - other findings: On ventilator ENT: normocephalic atraumatic Neck: supple, symmetric, no JVD Heart: RRR, no murmur, no gallops, no rubs Respiratory: no wheezes, no rales, no ronchi Gastrointestinal: soft, non-distended, normal bowel sounds Gastrointestinal - other findings: Obesity Extremities: 2+ LE edema Hosp A/P (1) Acute on chronic respiratory failure with hypercapnia Code(s): J96.22 - ACUTE AND CHRONIC RESPIRATORY FAILURE WITH HYPERCAPNIA Status: Acute (2) Acute on chronic diastolic heart failure Code(s): I50.33 - ACUTE ON CHRONIC DIASTOLIC (CONGESTIVE) HEART FAILURE Status: Acute (3) Hyperkalemia Code(s): E87.5 - HYPERKALEMIA Status: Resolved (4) Obesity hypoventilation syndrome Code(s): E66.2 - MORBID (SEVERE) OBESITY WITH ALVEOLAR HYPOVENTILATION Status: Chronic (5) Pulmonary hypertension Code(s): I27.20 - PULMONARY HYPERTENSION, UNSPECIFIED Status: Chronic (6) Morbid obesity with BMI of 50.0-59.9, adult Code(s): E66.01 - MORBID (SEVERE) OBESITY DUE TO EXCESS CALORIES; Z68.43 - BODY MASS INDEX [BMI] 50.0-59.9, ADULT Status: Chronic (7) Polysubstance abuse Code(s): F19.10 - OTHER PSYCHOACTIVE SUBSTANCE ABUSE, UNCOMPLICATED Status: A cute (8) Neurofibromatosis Status: Chronic - Plan old records reviewed/req, continue antibiotics, respiratory therapy, DVT proph w/lovenox Patient is currently on Rocephin, Continue ventilator management as per pulmonology Continue IV Lasix Continue Solu-Medrol Wean as tolerated
--- NOTE | 2020-05-31 13:25 | PDOC.NEPPN ---
- Subjective Encounter Date: 05/31/20 Subjective: Seen. Still intubated. - Objective Vital Signs & Weight: Vital Signs (12 hours) Temp Pulse Resp BP Pulse Ox 05/31/20 12:00 12 05/31/20 10:00 12 05/31/20 09:19 97/64 05/31/20 08:00 11 L 92 L 05/31/20 07:40 73 16 95 05/31/20 07:36 74 10 L 90 L 05/31/20 07:32 94 L 05/31/20 07:00 97.7 F 05/31/20 06:00 12 05/31/20 04:00 98.0 F 12 05/31/20 02:00 12 Weight Admit Weight 299 lb 9.731 oz Weight 317 lb 7.45 oz Most Recent Monitor Data Heart Rate from ECG 65 NIBP 110/73 NIBP BP-Mean 85 Respiration from ECG 22 SpO2 92 I&O: 05/30/20 05/31/20 06/01/20 06:59 06:59 06:59 Intake Total 1791.9 1518.5 306 Output Total 968 1263 570 Balance 823.9 255.5 -264 Result Diagrams: 05/31/20 03:15 05/31/20 03:15 Nephrology ROS - Medication Medications: Active Medications Generic Name Dose Route Start Last Admin Trade Name Freq PRN Reason Stop Dose Admin Acetaminophen 650 mg 05/27/20 03:30 05/28/20 05:18 Acetaminophen 325 Mg Tab PO 650 mg Q4H PRN Administration Headache/Fever/Mild Pain (1-3) Acetaminophen 650 mg 05/27/20 03:30 05/27/20 22:23 Acetaminophen 650 Mg Suppository OK 650 mg Q4H PRN Administration Headache/Fever/Mild Pain (1-3) Acetazolamide 250 mg 05/30/20 21:00 05/31/20 09:19 Acetazolamide 250 Mg Tab PO 06/03/20 21:01 250 mg BID HALIE Administration Albuterol/Ipratropium 3 ml 05/29/20 01:00 05/31/20 07:36 Ipratropium/Albuterol Sulfate 3 Ml Neb NEB 3 ml [id number] HALIE Administration Carvedilol 6.25 mg 05/27/20 09:00 05/31/20 09:19 Carvedilol 6.25 Mg Tab PO 6.25 mg BID HALIE Administration Duloxetine HCl 30 mg 05/29/20 09:00 05/31/20 09:19 Duloxetine 30 Mg Cap PO 30 mg DAILY HALIE Administration Enoxaparin Sodium 40 mg 05/27/20 09:00 05/31/20 09:19 Enoxaparin Sodium 40 Mg/0.4 Ml Syringe SC 40 mg 0900 HALIE Administration Furosemide 40 mg 05/30/20 09:00 05/31/20 09:19 Furosemide 40 Mg/4 Ml Vial SLOW IVP 40 mg BID HALIE Administration Fentanyl 100 mls @ 0 mls/hr 05/28/20 19:30 05/31/20 03:36 Fentanyl Cadd IV 06/27/20 19:30 100 mls INF HALIE Administration Protocol Per Protocol Ceftriaxone Sodium 1 gm/ 100 mls @ 200 mls/hr 05/29/20 10:00 05/31/20 11:00 Sodium Chloride IVPB 100 mls Q24HR HALIE Administration Methylprednisolone Sodium Succinate 40 mg 05/30/20 21:00 05/31/20 09:19 Methylprednisolone Sod Succ 40 Mg Vial IVP 40 mg BID HALIE Administration Mometasone Furoate/Formoterol Fumar 2 puff 05/28/20 18:30 05/31/20 07:40 Mometasone 200 Mcg/Formoterol 5 Mcg 120 Puff Inhaler INH 2 puff BID-RT HALIE Administration Pantoprazole Sodium 40 mg 05/29/20 09:00 05/31/20 09:19 Pantoprazole 40 Mg Vial IVP 40 mg DAILY HALIE Administration Propofol 1,000 mg 05/28/20 19:30 05/31/20 06:18 Propofol 1,000 Mg/100 Ml Vial IV 06/27/20 19:30 1,000 mg INF PRN Administration TO ACHIEVE GOAL RASS Protocol Sodium Chloride 10 ml 05/29/20 09:00 05/31/20 09:20 Flush - Normal Saline 10 Ml Syringe IVF 10 ml Q12HR HALIE Administration Spironolactone 50 mg 05/31/20 08:00 05/31/20 09:19 Spironolactone 25 Mg Tab PO 50 mg QAM-WM HALIE Administration Topiramate 50 mg 05/28/20 21:00 05/31/20 09:19 Topiramate 25 Mg Tab PO 50 mg BID HALIE Administration - Exam General - other findings: sedated and unresponsive ENT - other findings: ET tube in place Respiratory - other findings: ventilator transmited sound noted Cardiovascular: RRR Gastrointestinal: non-distended Gastrointestinal - other findings: obese Extremities - other findings: moderate edema of the extremities noted Skin - other findings: scattered nodules of various sized noted over the body and extremities Neurological - other findings: sedated and unresponsive Nephrology Results - Labs Result Diagrams: 05/31/20 03:15 05/31/20 03:15 Lab results: WBC 14.7 thou/uL (4.8-10.8) H 05/31/20 03:15 Hgb 13.4 g/dL (12.0-16.0) 05/31/20 03:15 Hct 45.7 % (36.0-47.0) 05/31/20 03:15 MCV 89.1 fL (78.0-98.0) 05/31/20 03:15 Plt Count 222 thou/uL (130-400) 05/31/20 03:15 Neutrophils % 89.5 % (42.0-75.0) H 05/31/20 03:15 Band Neuts % (Manual) 2 % (5-11) L 05/29/20 06:30 ABG pH 7.30 (7.35-7.45) L 05/28/20 19:49 ABG pCO2 62.5 mmHg (35.0-45.0) H* 05/28/20 19:49 ABG pO2 59.0 mmHg (80.0-100.0) L* 05/28/20 19:49 Sodium 141 mmol/L (136-145) 05/31/20 03:15 Potassium 4.1 mmol/L (3.5-5.1) 05/31/20 03:15 Chloride 100 mmol/L (98-107) 05/31/20 03:15 Carbon Dioxide 32 mmol/L (22-29) H 05/31/20 03:15 BUN 26 mg/dL (9.8-20.1) H 05/31/20 03:15 Creatinine 0.80 mg/dL (0.6-1.1) 05/31/20 03:15 Glucose 133 mg/dL (70-105) H 05/31/20 03:15 Calcium 8.6 mg/dL (7.8-10.44) 05/31/20 03:15 Total Bilirubin 0.5 mg/dL (0.2-1.2) 05/31/20 03:15 AST 11 U/L (5-34) 05/31/20 03:15 ALT 9 U/L (8-55) 05/31/20 03:15 Alkaline Phosphatase 80 U/L (40-110) 05/31/20 03:15 Creatine Kinase 39 U/L (29-168) 05/26/20 21:43 Troponin I 0.013 ng/mL (< 0.028) 05/27/20 12:08 B-Natriuretic Peptide 226.4 pg/mL (0-100) H 05/26/20 21:43 Serum Total Protein 7.3 g/dL (6.0-8.3) 05/31/20 03:15 Albumin 3.3 g/dL (3.5-5.0) L 05/31/20 03:15 Urine Ketones Negative mg/dL (Negative) 05/27/20 00:00 Urine Blood Negative (Negative) 05/27/20 00:00 Urine Nitrite Negative (Negative) 05/27/20 00:00 Ur Leukocyte Esterase Negative Ozzy/uL (Negative) 05/27/20 00:00 Sodium 141 mmol/L (136-145) 05/31/20 03:15 Potassium 4.1 mmol/L (3.5-5.1) 05/31/20 03:15 Chloride 100 mmol/L (98-107) 05/31/20 03:15 Carbon Dioxide 32 mmol/L (22-29) H 05/31/20 03:15 Anion Gap 13 mmol/L (10-20) 05/31/20 03:15 BUN 26 mg/dL (9.8-20.1) H 05/31/20 03:15 Creatinine 0.80 mg/dL (0.6-1.1) 05/31/20 03:15 Glucose 133 mg/dL (70-105) H 05/31/20 03:15 Calcium 8.6 mg/dL (7.8-10.44) 05/31/20 03:15 Magnesium 1.6 mg/dL (1.6-2.6) 05/27/20 05:25 Albumin 3.3 g/dL (3.5-5.0) L 05/31/20 03:15 Nephrology AP PN - Plan Anasarca: Due to hypoalbuminemia and mitral regurgitation. Worsened by fluid resuscitation. Urine output is begining to shrimp picker GALINA: Due to hemodynamic factors related to voilume depletion and ACEI use. FENa and FEurae are consistent. Resolved Hyperkalemia: Resolved Metabolic acidosis: 2/2 GALINA with possible contribution from topamax Respiratory acidosis Morbid obesity with presumed KASI/OHS. COPD Neurofibromatosis. PLAN Continue lasix, spironolactone and acetozolamide. Addition of metolazone contemplated Monitor intake and output. Follow renal function and electrolytes.
[2020-06-01] MEDS: Propofol 1,000 MG/100 ML VIAL IV PRN ×4 (02:44→23:44)
[2020-06-01 04:44] LABS: ALT (SGPT) 8 U/L (8-55); AST (SGOT) 10 U/L (5-34); Alkaline Phosphatase 69 U/L (40-110); Anion Gap 11 mmol/L (10-20); BUN (Urea Nitrogen) 28 mg/dL (9.8-20.1); Bilirubin, Total 0.4 mg/dL (0.2-1.2); Calc. Creatinine Clearance 215 mL/min (70-130); Calcium 8.5 mg/dL (7.8-10.44); Carbon Dioxide 32 mmol/L (22-29); Chloride 101 mmol/L (98-107); Globulin 3.6 g/dL (2.4-3.5); Glucose 130 mg/dL (70-105); Protein, Total 6.6 g/dL (6.0-8.3); Sodium 140 mmol/L (136-145)
[2020-06-01] MEDS ORDERED: Albumin 25% 25 GM/100 ML BOT IVPB SCH (05:30)
[2020-06-01 06:41] LABS: Band 1 % (5-11); Hemoglobin 13.1 g/dL (12.0-16.0); Lymphocytes 8 % (21-51); MDiff Complete? YES; Mean Corpuscular HGB CONC 29.9 g/dL (32.0-36.0); Mean Corpuscular Hemoglobin 27.1 pg (27.0-31.0); Mean Corpuscular Volume 90.8 fL (78.0-98.0); Mean Platelet Volume 9.6 fL (7.4-10.4); Monocytes 1 % (0-10); Neutrophil 90 % (42-75); Platelet Count 210 thou/uL (130-400); RBC Distribution Width 17.7 % (11.5-14.5); Red Blood Cell (RBC) Count 4.84 mill/uL (4.20-5.40); White Blood Cell (WBC) Count 9.6 thou/uL (4.8-10.8)
--- NOTE | 2020-06-01 07:21 | PRG ---
DATE OF SERVICE: 05/31/2020 SUBJECTIVE: Luma Parr remains intubated in the vent, opens her eyes, morbidly obese, . OBJECTIVE: VITAL SIGNS: Temperature 97, blood pressure 97/64 . I's and O's have been okay. CHEST: No wheezing. No crackles. CARDIAC: Normal S1 and S2. ABDOMEN: No masses. LABORATORY DATA: Labs unremarkable. Bicarb is 32. ASSESSMENT: 1. Respiratory failure. 2. Morbid obesity. 3. Marked respiratory acidosis. 4. Large right pleural effusion. PLAN: She is clearly not weanable at this stage. Continue aggressive cardiac care, neb treatments, steroids. We will consider next week whether to try wean this lady with marked respiratory acidosis since she has severe sleep apnea. We are going to obtain a blood gas on Wednesday and make a decision at that time. In the meantime, we will continue steroids. One-half hour of critical care time. Job ID: [id number]
[2020-06-01] MEDS: Mometasone 200 MCG/Formoterol 5 MCG 120 PUFF INHALER INH SCH ×2 (07:55→18:49)
[2020-06-01] MEDS: Pantoprazole 40 MG VIAL IVP SCH (08:51)
[2020-06-01] MEDS: AcetaZOLAMIDE 250 MG TAB PO SCH ×2 (08:51→20:48)
[2020-06-01] MEDS: methylPREDNISolone Sod Succ 40 MG VIAL IVP SCH ×2 (08:51→20:49)
[2020-06-01] MEDS: Furosemide 40 MG/4 ML VIAL SLOW IVP SCH ×2 (08:51→20:48)
[2020-06-01] MEDS: Spironolactone 25 MG TAB PO SCH (08:51)
[2020-06-01] MEDS: Carvedilol 6.25 MG TAB PO SCH ×2 (08:51→20:48)
[2020-06-01] MEDS: Enoxaparin Sodium 40 MG/0.4 ML SYRINGE SC SCH (08:51)
[2020-06-01] MEDS: DULoxetine 30 MG CAP PO SCH (08:51)
[2020-06-01] MEDS: Metolazone 2.5 MG TAB PO SCH (08:51)
[2020-06-01] MEDS: Topiramate 25 MG TAB PO SCH ×2 (08:51→20:51)
--- NOTE | 2020-06-01 10:10 | PDOC.HOSPP ---
- Subjective Encounter Date: 06/01/20 Encounter Time: 09:30 Subjective: Patient seen and examined. Patient is on ventilator, no overnight event - Objective Vital Signs & Weight: Vital Signs (12 hours) Temp Pulse Resp BP Pulse Ox 06/01/20 08:51 136/82 06/01/20 08:00 97.4 F L 06/01/20 07:55 68 10 L 90 L 06/01/20 07:53 67 10 L 90 L 06/01/20 06:00 11 L 06/01/20 04:18 12 06/01/20 04:00 97.3 F L 06/01/20 02:00 12 06/01/20 01:13 77 10 L 06/01/20 00:00 96.5 F L 12 Weight Admit Weight 299 lb 9.731 oz Weight 317 lb 0.395 oz Most Recent Monitor Data Heart Rate from ECG 74 NIBP 110/74 NIBP BP-Mean 86 Respiration from ECG 16 SpO2 90 I&O: 05/31/20 06/01/20 06/02/20 06:59 06:59 06:59 Intake Total 1518.5 1575 116 Output Total 1263 2315 95 Balance 255.5 -740 21 Result Diagrams: 06/01/20 03:56 06/01/20 03:56 Radiology Reviewed by me: Yes (Chest x-ray reviewed,) EKG Reviewed by me: Yes Hospitalist ROS - Review of Systems ROS unobtainable: due to endotracheal tube - Medication Medications: Active Medications Generic Name Dose Route Start Last Admin Trade Name Freq PRN Reason Stop Dose Admin Acetaminophen 650 mg 05/27/20 03:30 05/28/20 05:18 Acetaminophen 325 Mg Tab PO 650 mg Q4H PRN Administration Headache/Fever/Mild Pain (1-3) Acetaminophen 650 mg 05/27/20 03:30 05/27/20 22:23 Acetaminophen 650 Mg Suppository [place] 650 mg Q4H PRN Administration Headache/Fever/Mild Pain (1-3) Acetazolamide 250 mg 05/30/20 21:00 06/01/20 08:51 Acetazolamide 250 Mg Tab PO 06/03/20 21:01 250 mg BID HALIE Administration Albuterol/Ipratropium 3 ml 05/29/20 01:00 06/01/20 07:53 Ipratropium/Albuterol Sulfate 3 Ml Neb NEB 3 ml [id number] HALIE Administration Carvedilol 6.25 mg 05/27/20 09:00 06/01/20 08:51 Carvedilol 6.25 Mg Tab PO 6.25 mg BID HALIE Administration Duloxetine HCl 30 mg 05/29/20 09:00 06/01/20 08:51 Duloxetine 30 Mg Cap PO 30 mg DAILY HALIE Administration Enoxaparin Sodium 40 mg 05/27/20 09:00 06/01/20 08:51 Enoxaparin Sodium 40 Mg/0.4 Ml Syringe SC 40 mg 0900 HALIE Administration Furosemide 40 mg 05/30/20 09:00 06/01/20 08:51 Furosemide 40 Mg/4 Ml Vial SLOW IVP 40 mg BID HALIE Administration Fentanyl 100 mls @ 0 mls/hr 05/28/20 19:30 05/31/20 03:36 Fentanyl Cadd IV 06/27/20 19:30 100 mls INF HALIE Administration Protocol Per Protocol Ceftriaxone Sodium 1 gm/ 100 mls @ 200 mls/hr 05/29/20 10:00 05/31/20 11:00 Sodium Chloride IVPB 100 mls Q24HR HALIE Administration Methylprednisolone Sodium Succinate 40 mg 05/30/20 21:00 06/01/20 08:51 Methylprednisolone Sod Succ 40 Mg Vial IVP 40 mg BID HALIE Administration Metolazone 2.5 mg 06/01/20 08:30 06/01/20 08:51 Metolazone 2.5 Mg Tab PO 2.5 mg 0830 HALIE Administration Mometasone Furoate/Formoterol Fumar 2 puff 05/28/20 18:30 06/01/20 07:55 Mometasone 200 Mcg/Formoterol 5 Mcg 120 Puff Inhaler INH 2 puff BID-RT HALIE Administration Pantoprazole Sodium 40 mg 05/29/20 09:00 06/01/20 08:51 Pantoprazole 40 Mg Vial IVP 40 mg DAILY HALIE Administration Propofol 1,000 mg 05/28/20 19:30 06/01/20 08:51 Propofol 1,000 Mg/100 Ml Vial IV 06/27/20 19:30 1,000 mg INF PRN Administration TO ACHIEVE GOAL RASS Protocol Sodium Chloride 10 ml 05/29/20 09:00 06/01/20 08:52 Flush - Normal Saline 10 Ml Syringe IVF 10 ml Q12HR HALIE Administration Spironolactone 50 mg 05/31/20 08:00 06/01/20 08:51 Spironolactone 25 Mg Tab PO 50 mg QAM-WM HALIE Administration Topiramate 50 mg 05/28/20 21:00 06/01/20 08:51 Topiramate 25 Mg Tab PO 50 mg BID HALIE Administration Hospitalist Exam Vitals: Vital Signs (12 hours) Temp Pulse Resp BP Pulse Ox 06/01/20 08:51 136/82 06/01/20 08:00 97.4 F L 06/01/20 07:55 68 10 L 90 L 06/01/20 07:53 67 10 L 90 L 06/01/20 06:00 11 L 06/01/20 04:18 12 06/01/20 04:00 97.3 F L 06/01/20 02:00 12 06/01/20 01:13 77 10 L 06/01/20 00:00 96.5 F L 12 Weight Admit Weight 299 lb 9.731 oz Weight 317 lb 0.395 oz Most Recent Monitor Data Heart Rate from ECG 74 NIBP 110/74 NIBP BP-Mean 86 Respiration from ECG 16 SpO2 90 General Appearance: NAD General - other findings: On ventilator Eye: PERRL ENT: normocephalic atraumatic Neck: supple, symmetric, no JVD Heart: RRR, no murmur, no gallops, no rubs Respiratory: no wheezes, no rales, no ronchi Gastrointestinal: soft, non-distended, normal bowel sounds Gastrointestinal - other findings: Obesity noted Extremities: 2+ LE edema Skin: normal turgor Hosp A/P (1) Acute on chronic respiratory failure with hypercapnia Code(s): J96.22 - ACUTE AND CHRONIC RESPIRATORY FAILURE WITH HYPERCAPNIA Status: Acute (2) Acute on chronic diastolic heart failure Code(s): I50.33 - ACUTE ON CHRONIC DIASTOLIC (CONGESTIVE) HEART FAILURE Status: Acute (3) Hyperkalemia Code(s): E87.5 - HYPERKALEMIA Status: Resolved (4) Obesity hypoventilation syndrome Code(s): E66.2 - MORBID (SEVERE) OBESITY WITH ALVEOLAR HYPOVENTILATION Status: Chronic (5) Pulmonary hypertension Code(s): I27.20 - PULMONARY HYPERTENSION, UNSPECIFIED Status: Chronic (6) Morbid obesity with BMI of 50.0-59.9, adult Code(s): E66.01 - MORBID (SEVERE) OBESITY DUE TO EXCESS CALORIES; Z68.43 - BODY MASS INDEX [BMI] 50.0-59.9, ADULT Status: Chronic (7) Polysubstance abuse Code(s): F19.10 - OTHER PSYCHOACTIVE SUBSTANCE ABUSE, UNCOMPLICATED Status: Acute (8) Neurofibromatosis Status: Chronic - Plan old records reviewed/req, continue antibiotics, respiratory therapy, DVT proph w/lovenox Currently patient is on Rocephin Continue ventilator management as per pulmonology Continue acetazolamide, continue Lasix, continue metolazone, continue Aldactone Continue Solu-Medrol, Will continue to monitor her laboratory parameters,
[2020-06-01] MEDS: cefTRIAXone\\ROCEPHIN 1 GM in Sodium Chloride 0.9% 100 ML IVPB SCH (10:36)
--- NOTE | 2020-06-01 11:14 | PRG ---
DATE OF SERVICE: 06/01/2020 35 minutes of critical care time. SUBJECTIVE: The patient remains intubated on mechanical ventilation, but no acute changes overnight. OBJECTIVE: VITAL SIGNS: Temperature 97.4, pulse 74, blood pressure 110/74, O2 saturation generally in the 90s. 24-hour intake 1575, output 2315. HEENT: Remarkable for severe neurofibromatosis. She is intubated. NECK: No adenopathy or JVD. LUNGS: Poor air movement. CARDIOVASCULAR: S1 and S2, regular. ABDOMEN: Soft and nontender. EXTREMITIES: No edema. IMAGING STUDIES: X-ray shows bilateral effusions, right greater than left. LABORATORY DATA: White blood cell count 9.6, hematocrit 44, platelet count 210. Sodium 140, potassium 4, chloride 101, CO2 of 32, BUN 28, creatinine 0.6, glucose 130. ASSESSMENT: 1. Acute respiratory failure requiring mechanical ventilation. 2. Morbid obesity. 3. Marked respiratory acidosis at the time on admission. 4. Effusions. PLAN: It looks like she may need tracheostomy placement to facilitate weaning and perhaps for permanent treatment of her sleep apnea. I do not think she is weanable at this time. She is continuing diuretic therapy under the direction of the Nephrology team. Nothing further to change at this time. Job ID: [id number]
--- NOTE | 2020-06-01 11:37 | RAD ---
RADIOGRAPH CHEST 1 VIEW: DATE: 06/01/2020 TIME: 4:06 AM HISTORY: 54-year-old female in respiratory distress COMPARISON: 05/31/2020 FINDINGS: Endotracheal tube distal tip is actually at the jakob, and unchanged. Esophagogastric tube partially obscured by single Alvares faheem and multiple overlying ECG leads. Diffusely increased attenuation of almost the entire right lung, especially at the base, with complet e silhouetting of right hemidiaphragm. Infiltrates throughout left mid and lower lung zones. No large pneumothorax. Central vascular catheter descending from left neck with distal tip at right mediastinum. Unchanged. IMPRESSION: 1) no interval change in the bilateral infiltrates, right worse than left. 2) endotracheal tube remains at the jakob.
--- NOTE | 2020-06-01 12:01 | PDOC.NEPPN ---
- Subjective Encounter Date: 06/01/20 Subjective: Seen. Still intubated and mechanically ventilated. - Objective Vital Signs & Weight: Vital Signs (12 hours) Temp Pulse Resp BP Pulse Ox 06/01/20 10:00 14 06/01/20 08:51 136/82 06/01/20 08:00 97.4 F L 12 92 L 06/01/20 07:55 68 10 L 90 L 06/01/20 07:53 67 10 L 90 L 06/01/20 06:00 11 L 06/01/20 04:18 12 06/01/20 04:00 97.3 F L 06/01/20 02:00 12 06/01/20 01:13 77 10 L 06/01/20 00:00 96.5 F L 12 Weight Admit Weight 299 lb 9.731 oz Weight 317 lb 0.395 oz Most Recent Monitor Data Heart Rate from ECG 79 NIBP 127/91 NIBP BP-Mean 103 Respiration from ECG 13 SpO2 90 I&O: 05/31/20 06/01/20 06/02/20 06:59 06:59 06:59 Intake Total 1518.5 1575 216 Output Total 1263 2315 655 Balance 255.5 -740 -439 Result Diagrams: 06/01/20 03:56 06/01/20 03:56 Nephrology ROS - Medication Medications: Active Medications Generic Name Dose Route Start Last Admin Trade Name Freq PRN Reason Stop Dose Admin Acetaminophen 650 mg 05/27/20 03:30 05/28/20 05:18 Acetaminophen 325 Mg Tab PO 650 mg Q4H PRN Administration Headache/Fever/Mild Pain (1-3) Acetaminophen 650 mg 05/27/20 03:30 05/27/20 22:23 Acetaminophen 650 Mg Suppository [place] 650 mg Q4H PRN Administration Headache/Fever/Mild Pain (1-3) Acetazolamide 250 mg 05/30/20 21:00 06/01/20 08:51 Acetazolamide 250 Mg Tab PO 06/03/20 21:01 250 mg BID HALIE Administration Albuterol/Ipratropium 3 ml 05/29/20 01:00 06/01/20 07:53 Ipratropium/Albuterol Sulfate 3 Ml Neb NEB 3 ml [id number] HALIE Administration Carvedilol 6.25 mg 05/27/20 09:00 06/01/20 08:51 Carvedilol 6.25 Mg Tab PO 6.25 mg BID HALIE Administration Duloxetine HCl 30 mg 05/29/20 09:00 06/01/20 08:51 Duloxetine 30 Mg Cap PO 30 mg DAILY HALIE Administration Enoxaparin Sodium 40 mg 05/27/20 09:00 06/01/20 08:51 Enoxaparin Sodium 40 Mg/0.4 Ml Syringe SC 40 mg 0900 HALIE Administration Furosemide 40 mg 05/30/20 09:00 06/01/20 08:51 Furosemide 40 Mg/4 Ml Vial SLOW IVP 40 mg BID HALIE Administration Fentanyl 100 mls @ 0 mls/hr 05/28/20 19:30 05/31/20 03:36 Fentanyl Cadd IV 06/27/20 19:30 100 mls INF HALIE Administration Protocol Per Protocol Ceftriaxone Sodium 1 gm/ 100 mls @ 200 mls/hr 05/29/20 10:00 06/01/20 10:36 Sodium Chloride IVPB 100 mls Q24HR HALIE Administration Methylprednisolone Sodium Succinate 40 mg 05/30/20 21:00 06/01/20 08:51 Methylprednisolone Sod Succ 40 Mg Vial IVP 40 mg BID HALIE Administration Metolazone 2.5 mg 06/01/20 08:30 06/01/20 08:51 Metolazone 2.5 Mg Tab PO 2.5 mg 0830 HALIE Administration Mometasone Furoate/Formoterol Fumar 2 puff 05/28/20 18:30 06/01/20 07:55 Mometasone 200 Mcg/Formoterol 5 Mcg 120 Puff Inhaler INH 2 puff BID-RT HALIE Administration Pantoprazole Sodium 40 mg 05/29/20 09:00 06/01/20 08:51 Pantoprazole 40 Mg Vial IVP 40 mg DAILY HALIE Administration Propofol 1,000 mg 05/28/20 19:30 06/01/20 08:51 Propofol 1,000 Mg/100 Ml Vial IV 06/27/20 19:30 1,000 mg INF PRN Administration TO ACHIEVE GOAL RASS Protocol Sodium Chloride 10 ml 05/29/20 09:00 06/01/20 08:52 Flush - Normal Saline 10 Ml Syringe IVF 10 ml Q12HR HALIE Administration Spironolactone 50 mg 05/31/20 08:00 06/01/20 08:51 Spironolactone 25 Mg Tab PO 50 mg QAM-WM HALIE Administration Topiramate 50 mg 05/28/20 21:00 06/01/20 08:51 Topiramate 25 Mg Tab PO 50 mg BID HALIE Administration - Exam General - other findings: sedated and unresponsive ENT: normocephalic atraumatic ENT - other findings: ET tube in place. Respiratory - other findings: ventilator transmitted Cardiovascular: RRR Gastrointestinal: soft Gastrointestinal - other findings: Price catheter in place Extremities - other findings: moderate edema of the extremities Neurological - other findings: sedated. Nephrology Results - Labs Result Diagrams: 06/01/20 03:56 06/01/20 03:56 Lab results: WBC 9.6 thou/uL (4.8-10.8) 06/01/20 03:56 Hgb 13.1 g/dL (12.0-16.0) 06/01/20 03:56 Hct 44.0 % (36.0-47.0) 06/01/20 03:56 MCV 90.8 fL (78.0-98.0) 06/01/20 03:56 Plt Count 210 thou/uL (130-400) 06/01/20 03:56 Neutrophils % 89.5 % (42.0-75.0) H 05/31/20 03:15 Band Neuts % (Manual) 1 % (5-11) L 06/01/20 03:56 ABG pH 7.30 (7.35-7.45) L 05/28/20 19:49 ABG pCO2 62.5 mmHg (35.0-45.0) H* 05/28/20 19:49 ABG pO2 59.0 mmHg (80.0-100.0) L* 05/28/20 19:49 Sodium 140 mmol/L (136-145) 06/01/20 03:56 Potassium 4.0 mmol/L (3.5-5.1) 06/01/20 03:56 Chloride 101 mmol/L (98-107) 06/01/20 03:56 Carbon Dioxide 32 mmol/L (22-29) H 06/01/20 03:56 BUN 28 mg/dL (9.8-20.1) H 06/01/20 03:56 Creatinine 0.68 mg/dL (0.6-1.1) 06/01/20 03:56 Glucose 130 mg/dL (70-105) H 06/01/20 03:56 Calcium 8.5 mg/dL (7.8-10.44) 06/01/20 03:56 Total Bilirubin 0.4 mg/dL (0.2-1.2) 06/01/20 03:56 AST 10 U/L (5-34) 06/01/20 03:56 ALT 8 U/L (8-55) 06/01/20 03:56 Alkaline Phosphatase 69 U/L (40-110) 06/01/20 03:56 Creatine Kinase 39 U/L (29-168) 05/26/20 21:43 Troponin I 0.013 ng/mL (< 0.028) 05/27/20 12:08 B-Natriuretic Peptide 226.4 pg/mL (0-100) H 05/26/20 21:43 Serum Total Protein 6.6 g/dL (6.0-8.3) 06/01/20 03:56 Albumin 3.0 g/dL (3.5-5.0) L 06/01/20 03:56 Urine Ketones Negative mg/dL (Negative) 05/27/20 00:00 Urine Blood Negative (Negative) 05/27/20 00:00 Urine Nitrite Negative (Negative) 05/27/20 00:00 Ur Leukocyte Esterase Negative Ozzy/uL (Negative) 05/27/20 00:00 Sodium 140 mmol/L (136-145) 06/01/20 03:56 Potassium 4.0 mmol/L (3.5-5.1) 06/01/20 03:56 Chloride 101 mmol/L (98-107) 06/01/20 03:56 Carbon Dioxide 32 mmol/L (22-29) H 06/01/20 03:56 Anion Gap 11 mmol/L (10-20) 06/01/20 03:56 BUN 28 mg/dL (9.8-20.1) H 06/01/20 03:56 Creatinine 0.68 mg/dL (0.6-1.1) 06/01/20 03:56 Glucose 130 mg/dL (70-105) H 06/01/20 03:56 Calcium 8.5 mg/dL (7.8-10.44) 06/01/20 03:56 Magnesium 1.6 mg/dL (1.6-2.6) 05/27/20 05:25 Albumin 3.0 g/dL (3.5-5.0) L 06/01/20 03:56 Nephrology AP PN - Plan Anasarca: Due to hypoalbuminemia and mitral regurgitation. Worsened by fluid resuscitation. Urine output is improving. Was negative for the first time in several days GALINA: Due to hemodynamic factors related to voilume depletion and ACEI use. FENa and FEurae are consistent. Resolved Hyperkalemia: Resolved Metabolic acidosis: 2/2 GALINA with possible contribution from topamax Respiratory acidosis Morbid obesity with presumed KASI/OHS. COPD Neurofibromatosis. PLAN Add metolazonne to lasix, spironolactone and acetozolamide. Get repeat ABG to assess acid base balance re continued use of topamax Monitor intake and output. Follow renal function and electrolytes.
[2020-06-01] MEDS ORDERED: Fentanyl CADD 100 ML ONE (12:44)
--- NOTE | 2020-06-01 15:35 | PDOC.CPN ---
- Subjective Date: 06/01/20 Time: 15:32 Interval history: Remains sedated and intubated. - Review of Systems ROS unobtainable: due to endotracheal tube - Objective Allergies/Adverse Reactions: Allergies Allergy/AdvReac Type Severity Reaction Status Date / Time aspirin Allergy Nausea Verified 05/28/20 04:25 Visit Medications: Current Medications Acetaminophen (Acetaminophen 325 Mg Tab) 650 mg PO Q4H PRN PRN Reason: Headache/Fever/Mild Pain (1-3) Last Admin: 05/28/20 05:18 Dose: 650 mg Documented by: Acetaminophen (Acetaminophen 650 Mg Suppository) 650 mg DC Q4H PRN PRN Reason: Headache/Fever/Mild Pain (1-3) Last Admin: 05/27/20 22:23 Dose: 650 mg Documented by: Acetazolamide (Acetazolamide 250 Mg Tab) 250 mg PO BID [facility] Stop: 06/03/20 21:01 Last Admin: 06/01/20 08:51 Dose: 250 mg Documented by: Albuterol/Ipratropium (Ipratropium/Albuterol Sulfate 3 Ml Neb) 3 ml NEB [id number] [facility] Last Admin: 06/01/20 13:12 Dose: 3 ml Documented by: Bisacodyl (Bisacodyl 5 Mg Tab) 10 mg PO DAILYPRN PRN PRN Reason: Constipation Carvedilol (Carvedilol 6.25 Mg Tab) 6.25 mg PO BID [facility] Last Admin: 06/01/20 08:51 Dose: 6.25 mg Documented by: Duloxetine HCl (Duloxetine 30 Mg Cap) 30 mg PO DAILY [facility] Last Admin: 06/01/20 08:51 Dose: 30 mg Documented by: Enoxaparin Sodium (Enoxaparin Sodium 40 Mg/0.4 Ml Syringe) 40 mg SC 0900 [facility] Last Admin: 06/01/20 08:51 Dose: 40 mg Documented by: Furosemide (Furosemide 40 Mg/4 Ml Vial) 40 mg SLOW IVP BID [facility] Last Admin: 06/01/20 08:51 Dose: 40 mg Documented by: Hydralazine HCl (Hydralazine 20 Mg/Ml Vial) 10 mg SLOW IVP Q4H PRN PRN Reason: SBP > 180 and HR < 70 Fentanyl (Fentanyl Cadd) 100 mls @ 0 mls/hr IV INF [facility]; Protocol Stop: 06/27/20 19:30 Last Admin: 05/31/20 03:36 Dose: 100 mls Documented by: Fentanyl Citrate (Fentanyl Bolus) 250 mls @ 0 mls/hr IVPB PRN PRN PRN Reason: Breakthrough pain/agitation Stop: 06/27/20 19:30 Ceftriaxone Sodium 1 gm/ (Sodium Chloride) 100 mls @ 200 mls/hr IVPB Q24HR [facility] Last Admin: 06/01/20 10:36 Dose: 100 mls Documented by: Lorazepam (Lorazepam 2 Mg/Ml Vial) 2 mg SLOW IVP Q1H PRN PRN Reason: Breakthrough agitation Stop: 06/27/20 19:30 Methylprednisolone Sodium Succinate (Methylprednisolone Sod Succ 40 Mg Vial) 40 mg IVP BID [facility] Last Admin: 06/01/20 08:51 Dose: 40 mg Documented by: Metolazone (Metolazone 2.5 Mg Tab) 2.5 mg PO 0830 [facility] Last Admin: 06/01/20 08:51 Dose: 2.5 mg Documented by: Miscellaneous Medication (Ventilator Sedation Protocol 1 Each) 1 each FS ONE [facility] Stop: 06/27/20 19:16 Mometasone Furoate/Formoterol Fumar (Mometasone 200 Mcg/Formoterol 5 Mcg 120 Puff Inhaler) 2 puff INH BID-RT [facility] Last Admin: 06/01/20 07:55 Dose: 2 puff Documented by: Morphine Sulfate (Morphine 2 Mg/Ml Vial) 2 mg SLOW IVP Q1H PRN PRN Reason: Breakthrough Pain/Agitation Stop: 06/27/20 19:30 Discontinue Previous Narcotic Pain Medications And Benzodiazepines 1 each FS .ONE [facility] Stop: 06/27/20 19:30 Ondansetron HCl (Ondansetron Odt 4 Mg Tab) 4 mg PO Q6H PRN PRN Reason: Nausea/Vomiting Ondansetron HCl (Ondansetron Pf 4 Mg/2 Ml Vial) 4 mg IVP Q6H PRN PRN Reason: Nausea/Vomiting Pantoprazole Sodium (Pantoprazole 40 Mg Vial) 40 mg IVP DAILY [facility] Last Admin: 06/01/20 08:51 Dose: 40 mg Documented by: Propofol (Propofol 1,000 Mg/100 Ml Vial) 1,000 mg IV INF PRN; Protocol PRN Reason: TO ACHIEVE GOAL RASS Stop: 06/27/20 19:30 Last Admin: 06/01/20 08:51 Dose: 1,000 mg Documented by: Propofol (Propofol Bolus 1,000 Mg/100 Ml Vial) 20 mg IV Q5MIN PRN PRN Reason: BREAKTHROUGH AGITATION Stop: 06/27/20 19:30 Senna/Docusate Sodium (Senokot S 8.6-50 Mg Tab) 2 tab PO BID PRN PRN Reason: Constipation Sodium Chloride (Flush - Normal Saline 10 Ml Syringe) 10 ml IVF Q12HR [facility] Last Admin: 06/01/20 08:52 Dose: 10 ml Documented by: Sodium Chloride (Flush - Normal Saline 10 Ml Syringe) 10 ml IVF PRN PRN PRN Reason: Saline Flush Spironolactone (Spironolactone 25 Mg Tab) 50 mg PO QAM-WM [facility] Last Admin: 06/01/20 08:51 Dose: 50 mg Documented by: Topiramate (Topiramate 25 Mg Tab) 50 mg PO BID [facility] Last Admin: 06/01/20 08:51 Dose: 50 mg Documented by: Vital Signs & Weight: Vital Signs Temp Pulse Resp BP Pulse Ox 06/01/20 14:00 10 L 06/01/20 13:12 65 8 L 96 06/01/20 12:00 97.8 F 10 L 06/01/20 10:00 14 06/01/20 08:51 136/82 06/01/20 08:00 97.4 F L 12 92 L 06/01/20 07:55 68 10 L 90 L 06/01/20 07:53 67 10 L 90 L 06/01/20 06:00 11 L 06/01/20 04:18 12 06/01/20 04:00 97.3 F L Admit Weight 299 lb 9.731 oz Weight 317 lb 0.395 oz - Physical Exam General: other (obese) HEENT: mucus membranes moist Neck: supple neck Cardiac: regular rate and rhythm Lungs: clear to auscultation Neuro: no lateralizing findings Abdomen: active bowel sounds Extremities: 1+ LE edema Skin: other (Neurofibromatosis) Musculoskeletal: normal range of motion - Labs Result Diagrams: 06/01/20 03:56 06/01/20 03:56 Troponin/CKMB Troponin I 0.013 ng/mL (< 0.028) 05/27/20 12:08 - Telemetry Sinus rhythms and dysrhythmias: sinus rhythm - Assessment/Plan Assessment/Plan: 1. Acute hypoxic respiratory insufficiency requiring mechanical ventilation 2. 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 Right sided elevated pressures thought to be related to KASI and/or pulm htn 4. Obesity hypoventilation syndrome 5. Substance abuse, cocaine 6. Neurofibromatosis. PLAN: - Continue supportive care. - Continue diuresis
[2020-06-02 03:44] LABS: ALT (SGPT) 10 U/L (8-55); AST (SGOT) 12 U/L (5-34); Albumin 3.6 g/dL (3.5-5.0); Alkaline Phosphatase 63 U/L (40-110); Anion Gap 10 mmol/L (10-20); BUN (Urea Nitrogen) 32 mg/dL (9.8-20.1); Bilirubin, Total 0.4 mg/dL (0.2-1.2); Calc. Creatinine Clearance 209 mL/min (70-130); Calcium 9.2 mg/dL (7.8-10.44); Carbon Dioxide 36 mmol/L (22-29); Chloride 99 mmol/L (98-107); Globulin 3.9 g/dL (2.4-3.5); Glucose 121 mg/dL (70-105); Potassium 4.1 mmol/L (3.5-5.1); Protein, Total 7.5 g/dL (6.0-8.3); Sodium 141 mmol/L (136-145)
[2020-06-02 05:09] LABS: Band 4 % (5-11); Hemoglobin 13.8 g/dL (12.0-16.0); Hypochromia SLIGHT = 6-15 cells (100X) (0-5/hpf); Lymphocytes 10 % (21-51); MDiff Complete? YES; Mean Corpuscular HGB CONC 28.9 g/dL (32.0-36.0); Mean Corpuscular Hemoglobin 26.1 pg (27.0-31.0); Mean Corpuscular Volume 90.2 fL (78.0-98.0); Mean Platelet Volume 9.6 fL (7.4-10.4); Monocytes 8 % (0-10); Neutrophil 78 % (42-75); Platelet Count 223 thou/uL (130-400); RBC Distribution Width 17.8 % (11.5-14.5); Red Blood Cell (RBC) Count 5.31 mill/uL (4.20-5.40); White Blood Cell (WBC) Count 9.9 thou/uL (4.8-10.8)
[2020-06-02] MEDS: Propofol 1,000 MG/100 ML VIAL IV PRN ×3 (05:55→20:47)
[2020-06-02] MEDS: Mometasone 200 MCG/Formoterol 5 MCG 120 PUFF INHALER INH SCH ×2 (06:50→18:49)
[2020-06-02] MEDS: methylPREDNISolone Sod Succ 40 MG VIAL IVP SCH ×2 (09:24→20:19)
[2020-06-02] MEDS: Carvedilol 6.25 MG TAB PO SCH ×2 (09:24→20:18)
[2020-06-02] MEDS: Furosemide 40 MG/4 ML VIAL SLOW IVP SCH ×2 (09:24→20:18)
[2020-06-02] MEDS: DULoxetine 30 MG CAP PO SCH (09:24)
[2020-06-02] MEDS: Enoxaparin Sodium 40 MG/0.4 ML SYRINGE SC SCH (09:24)
[2020-06-02] MEDS: cefTRIAXone\\ROCEPHIN 1 GM in Sodium Chloride 0.9% 100 ML IVPB SCH (09:24)
[2020-06-02] MEDS: Metolazone 2.5 MG TAB PO SCH (09:24)
[2020-06-02] MEDS: AcetaZOLAMIDE 250 MG TAB PO SCH ×2 (09:24→20:19)
[2020-06-02] MEDS: Pantoprazole 40 MG VIAL IVP SCH (09:25)
[2020-06-02] MEDS: Spironolactone 25 MG TAB PO SCH (09:28)
--- NOTE | 2020-06-02 10:05 | PDOC.HOSPP ---
- Subjective Encounter Date: 06/02/20 Encounter Time: 09:30 Subjective: Patient seen and examined bedside today, patient is on ventilator, no overnight event, - Objective Vital Signs & Weight: Vital Signs (12 hours) Temp Pulse Resp BP Pulse Ox 06/02/20 09:24 113/77 06/02/20 08:00 97.6 F 11 L 91 L 06/02/20 06:51 73 113/77 06/02/20 06:50 74 8 L 94 L 06/02/20 06:49 75 8 L 94 L 06/02/20 06:00 10 L 06/02/20 04:00 97.7 F 13 06/02/20 02:00 74 12 118/78 06/02/20 01:59 74 8 L 92 L 06/02/20 00:00 97.2 F L 12 06/01/20 23:56 97.2 F L 06/01/20 22:19 76 128/92 H Weight Admit Weight 299 lb 9.731 oz Weight 317 lb 0.395 oz Most Recent Monitor Data Heart Rate from ECG 72 NIBP 115/75 NIBP BP-Mean 88 Respiration from ECG 24 SpO2 94 I&O: 06/01/20 06/02/20 06/03/20 06:59 06:59 06:59 Intake Total 1575 1634 120 Output Total 2311 1945 260 [facility] -[phone] Result Diagrams: 06/02/20 03:10 06/02/20 03:10 Radiology Reviewed by me: Yes (Chest x-ray reviewed) EKG Reviewed by me: Yes (Sinus rhythm) Hospitalist ROS - Review of Systems ROS unobtainable: due to endotracheal tube - Medication Medications: Active Medications Generic Name Dose Route Start Last Admin Trade Name Freq PRN Reason Stop Dose Admin Acetaminophen 650 mg 05/27/20 03:30 05/28/20 05:18 Acetaminophen 325 Mg Tab PO 650 mg Q4H PRN Administration Headache/Fever/Mild Pain (1-3) Acetaminophen 650 mg 05/27/20 03:30 05/27/20 22:23 Acetaminophen 650 Mg Suppository MT 650 mg Q4H PRN Administration Headache/Fever/Mild Pain (1-3) Acetazolamide 250 mg 05/30/20 21:00 06/02/20 09:24 Acetazolamide 250 Mg Tab PO 06/03/20 21:01 250 mg BID HALIE Administration Albuterol/Ipratropium 3 ml 05/29/20 01:00 06/02/20 06:49 Ipratropium/Albuterol Sulfate 3 Ml Neb NEB 3 ml [id number] HALIE Administration Carvedilol 6.25 mg 05/27/20 09:00 06/02/20 09:24 Carvedilol 6.25 Mg Tab PO 6.25 mg BID HALIE Administration Duloxetine HCl 30 mg 05/29/20 09:00 06/02/20 09:24 Duloxetine 30 Mg Cap PO 30 mg DAILY HALIE Administration Enoxaparin Sodium 40 mg 05/27/20 09:00 06/02/20 09:24 Enoxaparin Sodium 40 Mg/0.4 Ml Syringe SC 40 mg 0900 HALIE Administration Furosemide 40 mg 05/30/20 09:00 06/02/20 09:24 Furosemide 40 Mg/4 Ml Vial SLOW IVP 40 mg BID HALIE Administration Fentanyl 100 mls @ 0 mls/hr 05/28/20 19:30 05/31/20 03:36 Fentanyl Cadd IV 06/27/20 19:30 100 mls INF HALIE Administration Protocol Per Protocol Ceftriaxone Sodium 1 gm/ 100 mls @ 200 mls/hr 05/29/20 10:00 06/02/20 09:24 Sodium Chloride IVPB 100 mls Q24HR HALIE Administration Methylprednisolone Sodium Succinate 40 mg 05/30/20 21:00 06/02/20 09:24 Methylprednisolone Sod Succ 40 Mg Vial IVP 40 mg BID HALIE Administration Metolazone 2.5 mg 06/01/20 08:30 06/02/20 09:24 Metolazone 2.5 Mg Tab PO 2.5 mg 0830 HALIE Administration Mometasone Furoate/Formoterol Fumar 2 puff 05/28/20 18:30 06/02/20 06:50 Mometasone 200 Mcg/Formoterol 5 Mcg 120 Puff Inhaler INH 2 puff BID-RT HALIE Administration Pantoprazole Sodium 40 mg 05/29/20 09:00 06/02/20 09:25 Pantoprazole 40 Mg Vial IVP 40 mg DAILY HALIE Administration Propofol 1,000 mg 05/28/20 19:30 06/02/20 05:55 Propofol 1,000 Mg/100 Ml Vial IV 06/27/20 19:30 1,000 mg INF PRN Administration TO ACHIEVE GOAL RASS Protocol Sodium Chloride 10 ml 05/29/20 09:00 06/01/20 20:49 Flush - Normal Saline 10 Ml Syringe IVF 10 ml Q12HR HALIE Administration Spironolactone 50 mg 05/31/20 08:00 06/02/20 09:28 Spironolactone 25 Mg Tab PO 50 mg QAM-WM HALIE Administration Topiramate 50 mg 05/28/20 21:00 06/01/20 20:51 Topiramate 25 Mg Tab PO 50 mg BID HALIE Administration Hospitalist Exam Vitals: Vital Signs (12 hours) Temp Pulse Resp BP Pulse Ox 06/02/20 09:24 113/77 06/02/20 08:00 97.6 F 11 L 91 L 06/02/20 06:51 73 113/77 06/02/20 06:50 74 8 L 94 L 06/02/20 06:49 75 8 L 94 L 06/02/20 06:00 10 L 06/02/20 04:00 97.7 F 13 06/02/20 02:00 74 12 118/78 06/02/20 01:59 74 8 L 92 L 06/02/20 00:00 97.2 F L 12 06/01/20 23:56 97.2 F L 06/01/20 22:19 76 128/92 H Weight Admit Weight 299 lb 9.731 oz Weight 317 lb 0.395 oz Most Recent Monitor Data Heart Rate from ECG 72 NIBP 115/75 NIBP BP-Mean 88 Respiration from ECG 24 SpO2 94 General Appearance: NAD General - other findings: On ventilator Eye: PERRL, anicteric sclera ENT: normocephalic atraumatic Neck: supple, symmetric, no JVD Heart: RRR, no murmur, no gallops Respiratory: no wheezes, no rales, no ronchi Gastrointestinal: soft, non-distended, normal bowel sounds Gastrointestinal - other findings: Obesity Extremities: 2+ LE edema Skin: normal turgor Hosp A/P (1) Acute on chronic respiratory failure with hypercapnia Code(s): J96.22 - ACUTE AND CHRONIC RESPIRATORY FAILURE WITH HYPERCAPNIA Status: Acute (2) Acute on chronic diastolic heart failure Code(s): I50.33 - ACUTE ON CHRONIC DIASTOLIC (CONGESTIVE) HEART FAILURE Status: Acute (3) Hyperkalemia Code(s): E87.5 - HYPERKALEMIA Status: Resolved (4) Obesity hypoventilation syndrome Code(s): E66.2 - MORBID (SEVERE) OBESITY WITH ALVEOLAR HYPOVENTILATION Status: Chronic (5) Pulmonary hypertension Code(s): I27.20 - PULMONARY HYPERTENSION, UNSPECIFIED Status: Chronic (6) Morbid obesity with BMI of 50.0-59.9, adult Code(s): E66.01 - MORBID (SEVERE) OBESITY DUE TO EXCESS CALORIES; Z68.43 - BODY MASS INDEX [BMI] 50.0-59.9, ADULT Status: Chronic (7) Polysubstance abuse Code(s): F19.10 - OTHER PSYCHOACTIVE SUBSTANCE ABUSE, UNCOMPLICATED Status: Acute (8) Neurofibromatosis Status: Chronic - Plan old records reviewed/req, DVT proph w/lovenox Continue diuresis as per nephrology and cardiology, Medication reviewed and continue provide symptomatic and supportive care Continue Rocephin as per pulmonology Continue steroid and respiratory therapy Weaning process will defer to pulmonology
--- NOTE | 2020-06-02 10:44 | RAD ---
EXAM: Chest one view: HISTORY: Respiratory insufficiency COMPARISON: 06/01/2020 FINDINGS: Stable life-support tubes. Heart size: Borderline Lungs: Stable extensive bilateral parenchymal changes more confluent on the right side. Bilateral pleural effusions without pneumothorax. IMPRESSION: Stable exam. Continued short-term follow-up.
--- NOTE | 2020-06-02 14:57 | PDOC.CPN ---
- Subjective Date: 06/02/20 Time: 14:55 Interval history: Remains sedated and intubated. - Review of Systems ROS unobtainable: due to endotracheal tube - Objective Allergies/Adverse Reactions: Allergies Allergy/AdvReac Type Severity Reaction Status Date / Time aspirin Allergy Nausea Verified 05/28/20 04:25 Visit Medications: Current Medications Acetaminophen (Acetaminophen 325 Mg Tab) 650 mg PO Q4H PRN PRN Reason: Headache/Fever/Mild Pain (1-3) Last Admin: 05/28/20 05:18 Dose: 650 mg Documented by: Acetaminophen (Acetaminophen 650 Mg Suppository) 650 mg AK Q4H PRN PRN Reason: Headache/Fever/Mild Pain (1-3) Last Admin: 05/27/20 22:23 Dose: 650 mg Documented by: Acetazolamide (Acetazolamide 250 Mg Tab) 250 mg PO BID [facility] Stop: 06/03/20 21:01 Last Admin: 06/02/20 09:24 Dose: 250 mg Documented by: Albuterol/Ipratropium (Ipratropium/Albuterol Sulfate 3 Ml Neb) 3 ml NEB [id number] [facility] Last Admin: 06/02/20 14:35 Dose: 3 ml Documented by: Bisacodyl (Bisacodyl 5 Mg Tab) 10 mg PO DAILYPRN PRN PRN Reason: Constipation Carvedilol (Carvedilol 6.25 Mg Tab) 6.25 mg PO BID [facility] Last Admin: 06/02/20 09:24 Dose: 6.25 mg Documented by: Duloxetine HCl (Duloxetine 30 Mg Cap) 30 mg PO DAILY [facility] Last Admin: 06/02/20 09:24 Dose: 30 mg Documented by: Enoxaparin Sodium (Enoxaparin Sodium 40 Mg/0.4 Ml Syringe) 40 mg SC 0900 [facility] Last Admin: 06/02/20 09:24 Dose: 40 mg Documented by: Furosemide (Furosemide 40 Mg/4 Ml Vial) 40 mg SLOW IVP BID [facility] Last Admin: 06/02/20 09:24 Dose: 40 mg Documented by: Hydralazine HCl (Hydralazine 20 Mg/Ml Vial) 10 mg SLOW IVP Q4H PRN PRN Reason: SBP > 180 and HR < 70 Fentanyl (Fentanyl Cadd) 100 mls @ 0 mls/hr IV INF [facility]; Protocol Stop: 06/27/20 19:30 Last Admin: 05/31/20 03:36 Dose: 100 mls Documented by: Fentanyl Citrate (Fentanyl Bolus) 250 mls @ 0 mls/hr IVPB PRN PRN PRN Reason: Breakthrough pain/agitation Stop: 06/27/20 19:30 Ceftriaxone Sodium 1 gm/ (Sodium Chloride) 100 mls @ 200 mls/hr IVPB Q24HR [facility] Last Admin: 06/02/20 09:24 Dose: 100 mls Documented by: Lorazepam (Lorazepam 2 Mg/Ml Vial) 2 mg SLOW IVP Q1H PRN PRN Reason: Breakthrough agitation Stop: 06/27/20 19:30 Methylprednisolone Sodium Succinate (Methylprednisolone Sod Succ 40 Mg Vial) 40 mg IVP BID [facility] Last Admin: 06/02/20 09:24 Dose: 40 mg Documented by: Metolazone (Metolazone 2.5 Mg Tab) 2.5 mg PO 0830 [facility] Last Admin: 06/02/20 09:24 Dose: 2.5 mg Documented by: Miscellaneous Medication (Ventilator Sedation Protocol 1 Each) 1 each FS ONE [facility] Stop: 06/27/20 19:16 Mometasone Furoate/Formoterol Fumar (Mometasone 200 Mcg/Formoterol 5 Mcg 120 Puff Inhaler) 2 puff INH BID-RT [facility] Last Admin: 06/02/20 06:50 Dose: 2 puff Documented by: Morphine Sulfate (Morphine 2 Mg/Ml Vial) 2 mg SLOW IVP Q1H PRN PRN Reason: Breakthrough Pain/Agitation Stop: 06/27/20 19:30 Discontinue Previous Narcotic Pain Medications And Benzodiazepines 1 each FS .ONE [facility] Stop: 06/27/20 19:30 Ondansetron HCl (Ondansetron Odt 4 Mg Tab) 4 mg PO Q6H PRN PRN Reason: Nausea/Vomiting Ondansetron HCl (Ondansetron Pf 4 Mg/2 Ml Vial) 4 mg IVP Q6H PRN PRN Reason: Nausea/Vomiting Pantoprazole Sodium (Pantoprazole 40 Mg Vial) 40 mg IVP DAILY [facility] Last Admin: 06/02/20 09:25 Dose: 40 mg Documented by: Propofol (Propofol 1,000 Mg/100 Ml Vial) 1,000 mg IV INF PRN; Protocol PRN Reason: TO ACHIEVE GOAL RASS Stop: 06/27/20 19:30 Last Admin: 06/02/20 12:46 Dose: 1,000 mg Documented by: Propofol (Propofol Bolus 1,000 Mg/100 Ml Vial) 20 mg IV Q5MIN PRN PRN Reason: BREAKTHROUGH AGITATION Stop: 06/27/20 19:30 Senna/Docusate Sodium (Senokot S 8.6-50 Mg Tab) 2 tab PO BID PRN PRN Reason: Constipation Sodium Chloride (Flush - Normal Saline 10 Ml Syringe) 10 ml IVF Q12HR [facility] Last Admin: 06/02/20 10:21 Dose: 10 ml Documented by: Sodium Chloride (Flush - Normal Saline 10 Ml Syringe) 10 ml IVF PRN PRN PRN Reason: Saline Flush Spironolactone (Spironolactone 25 Mg Tab) 50 mg PO QAM-WM [facility] Last Admin: 06/02/20 09:28 Dose: 50 mg Documented by: Topiramate (Topiramate 25 Mg Tab) 50 mg PO BID [facility] Last Admin: 06/01/20 20:51 Dose: 50 mg Documented by: Vital Signs & Weight: Vital Signs Temp Pulse Resp BP Pulse Ox 06/02/20 14:35 63 8 L 93 L 06/02/20 14:33 63 118/78 06/02/20 14:00 18 06/02/20 12:00 98.0 F 21 H 06/02/20 10:56 64 112/61 06/02/20 10:00 16 06/02/20 09:24 113/77 06/02/20 08:00 97.6 F 11 L 91 L 06/02/20 06:51 73 113/77 06/02/20 06:50 74 8 L 94 L 06/02/20 06:49 75 8 L 94 L 06/02/20 06:00 10 L 06/02/20 04:00 97.7 F 13 Admit Weight 299 lb 9.731 oz Weight 317 lb 0.395 oz - Physical Exam General: other (S/I) HEENT: normocephaly Neck: midline trachea Cardiac: regular rate and rhythm Lungs: normal breath sounds Neuro: other (Sedated) Abdomen: active bowel sounds Extremities: 1+ LE edema Skin: other (Neurofibrimatosis) Musculoskeletal: normal range of motion - Labs Result Diagrams: 06/02/20 03:10 06/02/20 03:10 Troponin/CKMB Troponin I 0.013 ng/mL (< 0.028) 05/27/20 12:08 - Telemetry Sinus rhythms and dysrhythmias: sinus rhythm - Assessment/Plan Assessment/Plan: 1. Acute hypoxic respiratory insufficiency requiring mechanical ventilation 2. Moderate MR 3. Right sided elevated pressures thought to be related to KASI and/or pulm htn 4. Obesity hypoventilation syndrome 5. Substance abuse, cocaine 6. Neurofibromatosis. PLAN: - Continue supportive care. - Continue diuresis.
--- NOTE | 2020-06-02 15:29 | PRG ---
DATE OF SERVICE: 06/02/2020 CRITICAL CARE TIME: 35 minutes. SUBJECTIVE: The patient remains intubated on mechanical ventilation, extremely sedated. OBJECTIVE: VITAL SIGNS: Temperature 98, pulse 62, blood pressure 116/77. 24-hour intake 1634, output 4175. HEENT: Unremarkable. NECK: No adenopathy or JVD. LUNGS: Coarse breath sounds bilaterally. CARDIAC: S1, S2. Regular. ABDOMEN: Soft. EXTREMITIES: No edema. LABORATORY DATA: X-ray shows bilateral infiltrative changes which probably . White blood cell count 9.9, hematocrit 47.9, and platelet count 223. Sodium 141, potassium 4.1, chloride 99, CO2 of 36, BUN 32, creatinine 0.7, glucose 121. ASSESSMENT: 1. Acute hypoxic respiratory failure requiring mechanical ventilation. 2. Morbid obesity. 3. Diastolic heart failure with effusions. PLAN: Patient remains on antibiotics. She is on spironolactone and furosemide through Nephrology. Hopefully with continued diuresis, she will improve. She is on Diamox, but is still developing a metabolic alkalosis from her other diuretics. This might have to be addressed in the upcoming days. Job ID: [id number]
[2020-06-02] MEDS ORDERED: Fentanyl CADD 100 ML ONE (15:54)
--- NOTE | 2020-06-02 16:02 | PDOC.NEPPN ---
- Subjective Encounter Date: 06/02/20 Subjective: Still intubated. Urine output improved greatly with addition of metolazone to lasix and spironolactone. - Objective Vital Signs & Weight: Vital Signs (12 hours) Temp Pulse Resp BP Pulse Ox 06/02/20 14:35 63 8 L 93 L 06/02/20 14:33 63 118/78 06/02/20 14:00 18 06/02/20 12:00 98.0 F 21 H 06/02/20 10:56 64 112/61 06/02/20 10:00 16 06/02/20 09:24 113/77 06/02/20 08:00 97.6 F 11 L 91 L 06/02/20 06:51 73 113/77 06/02/20 06:50 74 8 L 94 L 06/02/20 06:49 75 8 L 94 L 06/02/20 06:00 10 L Weight Admit Weight 299 lb 9.731 oz Weight 317 lb 0.395 oz Most Recent Monitor Data Heart Rate from ECG 63 NIBP 120/82 NIBP BP-Mean 94 Respiration from ECG 14 SpO2 93 I&O: 06/01/20 06/02/20 06/03/20 06:59 06:59 06:59 Intake Total 1575 1634 306 Output Total 2315 8175 1400 [facility]740 [phone] Result Diagrams: 06/02/20 03:10 06/02/20 03:10 Nephrology ROS - Medication Medications: Active Medications Generic Name Dose Route Start Last Admin Trade Name Freq PRN Reason Stop Dose Admin Acetaminophen 650 mg 05/27/20 03:30 05/28/20 05:18 Acetaminophen 325 Mg Tab PO 650 mg Q4H PRN Administration Headache/Fever/Mild Pain (1-3) Acetaminophen 650 mg 05/27/20 03:30 05/27/20 22:23 Acetaminophen 650 Mg Suppository PA 650 mg Q4H PRN Administration Headache/Fever/Mild Pain (1-3) Acetazolamide 250 mg 05/30/20 21:00 06/02/20 09:24 Acetazolamide 250 Mg Tab PO 06/03/20 21:01 250 mg BID HALIE Administration Albuterol/Ipratropium 3 ml 05/29/20 01:00 06/02/20 14:35 Ipratropium/Albuterol Sulfate 3 Ml Neb NEB 3 ml [id number] HALIE Administration Carvedilol 6.25 mg 05/27/20 09:00 06/02/20 09:24 Carvedilol 6.25 Mg Tab PO 6.25 mg BID HALIE Administration Duloxetine HCl 30 mg 05/29/20 09:00 06/02/20 09:24 Duloxetine 30 Mg Cap PO 30 mg DAILY HALIE Administration Enoxaparin Sodium 40 mg 05/27/20 09:00 06/02/20 09:24 Enoxaparin Sodium 40 Mg/0.4 Ml Syringe SC 40 mg 0900 HALIE Administration Furosemide 40 mg 05/30/20 09:00 06/02/20 09:24 Furosemide 40 Mg/4 Ml Vial SLOW IVP 40 mg BID HALIE Administration Fentanyl 100 mls @ 0 mls/hr 05/28/20 19:30 05/31/20 03:36 Fentanyl Cadd IV 06/27/20 19:30 100 mls INF HALIE Administration Protocol Per Protocol Ceftriaxone Sodium 1 gm/ 100 mls @ 200 mls/hr 05/29/20 10:00 06/02/20 09:24 Sodium Chloride IVPB 100 mls Q24HR HALIE Administration Methylprednisolone Sodium Succinate 40 mg 05/30/20 21:00 06/02/20 09:24 Methylprednisolone Sod Succ 40 Mg Vial IVP 40 mg BID HALIE Administration Metolazone 2.5 mg 06/01/20 08:30 06/02/20 09:24 Metolazone 2.5 Mg Tab PO 2.5 mg 0830 HALIE Administration Mometasone Furoate/Formoterol Fumar 2 puff 05/28/20 18:30 06/02/20 06:50 Mometasone 200 Mcg/Formoterol 5 Mcg 120 Puff Inhaler INH 2 puff BID-RT HALIE Administration Pantoprazole Sodium 40 mg 05/29/20 09:00 06/02/20 09:25 Pantoprazole 40 Mg Vial IVP 40 mg DAILY HALIE Administration Propofol 1,000 mg 05/28/20 19:30 06/02/20 12:46 Propofol 1,000 Mg/100 Ml Vial IV 06/27/20 19:30 1,000 mg INF PRN Administration TO ACHIEVE GOAL RASS Protocol Sodium Chloride 10 ml 05/29/20 09:00 06/02/20 10:21 Flush - Normal Saline 10 Ml Syringe IVF 10 ml Q12HR HALIE Administration Spironolactone 50 mg 05/31/20 08:00 06/02/20 09:28 Spironolactone 25 Mg Tab PO 50 mg QAM-WM HALIE Administration Topiramate 50 mg 05/28/20 21:00 06/01/20 20:51 Topiramate 25 Mg Tab PO 50 mg BID HALIE Administration - Exam General - other findings: sedated ENT: normocephalic atraumatic ENT - other findings: Et tube in place Neck: symmetric Respiratory - other findings: ventiltor transmitted sound noted Cardiovascular: RRR Gastrointestinal - other findings: obese Extremities - other findings: edema of the extremities persists though improved. Neurological - other findings: sedated Nephrology Results - Labs Result Diagrams: 06/02/20 03:10 06/02/20 03:10 Lab results: WBC 9.9 thou/uL (4.8-10.8) 06/02/20 03:10 Hgb 13.8 g/dL (12.0-16.0) 06/02/20 03:10 Hct 47.9 % (36.0-47.0) H 06/02/20 03:10 MCV 90.2 fL (78.0-98.0) 06/02/20 03:10 Plt Count 223 thou/uL (130-400) 06/02/20 03:10 Neutrophils % 89.5 % (42.0-75.0) H 05/31/20 03:15 Band Neuts % (Manual) 4 % (5-11) L 06/02/20 03:10 ABG pH 7.30 (7.35-7.45) L 05/28/20 19:49 ABG pCO2 62.5 mmHg (35.0-45.0) H* 05/28/20 19:49 ABG pO2 59.0 mmHg (80.0-100.0) L* 05/28/20 19:49 Sodium 141 mmol/L (136-145) 06/02/20 03:10 Potassium 4.1 mmol/L (3.5-5.1) 06/02/20 03:10 Chloride 99 mmol/L (98-107) 06/02/20 03:10 Carbon Dioxide 36 mmol/L (22-29) H 06/02/20 03:10 BUN 32 mg/dL (9.8-20.1) H 06/02/20 03:10 Creatinine 0.70 mg/dL (0.6-1.1) 06/02/20 03:10 Glucose 121 mg/dL (70-105) H 06/02/20 03:10 Calcium 9.2 mg/dL (7.8-10.44) 06/02/20 03:10 Total Bilirubin 0.4 mg/dL (0.2-1.2) 06/02/20 03:10 AST 12 U/L (5-34) 06/02/20 03:10 ALT 10 U/L (8-55) 06/02/20 03:10 Alkaline Phosphatase 63 U/L (40-110) 06/02/20 03:10 Creatine Kinase 39 U/L (29-168) 05/26/20 21:43 Troponin I 0.013 ng/mL (< 0.028) 05/27/20 12:08 B-Natriuretic Peptide 226.4 pg/mL (0-100) H 05/26/20 21:43 Serum Total Protein 7.5 g/dL (6.0-8.3) 06/02/20 03:10 Albumin 3.6 g/dL (3.5-5.0) 06/02/20 03:10 Urine Ketones Negative mg/dL (Negative) 05/27/20 00:00 Urine Blood Negative (Negative) 05/27/20 00:00 Urine Nitrite Negative (Negative) 05/27/20 00:00 Ur Leukocyte Esterase Negative Ozzy/uL (Negative) 05/27/20 00:00 Sodium 141 mmol/L (136-145) 06/02/20 03:10 Potassium 4.1 mmol/L (3.5-5.1) 06/02/20 03:10 Chloride 99 mmol/L (98-107) 06/02/20 03:10 Carbon Dioxide 36 mmol/L (22-29) H 06/02/20 03:10 Anion Gap 10 mmol/L (10-20) 06/02/20 03:10 BUN 32 mg/dL (9.8-20.1) H 06/02/20 03:10 Creatinine 0.70 mg/dL (0.6-1.1) 06/02/20 03:10 Glucose 121 mg/dL (70-105) H 06/02/20 03:10 Calcium 9.2 mg/dL (7.8-10.44) 06/02/20 03:10 Magnesium 1.6 mg/dL (1.6-2.6) 05/27/20 05:25 Albumin 3.6 g/dL (3.5-5.0) 06/02/20 03:10 Nephrology AP PN - Plan Anasarca: Due to fluid resuscitation, hypoalbuminemia and mitral regurgitation. Urine output has improvied. Negative i/o in 2 consecutie days. GLAINA: Due to hemodynamic factors related to voilume depletion and ACEI use. FENa and FEurae are consistent. Resolved Hyperkalemia: Resolved Metabolic acidosis: 2/2 GALINA with possible contribution from topamax Respiratory acidosis: Improved with Intubation Alkalosis: Due to diuretic and compensation to respiratory acidosis. Morbid obesity with presumed KASI/OHS. COPD Neurofibromatosis. PLAN Continue metolazonne lasix, spironolactone and acetozolamide. Tube feeding to continue Monitor weight, intake and output. Follow renal function and electrolytes.
[2020-06-03] MEDS: Propofol 1,000 MG/100 ML VIAL IV PRN ×4 (02:25→17:54)
[2020-06-03 03:14] LABS: #Monocytes 0.7 thou/uL (0.11-0.59); #Neutrophils 7.2 thou/uL (1.40-6.50); %Basophils 0.3 % (0.0-1.0); %Eosinophils 0.1 % (0.0-10.0); %Lymphocytes 10.7 % (21.0-51.0); %Monocytes 8.3 % (0.0-10.0); %Neutrophils 80.6 % (42.0-75.0); Hemoglobin 13.8 g/dL (12.0-16.0); Mean Corpuscular HGB CONC 29.3 g/dL (32.0-36.0); Mean Corpuscular Hemoglobin 26.3 pg (27.0-31.0); Mean Corpuscular Volume 89.7 fL (78.0-98.0); Mean Platelet Volume 9.7 fL (7.4-10.4); Platelet Count 212 thou/uL (130-400); RBC Distribution Width 17.7 % (11.5-14.5); Red Blood Cell (RBC) Count 5.27 mill/uL (4.20-5.40); White Blood Cell (WBC) Count 8.9 thou/uL (4.8-10.8)
[2020-06-03 03:49] LABS: ALT (SGPT) 17 U/L (8-55); AST (SGOT) 21 U/L (5-34); Albumin 3.6 g/dL (3.5-5.0); Alkaline Phosphatase 69 U/L (40-110); Anion Gap 11 mmol/L (10-20); BUN (Urea Nitrogen) 38 mg/dL (9.8-20.1); Bilirubin, Total 0.4 mg/dL (0.2-1.2); Calc. Creatinine Clearance 185 mL/min (70-130); Calcium 9.5 mg/dL (7.8-10.44); Carbon Dioxide 37 mmol/L (22-29); Chloride 97 mmol/L (98-107); Globulin 3.9 g/dL (2.4-3.5); Glucose 121 mg/dL (70-105); Protein, Total 7.5 g/dL (6.0-8.3); Sodium 141 mmol/L (136-145)
[2020-06-03] MEDS: Mometasone 200 MCG/Formoterol 5 MCG 120 PUFF INHALER INH SCH ×2 (07:46→18:47)
--- NOTE | 2020-06-03 07:59 | RAD ---
RADIOGRAPH CHEST 1 VIEW: DATE: 06/03/2020 TIME: 4:02 AM HISTORY: 54-year-old female with respiratory failure COMPARISON: 06/02/2020 FINDINGS: Large right pleural effusion. Cardiomegaly. Diffuse haziness of lungs. Alvares faheem. Endotracheal t ube distal tip remains at or near jakob. No interval change. IMPRESSION: No major interval change
[2020-06-03] MEDS: methylPREDNISolone Sod Succ 40 MG VIAL IVP SCH ×2 (08:46→20:27)
[2020-06-03] MEDS: Metolazone 2.5 MG TAB PO SCH (08:47)
[2020-06-03] MEDS: Furosemide 40 MG/4 ML VIAL SLOW IVP SCH ×2 (08:47→20:27)
[2020-06-03] MEDS: Enoxaparin Sodium 40 MG/0.4 ML SYRINGE SC SCH (08:47)
[2020-06-03] MEDS: AcetaZOLAMIDE 250 MG TAB PO SCH ×2 (08:47→20:27)
[2020-06-03] MEDS: Pantoprazole 40 MG VIAL IVP SCH (08:47)
[2020-06-03] MEDS: Carvedilol 6.25 MG TAB PO SCH ×2 (08:47→20:27)
[2020-06-03] MEDS: DULoxetine 30 MG CAP PO SCH (08:47)
[2020-06-03] MEDS: Spironolactone 25 MG TAB PO SCH (08:50)
[2020-06-03] MEDS: cefTRIAXone\\ROCEPHIN 1 GM in Sodium Chloride 0.9% 100 ML IVPB SCH (08:50)
--- NOTE | 2020-06-03 09:38 | PRG ---
DATE OF SERVICE: 06/03/2020 SUBJECTIVE: Luma Parr is a morbidly obese female. OBJECTIVE: VITAL SIGNS: Temperature 98, pulse 80, blood pressure 105/64, respiratory rate 18, saturations on 40% is 93%. GENERAL: She is still very encephalopathic. CHEST: No wheezing, no crackles. CARDIAC: Normal S1. ABDOMEN: No masses. IMPRESSION: Orr positive respiratory failure, electrolyte imbalance, chronic obstructive pulmonary disease, sleep apnea, right pleural effusion. Unless she is neurologically stable, we were unable to get her off the vent. In the meantime, we will continue steroids. I have added risperidone to present regime. Continue nutrition and supportive care. One-half hour of critical care time. Job ID: [id number]
--- NOTE | 2020-06-03 11:26 | PDOC.HOSPP ---
- Subjective Encounter Date: 06/03/20 Encounter Time: 09:50 Subjective: Patient seen and examined bedside today, patient is on ventilator, - Objective Vital Signs & Weight: Vital Signs (12 hours) Temp Pulse Resp BP Pulse Ox 06/03/20 10:35 61 06/03/20 10:00 14 06/03/20 08:47 105/64 06/03/20 08:00 12 92 L 06/03/20 07:48 63 105/64 06/03/20 06:00 11 L 06/03/20 04:00 97.9 F 13 06/03/20 02:55 65 114/70 06/03/20 02:00 10 L 06/03/20 00:30 63 8 L 92 L 06/03/20 00:00 97.8 F 9 L Weight Admit Weight 299 lb 9.731 oz Weight 317 lb 0.395 oz Most Recent Monitor Data Heart Rate from ECG 61 NIBP 112/70 NIBP BP-Mean 84 Respiration from ECG 20 SpO2 92 I&O: 06/02/20 06/03/20 06/04/20 06:59 06:59 06:59 Intake Total 1634 1560 246 Output Total 4175 4230 760 Balance -2541 -2670 -514 Result Diagrams: 06/03/20 03:00 06/03/20 03:00 Radiology Reviewed by me: Yes (Chest x-ray reviewed,) EKG Reviewed by me: Yes (Sinus rhythm) Hospitalist ROS - Review of Systems ROS unobtainable: due to endotracheal tube - Medication Medications: Active Medications Generic Name Dose Route Start Last Admin Trade Name Freq PRN Reason Stop Dose Admin Acetaminophen 650 mg 05/27/20 03:30 05/28/20 05:18 Acetaminophen 325 Mg Tab PO 650 mg Q4H PRN Administration Headache/Fever/Mild Pain (1-3) Acetaminophen 650 mg 05/27/20 03:30 05/27/20 22:23 Acetaminophen 650 Mg Suppository ID 650 mg Q4H PRN Administration Headache/Fever/Mild Pain (1-3) Acetazolamide 250 mg 05/30/20 21:00 06/03/20 08:47 Acetazolamide 250 Mg Tab PO 06/03/20 21:01 250 mg BID HALIE Administration Albuterol/Ipratropium 3 ml 05/29/20 01:00 06/03/20 07:46 Ipratropium/Albuterol Sulfate 3 Ml Neb NEB 3 ml [id number] HALIE Administration Carvedilol 6.25 mg 05/27/20 09:00 06/03/20 08:47 Carvedilol 6.25 Mg Tab PO 6.25 mg BID HALIE Administration Duloxetine HCl 30 mg 05/29/20 09:00 06/03/20 08:47 Duloxetine 30 Mg Cap PO 30 mg DAILY HALIE Administration Enoxaparin Sodium 40 mg 05/27/20 09:00 06/03/20 08:47 Enoxaparin Sodium 40 Mg/0.4 Ml Syringe SC 40 mg 0900 HALIE Administration Furosemide 40 mg 05/30/20 09:00 06/03/20 08:47 Furosemide 40 Mg/4 Ml Vial SLOW IVP 40 mg BID HALIE Administration Fentanyl 100 mls @ 0 mls/hr 05/28/20 19:30 05/31/20 03:36 Fentanyl Cadd IV 06/27/20 19:30 100 mls INF HALIE Administration Protocol Per Protocol Ceftriaxone Sodium 1 gm/ 100 mls @ 200 mls/hr 05/29/20 10:00 06/03/20 08:50 Sodium Chloride IVPB 100 mls Q24HR HALIE Administration Dexmedetomidine HCl 400 mcg/ 100 mls @ 0 mls/hr 06/03/20 09:45 06/03/20 10:50 Sodium Chloride IVPB 100 mls INF HALIE Administration Protocol Per Protocol Methylprednisolone Sodium Succinate 40 mg 05/30/20 21:00 06/03/20 08:46 Methylprednisolone Sod Succ 40 Mg Vial IVP 40 mg BID HALIE Administration Metolazone 2.5 mg 06/01/20 08:30 06/03/20 08:47 Metolazone 2.5 Mg Tab PO 2.5 mg 0830 HALIE Administration Mometasone Furoate/Formoterol Fumar 2 puff 05/28/20 18:30 06/03/20 07:46 Mometasone 200 Mcg/Formoterol 5 Mcg 120 Puff Inhaler INH 2 puff BID-RT HALIE Administration Pantoprazole Sodium 40 mg 05/29/20 09:00 06/03/20 08:47 Pantoprazole 40 Mg Vial IVP 40 mg DAILY HALIE Administration Propofol 1,000 mg 05/28/20 19:30 06/03/20 08:46 Propofol 1,000 Mg/100 Ml Vial IV 06/27/20 19:30 1,000 mg INF PRN Administration TO ACHIEVE GOAL RASS Protocol Sodium Chloride 10 ml 05/29/20 09:00 06/03/20 08:47 Flush - Normal Saline 10 Ml Syringe IVF 10 ml Q12HR HALIE Administration Spironolactone 50 mg 05/31/20 08:00 06/03/20 08:50 Spironolactone 25 Mg Tab PO 50 mg QAM-WM HALIE Administration Topiramate 50 mg 05/28/20 21:00 06/01/20 20:51 Topiramate 25 Mg Tab PO 50 mg BID HALIE Administration Hospitalist Exam Vitals: Vital Signs (12 hours) Temp Pulse Resp BP Pulse Ox 06/03/20 10:35 61 06/03/20 10:00 14 06/03/20 08:47 105/64 06/03/20 08:00 12 92 L 06/03/20 07:48 63 105/64 06/03/20 06:00 11 L 06/03/20 04:00 97.9 F 13 06/03/20 02:55 65 114/70 06/03/20 02:00 10 L 06/03/20 00:30 63 8 L 92 L 06/03/20 00:00 97.8 F 9 L Weight Admit Weight 299 lb 9.731 oz Weight 317 lb 0.395 oz Most Recent Monitor Data Heart Rate from ECG 61 NIBP 112/70 NIBP BP-Mean 84 Respiration from ECG 20 SpO2 92 General Appearance: NAD General - other findings: On ventilator Eye: PERRL ENT: normocephalic atraumatic Neck: supple, symmetric Heart: RRR, no murmur, no gallops Respiratory: no wheezes, no rales, no ronchi Gastrointestinal: soft, non-distended, normal bowel sounds Gastrointestinal - other findings: Obesity noted Extremities: 2+ LE edema Skin: normal turgor Hosp A/P (1) Acute on chronic respiratory failure with hypercapnia Code(s): J96.22 - ACUTE AND CHRONIC RESPIRATORY FAILURE WITH HYPERCAPNIA Status: Acute (2) Acute on chronic diastolic heart failure Code(s): I50.33 - ACUTE ON CHRONIC DIASTOLIC (CONGESTIVE) HEART FAILURE Status: Acute (3) Hyperkalemia Code(s): E87.5 - HYPERKALEMIA Status: Resolved (4) Obesity hypoventilation syndrome Code(s): E66.2 - MORBID (SEVERE) OBESITY WITH ALVEOLAR HYPOVENTILATION Status: Chronic (5) Pulmonary hypertension Code(s): I27.20 - PULMONARY HYPERTENSION, UNSPECIFIED Status: Chronic (6) Morbid obesity with BMI of 50.0-59.9, adult Code(s): E66.01 - MORBID (SEVERE) OBESITY DUE TO EXCESS CALORIES; Z68.43 - BODY MASS INDEX [BMI] 50.0-59.9, ADULT Status: Chronic (7) Polysubstance abuse Code(s): F19.10 - OTHER PSYCHOACTIVE SUBSTANCE ABUSE, UNCOMPLICATED Status: Acute (8) Neurofibromatosis Status: Chronic - Plan old records reviewed/req, respiratory therapy Continue diuresis as per nephrology and cardiology, Medication reviewed and continue provide symptomatic and supportive care Continue Rocephin as per pulmonology Continue steroid and respiratory therapy Weaning process will defer to pulmonology
--- NOTE | 2020-06-03 11:44 | PDOC.NEPPN ---
- Subjective Encounter Date: 06/03/20 Subjective: Still intubated and mechanically ventilated. urine output is great. - Objective Vital Signs & Weight: Vital Signs (12 hours) Temp Pulse Resp BP Pulse Ox 06/03/20 10:35 61 06/03/20 10:00 14 06/03/20 08:47 105/64 06/03/20 08:00 12 92 L 06/03/20 07:48 63 105/64 06/03/20 06:00 11 L 06/03/20 04:00 97.9 F 13 06/03/20 02:55 65 114/70 06/03/20 02:00 10 L 06/03/20 00:30 63 8 L 92 L 06/03/20 00:00 97.8 F 9 L Weight Admit Weight 299 lb 9.731 oz Weight 317 lb 0.395 oz Most Recent Monitor Data Heart Rate from ECG 61 NIBP 112/70 NIBP BP-Mean 84 Respiration from ECG 20 SpO2 92 I&O: 06/02/20 06/03/20 06/04/20 06:59 06:59 06:59 Intake Total 1634 1560 246 Output Total 4175 4230 1380 Balance -2541 -2670 -1134 Result Diagrams: 06/03/20 03:00 06/03/20 03:00 Nephrology ROS - Medication Medications: Active Medications Generic Name Dose Route Start Last Admin Trade Name Freq PRN Reason Stop Dose Admin Acetaminophen 650 mg 05/27/20 03:30 05/28/20 05:18 Acetaminophen 325 Mg Tab PO 650 mg Q4H PRN Administration Headache/Fever/Mild Pain (1-3) Acetaminophen 650 mg 05/27/20 03:30 05/27/20 22:23 Acetaminophen 650 Mg Suppository OR 650 mg Q4H PRN Administration Headache/Fever/Mild Pain (1-3) Acetazolamide 250 mg 05/30/20 21:00 06/03/20 08:47 Acetazolamide 250 Mg Tab PO 06/03/20 21:01 250 mg BID HALIE Administration Albuterol/Ipratropium 3 ml 05/29/20 01:00 06/03/20 07:46 Ipratropium/Albuterol Sulfate 3 Ml Neb NEB 3 ml [id number] HALIE Administration Carvedilol 6.25 mg 05/27/20 09:00 06/03/20 08:47 Carvedilol 6.25 Mg Tab PO 6.25 mg BID HALIE Administration Duloxetine HCl 30 mg 05/29/20 09:00 06/03/20 08:47 Duloxetine 30 Mg Cap PO 30 mg DAILY HALIE Administration Enoxaparin Sodium 40 mg 05/27/20 09:00 06/03/20 08:47 Enoxaparin Sodium 40 Mg/0.4 Ml Syringe SC 40 mg 0900 HALIE Administration Furosemide 40 mg 05/30/20 09:00 06/03/20 08:47 Furosemide 40 Mg/4 Ml Vial SLOW IVP 40 mg BID HALIE Administration Fentanyl 100 mls @ 0 mls/hr 05/28/20 19:30 05/31/20 03:36 Fentanyl Cadd IV 06/27/20 19:30 100 mls INF HALIE Administration Protocol Per Protocol Ceftriaxone Sodium 1 gm/ 100 mls @ 200 mls/hr 05/29/20 10:00 06/03/20 08:50 Sodium Chloride IVPB 100 mls Q24HR HALIE Administration Dexmedetomidine HCl 400 mcg/ 100 mls @ 0 mls/hr 06/03/20 09:45 06/03/20 10:50 Sodium Chloride IVPB 100 mls INF HALIE Administration Protocol Per Protocol Methylprednisolone Sodium Succinate 40 mg 05/30/20 21:00 06/03/20 08:46 Methylprednisolone Sod Succ 40 Mg Vial IVP 40 mg BID HALIE Administration Metolazone 2.5 mg 06/01/20 08:30 06/03/20 08:47 Metolazone 2.5 Mg Tab PO 2.5 mg 0830 HALIE Administration Mometasone Furoate/Formoterol Fumar 2 puff 05/28/20 18:30 06/03/20 07:46 Mometasone 200 Mcg/Formoterol 5 Mcg 120 Puff Inhaler INH 2 puff BID-RT HALIE Administration Pantoprazole Sodium 40 mg 05/29/20 09:00 06/03/20 08:47 Pantoprazole 40 Mg Vial IVP 40 mg DAILY HALIE Administration Propofol 1,000 mg 05/28/20 19:30 06/03/20 08:46 Propofol 1,000 Mg/100 Ml Vial IV 06/27/20 19:30 1,000 mg INF PRN Administration TO ACHIEVE GOAL RASS Protocol Sodium Chloride 10 ml 05/29/20 09:00 06/03/20 08:47 Flush - Normal Saline 10 Ml Syringe IVF 10 ml Q12HR HALIE Administration Spironolactone 50 mg 05/31/20 08:00 06/03/20 08:50 Spironolactone 25 Mg Tab PO 50 mg QAM-WM HALIE Administration Topiramate 50 mg 05/28/20 21:00 06/01/20 20:51 Topiramate 25 Mg Tab PO 50 mg BID HALIE Administration - Exam General - other findings: sedated. ENT: normocephalic atraumatic ENT - other findings: ET tube in place Respiratory - other findings: ventilator transmitted sound noted. Cardiovascular: RRR Gastrointestinal - other findings: obese. Price in place Extremities - other findings: moderate edema of the limbs noted Skin - other findings: scattered modules of various sizes noted Neurological - other findings: sedated Nephrology Results - Labs Result Diagrams: 06/03/20 03:00 06/03/20 03:00 Lab results: WBC 8.9 thou/uL (4.8-10.8) 06/03/20 03:00 Hgb 13.8 g/dL (12.0-16.0) 06/03/20 03:00 Hct 47.3 % (36.0-47.0) H 06/03/20 03:00 MCV 89.7 fL (78.0-98.0) 06/03/20 03:00 Plt Count 212 thou/uL (130-400) 06/03/20 03:00 Neutrophils % 80.6 % (42.0-75.0) H 06/03/20 03:00 Band Neuts % (Manual) 4 % (5-11) L 06/02/20 03:10 ABG pH 7.30 (7.35-7.45) L 05/28/20 19:49 ABG pCO2 62.5 mmHg (35.0-45.0) H* 05/28/20 19:49 ABG pO2 59.0 mmHg (80.0-100.0) L* 05/28/20 19:49 Sodium 141 mmol/L (136-145) 06/03/20 03:00 Potassium 4.0 mmol/L (3.5-5.1) 06/03/20 03:00 Chloride 97 mmol/L (98-107) L 06/03/20 03:00 Carbon Dioxide 37 mmol/L (22-29) H 06/03/20 03:00 BUN 38 mg/dL (9.8-20.1) H 06/03/20 03:00 Creatinine 0.79 mg/dL (0.6-1.1) 06/03/20 03:00 Glucose 121 mg/dL (70-105) H 06/03/20 03:00 Calcium 9.5 mg/dL (7.8-10.44) 06/03/20 03:00 Total Bilirubin 0.4 mg/dL (0.2-1.2) 06/03/20 03:00 AST 21 U/L (5-34) 06/03/20 03:00 ALT 17 U/L (8-55) 06/03/20 03:00 Alkaline Phosphatase 69 U/L (40-110) 06/03/20 03:00 Creatine Kinase 39 U/L (29-168) 05/26/20 21:43 Troponin I 0.013 ng/mL (< 0.028) 05/27/20 12:08 B-Natriuretic Peptide 226.4 pg/mL (0-100) H 05/26/20 21:43 Serum Total Protein 7.5 g/dL (6.0-8.3) 06/03/20 03:00 Albumin 3.6 g/dL (3.5-5.0) 06/03/20 03:00 Urine Ketones Negative mg/dL (Negative) 05/27/20 00:00 Urine Blood Negative (Negative) 05/27/20 00:00 Urine Nitrite Negative (Negative) 05/27/20 00:00 Ur Leukocyte Esterase Negative Ozzy/uL (Negative) 05/27/20 00:00 Sodium 141 mmol/L (136-145) 06/03/20 03:00 Potassium 4.0 mmol/L (3.5-5.1) 06/03/20 03:00 Chloride 97 mmol/L (98-107) L 06/03/20 03:00 Carbon Dioxide 37 mmol/L (22-29) H 06/03/20 03:00 Anion Gap 11 mmol/L (10-20) 06/03/20 03:00 BUN 38 mg/dL (9.8-20.1) H 06/03/20 03:00 Creatinine 0.79 mg/dL (0.6-1.1) 06/03/20 03:00 Glucose 121 mg/dL (70-105) H 06/03/20 03:00 Calcium 9.5 mg/dL (7.8-10.44) 06/03/20 03:00 Magnesium 1.6 mg/dL (1.6-2.6) 05/27/20 05:25 Albumin 3.6 g/dL (3.5-5.0) 06/03/20 03:00 Nephrology AP PN - Plan Anasarca: Due to fluid resuscitation, hypoalbuminemia and mitral regurgitation. Urine output has improved greatly with current diuretic regimen. GALINA: Due to hemodynamic factors related to voilume depletion and ACEI use. FENa and FEurae are consistent. Resolved Hyperkalemia: Resolved Metabolic acidosis: 2/2 GALINA with possible contribution from topamax Respiratory acidosis: Improved with Intubation Alkalosis: Due to diuretic and compensation to respiratory acidosis. Morbid obesity with presumed KASI/OHS. COPD Neurofibromatosis. PLAN Continue metolazonne lasix, spironolactone and acetozolamide. Recommend getting ABG to truly access acid base derangement Tube feeding to continue Monitor weight, intake and output. Follow renal function and electrolytes.
[2020-06-03] MEDS: Topiramate 25 MG TAB PO SCH (20:32)
[2020-06-03] MEDS: risperiDONE 0.25 MG TAB PO SCH (20:35)
[2020-06-04] MEDS: Propofol 1,000 MG/100 ML VIAL IV PRN ×3 (01:13→18:18)
[2020-06-04] MEDS ORDERED: Fentanyl CADD 100 ML ONE (01:34)
[2020-06-04 03:47] LABS: ALT (SGPT) 22 U/L (8-55); AST (SGOT) 22 U/L (5-34); Albumin 3.3 g/dL (3.5-5.0); Alkaline Phosphatase 66 U/L (40-110); Anion Gap 13 mmol/L (10-20); BUN (Urea Nitrogen) 47 mg/dL (9.8-20.1); Bilirubin, Total 0.5 mg/dL (0.2-1.2); Calc. Creatinine Clearance 187 mL/min (70-130); Calcium 9.5 mg/dL (7.8-10.44); Carbon Dioxide 35 mmol/L (22-29); Chloride 94 mmol/L (98-107); Globulin 3.8 g/dL (2.4-3.5); Glucose 114 mg/dL (70-105); Potassium 3.8 mmol/L (3.5-5.1); Protein, Total 7.1 g/dL (6.0-8.3); Sodium 138 mmol/L (136-145)
[2020-06-04 03:56] LABS: Hemoglobin 14.5 g/dL (12.0-16.0); Hypochromia SLIGHT = 6-15 cells (100X) (0-5/hpf); Lymphocytes 10 % (21-51); MDiff Complete? YES; Mean Corpuscular HGB CONC 29.4 g/dL (32.0-36.0); Mean Corpuscular Volume 88.3 fL (78.0-98.0); Mean Platelet Volume 10.1 fL (7.4-10.4); Monocytes 9 % (0-10); Neutrophil 81 % (42-75); Platelet Count 207 thou/uL (130-400); RBC Distribution Width 17.4 % (11.5-14.5); Red Blood Cell (RBC) Count 5.56 mill/uL (4.20-5.40); Stomatocytes SLIGHT = 2-5 cells (100X) (0-1/hpf); White Blood Cell (WBC) Count 9.6 thou/uL (4.8-10.8)
[2020-06-04] MEDS: Mometasone 200 MCG/Formoterol 5 MCG 120 PUFF INHALER INH SCH ×2 (07:00→19:23)
--- NOTE | 2020-06-04 08:05 | RAD ---
Portable frontal chest radiograph: 06/04/2020 COMPARISON: 06/03/2020 HISTORY: Respiratory distress FINDINGS: Stable left vascular catheter, mediastinal postoperative clips, and thoracic spine [place] on faheem. Stable endotracheal tube and nasogastric tube. There is hazy nonspecific increased density throughout the left lung base as well as throughout the r ight hemithorax with a perihilar and basilar predominance. Findings suggest nonspecific infectious pneumonitis/aspiration and possible associated pleural fluid, left greater than right. IMPRESSION: No significant interval change.
[2020-06-04] MEDS: Enoxaparin Sodium 40 MG/0.4 ML SYRINGE SC SCH (08:58)
[2020-06-04] MEDS: methylPREDNISolone Sod Succ 40 MG VIAL IVP SCH ×2 (08:58→21:26)
[2020-06-04] MEDS: Metolazone 2.5 MG TAB PO SCH (08:58)
[2020-06-04] MEDS: Carvedilol 6.25 MG TAB PO SCH ×2 (08:58→21:26)
[2020-06-04] MEDS: Pantoprazole 40 MG VIAL IVP SCH (08:58)
[2020-06-04] MEDS: Furosemide 40 MG/4 ML VIAL SLOW IVP SCH ×2 (08:58→21:26)
[2020-06-04] MEDS: Spironolactone 25 MG TAB PO SCH (08:58)
[2020-06-04] MEDS: risperiDONE 0.25 MG TAB PO SCH ×2 (08:58→21:26)
[2020-06-04] MEDS: DULoxetine 30 MG CAP PO SCH (08:58)
[2020-06-04] MEDS: Topiramate 25 MG TAB PO SCH ×2 (09:06→21:26)
[2020-06-04] MEDS: cefTRIAXone\\ROCEPHIN 1 GM in Sodium Chloride 0.9% 100 ML IVPB SCH (09:36)
--- NOTE | 2020-06-04 09:43 | PDOC.NEPPN ---
- Subjective Encounter Date: 06/04/20 Subjective: Still intubated and ventilated. - Objective Vital Signs & Weight: Vital Signs (12 hours) Temp Pulse Resp BP Pulse Ox 06/04/20 08:58 105/61 06/04/20 08:00 98.7 F 14 91 L 06/04/20 07:01 64 06/04/20 06:00 99.0 F 10 L 06/04/20 04:00 99.5 F 13 06/04/20 02:59 65 105/61 06/04/20 02:00 12 06/04/20 00:28 65 10 L 90 L 06/04/20 00:00 98.8 F 12 06/03/20 23:27 68 114/71 06/03/20 22:00 12 Weight Admit Weight 299 lb 9.731 oz Weight 317 lb 0.395 oz Most Recent Monitor Data Heart Rate from ECG 69 NIBP 114/71 NIBP BP-Mean 85 Respiration from ECG 11 SpO2 95 I&O: 06/03/20 06/04/20 06/05/20 06:59 06:59 06:59 Intake Total 1560 1706.3 213 Output Total 4230 5500 500 Balance -2670 -3793.7 -287 Result Diagrams: 06/04/20 02:45 06/04/20 02:45 Nephrology ROS - Medication Medications: Active Medications Generic Name Dose Route Start Last Admin Trade Name Freq PRN Reason Stop Dose Admin Acetaminophen 650 mg 05/27/20 03:30 05/28/20 05:18 Acetaminophen 325 Mg Tab PO 650 mg Q4H PRN Administration Headache/Fever/Mild Pain (1-3) Acetaminophen 650 mg 05/27/20 03:30 05/27/20 22:23 Acetaminophen 650 Mg Suppository CA 650 mg Q4H PRN Administration Headache/Fever/Mild Pain (1-3) Albuterol/Ipratropium 3 ml 05/29/20 01:00 06/04/20 07:00 Ipratropium/Albuterol Sulfate 3 Ml Neb NEB 3 ml [id number] HALIE Administration Carvedilol 6.25 mg 05/27/20 09:00 06/04/20 08:58 Carvedilol 6.25 Mg Tab PO 6.25 mg BID HALIE Administration Duloxetine HCl 30 mg 05/29/20 09:00 06/04/20 08:58 Duloxetine 30 Mg Cap PO 30 mg DAILY HALIE Administration Enoxaparin Sodium 40 mg 05/27/20 09:00 06/04/20 08:58 Enoxaparin Sodium 40 Mg/0.4 Ml Syringe SC Not Given 09 HALIE Furosemide 40 mg 05/30/20 09:00 06/04/20 08:58 Furosemide 40 Mg/4 Ml Vial SLOW IVP 40 mg BID HALIE Administration Fentanyl 100 mls @ 0 mls/hr 05/28/20 19:30 05/31/20 03:36 Fentanyl Cadd IV 06/27/20 19:30 100 mls INF HALIE Administration Protocol Per Protocol Ceftriaxone Sodium 1 gm/ 100 mls @ 200 mls/hr 05/29/20 10:00 06/04/20 09:36 Sodium Chloride IVPB 100 mls Q24HR HALIE Administration Dexmedetomidine HCl 400 mcg/ 100 mls @ 0 mls/hr 06/03/20 09:45 06/03/20 10:50 Sodium Chloride IVPB 100 mls INF HALIE Administration Protocol Per Protocol Methylprednisolone Sodium Succinate 40 mg 05/30/20 21:00 06/04/20 08:58 Methylprednisolone Sod Succ 40 Mg Vial IVP 40 mg BID HALIE Administration Metolazone 2.5 mg 06/01/20 08:30 06/04/20 08:58 Metolazone 2.5 Mg Tab PO 2.5 mg 0830 HALIE Administration Mometasone Furoate/Formoterol Fumar 2 puff 05/28/20 18:30 06/04/20 07:00 Mometasone 200 Mcg/Formoterol 5 Mcg 120 Puff Inhaler INH 2 puff BID-RT HALIE Administration Pantoprazole Sodium 40 mg 05/29/20 09:00 06/04/20 08:58 Pantoprazole 40 Mg Vial IVP 40 mg DAILY HALIE Administration Propofol 1,000 mg 05/28/20 19:30 06/04/20 08:57 Propofol 1,000 Mg/100 Ml Vial IV 06/27/20 19:30 1,000 mg INF PRN Administration TO ACHIEVE GOAL RASS Protocol Risperidone 0.25 mg 06/03/20 21:00 06/04/20 08:58 Risperidone 0.25 Mg Tab PO 0.25 mg BID HALIE Administration Sodium Chloride 10 ml 05/29/20 09:00 06/04/20 09:04 Flush - Normal Saline 10 Ml Syringe IVF 10 ml Q12HR HALIE Administration Spironolactone 50 mg 05/31/20 08:00 06/04/20 08:58 Spironolactone 25 Mg Tab PO 50 mg QAM-WM HALIE Administration Topiramate 50 mg 05/28/20 21:00 06/04/20 09:06 Topiramate 25 Mg Tab PO 50 mg BID HALIE Administration - Exam General - other findings: sedated. obese ENT: normocephalic atraumatic Respiratory - other findings: ventilator transmitted breath sound Cardiovascular: RRR Gastrointestinal: non-distended, normal bowel sounds Gastrointestinal - other findings: obese Extremities - other findings: moderate edema of the extremities Neurological - other findings: sedated and unresponsive Nephrology Results - Labs Result Diagrams: 06/04/20 02:45 06/04/20 02:45 Lab results: WBC 9.6 thou/uL (4.8-10.8) 06/04/20 02:45 Hgb 14.5 g/dL (12.0-16.0) 06/04/20 02:45 Hct 49.1 % (36.0-47.0) H 06/04/20 02:45 MCV 88.3 fL (78.0-98.0) 06/04/20 02:45 Plt Count 207 thou/uL (130-400) 06/04/20 02:45 Neutrophils % 80.6 % (42.0-75.0) H 06/03/20 03:00 Band Neuts % (Manual) 4 % (5-11) L 06/02/20 03:10 ABG pH 7.30 (7.35-7.45) L 05/28/20 19:49 ABG pCO2 62.5 mmHg (35.0-45.0) H* 05/28/20 19:49 ABG pO2 59.0 mmHg (80.0-100.0) L* 05/28/20 19:49 Sodium 138 mmol/L (136-145) 06/04/20 02:45 Potassium 3.8 mmol/L (3.5-5.1) 06/04/20 02:45 Chloride 94 mmol/L (98-107) L 06/04/20 02:45 Carbon Dioxide 35 mmol/L (22-29) H 06/04/20 02:45 BUN 47 mg/dL (9.8-20.1) H 06/04/20 02:45 Creatinine 0.78 mg/dL (0.6-1.1) 06/04/20 02:45 Glucose 114 mg/dL (70-105) H 06/04/20 02:45 Calcium 9.5 mg/dL (7.8-10.44) 06/04/20 02:45 Total Bilirubin 0.5 mg/dL (0.2-1.2) 06/04/20 02:45 AST 22 U/L (5-34) 06/04/20 02:45 ALT 22 U/L (8-55) 06/04/20 02:45 Alkaline Phosphatase 66 U/L (40-110) 06/04/20 02:45 Creatine Kinase 39 U/L (29-168) 05/26/20 21:43 Troponin I 0.013 ng/mL (< 0.028) 05/27/20 12:08 B-Natriuretic Peptide 226.4 pg/mL (0-100) H 05/26/20 21:43 Serum Total Protein 7.1 g/dL (6.0-8.3) 06/04/20 02:45 Albumin 3.3 g/dL (3.5-5.0) L 06/04/20 02:45 Urine Ketones Negative mg/dL (Negative) 05/27/20 00:00 Urine Blood Negative (Negative) 05/27/20 00:00 Urine Nitrite Negative (Negative) 05/27/20 00:00 Ur Leukocyte Esterase Negative Ozzy/uL (Negative) 05/27/20 00:00 Sodium 138 mmol/L (136-145) 06/04/20 02:45 Potassium 3.8 mmol/L (3.5-5.1) 06/04/20 02:45 Chloride 94 mmol/L (98-107) L 06/04/20 02:45 Carbon Dioxide 35 mmol/L (22-29) H 06/04/20 02:45 Anion Gap 13 mmol/L (10-20) 06/04/20 02:45 BUN 47 mg/dL (9.8-20.1) H 06/04/20 02:45 Creatinine 0.78 mg/dL (0.6-1.1) 06/04/20 02:45 Glucose 114 mg/dL (70-105) H 06/04/20 02:45 Calcium 9.5 mg/dL (7.8-10.44) 06/04/20 02:45 Magnesium 1.6 mg/dL (1.6-2.6) 05/27/20 05:25 Albumin 3.3 g/dL (3.5-5.0) L 06/04/20 02:45 Nephrology AP PN - Plan Anasarca: Due to fluid resuscitation, hypoalbuminemia and mitral regurgitation. GALIAN: Due to hemodynamic factors related to volume depletion and ACEI use. FENa and FEurae are consistent. Resolved. BUN however is trending up with diuretic Hyperkalemia: Resolved Metabolic acidosis: 2/2 GALINA with possible contribution from topamax Respiratory acidosis: Improved with Intubation Alkalosis: Due to diuretic and compensation to respiratory acidosis. Morbid obesity with presumed KASI/OHS. COPD Neurofibromatosis. PLAN Continue metolazone lasix and spironolactone Monitor electrolytes and acid base blance. Reduction of diuretic therapy contemplated should BUN and alkalosis worsen. Tube feeding to continue Monitor weight, intake and output. Follow renal function and electrolytes.
--- NOTE | 2020-06-04 10:38 | PDOC.HOSPP ---
- Subjective Encounter Date: 06/04/20 Encounter Time: 10:00 Subjective: Patient seen and examined. Patient is on ventilator, - Objective Vital Signs & Weight: Vital Signs (12 hours) Temp Pulse Resp BP Pulse Ox 06/04/20 08:58 105/61 06/04/20 08:00 98.7 F 14 91 L 06/04/20 07:01 64 06/04/20 06:00 99.0 F 10 L 06/04/20 04:00 99.5 F 13 06/04/20 02:59 65 105/61 06/04/20 02:00 12 06/04/20 00:28 65 10 L 90 L 06/04/20 00:00 98.8 F 12 06/03/20 23:27 68 114/71 Weight Admit Weight 299 lb 9.731 oz Weight 317 lb 0.395 oz Most Recent Monitor Data Heart Rate from ECG 69 NIBP 114/71 NIBP BP-Mean 85 Respiration from ECG 11 SpO2 95 I&O: 06/03/20 06/04/20 06/05/20 06:59 06:59 06:59 Intake Total 1560 1706.3 213 Output Total 4230 5500 500 Balance -2670 -3793.7 -287 Result Diagrams: 06/04/20 02:45 06/04/20 02:45 Radiology Reviewed by me: Yes EKG Reviewed by me: Yes Hospitalist ROS - Review of Systems ROS unobtainable: due to endotracheal tube - Medication Medications: Active Medications Generic Name Dose Route Start Last Admin Trade Name Freq PRN Reason Stop Dose Admin Acetaminophen 650 mg 05/27/20 03:30 05/28/20 05:18 Acetaminophen 325 Mg Tab PO 650 mg Q4H PRN Administration Headache/Fever/Mild Pain (1-3) Acetaminophen 650 mg 05/27/20 03:30 05/27/20 22:23 Acetaminophen 650 Mg Suppository [place] 650 mg Q4H PRN Administration Headache/Fever/Mild Pain (1-3) Albuterol/Ipratropium 3 ml 05/29/20 01:00 06/04/20 07:00 Ipratropium/Albuterol Sulfate 3 Ml Neb NEB 3 ml [id number] HALIE Administration Carvedilol 6.25 mg 05/27/20 09:00 06/04/20 08:58 Carvedilol 6.25 Mg Tab PO 6.25 mg BID HALIE Administration Duloxetine HCl 30 mg 05/29/20 09:00 06/04/20 08:58 Duloxetine 30 Mg Cap PO 30 mg DAILY HALIE Administration Enoxaparin Sodium 40 mg 05/27/20 09:00 06/04/20 08:58 Enoxaparin Sodium 40 Mg/0.4 Ml Syringe SC Not Given 0900 HALIE Furosemide 40 mg 05/30/20 09:00 06/04/20 08:58 Furosemide 40 Mg/4 Ml Vial SLOW IVP 40 mg BID HALIE Administration Fentanyl 100 mls @ 0 mls/hr 05/28/20 19:30 05/31/20 03:36 Fentanyl Cadd IV 06/27/20 19:30 100 mls INF HALIE Administration Protocol Per Protocol Ceftriaxone Sodium 1 gm/ 100 mls @ 200 mls/hr 05/29/20 10:00 06/04/20 09:36 Sodium Chloride IVPB 100 mls Q24HR HALIE Administration Dexmedetomidine HCl 400 mcg/ 100 mls @ 0 mls/hr 06/03/20 09:45 06/03/20 10:50 Sodium Chloride IVPB 100 mls INF HALIE Administration Protocol Per Protocol Methylprednisolone Sodium Succinate 40 mg 05/30/20 21:00 06/04/20 08:58 Methylprednisolone Sod Succ 40 Mg Vial IVP 40 mg BID HALIE Administration Metolazone 2.5 mg 06/01/20 08:30 06/04/20 08:58 Metolazone 2.5 Mg Tab PO 2.5 mg 0830 HALIE Administration Mometasone Furoate/Formoterol Fumar 2 puff 05/28/20 18:30 06/04/20 07:00 Mometasone 200 Mcg/Formoterol 5 Mcg 120 Puff Inhaler INH 2 puff BID-RT HALIE Administration Pantoprazole Sodium 40 mg 05/29/20 09:00 06/04/20 08:58 Pantoprazole 40 Mg Vial IVP 40 mg DAILY HALIE Administration Propofol 1,000 mg 05/28/20 19:30 06/04/20 08:57 Propofol 1,000 Mg/100 Ml Vial IV 06/27/20 19:30 1,000 mg INF PRN Administration TO ACHIEVE GOAL RASS Protocol Risperidone 0.25 mg 06/03/20 21:00 06/04/20 08:58 Risperidone 0.25 Mg Tab PO 0.25 mg BID HALIE Administration Sodium Chloride 10 ml 05/29/20 09:00 06/04/20 09:04 Flush - Normal Saline 10 Ml Syringe IVF 10 ml Q12HR HALIE Administration Spironolactone 50 mg 05/31/20 08:00 06/04/20 08:58 Spironolactone 25 Mg Tab PO 50 mg QAM-WM HALIE Administration Topiramate 50 mg 05/28/20 21:00 06/04/20 09:06 Topiramate 25 Mg Tab PO 50 mg BID HALIE Administration Hospitalist Exam Vitals: Vital Signs (12 hours) Temp Pulse Resp BP Pulse Ox 06/04/20 08:58 105/61 06/04/20 08:00 98.7 F 14 91 L 06/04/20 07:01 64 06/04/20 06:00 99.0 F 10 L 06/04/20 04:00 99.5 F 13 06/04/20 02:59 65 105/61 06/04/20 02:00 12 06/04/20 00:28 65 10 L 90 L 06/04/20 00:00 98.8 F 12 06/03/20 23:27 68 114/71 Weight Admit Weight 299 lb 9.731 oz Weight 317 lb 0.395 oz Most Recent Monitor Data Heart Rate from ECG 69 NIBP 114/71 NIBP BP-Mean 85 Respiration from ECG 11 SpO2 95 General Appearance: NAD General - other findings: On ventilator Eye: PERRL, anicteric sclera ENT: normocephalic atraumatic Neck: supple, symmetric, no JVD, no thyromegaly Heart: RRR, no murmur, no gallops, no rubs Respiratory: no wheezes, no rales, no ronchi Gastrointestinal: soft, non-distended, normal bowel sounds Gastrointestinal - other findings: Obesity noted Extremities: 2+ LE edema Extremities - other findings: Edema reducing Hosp A/P (1) Acute on chronic respiratory failure with hypercapnia Code(s): J96.22 - ACUTE AND CHRONIC RESPIRATORY FAILURE WITH HYPERCAPNIA Status: Acute (2) Acute on chronic diastolic heart failure Code(s): I50.33 - ACUTE ON CHRONIC DIASTOLIC (CONGESTIVE) HEART FAILURE Status: Acute (3) Hyperkalemia Code(s): E87.5 - HYPERKALEMIA Status: Resolved (4) Obesity hypoventilation syndrome Code(s): E66.2 - MORBID (SEVERE) OBESITY WITH ALVEOLAR HYPOVENTILATION Status: Chronic (5) Pulmonary hypertension Code(s): I27.20 - PULMONARY HYPERTENSION, UNSPECIFIED Status: Chronic (6) Morbid obesity with BMI of 50.0-59.9, adult Code(s): E66.01 - MORBID (SEVERE) OBESITY DUE TO EXCESS CALORIES; Z68.43 - BODY MASS INDEX [BMI] 50.0-59.9, ADULT Status: Chronic (7) Polysubstance abuse Code(s): F19.10 - OTHER PSYCHOACTIVE SUBSTANCE ABUSE, UNCOMPLICATED Status: Acute (8) Neurofibromatosis Status: Chronic - Plan old records reviewed/req Continue diuresis as per nephrology and cardiology, Medication reviewed and continue provide symptomatic and supportive care Continue Rocephin as per pulmonology Continue steroid and respiratory therapy Weaning process will defer to pulmonology Patient may end up with trach and PEG?
--- NOTE | 2020-06-04 11:12 | PRG ---
DATE OF SERVICE: 06/04/2020 SUBJECTIVE: Luma Parr this morning still remains on the vent, still quite agitated. OBJECTIVE: VITAL SIGNS: Temperature 98, blood pressure 105/61, saturations are 90%. I's and O's have been even. CHEST: Rhonchi and crackles. CARDIAC: Normal S1 and S2. ABDOMEN: No masses. LABORATORY DATA: Bicarb is 35. White count 9000. ASSESSMENT: [id number] respiratory failure, chronic obstructive pulmonary disease, sleep apnea, severe deconditioning, congestive heart failure. PLAN: Try to minimize sedation. We are going to see whether we can reassess her situation. Start low-dose risperidone. Diuretics and supportive care. Prognosis is guarded. She is unable to get her off the vent. She is probably going to require trach and a PEG. One-half hour of critical care time. Job ID: [id number]
[2020-06-05 07:22] LABS: ALT (SGPT) 29 U/L (8-55); AST (SGOT) 25 U/L (5-34); Albumin 3.5 g/dL (3.5-5.0); Alkaline Phosphatase 67 U/L (40-110); BUN (Urea Nitrogen) 49 mg/dL (9.8-20.1); Bilirubin, Total 0.6 mg/dL (0.2-1.2); Calc. Creatinine Clearance 182 mL/min (70-130); Calcium 9.7 mg/dL (7.8-10.44); Globulin 3.8 g/dL (2.4-3.5); Glucose 125 mg/dL (70-105); Protein, Total 7.3 g/dL (6.0-8.3)
[2020-06-05 07:23] LABS: Anion Gap 16 mmol/L (10-20); Carbon Dioxide 35 mmol/L (22-29); Chloride 91 mmol/L (98-107); Potassium 3.7 mmol/L (3.5-5.1); Sodium 138 mmol/L (136-145)
[2020-06-05 07:34] LABS: #Lymphocytes 1.1 thou/uL (1.20-3.40); #Monocytes 0.8 thou/uL (0.11-0.59); #Neutrophils 7.5 thou/uL (1.40-6.50); %Eosinophils 0.4 % (0.0-10.0); %Lymphocytes 11.5 % (21.0-51.0); %Monocytes 8.9 % (0.0-10.0); %Neutrophils 79.2 % (42.0-75.0); Hemoglobin 14.2 g/dL (12.0-16.0); Mean Corpuscular Hemoglobin 26.3 pg (27.0-31.0); Mean Corpuscular Volume 87.5 fL (78.0-98.0); Mean Platelet Volume 10.3 fL (7.4-10.4); Platelet Count 206 thou/uL (130-400); RBC Distribution Width 17.2 % (11.5-14.5); Red Blood Cell (RBC) Count 5.39 mill/uL (4.20-5.40); White Blood Cell (WBC) Count 9.4 thou/uL (4.8-10.8)
[2020-06-05] MEDS: Mometasone 200 MCG/Formoterol 5 MCG 120 PUFF INHALER INH SCH ×2 (08:41→19:25)
[2020-06-05 08:53] LABS: Actual Bicarbonate (HCO3a) 37.4 mEq/L (22-28); Base Excess (BEa) 10.4 mEq/L (-2.0 to +3.0); CO2 Tension 59.1 mmHg (35.0-45.0); Calcium, Ionized (arterial) 1.27 mmol/L (1.12-1.30); Carboxyhemoglobin (COHb) 0.7 gm% (0.0-3.0); O2 Tension (PaO2), arterial 86.1 mmHg (80.0-100.0); Potassium - ABG Lab 3.74 mmol/L (3.70-5.30); pH, Arterial 7.42 (7.35-7.45)
[2020-06-05 08:57] LABS: Puncture Site RRA
[2020-06-05 08:58] LABS: ALV-art Gradient 125.225 mmHg (0-20)
--- NOTE | 2020-06-05 09:36 | PRG ---
DATE OF SERVICE: 06/05/2020 SUBJECTIVE: She is on low-dose Diprivan. She is more arousable this morning. We are going to turn off sedation now and reassess the situation. OBJECTIVE: VITAL SIGNS: Temperature 98.7, blood pressure 120/65, sats are 94% on 40% and PEEP of 5. I's and O's were negative. CHEST: Rhonchi. No wheezing. CARDIAC: Normal S1 and S2. ABDOMEN: No masses. LABORATORY DATA: White count is normal. PO2 is 86, , rate of 6. Lytes are normal. ASSESSMENT: Respiratory failure, morbid obesity, sleep apnea, congestive heart failure, diastolic dysfunction. PLAN: Hold all sedation. We may consider extubation and placing her on BiPAP. One-half hour of critical time. Job ID: [id number]
[2020-06-05] MEDS: Spironolactone 25 MG TAB PO SCH (09:40)
[2020-06-05] MEDS: Enoxaparin Sodium 40 MG/0.4 ML SYRINGE SC SCH (09:40)
[2020-06-05] MEDS: Furosemide 40 MG/4 ML VIAL SLOW IVP SCH ×2 (09:40→21:18)
[2020-06-05] MEDS: risperiDONE 0.25 MG TAB PO SCH ×2 (09:41→21:18)
[2020-06-05] MEDS: Metolazone 2.5 MG TAB PO SCH (09:41)
[2020-06-05] MEDS: Carvedilol 6.25 MG TAB PO SCH ×2 (09:41→21:19)
[2020-06-05] MEDS: methylPREDNISolone Sod Succ 40 MG VIAL IVP SCH ×2 (09:41→22:34)
[2020-06-05] MEDS: DULoxetine 30 MG CAP PO SCH (09:41)
[2020-06-05] MEDS: Topiramate 25 MG TAB PO SCH ×2 (09:41→21:18)
--- NOTE | 2020-06-05 10:03 | PDOC.HOSPP ---
- Subjective Encounter Date: 06/05/20 Encounter Time: 10:01 Subjective: Ms. Parr was seen today in follow-up of respiratory failure due to KASI. She is a bit drowsy but will squeeze my hand on command. No complaints voiced by staff. - Objective Vital Signs & Weight: Vital Signs (12 hours) Temp Pulse Resp BP 06/05/20 09:41 128/69 06/05/20 08:41 72 128/69 06/05/20 00:00 98.0 F 12 06/04/20 23:05 68 Weight Admit Weight 299 lb 9.731 oz Weight 317 lb 0.395 oz Most Recent Monitor Data Heart Rate from ECG 71 NIBP 124/68 NIBP BP-Mean 86 Respiration from ECG 9 SpO2 94 I&O: 06/04/20 06/05/20 06/06/20 06:59 06:59 06:59 Intake Total 1706.3 1052 Output Total 5500 6200 Balance -3793.7 -5148 Result Diagrams: 06/05/20 04:05 06/05/20 03:30 Hospitalist ROS - Medication Medications: Active Medications Generic Name Dose Route Start Last Admin Trade Name Freq PRN Reason Stop Dose Admin Acetaminophen 650 mg 05/27/20 03:30 05/28/20 05:18 Acetaminophen 325 Mg Tab PO 650 mg Q4H PRN Administration Headache/Fever/Mild Pain (1-3) Acetaminophen 650 mg 05/27/20 03:30 05/27/20 22:23 Acetaminophen 650 Mg Suppository [place] 650 mg Q4H PRN Administration Headache/Fever/Mild Pain (1-3) Albuterol/Ipratropium 3 ml 05/29/20 01:00 06/05/20 08:40 Ipratropium/Albuterol Sulfate 3 Ml Neb NEB 3 ml [id number] HALIE Administration Carvedilol 6.25 mg 05/27/20 09:00 06/05/20 09:41 Carvedilol 6.25 Mg Tab PO 6.25 mg BID HALIE Administration Duloxetine HCl 30 mg 05/29/20 09:00 06/05/20 09:41 Duloxetine 30 Mg Cap PO 30 mg DAILY HALIE Administration Enoxaparin Sodium 40 mg 05/27/20 09:00 06/05/20 09:40 Enoxaparin Sodium 40 Mg/0.4 Ml Syringe SC 40 mg 0900 HALIE Administration Furosemide 40 mg 05/30/20 09:00 06/05/20 09:40 Furosemide 40 Mg/4 Ml Vial SLOW IVP 40 mg BID HALIE Administration Fentanyl 100 mls @ 0 mls/hr 05/28/20 19:30 05/31/20 03:36 Fentanyl Cadd IV 06/27/20 19:30 100 mls INF HALIE Administration Protocol Per Protocol Ceftriaxone Sodium 1 gm/ 100 mls @ 200 mls/hr 05/29/20 10:00 06/04/20 09:36 Sodium Chloride IVPB 100 mls Q24HR HALIE Administration Methylprednisolone Sodium Succinate 40 mg 05/30/20 21:00 06/05/20 09:41 Methylprednisolone Sod Succ 40 Mg Vial IVP 40 mg BID HALIE Administration Metolazone 2.5 mg 06/01/20 08:30 06/05/20 09:41 Metolazone 2.5 Mg Tab PO 2.5 mg 0830 HALIE Administration Mometasone Furoate/Formoterol Fumar 2 puff 05/28/20 18:30 06/05/20 08:41 Mometasone 200 Mcg/Formoterol 5 Mcg 120 Puff Inhaler INH 2 puff BID-RT HALIE Administration Pantoprazole Sodium 40 mg 05/29/20 09:00 06/04/20 08:58 Pantoprazole 40 Mg Vial IVP 40 mg DAILY HALIE Administration Propofol 1,000 mg 05/28/20 19:30 06/04/20 18:18 Propofol 1,000 Mg/100 Ml Vial IV 06/27/20 19:30 1,000 mg INF PRN Administration TO ACHIEVE GOAL RASS Protocol Risperidone 0.25 mg 06/03/20 21:00 06/05/20 09:41 Risperidone 0.25 Mg Tab PO 0.25 mg BID HALIE Administration Sodium Chloride 10 ml 05/29/20 09:00 06/05/20 09:42 Flush - Normal Saline 10 Ml Syringe IVF 10 ml Q12HR HALIE Administration Spironolactone 50 mg 05/31/20 08:00 06/05/20 09:40 Spironolactone 25 Mg Tab PO 50 mg QAM-WM HALIE Administration Topiramate 50 mg 05/28/20 21:00 06/05/20 09:41 Topiramate 25 Mg Tab PO 50 mg BID HALIE Administration Hospitalist Exam Vitals: Vital Signs (12 hours) Temp Pulse Resp BP 06/05/20 09:41 128/69 06/05/20 08:41 72 128/69 06/05/20 00:00 98.0 F 12 06/04/20 23:05 68 Weight Admit Weight 299 lb 9.731 oz Weight 317 lb 0.395 oz Most Recent Monitor Data Heart Rate from ECG 71 NIBP 124/68 NIBP BP-Mean 86 Respiration from ECG 9 SpO2 94 Eye: PERRL, anicteric sclera Heart: RRR, no murmur, no gallops, no rubs, normal peripheral pulses Respiratory: no wheezes, rhonchi Gastrointestinal: soft, non-tender, non-distended, normal bowel sounds, no palpable masses, no hepatomegaly Extremities: no cyanosis (+ palpable e.p. pulses bilaterally), 2+ LE edema Hosp A/P (1) Acute and chronic respiratory failure Code(s): J96.20 - ACUTE AND CHR RESP FAILURE, UNSP W HYPOXIA OR HYPERCAPNIA Status: Acute (2) Acute on chronic diastolic heart failure Code(s): I50.33 - ACUTE ON CHRONIC DIASTOLIC (CONGESTIVE) HEART FAILURE Status: Acute (3) Obesity hypoventilation syndrome Code(s): E66.2 - MORBID (SEVERE) OBESITY WITH ALVEOLAR HYPOVENTILATION Status: Chronic (4) Pulmonary hypertension Code(s): I27.20 - PULMONARY HYPERTENSION, UNSPECIFIED Status: Chronic (5) Neurofibromatosis Status: Chronic (6) Morbid obesity with BMI of 50.0-59.9, adult Code(s): E66.01 - MORBID (SEVERE) OBESITY DUE TO EXCESS CALORIES; Z68.43 - BODY MASS INDEX [BMI] 50.0-59.9, ADULT Status: Chronic - Plan * Acute on chronic respiratory failure due to CHF exacerbation as well as Obesity hypoventilation- * Plan is for possible extubation today * Continue Lasix and Spironolactone * Continue Rocephin and IV steroids * Mitral regurgitation- Cardiology has been consulted- prior evaluation noted * Morbid Obesity- she has life-threatening obesity, which will complicate her recovery * DVT and GI- prophylaxis
[2020-06-05] MEDS: cefTRIAXone\\ROCEPHIN 1 GM in Sodium Chloride 0.9% 100 ML IVPB SCH (10:34)
[2020-06-05] MEDS: Pantoprazole 40 MG VIAL IVP SCH (10:35)
--- NOTE | 2020-06-05 16:14 | PDOC.NEPPN ---
- Subjective Encounter Date: 06/05/20 Subjective: Seen and examined. Still intubated and mechanically ventilated. Off sedated and on SBT. - Objective Vital Signs & Weight: Vital Signs (12 hours) Pulse Resp BP Pulse Ox 06/05/20 14:35 82 133/81 06/05/20 12:00 11 L 06/05/20 11:14 83 183/99 H 06/05/20 10:00 11 L 06/05/20 09:41 128/69 06/05/20 08:41 72 128/69 06/05/20 08:00 12 93 L Weight Admit Weight 299 lb 9.731 oz Weight 317 lb 0.395 oz Most Recent Monitor Data Heart Rate from ECG 73 NIBP 127/71 NIBP BP-Mean 89 Respiration from ECG 9 SpO2 92 I&O: 06/04/20 06/05/20 06/06/20 06:59 06:59 06:59 Intake Total 1706.3 1052 297 Output Total 5500 6200 1800 Balance -3793.7 -5148 -1503 Result Diagrams: 06/05/20 04:05 06/05/20 03:30 Nephrology ROS - Medication Medications: Active Medications Generic Name Dose Route Start Last Admin Trade Name Freq PRN Reason Stop Dose Admin Acetaminophen 650 mg 05/27/20 03:30 05/28/20 05:18 Acetaminophen 325 Mg Tab PO 650 mg Q4H PRN Administration Headache/Fever/Mild Pain (1-3) Acetaminophen 650 mg 05/27/20 03:30 05/27/20 22:23 Acetaminophen 650 Mg Suppository [place] 650 mg Q4H PRN Administration Headache/Fever/Mild Pain (1-3) Albuterol/Ipratropium 3 ml 05/29/20 01:00 06/05/20 14:34 Ipratropium/Albuterol Sulfate 3 Ml Neb NEB 3 ml [id number] HALIE Administration Carvedilol 6.25 mg 05/27/20 09:00 06/05/20 09:41 Carvedilol 6.25 Mg Tab PO 6.25 mg BID HALIE Administration Duloxetine HCl 30 mg 05/29/20 09:00 06/05/20 09:41 Duloxetine 30 Mg Cap PO 30 mg DAILY HALIE Administration Enoxaparin Sodium 40 mg 05/27/20 09:00 06/05/20 09:40 Enoxaparin Sodium 40 Mg/0.4 Ml Syringe SC 40 mg 0900 HALIE Administration Furosemide 40 mg 05/30/20 09:00 06/05/20 09:40 Furosemide 40 Mg/4 Ml Vial SLOW IVP 40 mg BID HALIE Administration Fentanyl 100 mls @ 0 mls/hr 05/28/20 19:30 05/31/20 03:36 Fentanyl Cadd IV 06/27/20 19:30 100 mls INF HALIE Administration Protocol Per Protocol Ceftriaxone Sodium 1 gm/ 100 mls @ 200 mls/hr 05/29/20 10:00 06/05/20 10:34 Sodium Chloride IVPB 06/07/20 10:29 100 mls Q24HR HALIE Administration Methylprednisolone Sodium Succinate 40 mg 05/30/20 21:00 06/05/20 09:41 Methylprednisolone Sod Succ 40 Mg Vial IVP 40 mg BID HALIE Administration Metolazone 2.5 mg 06/01/20 08:30 06/05/20 09:41 Metolazone 2.5 Mg Tab PO 2.5 mg 0830 HALIE Administration Mometasone Furoate/Formoterol Fumar 2 puff 05/28/20 18:30 06/05/20 08:41 Mometasone 200 Mcg/Formoterol 5 Mcg 120 Puff Inhaler INH 2 puff BID-RT HALIE Administration Propofol 1,000 mg 05/28/20 19:30 06/04/20 18:18 Propofol 1,000 Mg/100 Ml Vial IV 06/27/20 19:30 1,000 mg INF PRN Administration TO ACHIEVE GOAL RASS Protocol Risperidone 0.25 mg 06/03/20 21:00 06/05/20 09:41 Risperidone 0.25 Mg Tab PO 0.25 mg BID HALIE Administration Sodium Chloride 10 ml 05/29/20 09:00 06/05/20 09:42 Flush - Normal Saline 10 Ml Syringe IVF 10 ml Q12HR HALIE Administration Spironolactone 50 mg 05/31/20 08:00 06/05/20 09:40 Spironolactone 25 Mg Tab PO 50 mg QAM-WM HALIE Administration Topiramate 50 mg 05/28/20 21:00 06/05/20 09:41 Topiramate 25 Mg Tab PO 50 mg BID HALIE Administration - Exam General - other findings: lethargic. wakes up with stimulation and obeying simple command ENT: normocephalic atraumatic ENT - other findings: ET tube in place Respiratory - other findings: ventilator transmitted sound noted Cardiovascular: RRR Gastrointestinal - other findings: obese. cartwright catheter in place Extremities - other findings: mild edema of the extremities noted Neurological: no focal deficits PSYCH: lethargic Nephrology Results - Labs Result Diagrams: 06/05/20 04:05 06/05/20 03:30 Lab results: WBC 9.4 thou/uL (4.8-10.8) 06/05/20 04:05 Hgb 14.2 g/dL (12.0-16.0) 06/05/20 04:05 Hct 47.2 % (36.0-47.0) H 06/05/20 04:05 MCV 87.5 fL (78.0-98.0) 06/05/20 04:05 Plt Count 206 thou/uL (130-400) 06/05/20 04:05 Neutrophils % 79.2 % (42.0-75.0) H 06/05/20 04:05 Band Neuts % (Manual) 4 % (5-11) L 06/02/20 03:10 ABG pH 7.42 (7.35-7.45) 06/05/20 08:45 ABG pCO2 59.1 mmHg (35.0-45.0) H 06/05/20 08:45 ABG pO2 86.1 mmHg (80.0-100.0) 06/05/20 08:45 Sodium 138 mmol/L (136-145) 06/05/20 03:30 Potassium 3.7 mmol/L (3.5-5.1) 06/05/20 03:30 Chloride 91 mmol/L (98-107) L 06/05/20 03:30 Carbon Dioxide 35 mmol/L (22-29) H 06/05/20 03:30 BUN 49 mg/dL (9.8-20.1) H 06/05/20 03:30 Creatinine 0.80 mg/dL (0.6-1.1) 06/05/20 03:30 Glucose 125 mg/dL (70-105) H 06/05/20 03:30 Calcium 9.7 mg/dL (7.8-10.44) 06/05/20 03:30 Total Bilirubin 0.6 mg/dL (0.2-1.2) 06/05/20 03:30 AST 25 U/L (5-34) 06/05/20 03:30 ALT 29 U/L (8-55) 06/05/20 03:30 Alkaline Phosphatase 67 U/L (40-110) 06/05/20 03:30 Creatine Kinase 39 U/L (29-168) 05/26/20 21:43 Troponin I 0.013 ng/mL (< 0.028) 05/27/20 12:08 B-Natriuretic Peptide 226.4 pg/mL (0-100) H 05/26/20 21:43 Serum Total Protein 7.3 g/dL (6.0-8.3) 06/05/20 03:30 Albumin 3.5 g/dL (3.5-5.0) 06/05/20 03:30 Urine Ketones Negative mg/dL (Negative) 05/27/20 00:00 Urine Blood Negative (Negative) 05/27/20 00:00 Urine Nitrite Negative (Negative) 05/27/20 00:00 Ur Leukocyte Esterase Negative Ozzy/uL (Negative) 05/27/20 00:00 Sodium 138 mmol/L (136-145) 06/05/20 03:30 Potassium 3.7 mmol/L (3.5-5.1) 06/05/20 03:30 Chloride 91 mmol/L (98-107) L 06/05/20 03:30 Carbon Dioxide 35 mmol/L (22-29) H 06/05/20 03:30 Anion Gap 16 mmol/L (10-20) 06/05/20 03:30 BUN 49 mg/dL (9.8-20.1) H 06/05/20 03:30 Creatinine 0.80 mg/dL (0.6-1.1) 06/05/20 03:30 Glucose 125 mg/dL (70-105) H 06/05/20 03:30 Calcium 9.7 mg/dL (7.8-10.44) 06/05/20 03:30 Magnesium 1.6 mg/dL (1.6-2.6) 05/27/20 05:25 Albumin 3.5 g/dL (3.5-5.0) 06/05/20 03:30 Nephrology AP PN - Plan Anasarca: Due to fluid resuscitation, hypoalbuminemia and mitral regurgitation. GALINA: Due to hemodynamic factors related to volume depletion and ACEI use. FENa and FEurae are consistent. Creat and BUN are trending up with diuretic Hyperkalemia: Resolved Metabolic acidosis: 2/2 GALINA with possible contribution from topamax Respiratory acidosis: Improved with Intubation Alkalosis: Due to diuretic and compensation to respiratory acidosis. Morbid obesity with presumed KASI/OHS. COPD Neurofibromatosis. PLAN Continue metolazone lasix and spironolactone for now to facilitate extubation. Will osbaldo escalate diuretic after extubation given increasing BUN and Co2 Tube feeding to continue Monitor weight, intake and output. Follow renal function and electrolytes.
[2020-06-06 03:40] LABS: Phosphorus 2.7 mg/dL (2.3-4.7)
[2020-06-06 03:54] LABS: ALT (SGPT) 40 U/L (8-55); AST (SGOT) 35 U/L (5-34); Albumin 3.8 g/dL (3.5-5.0); Alkaline Phosphatase 76 U/L (40-110); Anion Gap 17 mmol/L (10-20); BUN (Urea Nitrogen) 48 mg/dL (9.8-20.1); Calc. Creatinine Clearance 176 mL/min (70-130); Calcium 10.5 mg/dL (7.8-10.44); Carbon Dioxide 34 mmol/L (22-29); Chloride 91 mmol/L (98-107); Globulin 4.2 g/dL (2.4-3.5); Glucose 140 mg/dL (70-105); Magnesium 1.8 mg/dL (1.6-2.6); Potassium 3.6 mmol/L (3.5-5.1); Sodium 138 mmol/L (136-145)
[2020-06-06 05:03] LABS: Band 1 % (5-11); Hemoglobin 15.1 g/dL (12.0-16.0); Lymphocytes 15 % (21-51); MDiff Complete? YES; Mean Corpuscular HGB CONC 30.1 g/dL (32.0-36.0); Mean Corpuscular Volume 86.4 fL (78.0-98.0); Mean Platelet Volume 10.5 fL (7.4-10.4); Monocytes 9 % (0-10); Neutrophil 75 % (42-75); Platelet Count 158 thou/uL (130-400); RBC Distribution Width 17.2 % (11.5-14.5); White Blood Cell (WBC) Count 12.3 thou/uL (4.8-10.8)
[2020-06-06] MEDS: Mometasone 200 MCG/Formoterol 5 MCG 120 PUFF INHALER INH SCH ×2 (07:55→19:27)
[2020-06-06] MEDS: Furosemide 40 MG/4 ML VIAL SLOW IVP SCH ×2 (08:54→21:08)
[2020-06-06] MEDS: Carvedilol 6.25 MG TAB PO SCH ×2 (08:54→21:08)
[2020-06-06] MEDS: Enoxaparin Sodium 40 MG/0.4 ML SYRINGE SC SCH ×2 (08:54→08:55)
[2020-06-06] MEDS: Spironolactone 25 MG TAB PO SCH (08:55)
[2020-06-06] MEDS: Pantoprazole 40 MG GRANULES PACKET PER TUBE SCH (08:55)
[2020-06-06] MEDS: methylPREDNISolone Sod Succ 40 MG VIAL IVP SCH ×2 (08:55→21:08)
[2020-06-06] MEDS: Topiramate 25 MG TAB PO SCH ×2 (08:58→21:08)
[2020-06-06] MEDS: DULoxetine 30 MG CAP PO SCH (08:58)
[2020-06-06] MEDS: risperiDONE 0.25 MG TAB PO SCH ×2 (08:58→21:08)
--- NOTE | 2020-06-06 09:13 | PDOC.HOSPP ---
- Subjective Encounter Date: 06/06/20 Encounter Time: 09:12 Subjective: Ms. Parr was seen today in follow-up of severe KASI. She is awake and alert. Plan is for extubation today. - Objective Vital Signs & Weight: Vital Signs (12 hours) Temp Pulse Resp BP Pulse Ox 06/06/20 08:54 133/81 06/06/20 07:59 87 06/06/20 07:58 87 22 H 92 L 06/06/20 04:00 98.6 F 06/06/20 03:54 77 06/06/20 00:00 98.6 F 06/05/20 23:00 79 06/05/20 21:19 133/81 Weight Admit Weight 299 lb 9.731 oz Weight 317 lb 0.395 oz Most Recent Monitor Data Heart Rate from ECG 85 NIBP 123/68 NIBP BP-Mean 86 Respiration from ECG 21 SpO2 92 I&O: 06/05/20 06/06/20 06/07/20 06:59 06:59 06:59 Intake Total 1052 1010.2 Output Total 7460 89243 [facility]5148 -45674.8 Result Diagrams: 06/06/20 03:00 06/06/20 03:00 Hospitalist ROS - Medication Medications: Active Medications Generic Name Dose Route Start Last Admin Trade Name Freq PRN Reason Stop Dose Admin Acetaminophen 650 mg 05/27/20 03:30 05/28/20 05:18 Acetaminophen 325 Mg Tab PO 650 mg Q4H PRN Administration Headache/Fever/Mild Pain (1-3) Acetaminophen 650 mg 05/27/20 03:30 05/27/20 22:23 Acetaminophen 650 Mg Suppository [place] 650 mg Q4H PRN Administration Headache/Fever/Mild Pain (1-3) Albuterol/Ipratropium 3 ml 05/29/20 01:00 06/06/20 07:58 Ipratropium/Albuterol Sulfate 3 Ml Neb NEB 3 ml [id number] HALIE Administration Carvedilol 6.25 mg 05/27/20 09:00 06/06/20 08:54 Carvedilol 6.25 Mg Tab PO 6.25 mg BID HALIE Administration Duloxetine HCl 30 mg 05/29/20 09:00 06/06/20 08:58 Duloxetine 30 Mg Cap PO 30 mg DAILY HALIE Administration Enoxaparin Sodium 40 mg 05/27/20 09:00 06/06/20 08:55 Enoxaparin Sodium 40 Mg/0.4 Ml Syringe SC 40 mg 0900 HALIE Administration Furosemide 40 mg 05/30/20 09:00 06/06/20 08:54 Furosemide 40 Mg/4 Ml Vial SLOW IVP 40 mg BID HALIE Administration Fentanyl 100 mls @ 0 mls/hr 05/28/20 19:30 05/31/20 03:36 Fentanyl Cadd IV 06/27/20 19:30 100 mls INF HALIE Administration Protocol Per Protocol Ceftriaxone Sodium 1 gm/ 100 mls @ 200 mls/hr 05/29/20 10:00 06/05/20 10:34 Sodium Chloride IVPB 06/07/20 10:29 100 mls Q24HR HALIE Administration Methylprednisolone Sodium Succinate 40 mg 05/30/20 21:00 06/06/20 08:55 Methylprednisolone Sod Succ 40 Mg Vial IVP 40 mg BID HALIE Administration Mometasone Furoate/Formoterol Fumar 2 puff 05/28/20 18:30 06/05/20 19:25 Mometasone 200 Mcg/Formoterol 5 Mcg 120 Puff Inhaler INH 2 puff BID-RT HALIE Administration Pantoprazole Sodium 40 mg 06/06/20 09:00 06/06/20 08:55 Pantoprazole 40 Mg Granules Packet PER TUBE 40 mg DAILY HALIE Administration Propofol 1,000 mg 05/28/20 19:30 06/04/20 18:18 Propofol 1,000 Mg/100 Ml Vial IV 06/27/20 19:30 1,000 mg INF PRN Administration TO ACHIEVE GOAL RASS Protocol Risperidone 0.25 mg 06/03/20 21:00 06/06/20 08:58 Risperidone 0.25 Mg Tab PO 0.25 mg BID HALIE Administration Sodium Chloride 10 ml 05/29/20 09:00 06/06/20 08:55 Flush - Normal Saline 10 Ml Syringe IVF 10 ml Q12HR HALIE Administration Spironolactone 50 mg 05/31/20 08:00 06/06/20 08:55 Spironolactone 25 Mg Tab PO 50 mg QAM-WM HALIE Administration Topiramate 50 mg 05/28/20 21:00 06/06/20 08:58 Topiramate 25 Mg Tab PO 50 mg BID HALIE Administration Hospitalist Exam Vitals: Vital Signs (12 hours) Temp Pulse Resp BP Pulse Ox 06/06/20 08:54 133/81 06/06/20 07:59 87 06/06/20 07:58 87 22 H 92 L 06/06/20 04:00 98.6 F 06/06/20 03:54 77 06/06/20 00:00 98.6 F 06/05/20 23:00 79 06/05/20 21:19 133/81 Weight Admit Weight 299 lb 9.731 oz Weight 317 lb 0.395 oz Most Recent Monitor Data Heart Rate from ECG 85 NIBP 123/68 NIBP BP-Mean 86 Respiration from ECG 21 SpO2 92 General Appearance: NAD, awake alert Eye: PERRL, anicteric sclera Heart: RRR, no murmur, no gallops, no rubs, normal peripheral pulses Respiratory: rales (+ rales at both bases, as well as rhonchi), rhonchi Gastrointestinal: soft, non-tender, non-distended, normal bowel sounds, no palpable masses, no hepatomegaly Extremities: no cyanosis (pulses are palpable bilaterally), 2+ LE edema Hosp A/P (1) Acute and chronic respiratory failure Code(s): J96.20 - ACUTE AND CHR RESP FAILURE, UNSP W HYPOXIA OR HYPERCAPNIA Status: Acute (2) Acute on chronic diastolic heart failure Code(s): I50.33 - ACUTE ON CHRONIC DIASTOLIC (CONGESTIVE) HEART FAILURE Status: Acute (3) Obesity hypoventilation syndrome Code(s): E66.2 - MORBID (SEVERE) OBESITY WITH ALVEOLAR HYPOVENTILATION Status: Chronic (4) Pulmonary hypertension Code(s): I27.20 - PULMONARY HYPERTENSION, UNSPECIFIED Status: Chronic (5) Neurofibromatosis Status: Chronic (6) Morbid obesity with BMI of 50.0-59.9, adult Code(s): E66.01 - MORBID (SEVERE) OBESITY DUE TO EXCESS CALORIES; Z68.43 - BODY MASS INDEX [BMI] 50.0-59.9, ADULT Status: Chronic - Plan * Acute on chronic respiratory failure due to CHF exacerbation as well as Obesity hypoventilation- * plan is for extubation * Continue Lasix and Spironolactone * Continue Rocephin and IV steroids * Mitral regurgitation- Cardiology has been consulted- prior evaluation noted * Morbid Obesity- she has life-threatening obesity, which will complicate her recovery * DVT and GI- prophylaxis
[2020-06-06] MEDS ORDERED: Scopolamine 1.5 mg/72 hour Patch TD SCH (09:15)
--- NOTE | 2020-06-06 09:34 | PRG ---
DATE OF SERVICE: 06/06/2020 SUBJECTIVE: Remains intubated in the vent, off all sedation. OBJECTIVE: VITAL SIGNS: Pulse 87, FiO2 is 92%, respiratory rate 22 CHEST: Rhonchi, crackles. CARDIAC: Normal S1. ABDOMEN: No masses. LABORATORY DATA: BUN and creatinine are slightly elevated probably from the diuretics. ASSESSMENT: Multiorgan failure, morbid obesity, diastolic dysfunction, azotemia, right pleural effusion, sleep apnea, major anxiety. PLAN: We are going to hopefully consider extubation today once she will obtain another chest x-ray. Otherwise, continue supportive care. One-half hour of critical time. Job ID: [id number]
--- NOTE | 2020-06-06 09:59 | RAD ---
PORTABLE CHEST: Date: 06/06/2020 HISTORY: Respiratory distress. COMPARISON: 06/04/2020 study. FINDINGS: Endotracheal and NG tubes remain in satisfactory position. Lung parenchymal infiltrates, more right-s ided, are stable as compared to the prior exam. Slight lack of lung markings in the right lung apex, although I cannot definitely see a pneumothorax. There are slightly more nodular lung changes in the right upper lobe that may be on the basis of some element of atelectasis. IMPRESSION: Essentially stable exam. POS: RILEY
[2020-06-06] MEDS: cefTRIAXone\\ROCEPHIN 1 GM in Sodium Chloride 0.9% 100 ML IVPB SCH (10:29)
--- NOTE | 2020-06-06 10:42 | PDOC.NEPPN ---
- Subjective Encounter Date: 06/06/20 Subjective: Extubated earlier today. No new problem. - Objective Vital Signs & Weight: Vital Signs (12 hours) Temp Pulse Resp BP Pulse Ox 06/06/20 08:54 133/81 06/06/20 07:59 87 06/06/20 07:58 87 22 H 92 L 06/06/20 04:00 98.6 F 06/06/20 03:54 77 06/06/20 00:00 98.6 F 06/05/20 23:00 79 Weight Admit Weight 299 lb 9.731 oz Weight 317 lb 0.395 oz Most Recent Monitor Data Heart Rate from ECG 85 NIBP 123/68 NIBP BP-Mean 86 Respiration from ECG 21 SpO2 92 I&O: 06/05/20 06/06/20 06/07/20 06:59 06:59 06:59 Intake Total 1052 1010.2 Output Total 6200 04244 Balance -5148 -89197.8 Result Diagrams: 06/06/20 03:00 06/06/20 03:00 Nephrology ROS - Medication Medications: Active Medications Generic Name Dose Route Start Last Admin Trade Name Freq PRN Reason Stop Dose Admin Acetaminophen 650 mg 05/27/20 03:30 05/28/20 05:18 Acetaminophen 325 Mg Tab PO 650 mg Q4H PRN Administration Headache/Fever/Mild Pain (1-3) Acetaminophen 650 mg 05/27/20 03:30 05/27/20 22:23 Acetaminophen 650 Mg Suppository [place] 650 mg Q4H PRN Administration Headache/Fever/Mild Pain (1-3) Albuterol/Ipratropium 3 ml 05/29/20 01:00 06/06/20 07:58 Ipratropium/Albuterol Sulfate 3 Ml Neb NEB 3 ml [id number] HALIE Administration Carvedilol 6.25 mg 05/27/20 09:00 06/06/20 08:54 Carvedilol 6.25 Mg Tab PO 6.25 mg BID HALIE Administration Duloxetine HCl 30 mg 05/29/20 09:00 06/06/20 08:58 Duloxetine 30 Mg Cap PO 30 mg DAILY HALIE Administration Enoxaparin Sodium 40 mg 05/27/20 09:00 06/06/20 08:55 Enoxaparin Sodium 40 Mg/0.4 Ml Syringe SC 40 mg 0900 HALIE Administration Furosemide 40 mg 05/30/20 09:00 06/06/20 08:54 Furosemide 40 Mg/4 Ml Vial SLOW IVP 40 mg BID HALIE Administration Fentanyl 100 mls @ 0 mls/hr 05/28/20 19:30 05/31/20 03:36 Fentanyl Cadd IV 06/27/20 19:30 100 mls INF HALIE Administration Protocol Per Protocol Ceftriaxone Sodium 1 gm/ 100 mls @ 200 mls/hr 05/29/20 10:00 06/06/20 10:29 Sodium Chloride IVPB 06/07/20 10:29 100 mls Q24HR HALIE Administration Methylprednisolone Sodium Succinate 40 mg 05/30/20 21:00 06/06/20 08:55 Methylprednisolone Sod Succ 40 Mg Vial IVP 40 mg BID HALIE Administration Mometasone Furoate/Formoterol Fumar 2 puff 05/28/20 18:30 06/05/20 19:25 Mometasone 200 Mcg/Formoterol 5 Mcg 120 Puff Inhaler INH 2 puff BID-RT HALIE Administration Pantoprazole Sodium 40 mg 06/06/20 09:00 06/06/20 08:55 Pantoprazole 40 Mg Granules Packet PER TUBE 40 mg DAILY HALIE Administration Propofol 1,000 mg 05/28/20 19:30 06/04/20 18:18 Propofol 1,000 Mg/100 Ml Vial IV 06/27/20 19:30 1,000 mg INF PRN Administration TO ACHIEVE GOAL RASS Protocol Risperidone 0.25 mg 06/03/20 21:00 06/06/20 08:58 Risperidone 0.25 Mg Tab PO 0.25 mg BID HALIE Administration Scopolamine 1.5 mg 06/06/20 09:15 06/06/20 09:42 Scopolamine 1.5 Mg/72 Hour Patch TD 1.5 mg Q3D HALIE Administration Sodium Chloride 10 ml 05/29/20 09:00 06/06/20 08:55 Flush - Normal Saline 10 Ml Syringe IVF 10 ml Q12HR HALIE Administration Spironolactone 50 mg 05/31/20 08:00 06/06/20 08:55 Spironolactone 25 Mg Tab PO 50 mg QAM-WM HALIE Administration Topiramate 50 mg 05/28/20 21:00 06/06/20 08:58 Topiramate 25 Mg Tab PO 50 mg BID HALIE Administration - Exam General - other findings: awake but sleepy. Eye: anicteric sclera ENT: normocephalic atraumatic Neck: symmetric Respiratory: no wheezes, no ronchi, no tachypnea Respiratory - other findings: fair air entry with some transmitted sound Cardiovascular: RRR Gastrointestinal: soft, non-distended, normal bowel sounds Gastrointestinal - other findings: obese Extremities - other findings: trace edema of the extremities Skin - other findings: scattered nodules and papules orf various sized noted Neurological: CN's grossly intact, no focal deficits Neurological - other findings: oriented to person at least. drowsy PSYCH: oriented to person Nephrology Results - Labs Result Diagrams: 06/06/20 03:00 06/06/20 03:00 Lab results: WBC 12.3 thou/uL (4.8-10.8) H 06/06/20 03:00 Hgb 15.1 g/dL (12.0-16.0) 06/06/20 03:00 Hct 50.1 % (36.0-47.0) H 06/06/20 03:00 MCV 86.4 fL (78.0-98.0) 06/06/20 03:00 Plt Count 158 thou/uL (130-400) 06/06/20 03:00 Neutrophils % 79.2 % (42.0-75.0) H 06/05/20 04:05 Band Neuts % (Manual) 1 % (5-11) L 06/06/20 03:00 ABG pH 7.42 (7.35-7.45) 06/05/20 08:45 ABG pCO2 59.1 mmHg (35.0-45.0) H 06/05/20 08:45 ABG pO2 86.1 mmHg (80.0-100.0) 06/05/20 08:45 Sodium 138 mmol/L (136-145) 06/06/20 03:00 Potassium 3.6 mmol/L (3.5-5.1) 06/06/20 03:00 Chloride 91 mmol/L (98-107) L 06/06/20 03:00 Carbon Dioxide 34 mmol/L (22-29) H 06/06/20 03:00 BUN 48 mg/dL (9.8-20.1) H 06/06/20 03:00 Creatinine 0.83 mg/dL (0.6-1.1) 06/06/20 03:00 Glucose 140 mg/dL (70-105) H 06/06/20 03:00 Calcium 10.5 mg/dL (7.8-10.44) H 06/06/20 03:00 Total Bilirubin 1.0 mg/dL (0.2-1.2) 06/06/20 03:00 AST 35 U/L (5-34) H 06/06/20 03:00 ALT 40 U/L (8-55) 06/06/20 03:00 Alkaline Phosphatase 76 U/L (40-110) 06/06/20 03:00 Creatine Kinase 39 U/L (29-168) 05/26/20 21:43 Troponin I 0.013 ng/mL (< 0.028) 05/27/20 12:08 B-Natriuretic Peptide 226.4 pg/mL (0-100) H 05/26/20 21:43 Serum Total Protein 8.0 g/dL (6.0-8.3) 06/06/20 03:00 Albumin 3.8 g/dL (3.5-5.0) 06/06/20 03:00 Urine Ketones Negative mg/dL (Negative) 05/27/20 00:00 Urine Blood Negative (Negative) 05/27/20 00:00 Urine Nitrite Negative (Negative) 05/27/20 00:00 Ur Leukocyte Esterase Negative Ozzy/uL (Negative) 05/27/20 00:00 Sodium 138 mmol/L (136-145) 06/06/20 03:00 Potassium 3.6 mmol/L (3.5-5.1) 06/06/20 03:00 Chloride 91 mmol/L (98-107) L 06/06/20 03:00 Carbon Dioxide 34 mmol/L (22-29) H 06/06/20 03:00 Anion Gap 17 mmol/L (10-20) 06/06/20 03:00 BUN 48 mg/dL (9.8-20.1) H 06/06/20 03:00 Creatinine 0.83 mg/dL (0.6-1.1) 06/06/20 03:00 Glucose 140 mg/dL (70-105) H 06/06/20 03:00 Calcium 10.5 mg/dL (7.8-10.44) H 06/06/20 03:00 Phosphorus 2.7 mg/dL (2.3-4.7) 06/06/20 03:00 Magnesium 1.8 mg/dL (1.6-2.6) 06/06/20 03:00 Albumin 3.8 g/dL (3.5-5.0) 06/06/20 03:00 Nephrology AP PN - Plan Anasarca: Due to fluid resuscitation, hypoalbuminemia and mitral regurgitation. Improved with diuretics GALINA: Due to hemodynamic factors related to volume depletion and ACEI use. FENa and FEurae are consistent. Creat and BUN are trending up with diuretic Hyperkalemia: Resolved Metabolic acidosis: 2/2 GALINA with possible contribution from topamax Respiratory acidosis: Improved with Intubation Alkalosis: Due to diuretic and compensation to respiratory acidosis. Morbid obesity with presumed KASI/OHS. COPD Neurofibromatosis. Hypercalcemia: due to thiazide and intravascular contraction. Acute respiratory failure. Improved. extubated earlier today PLAN Continue spironolactone and lasix but DC Metolazone. Monitor weight, intake and output. Follow renal function and electrolytes.
[2020-06-07 03:14] LABS: #Monocytes 0.9 thou/uL (0.11-0.59); #Neutrophils 8.5 thou/uL (1.40-6.50); %Basophils 0.2 % (0.0-1.0); %Eosinophils 0.1 % (0.0-10.0); %Lymphocytes 9.9 % (21.0-51.0); %Monocytes 8.3 % (0.0-10.0); %Neutrophils 81.5 % (42.0-75.0); Hemoglobin 14.8 g/dL (12.0-16.0); Mean Corpuscular HGB CONC 29.9 g/dL (32.0-36.0); Mean Corpuscular Volume 86.8 fL (78.0-98.0); Mean Platelet Volume 10.1 fL (7.4-10.4); Platelet Count 207 thou/uL (130-400); RBC Distribution Width 17.1 % (11.5-14.5); Red Blood Cell (RBC) Count 5.72 mill/uL (4.20-5.40); White Blood Cell (WBC) Count 10.5 thou/uL (4.8-10.8)
[2020-06-07 03:31] LABS: ALT (SGPT) 48 U/L (8-55); AST (SGOT) 31 U/L (5-34); Albumin 3.8 g/dL (3.5-5.0); Alkaline Phosphatase 76 U/L (40-110); Anion Gap 15 mmol/L (10-20); BUN (Urea Nitrogen) 43 mg/dL (9.8-20.1); Bilirubin, Total 1.1 mg/dL (0.2-1.2); Calc. Creatinine Clearance 195 mL/min (70-130); Calcium 10.2 mg/dL (7.8-10.44); Carbon Dioxide 33 mmol/L (22-29); Chloride 95 mmol/L (98-107); Globulin 4.2 g/dL (2.4-3.5); Glucose 118 mg/dL (70-105); Potassium 3.6 mmol/L (3.5-5.1); Sodium 139 mmol/L (136-145)
[2020-06-07] MEDS: Mometasone 200 MCG/Formoterol 5 MCG 120 PUFF INHALER INH SCH ×2 (08:04→23:15)
[2020-06-07] MEDS: Enoxaparin Sodium 40 MG/0.4 ML SYRINGE SC SCH (08:45)
[2020-06-07] MEDS: Saccharomyces boulardii 250 MG CAP PO SCH (08:45)
[2020-06-07] MEDS: Carvedilol 6.25 MG TAB PO SCH ×2 (08:45→20:43)
[2020-06-07] MEDS: Spironolactone 25 MG TAB PO SCH (08:45)
[2020-06-07] MEDS: DULoxetine 30 MG CAP PO SCH (08:45)
[2020-06-07] MEDS: risperiDONE 0.25 MG TAB PO SCH ×2 (08:46→20:43)
[2020-06-07] MEDS: methylPREDNISolone Sod Succ 40 MG VIAL IVP SCH ×2 (08:47→20:43)
[2020-06-07] MEDS: Topiramate 25 MG TAB PO SCH ×2 (08:47→20:48)
[2020-06-07] MEDS: Furosemide 40 MG/4 ML VIAL SLOW IVP SCH (08:47)
[2020-06-07] MEDS: Pantoprazole 40 MG GRANULES PACKET PER TUBE SCH (08:47)
[2020-06-07] MEDS ORDERED: Laxative Of Choice PO PRN (09:26)
--- NOTE | 2020-06-07 10:03 | PDOC.HOSPP ---
- Subjective Encounter Date: 06/07/20 Encounter Time: 10:02 Subjective: Ms. Parr was seen today in follow-up of respiratory failure due to obesity hypoventilation syndrome. She is extubated. She is feeling much better. She denies any dyspnea. - Objective Vital Signs & Weight: Vital Signs (12 hours) Temp Pulse Resp BP Pulse Ox 06/07/20 08:45 133/81 06/07/20 08:04 997 H 06/07/20 08:00 77 22 H 97 06/07/20 04:00 98.7 F 06/07/20 00:44 19 92 L 06/06/20 23:36 76 15 94 L 06/06/20 22:51 20 94 L Weight Admit Weight 299 lb 9.731 oz Weight 317 lb 0.395 oz Most Recent Monitor Data Heart Rate from ECG 80 NIBP 114/69 NIBP BP-Mean 84 Respiration from ECG 24 SpO2 95 I&O: 06/06/20 06/07/20 06/08/20 06:59 06:59 06:59 Intake Total 1010.2 100 0 Output Total 15294 8900 Balance -29160.8 -8800 0 Result Diagrams: 06/07/20 03:00 06/07/20 03:00 Hospitalist ROS - Medication Medications: Active Medications Generic Name Dose Route Start Last Admin Trade Name Freq PRN Reason Stop Dose Admin Acetaminophen 650 mg 05/27/20 03:30 05/28/20 05:18 Acetaminophen 325 Mg Tab PO 650 mg Q4H PRN Administration Headache/Fever/Mild Pain (1-3) Acetaminophen 650 mg 05/27/20 03:30 05/27/20 22:23 Acetaminophen 650 Mg Suppository [place] 650 mg Q4H PRN Administration Headache/Fever/Mild Pain (1-3) Albuterol/Ipratropium 3 ml 05/29/20 01:00 06/07/20 08:00 Ipratropium/Albuterol Sulfate 3 Ml Neb NEB 3 ml [id number] HALIE Administration Carvedilol 6.25 mg 05/27/20 09:00 06/07/20 08:45 Carvedilol 6.25 Mg Tab PO 6.25 mg BID HALIE Administration Duloxetine HCl 30 mg 05/29/20 09:00 06/07/20 08:45 Duloxetine 30 Mg Cap PO 30 mg DAILY HALIE Administration Enoxaparin Sodium 40 mg 05/27/20 09:00 06/07/20 08:45 Enoxaparin Sodium 40 Mg/0.4 Ml Syringe SC 40 mg 0900 HALIE Administration Furosemide 40 mg 05/30/20 09:00 06/07/20 08:47 Furosemide 40 Mg/4 Ml Vial SLOW IVP 40 mg BID HALIE Administration Fentanyl 100 mls @ 0 mls/hr 05/28/20 19:30 05/31/20 03:36 Fentanyl Cadd IV 06/27/20 19:30 100 mls INF HALIE Administration Protocol Per Protocol Ceftriaxone Sodium 1 gm/ 100 mls @ 200 mls/hr 05/29/20 10:00 06/06/20 10:29 Sodium Chloride IVPB 06/07/20 10:29 100 mls Q24HR HALIE Administration Methylprednisolone Sodium Succinate 40 mg 05/30/20 21:00 06/07/20 08:47 Methylprednisolone Sod Succ 40 Mg Vial IVP 40 mg BID HALIE Administration Mometasone Furoate/Formoterol Fumar 2 puff 05/28/20 18:30 06/07/20 08:04 Mometasone 200 Mcg/Formoterol 5 Mcg 120 Puff Inhaler INH 2 puff BID-RT HALIE Administration Pantoprazole Sodium 40 mg 06/06/20 09:00 06/07/20 08:47 Pantoprazole 40 Mg Granules Packet PER TUBE 40 mg DAILY HALIE Administration Propofol 1,000 mg 05/28/20 19:30 06/04/20 18:18 Propofol 1,000 Mg/100 Ml Vial IV 06/27/20 19:30 1,000 mg INF PRN Administration TO ACHIEVE GOAL RASS Protocol Saccharomyces Boulardii 250 mg 06/07/20 09:00 06/07/20 08:45 Saccharomyces Boulardii 250 Mg Cap PO 250 mg DAILY HALIE Administration Sodium Chloride 10 ml 05/29/20 09:00 06/07/20 08:47 Flush - Normal Saline 10 Ml Syringe IVF 10 ml Q12HR HALIE Administration Spironolactone 50 mg 05/31/20 08:00 06/07/20 08:45 Spironolactone 25 Mg Tab PO 50 mg QAM-WM HALIE Administration Topiramate 50 mg 05/28/20 21:00 06/07/20 08:47 Topiramate 25 Mg Tab PO 50 mg BID HALIE Administration Hospitalist Exam Vitals: Vital Signs (12 hours) Temp Pulse Resp BP Pulse Ox 06/07/20 08:45 133/81 06/07/20 08:04 997 H 06/07/20 08:00 77 22 H 97 06/07/20 04:00 98.7 F 06/07/20 00:44 19 92 L 06/06/20 23:36 76 15 94 L 06/06/20 22:51 20 94 L Weight Admit Weight 299 lb 9.731 oz Weight 317 lb 0.395 oz Most Recent Monitor Data Heart Rate from ECG 80 NIBP 114/69 NIBP BP-Mean 84 Respiration from ECG 24 SpO2 95 Eye: PERRL, anicteric sclera Heart: RRR, no murmur, no gallops, no rubs, normal peripheral pulses Respiratory: CTAB, no wheezes, no rales, no ronchi, normal chest expansion, no tachypnea Gastrointestinal: soft, non-tender, non-distended, normal bowel sounds, no palpable masses Extremities: no cyanosis, 1+ LE edema (trace edema in both lower extremities) Hosp A/P (1) Acute and chronic respiratory failure Code(s): J96.20 - ACUTE AND CHR RESP FAILURE, UNSP W HYPOXIA OR HYPERCAPNIA Status: Acute (2) Acute on chronic diastolic heart failure Code(s): I50.33 - ACUTE ON CHRONIC DIASTOLIC (CONGESTIVE) HEART FAILURE Status: Acute (3) Obesity hypoventilation syndrome Code(s): E66.2 - MORBID (SEVERE) OBESITY WITH ALVEOLAR HYPOVENTILATION Status: Chronic (4) Pulmonary hypertension Code(s): I27.20 - PULMONARY HYPERTENSION, UNSPECIFIED Status: Chronic (5) Neurofibromatosis Status: Chronic (6) Morbid obesity with BMI of 50.0-59.9, adult Code(s): E66.01 - MORBID (SEVERE) OBESITY DUE TO EXCESS CALORIES; Z68.43 - BODY MASS INDEX [BMI] 50.0-59.9, ADULT Status: Chronic - Plan * Acute on chronic respiratory failure due to CHF exacerbation as well as Obesity hypoventilation- * She has been extubated * Continue Lasix and Spironolactone- Metolazone was discontinued * Continue Rocephin and IV steroids * Mitral regurgitation- Cardiology has been consulted- prior evaluation noted * Morbid Obesity- she has life-threatening obesity, which will complicate her recovery * DVT and GI- prophylaxis * She is severely decompensated- she will need aggressive PT
--- NOTE | 2020-06-07 10:06 | PRG ---
DATE OF SERVICE: SUBJECTIVE: Luma Parr was extubated yesterday. She is doing quite well. OBJECTIVE: VITAL SIGNS: Pulse 77, blood pressure , sats are on 3 L . CHEST: Decreased breath sounds. No wheezing. CARDIAC: Normal S1. ABDOMEN: No masses. LABORATORY DATA: Unremarkable. IMPRESSION: Respiratory failure, prerenal azotemia, diastolic dysfunction, right pleural effusion, sleep apnea, and chronic obstructive pulmonary disease. PLAN: Minimize sedation. Continue PT, supportive care. One-half hour of critical care time. Job ID: [id number]
[2020-06-07] MEDS: cefTRIAXone\\ROCEPHIN 1 GM in Sodium Chloride 0.9% 100 ML IVPB SCH (10:17)
--- NOTE | 2020-06-07 11:14 | PDOC.NEPPN ---
- Subjective Encounter Date: 06/07/20 Subjective: Seen and examined. No new problem. - Objective Vital Signs & Weight: Vital Signs (12 hours) Temp Pulse Resp BP Pulse Ox 06/07/20 08:45 133/81 06/07/20 08:04 997 H 06/07/20 08:00 77 22 H 97 06/07/20 04:00 98.7 F 06/07/20 00:44 19 92 L 06/06/20 23:36 76 15 94 L Weight Admit Weight 299 lb 9.731 oz Weight 317 lb 0.395 oz Most Recent Monitor Data Heart Rate from ECG 80 NIBP 114/69 NIBP BP-Mean 84 Respiration from ECG 24 SpO2 95 I&O: 06/06/20 06/07/20 06/08/20 06:59 06:59 06:59 Intake Total 1010.2 100 0 Output Total 08441 8900 Balance -76992.8 -8800 0 Result Diagrams: 06/07/20 03:00 06/07/20 03:00 Nephrology ROS - Medication Medications: Active Medications Generic Name Dose Route Start Last Admin Trade Name Freq PRN Reason Stop Dose Admin Acetaminophen 650 mg 05/27/20 03:30 05/28/20 05:18 Acetaminophen 325 Mg Tab PO 650 mg Q4H PRN Administration Headache/Fever/Mild Pain (1-3) Acetaminophen 650 mg 05/27/20 03:30 05/27/20 22:23 Acetaminophen 650 Mg Suppository [place] 650 mg Q4H PRN Administration Headache/Fever/Mild Pain (1-3) Albuterol/Ipratropium 3 ml 05/29/20 01:00 06/07/20 08:00 Ipratropium/Albuterol Sulfate 3 Ml Neb NEB 3 ml [id number] HALIE Administration Carvedilol 6.25 mg 05/27/20 09:00 06/07/20 08:45 Carvedilol 6.25 Mg Tab PO 6.25 mg BID HALIE Administration Duloxetine HCl 30 mg 05/29/20 09:00 06/07/20 08:45 Duloxetine 30 Mg Cap PO 30 mg DAILY HALIE Administration Enoxaparin Sodium 40 mg 05/27/20 09:00 06/07/20 08:45 Enoxaparin Sodium 40 Mg/0.4 Ml Syringe SC 40 mg 0900 HALIE Administration Fentanyl 100 mls @ 0 mls/hr 05/28/20 19:30 05/31/20 03:36 Fentanyl Cadd IV 06/27/20 19:30 100 mls INF HALIE Administration Protocol Per Protocol Methylprednisolone Sodium Succinate 40 mg 05/30/20 21:00 06/07/20 08:47 Methylprednisolone Sod Succ 40 Mg Vial IVP 40 mg BID HALIE Administration Mometasone Furoate/Formoterol Fumar 2 puff 05/28/20 18:30 06/07/20 08:04 Mometasone 200 Mcg/Formoterol 5 Mcg 120 Puff Inhaler INH 2 puff BID-RT HALIE Administration Pantoprazole Sodium 40 mg 06/06/20 09:00 06/07/20 08:47 Pantoprazole 40 Mg Granules Packet PER TUBE 40 mg DAILY HALIE Administration Propofol 1,000 mg 05/28/20 19:30 06/04/20 18:18 Propofol 1,000 Mg/100 Ml Vial IV 06/27/20 19:30 1,000 mg INF PRN Administration TO ACHIEVE GOAL RASS Protocol Saccharomyces Boulardii 250 mg 06/07/20 09:00 06/07/20 08:45 Saccharomyces Boulardii 250 Mg Cap PO 250 mg DAILY HALIE Administration Sodium Chloride 10 ml 05/29/20 09:00 06/07/20 08:47 Flush - Normal Saline 10 Ml Syringe IVF 10 ml Q12HR HALIE Administration Spironolactone 50 mg 05/31/20 08:00 06/07/20 08:45 Spironolactone 25 Mg Tab PO 50 mg QAM-WM HALIE Administration Topiramate 50 mg 05/28/20 21:00 06/07/20 08:47 Topiramate 25 Mg Tab PO 50 mg BID HALIE Administration - Exam General Appearance: awake alert Eye: anicteric sclera ENT: normocephalic atraumatic Neck: symmetric, no JVD Respiratory: no wheezes, no ronchi, no tachypnea Respiratory - other findings: fair air entry bilaterally with few transmitted sound Cardiovascular: RRR Gastrointestinal: soft, non-distended, normal bowel sounds Gastrointestinal - other findings: obese Extremities: no edema Neurological: CN's grossly intact, no focal deficits PSYCH: A&O x 3 Nephrology Results - Labs Result Diagrams: 06/07/20 03:00 06/07/20 03:00 Lab results: WBC 10.5 thou/uL (4.8-10.8) 06/07/20 03:00 Hgb 14.8 g/dL (12.0-16.0) 06/07/20 03:00 Hct 49.6 % (36.0-47.0) H 06/07/20 03:00 MCV 86.8 fL (78.0-98.0) 06/07/20 03:00 Plt Count 207 thou/uL (130-400) 06/07/20 03:00 Neutrophils % 81.5 % (42.0-75.0) H 06/07/20 03:00 Band Neuts % (Manual) 1 % (5-11) L 06/06/20 03:00 ABG pH 7.42 (7.35-7.45) 06/05/20 08:45 ABG pCO2 59.1 mmHg (35.0-45.0) H 06/05/20 08:45 ABG pO2 86.1 mmHg (80.0-100.0) 06/05/20 08:45 Sodium 139 mmol/L (136-145) 06/07/20 03:00 Potassium 3.6 mmol/L (3.5-5.1) 06/07/20 03:00 Chloride 95 mmol/L (98-107) L 06/07/20 03:00 Carbon Dioxide 33 mmol/L (22-29) H 06/07/20 03:00 BUN 43 mg/dL (9.8-20.1) H 06/07/20 03:00 Creatinine 0.75 mg/dL (0.6-1.1) 06/07/20 03:00 Glucose 118 mg/dL (70-105) H 06/07/20 03:00 Calcium 10.2 mg/dL (7.8-10.44) 06/07/20 03:00 Total Bilirubin 1.1 mg/dL (0.2-1.2) 06/07/20 03:00 AST 31 U/L (5-34) 06/07/20 03:00 ALT 48 U/L (8-55) 06/07/20 03:00 Alkaline Phosphatase 76 U/L (40-110) 06/07/20 03:00 Creatine Kinase 39 U/L (29-168) 05/26/20 21:43 Troponin I 0.013 ng/mL (< 0.028) 05/27/20 12:08 B-Natriuretic Peptide 226.4 pg/mL (0-100) H 05/26/20 21:43 Serum Total Protein 8.0 g/dL (6.0-8.3) 06/07/20 03:00 Albumin 3.8 g/dL (3.5-5.0) 06/07/20 03:00 Urine Ketones Negative mg/dL (Negative) 05/27/20 00:00 Urine Blood Negative (Negative) 05/27/20 00:00 Urine Nitrite Negative (Negative) 05/27/20 00:00 Ur Leukocyte Esterase Negative Ozzy/uL (Negative) 05/27/20 00:00 Sodium 139 mmol/L (136-145) 06/07/20 03:00 Potassium 3.6 mmol/L (3.5-5.1) 06/07/20 03:00 Chloride 95 mmol/L (98-107) L 06/07/20 03:00 Carbon Dioxide 33 mmol/L (22-29) H 06/07/20 03:00 Anion Gap 15 mmol/L (10-20) 06/07/20 03:00 BUN 43 mg/dL (9.8-20.1) H 06/07/20 03:00 Creatinine 0.75 mg/dL (0.6-1.1) 06/07/20 03:00 Glucose 118 mg/dL (70-105) H 06/07/20 03:00 Calcium 10.2 mg/dL (7.8-10.44) 06/07/20 03:00 Phosphorus 2.7 mg/dL (2.3-4.7) 06/06/20 03:00 Magnesium 1.8 mg/dL (1.6-2.6) 06/06/20 03:00 Albumin 3.8 g/dL (3.5-5.0) 06/07/20 03:00 Nephrology AP PN - Plan Anasarca: Due to fluid resuscitation, hypoalbuminemia and mitral regurgitation. Improved with diuretics GALINA: Due to hemodynamic factors related to volume depletion and ACEI use. FENa and FEurae are consistent. Creat and BUN are down today with reduction of diuretic Hyperkalemia: Resolved Metabolic acidosis: 2/2 GALINA Respiratory acidosis: Improved with Intubation Alkalosis: Due to diuretic and compensation to respiratory acidosis. Improved with reduction of diuretic Morbid obesity with presumed KASI/OHS. COPD Neurofibromatosis. Hypercalcemia: due to thiazide and intravascular contraction. Acute respiratory failure. S/p intubation. Extubated 06/06/20 PLAN Continue spironolactone. DC IV lasix and start oral torsemide. Monitor weight, intake and output. Follow renal function and electrolytes.
[2020-06-08 05:18] LABS: #Lymphocytes 0.8 thou/uL (1.20-3.40); #Monocytes 0.7 thou/uL (0.11-0.59); #Neutrophils 8.9 thou/uL (1.40-6.50); %Basophils 0.3 % (0.0-1.0); %Eosinophils 0.2 % (0.0-10.0); %Lymphocytes 7.6 % (21.0-51.0); %Monocytes 6.3 % (0.0-10.0); %Neutrophils 85.6 % (42.0-75.0); Hemoglobin 15.8 g/dL (12.0-16.0); Mean Corpuscular HGB CONC 30.9 g/dL (32.0-36.0); Mean Corpuscular Hemoglobin 27.3 pg (27.0-31.0); Mean Corpuscular Volume 88.3 fL (78.0-98.0); Mean Platelet Volume 10.2 fL (7.4-10.4); Platelet Count 178 thou/uL (130-400); Red Blood Cell (RBC) Count 5.78 mill/uL (4.20-5.40); White Blood Cell (WBC) Count 10.4 thou/uL (4.8-10.8)
[2020-06-08 05:33] LABS: ALT (SGPT) 40 U/L (8-55); AST (SGOT) 21 U/L (5-34); Albumin 3.9 g/dL (3.5-5.0); Alkaline Phosphatase 78 U/L (40-110); Anion Gap 14 mmol/L (10-20); BUN (Urea Nitrogen) 35 mg/dL (9.8-20.1); Bilirubin, Total 1.1 mg/dL (0.2-1.2); Calc. Creatinine Clearance 159 mL/min (70-130); Carbon Dioxide 28 mmol/L (22-29); Chloride 101 mmol/L (98-107); Globulin 4.3 g/dL (2.4-3.5); Glucose 141 mg/dL (70-105); Potassium 3.6 mmol/L (3.5-5.1); Protein, Total 8.2 g/dL (6.0-8.3); Sodium 139 mmol/L (136-145)
[2020-06-08] MEDS: Mometasone 200 MCG/Formoterol 5 MCG 120 PUFF INHALER INH SCH ×2 (07:59→23:04)
[2020-06-08] MEDS ORDERED: Torsemide 20 MG TAB PO SCH (09:00)
[2020-06-08] MEDS: Spironolactone 25 MG TAB PO SCH (10:20)
[2020-06-08] MEDS: DULoxetine 30 MG CAP PO SCH (10:21)
[2020-06-08] MEDS: Pantoprazole 40 MG GRANULES PACKET PER TUBE SCH (10:21)
[2020-06-08] MEDS: Topiramate 25 MG TAB PO SCH ×2 (10:21→20:14)
[2020-06-08] MEDS: Saccharomyces boulardii 250 MG CAP PO SCH (10:21)
[2020-06-08] MEDS: Carvedilol 6.25 MG TAB PO SCH ×2 (10:21→20:13)
[2020-06-08] MEDS: methylPREDNISolone Sod Succ 40 MG VIAL IVP SCH ×2 (10:22→20:14)
[2020-06-08] MEDS: Acetaminophen 325 MG TAB PO PRN (10:22)
[2020-06-08] MEDS: Enoxaparin Sodium 40 MG/0.4 ML SYRINGE SC SCH (10:23)
--- NOTE | 2020-06-08 11:02 | PDOC.HOSPP ---
- Subjective Encounter Date: 06/08/20 Subjective: she claims to be doing better - Objective Vital Signs & Weight: Vital Signs (12 hours) Temp Pulse Pulse Pulse Resp BP BP 06/08/20 10:21 116/57 L 06/08/20 10:00 84 20 06/08/20 09:00 85 85 131/71 06/08/20 08:00 82 22 H 06/08/20 07:51 85 20 06/08/20 07:40 98.4 F 82 26 H 06/08/20 06:00 89 24 H 06/08/20 04:25 98.4 F 82 26 H 06/08/20 04:00 97.1 F L 84 18 06/08/20 02:00 86 26 H 06/08/20 00:20 06/08/20 00:00 90 28 H 06/07/20 23:30 73 06/07/20 23:18 BP BP Pulse Ox 06/08/20 10:21 06/08/20 10:00 128/73 96 06/08/20 09:00 126/71 06/08/20 08:00 122/65 94 L 06/08/20 07:51 97 06/08/20 07:40 116/64 98 06/08/20 06:00 116/64 99 06/08/20 04:25 144/78 H 96 06/08/20 04:00 144/78 H 97 06/08/20 02:00 128/80 98 06/08/20 00:20 95 06/08/20 00:00 126/72 95 06/07/20 23:30 06/07/20 23:18 95 Weight Admit Weight 299 lb 9.731 oz Weight 252 lb Most Recent Monitor Data Heart Rate from ECG 82 NIBP 110/64 NIBP BP-Mean 79 Respiration from ECG 25 SpO2 93 I&O: 06/07/20 06/08/20 06/09/20 06:59 06:59 06:59 Intake Total 100 490 Output Total 8900 3300 400 Balance -8800 -2810 -400 Result Diagrams: 06/08/20 04:40 06/08/20 04:40 Hospitalist ROS - Medication Medications: Active Medications Generic Name Dose Route Start Last Admin Trade Name Freq PRN Reason Stop Dose Admin Acetaminophen 650 mg 05/27/20 03:30 06/08/20 10:22 Acetaminophen 325 Mg Tab PO 650 mg Q4H PRN Administration Headache/Fever/Mild Pain (1-3) Acetaminophen 650 mg 05/27/20 03:30 05/27/20 22:23 Acetaminophen 650 Mg Suppository DC 650 mg Q4H PRN Administration Headache/Fever/Mild Pain (1-3) Albuterol/Ipratropium 3 ml 05/29/20 01:00 06/08/20 07:51 Ipratropium/Albuterol Sulfate 3 Ml Neb NEB 3 ml [id number] HALIE Administration Carvedilol 6.25 mg 05/27/20 09:00 06/08/20 10:21 Carvedilol 6.25 Mg Tab PO 6.25 mg BID HALIE Administration Duloxetine HCl 30 mg 05/29/20 09:00 06/08/20 10:21 Duloxetine 30 Mg Cap PO 30 mg DAILY HALIE Administration Enoxaparin Sodium 40 mg 05/27/20 09:00 06/08/20 10:23 Enoxaparin Sodium 40 Mg/0.4 Ml Syringe SC 40 mg 0900 HALIE Administration Laxative/Stool Softener 1 each 06/07/20 09:26 06/07/20 13:34 Laxative Of Choice PO 1 each DAILY PRN Administration Constipation Methylprednisolone Sodium Succinate 40 mg 05/30/20 21:00 06/08/20 10:22 Methylprednisolone Sod Succ 40 Mg Vial IVP 40 mg BID HALIE Administration Mometasone Furoate/Formoterol Fumar 2 puff 05/28/20 18:30 06/08/20 07:59 Mometasone 200 Mcg/Formoterol 5 Mcg 120 Puff Inhaler INH 2 puff BID-RT HALIE Administration Pantoprazole Sodium 40 mg 06/06/20 09:00 06/08/20 10:21 Pantoprazole 40 Mg Granules Packet PER TUBE 40 mg DAILY HALIE Administration Propofol 1,000 mg 05/28/20 19:30 06/04/20 18:18 Propofol 1,000 Mg/100 Ml Vial IV 06/27/20 19:30 1,000 mg INF PRN Administration TO ACHIEVE GOAL RASS Protocol Risperidone 0.25 mg 06/07/20 21:00 06/07/20 20:43 Risperidone 0.25 Mg Tab PO 0.25 mg HS HALIE Administration Saccharomyces Boulardii 250 mg 06/07/20 09:00 06/08/20 10:21 Saccharomyces Boulardii 250 Mg Cap PO 250 mg DAILY HALIE Administration Sodium Chloride 10 ml 05/29/20 09:00 06/08/20 10:20 Flush - Normal Saline 10 Ml Syringe IVF 10 ml Q12HR HALIE Administration Spironolactone 50 mg 05/31/20 08:00 06/08/20 10:20 Spironolactone 25 Mg Tab PO 50 mg QAM-WM HALIE Administration Topiramate 50 mg 05/28/20 21:00 06/08/20 10:21 Topiramate 25 Mg Tab PO 50 mg BID HALIE Administration Torsemide 20 mg 06/08/20 09:00 06/08/20 10:21 Torsemide 20 Mg Tab PO 20 mg DAILY HALIE Administration Hospitalist Exam Vitals: Vital Signs (12 hours) Temp Pulse Pulse Pulse Resp BP BP 06/08/20 10:21 116/57 L 06/08/20 10:00 84 20 06/08/20 09:00 85 85 131/71 06/08/20 08:00 82 22 H 06/08/20 07:51 85 20 06/08/20 07:40 98.4 F 82 26 H 06/08/20 06:00 89 24 H 06/08/20 04:25 98.4 F 82 26 H 06/08/20 04:00 97.1 F L 84 18 06/08/20 02:00 86 26 H 06/08/20 00:20 06/08/20 00:00 90 28 H 06/07/20 23:30 73 06/07/20 23:18 BP BP Pulse Ox 06/08/20 10:21 06/08/20 10:00 128/73 96 06/08/20 09:00 126/71 06/08/20 08:00 122/65 94 L 06/08/20 07:51 97 06/08/20 07:40 116/64 98 06/08/20 06:00 116/64 99 06/08/20 04:25 144/78 H 96 06/08/20 04:00 144/78 H 97 06/08/20 02:00 128/80 98 06/08/20 00:20 95 06/08/20 00:00 126/72 95 06/07/20 23:30 06/07/20 23:18 95 Weight Admit Weight 299 lb 9.731 oz Weight 252 lb Most Recent Monitor Data Heart Rate from ECG 82 NIBP 110/64 NIBP BP-Mean 79 Respiration from ECG 25 SpO2 93 General Appearance: NAD Eye: PERRL ENT: normocephalic atraumatic, no oropharyngeal lesions Neck: supple, symmetric Heart: RRR, no murmur Respiratory: rhonchi Gastrointestinal: soft, non-tender Hosp A/P (1) GALINA (acute kidney injury) Code(s): N17.9 - ACUTE KIDNEY FAILURE, UNSPECIFIED Status: Acute (2) Acute on chronic diastolic heart failure Code(s): I50.33 - ACUTE ON CHRONIC DIASTOLIC (CONGESTIVE) HEART FAILURE Status: Acute (3) Obesity hypoventilation syndrome Code(s): E66.2 - MORBID (SEVERE) OBESITY WITH ALVEOLAR HYPOVENTILATION Status: Chronic (4) Neurofibromatosis Status: Chronic - Plan plan for today 06/08 Renal---galina, alkalosis,and anasarca , being diuresed with Spironolactone, Torsemide. pulmonary ---post extubation, PAH, hypoventilation syndrome, she seems to be improving and currently on NC. solumedrol, nebs. cardiac--she has diastolic dysfunction, on diuresis per nephrology. on Lovenox for DVT prophylaxis.
--- NOTE | 2020-06-08 13:19 | PDOC.NEPPN ---
- Subjective Encounter Date: 06/08/20 Subjective: Seen and examined. No new problem. Weak generaly. - Objective Vital Signs & Weight: Vital Signs (12 hours) Temp Pulse Pulse Pulse Resp BP BP 06/08/20 11:10 98.7 F 79 26 H 06/08/20 10:21 116/57 L 06/08/20 10:00 84 20 06/08/20 09:00 85 85 131/71 06/08/20 08:00 82 22 H 06/08/20 07:51 85 20 06/08/20 07:40 98.4 F 82 26 H 06/08/20 06:00 89 24 H 06/08/20 04:25 98.4 F 82 26 H 06/08/20 04:00 97.1 F L 84 18 06/08/20 02:00 86 26 H BP BP Pulse Ox 06/08/20 11:10 128/73 97 06/08/20 10:21 06/08/20 10:00 128/73 96 06/08/20 09:00 126/71 06/08/20 08:00 122/65 94 L 06/08/20 07:51 97 06/08/20 07:40 116/64 98 06/08/20 06:00 116/64 99 06/08/20 04:25 144/78 H 96 06/08/20 04:00 144/78 H 97 06/08/20 02:00 128/80 98 Weight Admit Weight 299 lb 9.731 oz Weight 252 lb Most Recent Monitor Data Heart Rate from ECG 82 NIBP 110/64 NIBP BP-Mean 79 Respiration from ECG 25 SpO2 93 I&O: 06/07/20 06/08/20 06/09/20 06:59 06:59 06:59 Intake Total 100 490 Output Total 8900 3300 400 Balance -8800 -2810 -400 Result Diagrams: 06/08/20 04:40 06/08/20 04:40 Nephrology ROS - Medication Medications: Active Medications Generic Name Dose Route Start Last Admin Trade Name Freq PRN Reason Stop Dose Admin Acetaminophen 650 mg 05/27/20 03:30 06/08/20 10:22 Acetaminophen 325 Mg Tab PO 650 mg Q4H PRN Administration Headache/Fever/Mild Pain (1-3) Acetaminophen 650 mg 05/27/20 03:30 05/27/20 22:23 Acetaminophen 650 Mg Suppository NM 650 mg Q4H PRN Administration Headache/Fever/Mild Pain (1-3) Albuterol/Ipratropium 3 ml 05/29/20 01:00 06/08/20 07:51 Ipratropium/Albuterol Sulfate 3 Ml Neb NEB 3 ml [id number] HALIE Administration Carvedilol 6.25 mg 05/27/20 09:00 06/08/20 10:21 Carvedilol 6.25 Mg Tab PO 6.25 mg BID HALIE Administration Duloxetine HCl 30 mg 05/29/20 09:00 06/08/20 10:21 Duloxetine 30 Mg Cap PO 30 mg DAILY HALIE Administration Enoxaparin Sodium 40 mg 05/27/20 09:00 06/08/20 10:23 Enoxaparin Sodium 40 Mg/0.4 Ml Syringe SC 40 mg 0900 HALIE Administration Laxative/Stool Softener 1 each 06/07/20 09:26 06/07/20 13:34 Laxative Of Choice PO 1 each DAILY PRN Administration Constipation Methylprednisolone Sodium Succinate 40 mg 05/30/20 21:00 06/08/20 10:22 Methylprednisolone Sod Succ 40 Mg Vial IVP 40 mg BID HALIE Administration Mometasone Furoate/Formoterol Fumar 2 puff 05/28/20 18:30 06/08/20 07:59 Mometasone 200 Mcg/Formoterol 5 Mcg 120 Puff Inhaler INH 2 puff BID-RT HALIE Administration Pantoprazole Sodium 40 mg 06/06/20 09:00 06/08/20 10:21 Pantoprazole 40 Mg Granules Packet PER TUBE 40 mg DAILY HALIE Administration Propofol 1,000 mg 05/28/20 19:30 06/04/20 18:18 Propofol 1,000 Mg/100 Ml Vial IV 06/27/20 19:30 1,000 mg INF PRN Administration TO ACHIEVE GOAL RASS Protocol Risperidone 0.25 mg 06/07/20 21:00 06/07/20 20:43 Risperidone 0.25 Mg Tab PO 0.25 mg HS HALIE Administration Saccharomyces Boulardii 250 mg 06/07/20 09:00 06/08/20 10:21 Saccharomyces Boulardii 250 Mg Cap PO 250 mg DAILY HALIE Administration Sodium Chloride 10 ml 05/29/20 09:00 06/08/20 10:20 Flush - Normal Saline 10 Ml Syringe IVF 10 ml Q12HR HALIE Administration Spironolactone 50 mg 05/31/20 08:00 06/08/20 10:20 Spironolactone 25 Mg Tab PO 50 mg QAM-WM HALIE Administration Topiramate 50 mg 05/28/20 21:00 06/08/20 10:21 Topiramate 25 Mg Tab PO 50 mg BID HALIE Administration Torsemide 20 mg 06/08/20 09:00 06/08/20 10:21 Torsemide 20 Mg Tab PO 20 mg DAILY HALIE Administration - Exam General Appearance: awake alert Eye: anicteric sclera ENT: normocephalic atraumatic Neck: symmetric, no JVD Respiratory - other findings: fair air entry bilaterally Cardiovascular: RRR Gastrointestinal: soft, non-tender, non-distended, normal bowel sounds Gastrointestinal - other findings: cartwright catheter in place Extremities: no edema Neurological: CN's grossly intact Nephrology Results - Labs Result Diagrams: 06/08/20 04:40 06/08/20 04:40 Lab results: WBC 10.4 thou/uL (4.8-10.8) 06/08/20 04:40 Hgb 15.8 g/dL (12.0-16.0) 06/08/20 04:40 Hct 51.0 % (36.0-47.0) H 06/08/20 04:40 MCV 88.3 fL (78.0-98.0) 06/08/20 04:40 Plt Count 178 thou/uL (130-400) 06/08/20 04:40 Neutrophils % 85.6 % (42.0-75.0) H 06/08/20 04:40 Band Neuts % (Manual) 1 % (5-11) L 06/06/20 03:00 ABG pH 7.42 (7.35-7.45) 06/05/20 08:45 ABG pCO2 59.1 mmHg (35.0-45.0) H 06/05/20 08:45 ABG pO2 86.1 mmHg (80.0-100.0) 06/05/20 08:45 Sodium 139 mmol/L (136-145) 06/08/20 04:40 Potassium 3.6 mmol/L (3.5-5.1) 06/08/20 04:40 Chloride 101 mmol/L (98-107) 06/08/20 04:40 Carbon Dioxide 28 mmol/L (22-29) 06/08/20 04:40 BUN 35 mg/dL (9.8-20.1) H 06/08/20 04:40 Creatinine 0.73 mg/dL (0.6-1.1) 06/08/20 04:40 Glucose 141 mg/dL (70-105) H 06/08/20 04:40 Calcium 10.0 mg/dL (7.8-10.44) 06/08/20 04:40 Total Bilirubin 1.1 mg/dL (0.2-1.2) 06/08/20 04:40 AST 21 U/L (5-34) 06/08/20 04:40 ALT 40 U/L (8-55) 06/08/20 04:40 Alkaline Phosphatase 78 U/L (40-110) 06/08/20 04:40 Creatine Kinase 39 U/L (29-168) 05/26/20 21:43 Troponin I 0.013 ng/mL (< 0.028) 05/27/20 12:08 B-Natriuretic Peptide 226.4 pg/mL (0-100) H 05/26/20 21:43 Serum Total Protein 8.2 g/dL (6.0-8.3) 06/08/20 04:40 Albumin 3.9 g/dL (3.5-5.0) 06/08/20 04:40 Urine Ketones Negative mg/dL (Negative) 05/27/20 00:00 Urine Blood Negative (Negative) 05/27/20 00:00 Urine Nitrite Negative (Negative) 05/27/20 00:00 Ur Leukocyte Esterase Negative Ozzy/uL (Negative) 05/27/20 00:00 Sodium 139 mmol/L (136-145) 06/08/20 04:40 Potassium 3.6 mmol/L (3.5-5.1) 06/08/20 04:40 Chloride 101 mmol/L (98-107) 06/08/20 04:40 Carbon Dioxide 28 mmol/L (22-29) 06/08/20 04:40 Anion Gap 14 mmol/L (10-20) 06/08/20 04:40 BUN 35 mg/dL (9.8-20.1) H 06/08/20 04:40 Creatinine 0.73 mg/dL (0.6-1.1) 06/08/20 04:40 Glucose 141 mg/dL (70-105) H 06/08/20 04:40 Calcium 10.0 mg/dL (7.8-10.44) 06/08/20 04:40 Phosphorus 2.7 mg/dL (2.3-4.7) 06/06/20 03:00 Magnesium 1.8 mg/dL (1.6-2.6) 06/06/20 03:00 Albumin 3.9 g/dL (3.5-5.0) 06/08/20 04:40 Nephrology AP PN - Plan Anasarca: Due to fluid resuscitation, hypoalbuminemia and mitral regurgitation. Improved with diuretics GALINA: Due to hemodynamic factors related to volume depletion and ACEI use. FENa and FEurae are consistent. Creat is stable while BUN is trending down Hyperkalemia: Resolved Metabolic acidosis: 2/2 GALINA. Resolved. Respiratory acidosis: Improved with Intubation Alkalosis: Due to diuretic and compensation to respiratory acidosis. Improving with reduction of diuretic Morbid obesity with presumed KASI/OHS. COPD Neurofibromatosis. Hypercalcemia: due to thiazide and intravascular contraction. Resolved with discontinuation of thiazide. Acute respiratory failure. S/p intubation. Extubated 06/06/20 PLAN Continue spironolactone and torsemide. Monitor intake and output. Follow renal function and electrolytes. Will DC cartwright catheter tomorrow likely if renal function and urine output are acceptable.
--- NOTE | 2020-06-08 14:29 | PRG ---
DATE OF SERVICE: 06/08/2020 SUBJECTIVE: Luma Parr is clinically unchanged. She is encephalopathic. She thinks she is at home. She is afebrile. OBJECTIVE: VITAL SIGNS: Heart rate is in the 70s, blood pressure 116/57, respiratory rates in the teens, oximetry is 96% to 97% on nasal cannula. LUNGS: Remarkable for equal breath sounds. HEART: Regular rhythm. ABDOMEN: Soft. IMPRESSION: 1. Congestive heart failure. 2. Sleep apnea. 3. Obesity. 4. Chronic obstructive pulmonary disease. 5. Neurofibromatosis. 6. Positive cocaine on her drug screen on this admission. PLAN: Continue supportive care. Job ID: [id number]
[2020-06-08] MEDS: HYDROcodone/Acetaminophen 5/325 mg Tablet PO PRN (17:53)
--- NOTE | 2020-06-08 18:39 | EKG ---
Test Reason : Blood Pressure : / mmHG Vent. Rate : 096 BPM Atrial Rate : 096 BPM P-R Int : 148 ms QRS Dur : 064 ms QT Int : 360 ms P-R-T Axes : 074 114 056 degrees QTc Int : 454 ms Normal sinus rhythm Possible Left atrial enlargement Right axis deviation Abnormal ECG Confirmed by BRITTNEE ROUSE ([id number]), technical writer and editor KEY MUNGUIA ([id number] on 06/08/2020 6:38:42 PM Referred By: Confirmed By:BRITTNEE ROUSE
[2020-06-08] MEDS: risperiDONE 0.25 MG TAB PO SCH (20:14)
[2020-06-09] MEDS: Mometasone 200 MCG/Formoterol 5 MCG 120 PUFF INHALER INH SCH ×2 (07:21→21:34)
[2020-06-09 07:41] LABS: ALT (SGPT) 39 U/L (8-55); AST (SGOT) 22 U/L (5-34); Albumin 3.7 g/dL (3.5-5.0); Alkaline Phosphatase 75 U/L (40-110); Anion Gap 14 mmol/L (10-20); BUN (Urea Nitrogen) 33 mg/dL (9.8-20.1); Bilirubin, Total 1.2 mg/dL (0.2-1.2); Calc. Creatinine Clearance 200 mL/min (70-130); Calcium 9.9 mg/dL (7.8-10.44); Carbon Dioxide 26 mmol/L (22-29); Chloride 102 mmol/L (98-107); Globulin 4.3 g/dL (2.4-3.5); Glucose 94 mg/dL (70-105); Potassium 3.7 mmol/L (3.5-5.1); Sodium 138 mmol/L (136-145)
[2020-06-09 08:12] LABS: Hemoglobin 16.1 g/dL (12.0-16.0); Mean Corpuscular Hemoglobin 26.6 pg (27.0-31.0); Mean Corpuscular Volume 88.5 fL (78.0-98.0); Mean Platelet Volume 10.7 fL (7.4-10.4); Platelet Count 183 thou/uL (130-400); RBC Distribution Width 16.9 % (11.5-14.5); Red Blood Cell (RBC) Count 6.04 mill/uL (4.20-5.40); White Blood Cell (WBC) Count 11.1 thou/uL (4.8-10.8)
[2020-06-09 08:43] LABS: #Lymphocytes 1.3 thou/uL (1.20-3.40); #Monocytes 1.4 thou/uL (0.11-0.59); #Neutrophils 8.3 thou/uL (1.40-6.50); %Basophils 0.1 % (0.0-1.0); %Eosinophils 0.2 % (0.0-10.0); %Lymphocytes 12.2 % (21.0-51.0); %Monocytes 12.8 % (0.0-10.0); %Neutrophils 74.8 % (42.0-75.0)
[2020-06-09] MEDS ORDERED: Bisacodyl 10 MG SUPP PR SCH (08:45)
[2020-06-09] MEDS ORDERED: Spironolactone 100 MG TAB PO SCH (08:45)
[2020-06-09] MEDS: Enoxaparin Sodium 40 MG/0.4 ML SYRINGE SC SCH (08:56)
[2020-06-09] MEDS: Carvedilol 6.25 MG TAB PO SCH ×2 (08:56→20:51)
[2020-06-09] MEDS: Topiramate 25 MG TAB PO SCH ×2 (08:56→20:51)
[2020-06-09] MEDS: Saccharomyces boulardii 250 MG CAP PO SCH (08:57)
[2020-06-09] MEDS: Pantoprazole 40 MG GRANULES PACKET PER TUBE SCH (08:57)
[2020-06-09] MEDS: DULoxetine 30 MG CAP PO SCH (08:58)
[2020-06-09] MEDS: methylPREDNISolone Sod Succ 40 MG VIAL IVP SCH (08:58)
[2020-06-09] MEDS: Torsemide 20 MG TAB PO SCH (08:58)
[2020-06-09] MEDS: Spironolactone 25 MG TAB PO SCH (09:35)
--- NOTE | 2020-06-09 10:57 | PDOC.NEPPN ---
- Subjective Encounter Date: 06/09/20 Subjective: Seen Feeling better. Complaining of sore throat. No BM for days. - Objective Vital Signs & Weight: Vital Signs (12 hours) Temp Pulse Resp BP BP Pulse Ox 06/09/20 08:56 116/57 L 06/09/20 08:00 97 06/09/20 07:45 98.5 F 80 24 H 154/71 H 95 06/09/20 07:22 95 06/09/20 07:20 82 95 06/09/20 05:50 74 12 130/70 98 06/09/20 04:00 98.6 F 75 12 125/76 98 06/09/20 02:00 69 12 118/62 98 06/08/20 23:45 98.4 F 76 22 H 119/69 95 06/08/20 23:09 94 L 06/08/20 23:07 94 L Weight Admit Weight 299 lb 9.731 oz Weight 252 lb Most Recent Monitor Data Heart Rate from ECG 82 NIBP 110/64 NIBP BP-Mean 79 Respiration from ECG 25 SpO2 93 I&O: 06/08/20 06/09/20 06/10/20 06:59 06:59 06:59 Intake Total 490 1450 Output Total 3300 2300 Balance -2810 -850 Result Diagrams: 06/09/20 07:11 06/09/20 07:11 Nephrology ROS - Medication Medications: Active Medications Generic Name Dose Route Start Last Admin Trade Name Freq PRN Reason Stop Dose Admin Acetaminophen 650 mg 05/27/20 03:30 06/08/20 10:22 Acetaminophen 325 Mg Tab PO 650 mg Q4H PRN Administration Headache/Fever/Mild Pain (1-3) Acetaminophen 650 mg 05/27/20 03:30 05/27/20 22:23 Acetaminophen 650 Mg Suppository ND 650 mg Q4H PRN Administration Headache/Fever/Mild Pain (1-3) Hydrocodone Bitart/Acetaminophen 1 tab 06/08/20 17:27 06/08/20 17:53 Hydrocodone/Acetaminophen 5/325 Mg Tablet PO 1 tab Q4H PRN Administration Pain 4-6 Albuterol/Ipratropium 3 ml 05/29/20 01:00 06/09/20 07:20 Ipratropium/Albuterol Sulfate 3 Ml Neb NEB 3 ml [id number] HALIE Administration Carvedilol 6.25 mg 05/27/20 09:00 06/09/20 08:56 Carvedilol 6.25 Mg Tab PO 6.25 mg BID HALIE Administration Duloxetine HCl 30 mg 05/29/20 09:00 06/09/20 08:58 Duloxetine 30 Mg Cap PO 30 mg DAILY HALIE Administration Enoxaparin Sodium 40 mg 05/27/20 09:00 06/09/20 08:56 Enoxaparin Sodium 40 Mg/0.4 Ml Syringe SC 40 mg 0900 HALIE Administration Laxative/Stool Softener 1 each 06/07/20 09:26 06/07/20 13:34 Laxative Of Choice PO 1 each DAILY PRN Administration Constipation Methylprednisolone Sodium Succinate 40 mg 05/30/20 21:00 06/09/20 08:58 Methylprednisolone Sod Succ 40 Mg Vial IVP 40 mg BID HALIE Administration Mometasone Furoate/Formoterol Fumar 2 puff 05/28/20 18:30 06/09/20 07:21 Mometasone 200 Mcg/Formoterol 5 Mcg 120 Puff Inhaler INH 2 puff BID-RT HALIE Administration Pantoprazole Sodium 40 mg 06/06/20 09:00 06/09/20 08:57 Pantoprazole 40 Mg Granules Packet PER TUBE 40 mg DAILY HALIE Administration Propofol 1,000 mg 05/28/20 19:30 06/04/20 18:18 Propofol 1,000 Mg/100 Ml Vial IV 06/27/20 19:30 1,000 mg INF PRN Administration TO ACHIEVE GOAL RASS Protocol Risperidone 0.25 mg 06/07/20 21:00 06/08/20 20:14 Risperidone 0.25 Mg Tab PO 0.25 mg HS HALIE Administration Saccharomyces Boulardii 250 mg 06/07/20 09:00 06/09/20 08:57 Saccharomyces Boulardii 250 Mg Cap PO 250 mg DAILY HALIE Administration Sodium Chloride 10 ml 05/29/20 09:00 06/09/20 09:04 Flush - Normal Saline 10 Ml Syringe IVF 10 ml Q12HR HALIE Administration Topiramate 50 mg 05/28/20 21:00 06/09/20 08:56 Topiramate 25 Mg Tab PO 50 mg BID HALIE Administration Torsemide 40 mg 06/09/20 09:00 06/09/20 08:58 Torsemide 20 Mg Tab PO 40 mg DAILY HALIE Administration - Exam General Appearance: awake alert Eye: anicteric sclera ENT: normocephalic atraumatic Neck: symmetric Respiratory - other findings: fair air entry bilaterally with some transmitted sound Cardiovascular: RRR Gastrointestinal: soft, non-tender, non-distended, normal bowel sounds Gastrointestinal - other findings: cartwright catheter in place Extremities: no edema Neurological: CN's grossly intact, no focal deficits Musculoskeletal: generalized weakness PSYCH: A&O x 3 Nephrology Results - Labs Result Diagrams: 06/09/20 07:11 06/09/20 07:11 Lab results: WBC 11.1 thou/uL (4.8-10.8) H 06/09/20 07:11 Hgb 16.1 g/dL (12.0-16.0) H 06/09/20 07:11 Hct 53.5 % (36.0-47.0) H 06/09/20 07:11 MCV 88.5 fL (78.0-98.0) 06/09/20 07:11 Plt Count 183 thou/uL (130-400) 06/09/20 07:11 Neutrophils % 74.8 % (42.0-75.0) 06/09/20 07:11 Band Neuts % (Manual) 1 % (5-11) L 06/06/20 03:00 ABG pH 7.42 (7.35-7.45) 06/05/20 08:45 ABG pCO2 59.1 mmHg (35.0-45.0) H 06/05/20 08:45 ABG pO2 86.1 mmHg (80.0-100.0) 06/05/20 08:45 Sodium 138 mmol/L (136-145) 06/09/20 07:11 Potassium 3.7 mmol/L (3.5-5.1) 06/09/20 07:11 Chloride 102 mmol/L (98-107) 06/09/20 07:11 Carbon Dioxide 26 mmol/L (22-29) 06/09/20 07:11 BUN 33 mg/dL (9.8-20.1) H 06/09/20 07:11 Creatinine 0.58 mg/dL (0.6-1.1) L 06/09/20 07:11 Glucose 94 mg/dL (70-105) 06/09/20 07:11 Calcium 9.9 mg/dL (7.8-10.44) 06/09/20 07:11 Total Bilirubin 1.2 mg/dL (0.2-1.2) 06/09/20 07:11 AST 22 U/L (5-34) 06/09/20 07:11 ALT 39 U/L (8-55) 06/09/20 07:11 Alkaline Phosphatase 75 U/L (40-110) 06/09/20 07:11 Creatine Kinase 39 U/L (29-168) 05/26/20 21:43 Troponin I 0.013 ng/mL (< 0.028) 05/27/20 12:08 B-Natriuretic Peptide 226.4 pg/mL (0-100) H 05/26/20 21:43 Serum Total Protein 8.0 g/dL (6.0-8.3) 06/09/20 07:11 Albumin 3.7 g/dL (3.5-5.0) 06/09/20 07:11 Urine Ketones Negative mg/dL (Negative) 05/27/20 00:00 Urine Blood Negative (Negative) 05/27/20 00:00 Urine Nitrite Negative (Negative) 05/27/20 00:00 Ur Leukocyte Esterase Negative Ozzy/uL (Negative) 05/27/20 00:00 Sodium 138 mmol/L (136-145) 06/09/20 07:11 Potassium 3.7 mmol/L (3.5-5.1) 06/09/20 07:11 Chloride 102 mmol/L (98-107) 06/09/20 07:11 Carbon Dioxide 26 mmol/L (22-29) 06/09/20 07:11 Anion Gap 14 mmol/L (10-20) 06/09/20 07:11 BUN 33 mg/dL (9.8-20.1) H 06/09/20 07:11 Creatinine 0.58 mg/dL (0.6-1.1) L 06/09/20 07:11 Glucose 94 mg/dL (70-105) 06/09/20 07:11 Calcium 9.9 mg/dL (7.8-10.44) 06/09/20 07:11 Phosphorus 2.7 mg/dL (2.3-4.7) 06/06/20 03:00 Magnesium 1.8 mg/dL (1.6-2.6) 06/06/20 03:00 Albumin 3.7 g/dL (3.5-5.0) 06/09/20 07:11 Nephrology AP PN - Plan Anasarca: Due to fluid resuscitation, hypoalbuminemia and mitral regurgitation. Improved with diuretics. Urine output drop sisgnificantly with dose reduction GALINA: Due to hemodynamic factors related to volume depletion and ACEI use. FENa and FEurae are consistent. Creat/BUN are down further. Hyperkalemia: Resolved Metabolic acidosis: 2/ GALINA. Resolved. Respiratory acidosis: Improved with Intubation Alkalosis: Due to diuretic and compensation to respiratory acidosis. Improving with reduction of diuretic Morbid obesity with presumed KASI/OHS. COPD Neurofibromatosis. Hypercalcemia: due to thiazide and intravascular contraction. Resolved with discontinuation of thiazide. Acute respiratory failure. S/p intubation. Extubated 06/06/20 PLAN Increase spironolactone and torsemide respectively to 100 mg and 40 mg respectively. Monitor intake and output. Follow renal function and electrolytes. Start cepachol prn Give a dose of dulcolax suppository for constipation..
--- NOTE | 2020-06-09 13:12 | PDOC.HOSPP ---
- Subjective Subjective: reports that her throat is sore - Objective Vital Signs & Weight: Vital Signs (12 hours) Temp Pulse Resp BP BP Pulse Ox 06/09/20 12:00 98.5 F 81 26 H 108/64 92 L 06/09/20 08:56 116/57 L 06/09/20 08:00 97 06/09/20 07:45 98.5 F 80 24 H 154/71 H 95 06/09/20 07:22 95 06/09/20 07:20 82 95 06/09/20 05:50 74 12 130/70 98 06/09/20 04:00 98.6 F 75 12 125/76 98 06/09/20 02:00 69 12 118/62 98 Weight Admit Weight 299 lb 9.731 oz Weight 252 lb Most Recent Monitor Data Heart Rate from ECG 82 NIBP 110/64 NIBP BP-Mean 79 Respiration from ECG 25 SpO2 93 I&O: 06/08/20 06/09/20 06/10/20 06:59 06:59 06:59 Intake Total 490 1450 Output Total 3300 2300 Balance -2810 -850 Result Diagrams: 06/09/20 07:11 06/09/20 07:11 Hospitalist ROS - Medication Medications: Active Medications Generic Name Dose Route Start Last Admin Trade Name Freq PRN Reason Stop Dose Admin Acetaminophen 650 mg 05/27/20 03:30 06/08/20 10:22 Acetaminophen 325 Mg Tab PO 650 mg Q4H PRN Administration Headache/Fever/Mild Pain (1-3) Acetaminophen 650 mg 05/27/20 03:30 05/27/20 22:23 Acetaminophen 650 Mg Suppository ID 650 mg Q4H PRN Administration Headache/Fever/Mild Pain (1-3) Hydrocodone Bitart/Acetaminophen 1 tab 06/08/20 17:27 06/08/20 17:53 Hydrocodone/Acetaminophen 5/325 Mg Tablet PO 1 tab Q4H PRN Administration Pain 4-6 Albuterol/Ipratropium 3 ml 05/29/20 01:00 06/09/20 07:20 Ipratropium/Albuterol Sulfate 3 Ml Neb NEB 3 ml [id number] HALIE Administration Carvedilol 6.25 mg 05/27/20 09:00 06/09/20 08:56 Carvedilol 6.25 Mg Tab PO 6.25 mg BID HALIE Administration Duloxetine HCl 30 mg 05/29/20 09:00 06/09/20 08:58 Duloxetine 30 Mg Cap PO 30 mg DAILY HALIE Administration Enoxaparin Sodium 40 mg 05/27/20 09:00 06/09/20 08:56 Enoxaparin Sodium 40 Mg/0.4 Ml Syringe SC 40 mg 0900 HALIE Administration Laxative/Stool Softener 1 each 06/07/20 09:26 06/07/20 13:34 Laxative Of Choice PO 1 each DAILY PRN Administration Constipation Mometasone Furoate/Formoterol Fumar 2 puff 05/28/20 18:30 06/09/20 07:21 Mometasone 200 Mcg/Formoterol 5 Mcg 120 Puff Inhaler INH 2 puff BID-RT HALIE Administration Pantoprazole Sodium 40 mg 06/06/20 09:00 06/09/20 08:57 Pantoprazole 40 Mg Granules Packet PER TUBE 40 mg DAILY HALIE Administration Propofol 1,000 mg 05/28/20 19:30 06/04/20 18:18 Propofol 1,000 Mg/100 Ml Vial IV 06/27/20 19:30 1,000 mg INF PRN Administration TO ACHIEVE GOAL RASS Protocol Risperidone 0.25 mg 06/07/20 21:00 06/08/20 20:14 Risperidone 0.25 Mg Tab PO 0.25 mg HS HALIE Administration Saccharomyces Boulardii 250 mg 06/07/20 09:00 06/09/20 08:57 Saccharomyces Boulardii 250 Mg Cap PO 250 mg DAILY HALIE Administration Sodium Chloride 10 ml 05/29/20 09:00 06/09/20 09:04 Flush - Normal Saline 10 Ml Syringe IVF 10 ml Q12HR HALIE Administration Topiramate 50 mg 05/28/20 21:00 06/09/20 08:56 Topiramate 25 Mg Tab PO 50 mg BID HALIE Administration Torsemide 40 mg 06/09/20 09:00 06/09/20 08:58 Torsemide 20 Mg Tab PO 40 mg DAILY HALIE Administration Hospitalist Exam Vitals: Vital Signs (12 hours) Temp Pulse Resp BP BP Pulse Ox 06/09/20 12:00 98.5 F 81 26 H 108/64 92 L 06/09/20 08:56 116/57 L 06/09/20 08:00 97 06/09/20 07:45 98.5 F 80 24 H 154/71 H 95 06/09/20 07:22 95 06/09/20 07:20 82 95 06/09/20 05:50 74 12 130/70 98 06/09/20 04:00 98.6 F 75 12 125/76 98 06/09/20 02:00 69 12 118/62 98 Weight Admit Weight 299 lb 9.731 oz Weight 252 lb Most Recent Monitor Data Heart Rate from ECG 82 NIBP 110/64 NIBP BP-Mean 79 Respiration from ECG 25 SpO2 93 General Appearance: NAD Eye: PERRL ENT: normocephalic atraumatic Neck: supple, symmetric Heart: RRR, no murmur Respiratory: CTAB, no wheezes, no rales Gastrointestinal: soft, no guarding Extremities: no cyanosis, no clubbing Hosp A/P (1) GALINA (acute kidney injury) Code(s): N17.9 - ACUTE KIDNEY FAILURE, UNSPECIFIED Status: Acute (2) Acute on chronic diastolic heart failure Code(s): I50.33 - ACUTE ON CHRONIC DIASTOLIC (CONGESTIVE) HEART FAILURE Status: Acute (3) Obesity hypoventilation syndrome Code(s): E66.2 - MORBID (SEVERE) OBESITY WITH ALVEOLAR HYPOVENTILATION Status: Chronic (4) Neurofibromatosis Status: Chronic - Plan plan for today 06/08 Renal---galina, alkalosis,and anasarca , being diuresed with Spironolactone, Torsemide. pulmonary ---post extubation, PAH, hypoventilation syndrome, she seems to be improving and currently on NC. solumedrol, nebs. cardiac--she has diastolic dysfunction, on diuresis per nephrology. on Lovenox for DVT prophylaxis. plan for today 06/09 Renal---nephrology diuresing her, we will continue to monitor her lytes. pulmonary---lungs are clear, seems to be keeping her oxygen around 90% even without supplementation, I will decreased her IV Solu-medrol. Lozenges were added for sore throat. Cardiac--she has diastolic dysfunction being diuresed GI-- she wants to eat solid food, I will upgrade her diet to soft/mechanical soft. On Lovenox for DVT prophylaxis.
[2020-06-09] MEDS: risperiDONE 0.25 MG TAB PO SCH (20:51)
[2020-06-09] MEDS: HYDROcodone/Acetaminophen 5/325 mg Tablet PO PRN (22:46)
[2020-06-10] MEDS: Mometasone 200 MCG/Formoterol 5 MCG 120 PUFF INHALER INH SCH ×2 (06:55→19:22)
[2020-06-10] MEDS: DULoxetine 30 MG CAP PO SCH (08:10)
[2020-06-10] MEDS: Torsemide 20 MG TAB PO SCH (08:10)
[2020-06-10] MEDS: Spironolactone 100 MG TAB PO SCH (08:10)
[2020-06-10] MEDS: Saccharomyces boulardii 250 MG CAP PO SCH (08:10)
[2020-06-10] MEDS: Carvedilol 6.25 MG TAB PO SCH ×2 (08:11→21:44)
[2020-06-10] MEDS: Topiramate 25 MG TAB PO SCH ×2 (08:11→21:45)
[2020-06-10] MEDS: Pantoprazole 40 MG GRANULES PACKET PER TUBE SCH (08:11)
[2020-06-10] MEDS: Enoxaparin Sodium 40 MG/0.4 ML SYRINGE SC SCH (08:11)
[2020-06-10 08:25] LABS: Albumin 3.9 g/dL (3.5-5.0); Anion Gap 16 mmol/L (10-20); BUN (Urea Nitrogen) 38 mg/dL (9.8-20.1); BUN/Creatinine Ratio 49.35; Calc. Creatinine Clearance 132 mL/min (70-130); Carbon Dioxide 29 mmol/L (22-29); Chloride 99 mmol/L (98-107); Glucose 98 mg/dL (70-105); Phosphorus 2.7 mg/dL (2.3-4.7); Potassium 3.5 mmol/L (3.5-5.1); Sodium 140 mmol/L (136-145)
[2020-06-10] MEDS ORDERED: Torsemide 20 MG TAB PO SCH (09:00)
[2020-06-10] MEDS ORDERED: methylPREDNISolone Sod Succ 40 MG VIAL IVP SCH (09:00)
--- NOTE | 2020-06-10 12:32 | PRG ---
DATE OF SERVICE: 06/10/2020 SUBJECTIVE: Luma Parr no longer encephalopathic. OBJECTIVE: VITAL SIGNS: Temperature 97, pulse 87 . CHEST: No wheezing. No crackles. CARDIAC: Normal S1, S2 . IMPRESSION: 1. Respiratory failure secondary to chronic obstructive pulmonary disease. 2. Sleep apnea, severe deconditioning, diastolic dysfunction. PLAN: I am going to discontinue her risperidone. She is pretty close to being discharged home. I have advised her to use her home CPAP every night if she is able to get better. Job ID: [id number]
--- NOTE | 2020-06-10 12:34 | PDOC.NEPPN ---
- Subjective Encounter Date: 06/10/20 Subjective: Seen and examined. Feeling better and responding more - Objective Vital Signs & Weight: Vital Signs (12 hours) Temp Pulse Resp BP BP Pulse Ox 06/10/20 12:00 82 114/74 94 L 06/10/20 10:00 97.3 F L 87 117/76 95 06/10/20 08:11 116/57 L 06/10/20 08:00 93 L 06/10/20 07:19 98.2 F 87 100/63 93 L 06/10/20 06:58 82 16 06/10/20 06:00 76 12 120/75 94 L 06/10/20 04:00 98.6 F 82 12 110/66 93 L 06/10/20 02:00 83 14 101/84 94 L Weight Admit Weight 299 lb 9.731 oz Weight 220 lb 3.2 oz Most Recent Monitor Data Heart Rate from ECG 82 NIBP 110/64 NIBP BP-Mean 79 Respiration from ECG 25 SpO2 93 I&O: 06/09/20 06/10/20 06/11/20 06:59 06:59 06:59 Intake Total 1450 600 Output Total 2300 2500 Balance -850 -1900 Result Diagrams: 06/09/20 07:11 06/10/20 07:39 Nephrology ROS - Medication Medications: Active Medications Generic Name Dose Route Start Last Admin Trade Name Freq PRN Reason Stop Dose Admin Acetaminophen 650 mg 05/27/20 03:30 06/08/20 10:22 Acetaminophen 325 Mg Tab PO 650 mg Q4H PRN Administration Headache/Fever/Mild Pain (1-3) Acetaminophen 650 mg 05/27/20 03:30 05/27/20 22:23 Acetaminophen 650 Mg Suppository [place] 650 mg Q4H PRN Administration Headache/Fever/Mild Pain (1-3) Hydrocodone Bitart/Acetaminophen 1 tab 06/08/20 17:27 06/09/20 22:46 Hydrocodone/Acetaminophen 5/325 Mg Tablet PO 1 tab Q4H PRN Administration Pain 4-6 Albuterol/Ipratropium 3 ml 05/29/20 01:00 06/10/20 06:58 Ipratropium/Albuterol Sulfate 3 Ml Neb NEB 3 ml [id number] HALIE Administration Carvedilol 6.25 mg 05/27/20 09:00 06/10/20 08:11 Carvedilol 6.25 Mg Tab PO 6.25 mg BID HALIE Administration Duloxetine HCl 30 mg 05/29/20 09:00 06/10/20 08:10 Duloxetine 30 Mg Cap PO 30 mg DAILY HALIE Administration Enoxaparin Sodium 40 mg 05/27/20 09:00 06/10/20 08:11 Enoxaparin Sodium 40 Mg/0.4 Ml Syringe SC 40 mg 09 HALIE Administration Laxative/Stool Softener 1 each 06/07/20 09:26 06/07/20 13:34 Laxative Of Choice PO 1 each DAILY PRN Administration Constipation Mometasone Furoate/Formoterol Fumar 2 puff 05/28/20 18:30 06/10/20 06:55 Mometasone 200 Mcg/Formoterol 5 Mcg 120 Puff Inhaler INH 2 puff BID-RT HALIE Administration Pantoprazole Sodium 40 mg 06/06/20 09:00 06/10/20 08:11 Pantoprazole 40 Mg Granules Packet PER TUBE 40 mg DAILY HALIE Administration Propofol 1,000 mg 05/28/20 19:30 06/04/20 18:18 Propofol 1,000 Mg/100 Ml Vial IV 06/27/20 19:30 1,000 mg INF PRN Administration TO ACHIEVE GOAL RASS Protocol Saccharomyces Boulardii 250 mg 06/07/20 09:00 06/10/20 08:10 Saccharomyces Boulardii 250 Mg Cap PO 250 mg DAILY HALIE Administration Sodium Chloride 10 ml 05/29/20 09:00 06/10/20 08:14 Flush - Normal Saline 10 Ml Syringe IVF 10 ml Q12HR HALIE Administration Spironolactone 100 mg 06/10/20 08:00 06/10/20 08:10 Spironolactone 100 Mg Tab PO 100 mg QAM-WM HALIE Administration Topiramate 50 mg 05/28/20 21:00 06/10/20 08:11 Topiramate 25 Mg Tab PO 50 mg BID HALIE Administration Torsemide 20 mg 06/10/20 09:00 06/10/20 10:16 Torsemide 20 Mg Tab PO Not Given DAILY HALIE - Exam General Appearance: awake alert Eye: anicteric sclera ENT: normocephalic atraumatic, moist mucosa Neck: supple, symmetric Respiratory - other findings: fair air entry bilaterally Cardiovascular: RRR Gastrointestinal: soft, non-tender, non-distended, normal bowel sounds Extremities: no edema Neurological: CN's grossly intact, no focal deficits Musculoskeletal: generalized weakness PSYCH: A&O x 3 Nephrology Results - Labs Result Diagrams: 06/09/20 07:11 06/10/20 07:39 Lab results: WBC 11.1 thou/uL (4.8-10.8) H 06/09/20 07:11 Hgb 16.1 g/dL (12.0-16.0) H 06/09/20 07:11 Hct 53.5 % (36.0-47.0) H 06/09/20 07:11 MCV 88.5 fL (78.0-98.0) 06/09/20 07:11 Plt Count 183 thou/uL (130-400) 06/09/20 07:11 Neutrophils % 74.8 % (42.0-75.0) 06/09/20 07:11 Band Neuts % (Manual) 1 % (5-11) L 06/06/20 03:00 ABG pH 7.42 (7.35-7.45) 06/05/20 08:45 ABG pCO2 59.1 mmHg (35.0-45.0) H 06/05/20 08:45 ABG pO2 86.1 mmHg (80.0-100.0) 06/05/20 08:45 Sodium 140 mmol/L (136-145) 06/10/20 07:39 Potassium 3.5 mmol/L (3.5-5.1) 06/10/20 07:39 Chloride 99 mmol/L (98-107) 06/10/20 07:39 Carbon Dioxide 29 mmol/L (22-29) 06/10/20 07:39 BUN 38 mg/dL (9.8-20.1) H 06/10/20 07:39 Creatinine 0.77 mg/dL (0.6-1.1) 06/10/20 07:39 Glucose 98 mg/dL (70-105) 06/10/20 07:39 Calcium 10.0 mg/dL (7.8-10.44) 06/10/20 07:39 Total Bilirubin 1.2 mg/dL (0.2-1.2) 06/09/20 07:11 AST 22 U/L (5-34) 06/09/20 07:11 ALT 39 U/L (8-55) 06/09/20 07:11 Alkaline Phosphatase 75 U/L (40-110) 06/09/20 07:11 Creatine Kinase 39 U/L (29-168) 05/26/20 21:43 Troponin I 0.013 ng/mL (< 0.028) 05/27/20 12:08 B-Natriuretic Peptide 226.4 pg/mL (0-100) H 05/26/20 21:43 Serum Total Protein 8.0 g/dL (6.0-8.3) 06/09/20 07:11 Albumin 3.9 g/dL (3.5-5.0) 06/10/20 07:39 Urine Ketones Negative mg/dL (Negative) 05/27/20 00:00 Urine Blood Negative (Negative) 05/27/20 00:00 Urine Nitrite Negative (Negative) 05/27/20 00:00 Ur Leukocyte Esterase Negative Ozzy/uL (Negative) 05/27/20 00:00 Sodium 140 mmol/L (136-145) 06/10/20 07:39 Potassium 3.5 mmol/L (3.5-5.1) 06/10/20 07:39 Chloride 99 mmol/L (98-107) 06/10/20 07:39 Carbon Dioxide 29 mmol/L (22-29) 06/10/20 07:39 Anion Gap 16 mmol/L (10-20) 06/10/20 07:39 BUN 38 mg/dL (9.8-20.1) H 06/10/20 07:39 Creatinine 0.77 mg/dL (0.6-1.1) 06/10/20 07:39 Glucose 98 mg/dL (70-105) 06/10/20 07:39 Calcium 10.0 mg/dL (7.8-10.44) 06/10/20 07:39 Phosphorus 2.7 mg/dL (2.3-4.7) 06/10/20 07:39 Magnesium 1.8 mg/dL (1.6-2.6) 06/06/20 03:00 Albumin 3.9 g/dL (3.5-5.0) 06/10/20 07:39 Nephrology AP PN - Plan Anasarca: Due to fluid resuscitation, hypoalbuminemia and mitral regurgitation. Resolved with diuretics. GALINA: Due to hemodynamic factors related to volume depletion and ACEI use. FENa and FEurae are consistent. Resolved. Hyperkalemia: Resolved Metabolic acidosis: 2/ GALINA. Resolved. Respiratory acidosis: Improved with Intubation. Extuibated and doing well Alkalosis: Due to diuretic and compensation to respiratory acidosis. Morbid obesity with presumed KASI/OHS. COPD Neurofibromatosis. Hypercalcemia: due to thiazide and intravascular contraction. Resolved with discontinuation of thiazide. Acute respiratory failure. S/p intubation. Extubated 06/06/20 PLAN Decrease torsemide to 20 daily as oral intake is still suboptimal. May increase dose depeneding on oral intake Continue spironolactone 100 mg daily Monitor intake and output. Follow renal function and electrolytes. DC Price catheter Can be discharged from Nephrology point of view. call for clarification.
--- NOTE | 2020-06-10 13:05 | RAD ---
XR Chest Pa Lat STANDARD History: Effusion Comparison: Radiograph 2003. Radiograph June 06, 2020 Findings: Similar appearance of the unilateral scoliotic curvature hardware. Right paratracheal soft tissue mass is similar. The left IJ central venous catheter tip poorly seen although felt to reside over the mid SVC. No enteric tube is appreciated. Endotracheal tube has been removed. Multiple old rib fractures. Impression: 1. Interval extubation and removal of the enteric tube without complication. 2. Mild improved lung aeration.
[2020-06-10 13:14] VITALS: BMI 37.8
--- NOTE | 2020-06-10 15:56 | PDOC.HOSPP ---
- Subjective Encounter Date: 06/10/20 Subjective: Well-appearing - Objective Vital Signs & Weight: Vital Signs (12 hours) Temp Pulse Resp BP BP BP Pulse Ox 06/10/20 14:38 90 20 06/10/20 14:13 98 F 120/59 L 120/59 L 06/10/20 12:00 82 114/74 94 L 06/10/20 10:00 97.3 F L 87 117/76 95 06/10/20 08:11 116/57 L 06/10/20 08:00 93 L 06/10/20 07:19 98.2 F 87 100/63 93 L 06/10/20 06:58 82 16 06/10/20 06:00 76 12 120/75 94 L 06/10/20 04:00 98.6 F 82 12 110/66 93 L Weight Admit Weight 299 lb 9.731 oz Weight 220 lb 3.2 oz Most Recent Monitor Data Heart Rate from ECG 82 NIBP 110/64 NIBP BP-Mean 79 Respiration from ECG 25 SpO2 93 I&O: 06/09/20 06/10/20 06/11/20 06:59 06:59 06:59 Intake Total 1450 600 Output Total 2300 2500 Balance -850 -1900 Result Diagrams: 06/09/20 07:11 06/10/20 07:39 Hospitalist ROS - Medication Medications: Active Medications Generic Name Dose Route Start Last Admin Trade Name Freq PRN Reason Stop Dose Admin Acetaminophen 650 mg 05/27/20 03:30 06/08/20 10:22 Acetaminophen 325 Mg Tab PO 650 mg Q4H PRN Administration Headache/Fever/Mild Pain (1-3) Acetaminophen 650 mg 05/27/20 03:30 05/27/20 22:23 Acetaminophen 650 Mg Suppository [place] 650 mg Q4H PRN Administration Headache/Fever/Mild Pain (1-3) Hydrocodone Bitart/Acetaminophen 1 tab 06/08/20 17:27 06/09/20 22:46 Hydrocodone/Acetaminophen 5/325 Mg Tablet PO 1 tab Q4H PRN Administration Pain 4-6 Albuterol/Ipratropium 3 ml 05/29/20 01:00 06/10/20 14:38 Ipratropium/Albuterol Sulfate 3 Ml Neb NEB 3 ml [id number] HALIE Administration Carvedilol 6.25 mg 05/27/20 09:00 06/10/20 08:11 Carvedilol 6.25 Mg Tab PO 6.25 mg BID HALIE Administration Duloxetine HCl 30 mg 05/29/20 09:00 06/10/20 08:10 Duloxetine 30 Mg Cap PO 30 mg DAILY HALIE Administration Enoxaparin Sodium 40 mg 05/27/20 09:00 06/10/20 08:11 Enoxaparin Sodium 40 Mg/0.4 Ml Syringe SC 40 mg 0900 HALIE Administration Laxative/Stool Softener 1 each 06/07/20 09:26 06/07/20 13:34 Laxative Of Choice PO 1 each DAILY PRN Administration Constipation Mometasone Furoate/Formoterol Fumar 2 puff 05/28/20 18:30 06/10/20 06:55 Mometasone 200 Mcg/Formoterol 5 Mcg 120 Puff Inhaler INH 2 puff BID-RT HALIE Administration Pantoprazole Sodium 40 mg 06/06/20 09:00 06/10/20 08:11 Pantoprazole 40 Mg Granules Packet PER TUBE 40 mg DAILY HALIE Administration Propofol 1,000 mg 05/28/20 19:30 06/04/20 18:18 Propofol 1,000 Mg/100 Ml Vial IV 06/27/20 19:30 1,000 mg INF PRN Administration TO ACHIEVE GOAL RASS Protocol Saccharomyces Boulardii 250 mg 06/07/20 09:00 06/10/20 08:10 Saccharomyces Boulardii 250 Mg Cap PO 250 mg DAILY HALIE Administration Sodium Chloride 10 ml 05/29/20 09:00 06/10/20 08:14 Flush - Normal Saline 10 Ml Syringe IVF 10 ml Q12HR HALIE Administration Spironolactone 100 mg 06/10/20 08:00 06/10/20 08:10 Spironolactone 100 Mg Tab PO 100 mg QAM-WM HALIE Administration Topiramate 50 mg 05/28/20 21:00 06/10/20 08:11 Topiramate 25 Mg Tab PO 50 mg BID HALIE Administration Torsemide 20 mg 06/10/20 09:00 06/10/20 10:16 Torsemide 20 Mg Tab PO Not Given DAILY HALIE Hospitalist Exam Vitals: Vital Signs (12 hours) Temp Pulse Resp BP BP BP Pulse Ox 06/10/20 14:38 90 20 06/10/20 14:13 98 F 120/59 L 120/59 L 06/10/20 12:00 82 114/74 94 L 06/10/20 10:00 97.3 F L 87 117/76 95 06/10/20 08:11 116/57 L 06/10/20 08:00 93 L 06/10/20 07:19 98.2 F 87 100/63 93 L 06/10/20 06:58 82 16 06/10/20 06:00 76 12 120/75 94 L 06/10/20 04:00 98.6 F 82 12 110/66 93 L Weight Admit Weight 299 lb 9.731 oz Weight 220 lb 3.2 oz Most Recent Monitor Data Heart Rate from ECG 82 NIBP 110/64 NIBP BP-Mean 79 Respiration from ECG 25 SpO2 93 General Appearance: NAD Eye: PERRL ENT: normocephalic atraumatic Neck: supple, symmetric Heart: RRR, no murmur Respiratory: CTAB Gastrointestinal: soft, non-tender, non-distended Extremities: no cyanosis, no clubbing Hosp A/P (1) GALINA (acute kidney injury) Code(s): N17.9 - ACUTE KIDNEY FAILURE, UNSPECIFIED Status: Acute (2) Acute on chronic diastolic heart failure Code(s): I50.33 - ACUTE ON CHRONIC DIASTOLIC (CONGESTIVE) HEART FAILURE Status: Acute (3) Obesity hypoventilation syndrome Code(s): E66.2 - MORBID (SEVERE) OBESITY WITH ALVEOLAR HYPOVENTILATION Status: Chronic (4) Neurofibromatosis Status: Chronic - Plan plan for today 06/08 Renal---galina, alkalosis,and anasarca , being diuresed with Spironolactone, Torsemide. pulmonary ---post extubation, PAH, hypoventilation syndrome, she seems to be improving and currently on NC. solumedrol, nebs. cardiac--she has diastolic dysfunction, on diuresis per nephrology. on Lovenox for DVT prophylaxis. plan for today 06/09 Renal---nephrology diuresing her, we will continue to monitor her lytes. pulmonary---lungs are clear, seems to be keeping her oxygen around 90% even without supplementation, I will decreased her IV Solu-medrol. Lozenges were added for sore throat. Cardiac--she has diastolic dysfunction being diuresed GI-- she wants to eat solid food, I will upgrade her diet to soft/mechanical soft. On Lovenox for DVT prophylaxis. Plan for today 06/10 Renal----still adjusting her diuretics and there was a decrease in the dose of her Torsemide, she continues to be on spironolactone. Pulmonary--- lungs are clear, she is off oxygen today, she is transition to p.o. prednisone Cardiac--- she has diastolic dysfunction and continues to be diuresed. GI--- she was started on a diet tolerating soft consistency. She is on Lovenox for DVT prophylaxis I consulted case management for possible home health, and touching base with a antique automobiles repairer for possible discharge in a.m.
[2020-06-10] MEDS: Cepastat Lozenges 1 LOZ PO PRN ×2 (18:39→21:44)
[2020-06-10] MEDS: HYDROcodone/Acetaminophen 5/325 mg Tablet PO PRN (21:44)
[2020-06-11 05:38] LABS: Albumin 3.8 g/dL (3.5-5.0); Anion Gap 16 mmol/L (10-20); BUN (Urea Nitrogen) 39 mg/dL (9.8-20.1); BUN/Creatinine Ratio 51.32; Calc. Creatinine Clearance 133 mL/min (70-130); Calcium 9.7 mg/dL (7.8-10.44); Carbon Dioxide 25 mmol/L (22-29); Chloride 99 mmol/L (98-107); Glucose 112 mg/dL (70-105); Phosphorus 4.4 mg/dL (2.3-4.7); Potassium 2.9 mmol/L (3.5-5.1); Sodium 137 mmol/L (136-145)
[2020-06-11] MEDS ORDERED: Potassium Chloride 20 MEQ TAB PO SCH ×2 (07:15→18:00)
[2020-06-11] MEDS: Mometasone 200 MCG/Formoterol 5 MCG 120 PUFF INHALER INH SCH (07:21)
[2020-06-11] MEDS ORDERED: predniSONE 20 MG TAB PO SCH (08:00)
--- NOTE | 2020-06-11 08:15 | PDOC.NEPPN ---
- Subjective Encounter Date: 06/11/20 Subjective: Seen. no new problem. - Objective Vital Signs & Weight: Vital Signs (12 hours) Temp Pulse Resp BP BP BP BP 06/11/20 07:38 98.2 F 80 24 H 123/64 06/11/20 07:20 06/11/20 05:50 77 110/68 06/11/20 04:00 97.1 F L 86 14 118/66 06/11/20 02:00 109 H 14 96/55 L 06/11/20 00:11 06/11/20 00:00 98.1 F 91 16 107/70 06/10/20 21:44 116/57 L Pulse Ox 06/11/20 07:38 91 L 06/11/20 07:20 94 L 06/11/20 05:50 06/11/20 04:00 96 06/11/20 02:00 99 06/11/20 00:11 94 L 06/11/20 00:00 97 06/10/20 21:44 Weight Admit Weight 299 lb 9.731 oz Weight 218 lb Most Recent Monitor Data Heart Rate from ECG 82 NIBP 110/64 NIBP BP-Mean 79 Respiration from ECG 25 SpO2 93 I&O: 06/10/20 06/11/20 06/12/20 06:59 06:59 06:59 Intake Total 600 720 Output Total 2500 1201 Balance -1900 -481 Result Diagrams: 06/09/20 07:11 06/11/20 04:52 Nephrology ROS - Medication Medications: Active Medications Generic Name Dose Route Start Last Admin Trade Name Freq PRN Reason Stop Dose Admin Acetaminophen 650 mg 05/27/20 03:30 06/08/20 10:22 Acetaminophen 325 Mg Tab PO 650 mg Q4H PRN Administration Headache/Fever/Mild Pain (1-3) Acetaminophen 650 mg 05/27/20 03:30 05/27/20 22:23 Acetaminophen [address] 650 mg Q4H PRN Administration Headache/Fever/Mild Pain (1-3) Hydrocodone Bitart/Acetaminophen 1 tab 06/08/20 17:27 06/10/20 21:44 Hydrocodone/Acetaminophen 5/325 Mg Tablet PO 1 tab Q4H PRN Administration Pain 4-6 Albuterol/Ipratropium 3 ml 05/29/20 01:00 06/11/20 07:20 Ipratropium/Albuterol Sulfate 3 Ml Neb NEB 3 ml [id number] HALIE Administration Carvedilol 6.25 mg 05/27/20 09:00 06/10/20 21:44 Carvedilol 6.25 Mg Tab PO 6.25 mg BID HALIE Administration Duloxetine HCl 30 mg 05/29/20 09:00 06/10/20 08:10 Duloxetine 30 Mg Cap PO 30 mg DAILY HALIE Administration Enoxaparin Sodium 40 mg 05/27/20 09:00 06/10/20 08:11 Enoxaparin Sodium 40 Mg/0.4 Ml Syringe SC 40 mg 0900 HALIE Administration Laxative/Stool Softener 1 each 06/07/20 09:26 06/07/20 13:34 Laxative Of Choice PO 1 each DAILY PRN Administration Constipation Mometasone Furoate/Formoterol Fumar 2 puff 05/28/20 18:30 06/11/20 07:21 Mometasone 200 Mcg/Formoterol 5 Mcg 120 Puff Inhaler INH 2 puff BID-RT HALIE Administration Pantoprazole Sodium 40 mg 06/06/20 09:00 06/10/20 08:11 Pantoprazole 40 Mg Granules Packet PER TUBE 40 mg DAILY HALIE Administration Propofol 1,000 mg 05/28/20 19:30 06/04/20 18:18 Propofol 1,000 Mg/100 Ml Vial IV 06/27/20 19:30 1,000 mg INF PRN Administration TO ACHIEVE GOAL RASS Protocol Saccharomyces Boulardii 250 mg 06/07/20 09:00 06/10/20 08:10 Saccharomyces Boulardii 250 Mg Cap PO 250 mg DAILY HALIE Administration Sodium Chloride 10 ml 05/29/20 09:00 06/10/20 21:45 Flush - Normal Saline 10 Ml Syringe IVF 10 ml Q12HR HALIE Administration Spironolactone 100 mg 06/10/20 08:00 06/10/20 08:10 Spironolactone 100 Mg Tab PO 100 mg QAM-WM HALIE Administration Throat Lozenges 1 benjamin 06/09/20 08:18 06/10/20 21:44 Cepastat Lozenges 1 Benjamin PO 1 benjamin Q2H PRN Administration Sore Throat Topiramate 50 mg 05/28/20 21:00 06/10/20 21:45 Topiramate 25 Mg Tab PO 50 mg BID HALIE Administration Torsemide 20 mg 06/10/20 09:00 06/10/20 10:16 Torsemide 20 Mg Tab PO Not Given DAILY HALIE - Exam General Appearance: awake alert Eye: anicteric sclera ENT: normocephalic atraumatic Neck: supple, symmetric Respiratory - other findings: fair air entry bilaterally Cardiovascular: RRR Gastrointestinal: soft, non-distended Extremities: no edema Neurological: CN's grossly intact Musculoskeletal: generalized weakness PSYCH: A&O x 3 Nephrology Results - Labs Result Diagrams: 06/09/20 07:11 06/11/20 04:52 Lab results: WBC 11.1 thou/uL (4.8-10.8) H 06/09/20 07:11 Hgb 16.1 g/dL (12.0-16.0) H 06/09/20 07:11 Hct 53.5 % (36.0-47.0) H 06/09/20 07:11 MCV 88.5 fL (78.0-98.0) 06/09/20 07:11 Plt Count 183 thou/uL (130-400) 06/09/20 07:11 Neutrophils % 74.8 % (42.0-75.0) 06/09/20 07:11 Band Neuts % (Manual) 1 % (5-11) L 06/06/20 03:00 ABG pH 7.42 (7.35-7.45) 06/05/20 08:45 ABG pCO2 59.1 mmHg (35.0-45.0) H 06/05/20 08:45 ABG pO2 86.1 mmHg (80.0-100.0) 06/05/20 08:45 Sodium 137 mmol/L (136-145) 06/11/20 04:52 Potassium 2.9 mmol/L (3.5-5.1) L* 06/11/20 04:52 Chloride 99 mmol/L (98-107) 06/11/20 04:52 Carbon Dioxide 25 mmol/L (22-29) 06/11/20 04:52 BUN 39 mg/dL (9.8-20.1) H 06/11/20 04:52 Creatinine 0.76 mg/dL (0.6-1.1) 06/11/20 04:52 Glucose 112 mg/dL (70-105) H 06/11/20 04:52 Calcium 9.7 mg/dL (7.8-10.44) 06/11/20 04:52 Total Bilirubin 1.2 mg/dL (0.2-1.2) 06/09/20 07:11 AST 22 U/L (5-34) 06/09/20 07:11 ALT 39 U/L (8-55) 06/09/20 07:11 Alkaline Phosphatase 75 U/L (40-110) 06/09/20 07:11 Creatine Kinase 39 U/L (29-168) 05/26/20 21:43 Troponin I 0.013 ng/mL (< 0.028) 05/27/20 12:08 B-Natriuretic Peptide 226.4 pg/mL (0-100) H 05/26/20 21:43 Serum Total Protein 8.0 g/dL (6.0-8.3) 06/09/20 07:11 Albumin 3.8 g/dL (3.5-5.0) 06/11/20 04:52 Urine Ketones Negative mg/dL (Negative) 05/27/20 00:00 Urine Blood Negative (Negative) 05/27/20 00:00 Urine Nitrite Negative (Negative) 05/27/20 00:00 Ur Leukocyte Esterase Negative Ozzy/uL (Negative) 05/27/20 00:00 Sodium 137 mmol/L (136-145) 06/11/20 04:52 Potassium 2.9 mmol/L (3.5-5.1) L* 06/11/20 04:52 Chloride 99 mmol/L (98-107) 06/11/20 04:52 Carbon Dioxide 25 mmol/L (22-29) 06/11/20 04:52 Anion Gap 16 mmol/L (10-20) 06/11/20 04:52 BUN 39 mg/dL (9.8-20.1) H 06/11/20 04:52 Creatinine 0.76 mg/dL (0.6-1.1) 06/11/20 04:52 Glucose 112 mg/dL (70-105) H 06/11/20 04:52 Calcium 9.7 mg/dL (7.8-10.44) 06/11/20 04:52 Phosphorus 4.4 mg/dL (2.3-4.7) 06/11/20 04:52 Magnesium 1.8 mg/dL (1.6-2.6) 06/06/20 03:00 Albumin 3.8 g/dL (3.5-5.0) 06/11/20 04:52 Nephrology AP PN - Plan Hypokalemia: due to diuretic therapy. Anasarca: Due to fluid resuscitation, hypoalbuminemia and mitral regurgitation. Resolved with diuretics. Metabolic acidosis: 2/2 GALINA. Resolved. Respiratory acidosis: Improved with Intubation. Extuibated and doing well Alkalosis: Due to diuretic and compensation to respiratory acidosis. Morbid obesity with presumed KASI/OHS. COPD Neurofibromatosis. Hypercalcemia: due to thiazide and intravascular contraction. Resolved with discontinuation of thiazide. Acute respiratory failure. S/p intubation. Extubated 06/06/20 CHF with acute exacerbation PLAN Hold torsemide today. To be restarted tomorrow. Replete serum potassiu, Continue spironolactone 100 mg daily Monitor intake and output. Follow renal function and electrolytes. Can be discharged from Nephrology point of view.
[2020-06-11] MEDS: Enoxaparin Sodium 40 MG/0.4 ML SYRINGE SC SCH (08:35)
[2020-06-11] MEDS: Carvedilol 6.25 MG TAB PO SCH (08:35)
[2020-06-11] MEDS: Pantoprazole 40 MG GRANULES PACKET PER TUBE SCH (08:35)
[2020-06-11] MEDS: DULoxetine 30 MG CAP PO SCH (08:35)
[2020-06-11] MEDS: Saccharomyces boulardii 250 MG CAP PO SCH (08:35)
[2020-06-11] MEDS: Spironolactone 100 MG TAB PO SCH (08:35)
[2020-06-11] MEDS: Topiramate 25 MG TAB PO SCH (08:37)
--- NOTE | 2020-06-11 11:46 | PRG ---
DATE OF SERVICE: 06/11/2020 SUBJECTIVE: Keshav is a 54-year-old morbidly obese female with a BMI of 37. OBJECTIVE: VITAL SIGNS: Temperature 98, pulse 88, respirations 16, sats 90%, blood pressure 106/66. She denies any shortness of breath, coughing, or wheezing. CARDIAC: Normal S1 and S2. No gallops. ABDOMEN: No masses. X-ray yesterday shows improvement of pleural effusion, respiratory failure, morbid obesity, sleep apnea, CHF, diastolic dysfunction. Home tapering dose of steroids over a week. Very important she loses weight. Very important she stays on her CPAP as prescribed. Follow up with the primary care physician and vb developer. Job ID: [id number]
--- NOTE | 2020-06-11 13:53 | PDOC.DS.DS ---
Provider Date of Admission: 05/27/20 02:37 Date of Discharge: 06/11/20 Admitting Provider: Cresencio Reed Consultations: Nephrology, Pulmonary Primary Care Physician: Ronald Vo MD Course Hospital Course: Is a 54-year-old female patient who presented on 05/27 with shortness of breath, history of her back to to be seen for representation she noted that her urine output had decreased even though she was on Lasix she noted progressive swelling of her bilateral lower extremities up to her abdomen. She was admitted as acute decompensation of her heart failure, she was started on Coreg, IV Lasix. On May 28 she was intubated for worsening hypoxia, she continued to be diuresed, she developed acute kidney injury and nephrology was consulted, she was transitioned to spironolactone and Lasix was stopped. She was diagnosed with pulmonary arterial hypertension. Her echocardiogram showed an EF of 55 to 60%, she was diagnosed with diastolic dysfunction and severe mitral regurgitation. She was also diagnosed with morbid obesity with hypoventilation syndrome. She was extubated on June 07, and as the days progressed her breathing improved and she required less and less oxygen and for the past 24 hours she has been off of oxygen, she is eager to go home, she will go home with home health on a tapering dose of steroids and new diuretics and the addition of Coreg. Resuscitation Status: 05/27/20 03:30 Resuscitation Status Routine Resuscitation Status: FULL: Full Resuscitation Lab Results: 06/09/20 07:11 06/11/20 04:52 Abnormal Lab Results - Last 48 hrs 06/10/20 07:39: BUN 38 H 06/11/20 04:52: Potassium 2.9 L*, BUN 39 H Vitals: Vital Signs (12 hours) Temp Pulse Resp BP BP BP Pulse Ox 06/11/20 13:22 94 L 06/11/20 11:02 98.9 F 88 16 106/66 95 06/11/20 08:00 20 93 L 06/11/20 07:38 98.2 F 80 24 H 123/64 91 L 06/11/20 07:20 94 L 06/11/20 05:50 77 110/68 06/11/20 04:00 97.1 F L 86 14 118/66 96 06/11/20 02:00 109 H 14 96/55 L 99 Weight Admit Weight 299 lb 9.731 oz Weight 218 lb Most Recent Monitor Data Heart Rate from ECG 82 NIBP 110/64 NIBP BP-Mean 79 Respiration from ECG 25 SpO2 93 Physical Exam: The patient was seen and examined on the day of discharge. General Appearance: NAD, awake alert Eye: PERRL, anicteric sclera ENT: normocephalic atraumatic Neck: supple, symmetric Respiratory: CTAB, no wheezes, no rales Cardiovascular: RRR, no murmur, no gallops, no rubs, normal peripheral pulses Gastrointestinal: soft, non-tender, non-distended, normal bowel sounds, no palpable masses, no hepatomegaly, no splenomegaly, no bruit, no guarding, no rigidity, tender to palpation, distended, diminished bowl sounds, voluntary guarding Extremities: no cyanosis, no clubbing, no edema, 1+ LE edema, 2+ LE edema, clubbing Skin: normal turgor, no lesions, no rashes, tenting Neurological: cranial nerve grossly intact, normal sensation to touch, no weakness, no focal deficits, no new deficit, facial droop, hemiplegia, speech deficit, vision deficit Problem (1) GALINA (acute kidney injury) Code(s): N17.9 - ACUTE KIDNEY FAILURE, UNSPECIFIED Status: Acute (2) Acute on chronic diastolic heart failure Code(s): I50.33 - ACUTE ON CHRONIC DIASTOLIC (CONGESTIVE) HEART FAILURE Status: Acute (3) Obesity hypoventilation syndrome Code(s): E66.2 - MORBID (SEVERE) OBESITY WITH ALVEOLAR HYPOVENTILATION Status: Chronic (4) Neurofibromatosis Status: Chronic Plan Prescriptions: Spironolactone [Aldactone] 100 mg PO QAM-WM 30 Days #30 tab Cepastat Lozenges 1 bernard PO Q2H PRN 7 Days #14 bernard PRN Reason: Sore Throat Carvedilol [Coreg] 6.25 mg PO BID #60 tab Torsemide [Demadex] 20 mg PO DAILY 30 Days #30 tab Mometasone/Formoterol 200/5 [Dulera 200 Mcg/5 Mcg Inhaler] 2 puff INH BID-RT #1 inh predniSONE [Prednisone] 5 mg PO ASDIR 15 Days #35 tablet Home Medications: Medication Instructions Recorded Confirmed Type Albuterol Sulfate [Proventil Hfa] 2 puff INH Q6H PRN 01/26/21 01/26/21 History DULoxetine [Cymbalta] 30 mg PO DAILY 05/28/20 05/28/20 History Diclofenac Sodium [Diclofenac 2 gm TOP QID PRN 05/28/20 05/28/20 History Sodium 1% Gel] Pregabalin [Lyrica] 300 mg PO BID 05/28/20 05/28/20 History Topiramate [Topamax] 50 mg PO BID 05/28/20 05/28/20 History Carvedilol [Coreg] 6.25 mg PO BID #60 tab 06/11/20 Rx Cepastat Lozenges 1 bernard PO Q2H PRN 7 Days #14 bernard 06/11/20 Rx Mometasone/Formoterol 200/5 2 puff INH BID-RT #1 inh 06/11/20 Rx [Dulera 200 Mcg/5 Mcg Inhaler] Spironolactone [Aldactone] 100 mg PO QAM-WM 30 Days #30 tab 06/11/20 Rx Torsemide [Demadex] 20 mg PO DAILY 30 Days #30 tab 06/11/20 Rx predniSONE [Prednisone] 5 mg PO ASDIR 15 Days #35 tablet 06/11/20 Rx Allergies: aspirin Allergy (Verified 05/28/20 04:25) Nausea Activity:: Activity as Tolerated Referrals: Cardiac Rehab - Cresencio [Outside] - 7 Days (Your doctor has ordered outpatient cardiac rehab for you to begin within 1-2 weeks after you go home from the hospital. The location nearest to you is the [facility]. We will call you in 3-5 days to get you scheduled for your evaluation. If you do not receive a call, please reach out to us at [phone] and request an appointment. ) Ronald Vo MD [Primary Care Provider] - Disposition: HOME HEALTH Quality CORE MEASURES:: HF Did you prescribe antithrombotic therapy?: No Specify reason for no DC antithrombotic therapy: Treatment not indicated Did you prescribe anticoagulant for A Fib/Flutter?: No Specify reason for no DC anticoagulant: Treatment not indicated Did you prescribe a statin medication?: No Specify reason for no DC statin medication: Treatment not indicated
[2020-06-11 15:20] VITALS: BP 114/74; TEMP 98.6
[2020-06-11] MEDS: Cepastat Lozenges 1 LOZ PO PRN (15:23)
== END 2020-06-11 17:17 | disposition home health service (06) | DRG 207 ==
LOC: ERS 21:15 → OBSVTOIN 05-27 02:37 → ERHOLD 05-27 02:37 → 2SE 05-28 02:57 → IMCU/EMU 05-28 19:04 → 2SE 06-07 16:39
PROVIDERS: ADMIT Internal Medicine; ATTEND Internal Medicine
PROC: 5A09357 Assistance with Respiratory Ventilation, Less than 24 Consecutive Hours, Continuous Positive Airway Pressure (ICD-10-PCS; 2020-05-27)
PROC: 5A1955Z Respiratory Ventilation, Greater than 96 Consecutive Hours (ICD-10-PCS; principal; 2020-05-28)
PROC: 0BH17EZ Insertion of Endotracheal Airway into Trachea, Via Natural or Artificial Opening (ICD-10-PCS; 2020-05-28)
DX: E66.2 Morbid (severe) obesity with alveolar hypoventilation (principal); J96.22 Acute and chronic respiratory failure with hypercapnia; I50.33 Acute on chronic diastolic (congestive) heart failure; G93.41 Metabolic encephalopathy; J96.21 Acute and chronic respiratory failure with hypoxia; N17.9 Acute kidney failure, unspecified; E87.4 Mixed disorder of acid-base balance; Z68.43 Body mass index [BMI] 50.0-59.9, adult; I27.20 Pulmonary hypertension, unspecified; I50.811 Acute right heart failure; E88.09 Other disorders of plasma-protein metabolism, not elsewhere classified; I95.9 Hypotension, unspecified; G43.909 Migraine, unspecified, not intractable, without status migrainosus; M41.9 Scoliosis, unspecified; J44.9 Chronic obstructive pulmonary disease, unspecified; I08.3 Combined rheumatic disorders of mitral, aortic and tricuspid valves; F14.10 Cocaine abuse, uncomplicated; E87.5 Hyperkalemia; F17.210 Nicotine dependence, cigarettes, uncomplicated; I87.2 Venous insufficiency (chronic) (peripheral); Z20.822 Contact with and (suspected) exposure to COVID-19; K59.00 Constipation, unspecified; F41.9 Anxiety disorder, unspecified; E86.9 Volume depletion, unspecified; E83.52 Hypercalcemia; T46.4X5A Adverse effect of angiotensin-converting-enzyme inhibitors, initial encounter; T50.2X5A Adverse effect of carbonic-anhydrase inhibitors, benzothiadiazides and other diuretics, initial encounter; T42.6X5A Adverse effect of other antiepileptic and sedative-hypnotic drugs, initial encounter; Z78.1 Physical restraint status; Q85.00 Neurofibromatosis, unspecified; Z68.37 Body mass index [BMI] 37.0-37.9, adult; Z79.899 Other long term (current) drug therapy; Z79.52 Long term (current) use of systemic steroids; Z88.8 Allergy status to other drugs, medicaments and biological substances; Z86.16 Personal history of COVID-19; Z79.891 Long term (current) use of opiate analgesic
CPT/HCPCS: 36415; 36600; 71045; 71046; 71275; 76770; 80048; 80053; 80069; 80306; 81003; 82550; 82570; 82805; 83735; 83880; 84100; 84156; 84300; 84443; 84484; 84540; 85025; 87635; 93005; 93010; 93306; 93975; 94002; 94003; 94150; 94640; 94660; 96372; 96374; 96375; 96376; C9113; G0378; J0696; J1100; J1650; J1815; J1940; J2060; J2405; J2704; J2920; J3010; J3490; J7070; J7512; J7611; J7620; P9047; Q9967; U0003; U0005

== ENCOUNTER 2020-06-22 19:01 | Inpatient (IN) | payer MEDICARE, OTHER ==
[~2020-06-22 19:01] MED LIST changes: -Iopamidol 370 76% 100 ML VIAL ONE; +Iopamidol-370 76% 500 ML 1 ML ONE
[2020-06-22 19:54] LABS: #Basophils 0.1 thou/uL (0.0-0.2); #Eosinphils 0.3 thou/uL (0.0-0.7); #Lymphocytes 1.7 thou/uL (1.20-3.40); #Monocytes 0.8 thou/uL (0.11-0.59); #Neutrophils 5.8 thou/uL (1.40-6.50); %Basophils 0.9 % (0.0-1.0); %Eosinophils 3.1 % (0.0-10.0); %Lymphocytes 19.7 % (21.0-51.0); %Monocytes 8.7 % (0.0-10.0); %Neutrophils 67.6 % (42.0-75.0); Hemoglobin 14.4 g/dL (12.0-16.0); Mean Corpuscular HGB CONC 30.2 g/dL (32.0-36.0); Mean Corpuscular Hemoglobin 26.8 pg (27.0-31.0); Mean Corpuscular Volume 88.9 fL (78.0-98.0); Mean Platelet Volume 9.8 fL (7.4-10.4); Platelet Count 212 thou/uL (130-400); RBC Distribution Width 16.9 % (11.5-14.5); Red Blood Cell (RBC) Count 5.36 mill/uL (4.20-5.40); White Blood Cell (WBC) Count 8.6 thou/uL (4.8-10.8)
--- NOTE | 2020-06-22 20:08 | RAD ---
Portable frontal chest radiograph: 06/22/2020 COMPARISON: 06/22/2013 and 06/10/2020 HISTORY: Trouble breathing FINDINGS: As seen on multiple prior examinations, there is rounded soft tissue density in the right u pper lobe/right lung apex, unchanged when compared to studies dating back to 2013. Mediastinal clips are again noted. Stable Alvares faheem. Old left-sided rib fractures are seen. Heart and mediastinal contours are stable. Mild pulmonary vascular prominence noted. No lobar consoli dation or alveolar edema. IMPRESSION: No significant interval change.
[2020-06-22 20:17] LABS: ALT (SGPT) 38 U/L (8-55); AST (SGOT) 22 U/L (5-34); Albumin 3.7 g/dL (3.5-5.0); Alkaline Phosphatase 72 U/L (40-110); Anion Gap 11 mmol/L (10-20); BUN (Urea Nitrogen) 17 mg/dL (9.8-20.1); Bilirubin, Total 0.4 mg/dL (0.2-1.2); Calc. Creatinine Clearance 0 mL/min (70-130); Calcium 9.4 mg/dL (7.8-10.44); Carbon Dioxide 31 mmol/L (22-29); Chloride 104 mmol/L (98-107); Globulin 3.9 g/dL (2.4-3.5); Glucose 96 mg/dL (70-105); Potassium 4.1 mmol/L (3.5-5.1); Protein, Total 7.6 g/dL (6.0-8.3); Sodium 142 mmol/L (136-145)
--- NOTE | 2020-06-23 00:04 | CT ---
CT angiogram chest: 06/22/2020 COMPARISON: 05/27/2020 HISTORY: Short of breath, congestive heart failure TECHNIQUE: Axial CT imaging at 2.5 mm intervals through the chest with IV contrast using CT angiogram protocol. Coronal and sagittal 3-D reformatted imaging. FINDINGS: Limited assessment of the upper abdomen demonstrates cholelithiasis. No pleural, pericardia l, or mediastinal fluid. Stable thoracic spine Alvares faheem. Stable postoperative clips are seen adjacent to the upper thora cic spine. Streak artifact from postoperative hardware within the thoracic spine limits assessment of the pulmon cyril arterial vasculature supplying the left upper and left lower lobe, especially posteriorly. There is no pulmonary arterial filling defect seen involving the pulmonary arterial trunk or either m ain pulmonary artery. Within the limitations of this examination with respect to motion artifact and streak artifact, there is no convincing evidence for acute pulmonary arterial embolism. 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 No mediastinal, hilar, or axillary lymphadenopathy. Multiple posterior left-sided postoperative rib defects present. Mild increase linear interstitial densities are noted bilaterally, stable. There are stable anterior lateral right upper lobe pulmonary nodules, best seen on axial image 34, measuring up to approximately 5 mm. IMPRESSION: Stable CT angiogram of the chest with numerous chronic findings as described above. Evalu ation for pulmonary arterial embolism is limited as detailed above, with no evidence for acute pulmonary arterial embolism appreciated on this examination.
--- NOTE | 2020-06-23 02:03 | PDOC.HHP ---
Hospitalist HPI Exertional dyspnea History of Present Illness: 54-year-old -Armenian female past medical history of reported CHFunknown EFlast echo unable to review EF report, COPD, neurofibromatosis, recurrent fluid overload status post recent admission for non-STEMI requiring intubation, she improved post diuresis with increasing diuretic. She states since returning home she is continues to have exertional dyspnea which has been gradually progressive and became affected at rest today. She admits to worsening leg sw elling. On presentation she was noted with O2 sats of 87% on room air and started on supplemental O2. She admits to using nocturnal CPAP but denies home O2. She denies any cough or sputum. She denies any chest pain. Her BMP was low normal at 47 per chest x-ray showing mild pulmonary congestion. CT scan shows no evidence of pulmonary embolism. She has been admitted for chronic hypoxic respiratory failure and need for supplemental home O2 Allergies/Adverse Reactions: Allergy/AdvReac Type Severity Reaction Status Date / Time aspirin Allergy Nausea Verified 05/28/20 04:25 Home Medications: Medication Instructions Recorded Confirmed Type Albuterol Sulfate [Proventil Hfa] 2 puff INH Q6H PRN 05/28/20 05/28/20 History DULoxetine [Cymbalta] 30 mg PO DAILY 05/28/20 05/28/20 History Diclofenac Sodium [Diclofenac 2 gm TOP QID PRN 05/28/20 05/28/20 History Sodium 1% Gel] Pregabalin [Lyrica] 300 mg PO BID 05/28/20 05/28/20 History Topiramate [Topamax] 50 mg PO BID 05/28/20 05/28/20 History Carvedilol [Coreg] 6.25 mg PO BID #60 tab 06/11/20 Rx Cepastat Lozenges 1 beranrd PO Q2H PRN 7 Days #14 bernard 06/11/20 Rx Mometasone/Formoterol 200/5 2 puff INH BID-RT #1 inh 06/11/20 Rx [Dulera 200 Mcg/5 Mcg Inhaler] Spironolactone [Aldactone] 100 mg PO QAM-WM 30 Days #30 tab 06/11/20 Rx Torsemide [Demadex] 20 mg PO DAILY 30 Days #30 tab 06/11/20 Rx predniSONE [Prednisone] 5 mg PO ASDIR 15 Days #35 tablet 06/11/20 Rx Past History: PMHx: Neurofibromatosis Presumed diastolic CHF COPD Ex-smoker PSHx: None contributory FHx: No family history of CAD Social: Ex-smoker, no history of alcohol or illicit drug use, fully functional at baseline Hospitalist HPI ROS All other systems reviewed; all pertinent +/- noted in HPI/Subj Hospitalist Exam General Appearance: NAD, awake alert General - other findings: Middle-aged female, mildly obese, on supplemental O2 Eye: PERRL, anicteric sclera ENT: normocephalic atraumatic, no oropharyngeal lesions Neck: supple, symmetric Heart: RRR, no murmur, no gallops Respiratory: CTAB, no ronchi Gastrointestinal: soft, non-tender, no palpable masses Extremities: no cyanosis, no clubbing Skin: normal turgor Skin - other findings: Neurofibromatosis skin lesions Neurological: cranial nerve grossly intact Musculoskeletal: normal tone, normal strength Psychiatric: normal affect, normal behavior, oriented to place Hospitalist Results Result Diagrams: 06/22/20 19:41 06/22/20 19:41 Lab results: Laboratory Last Values WBC 8.6 thou/uL (4.8-10.8) 06/22/20 19:41 RBC 5.36 mill/uL (4.20-5.40) 06/22/20 19:41 Hgb 14.4 g/dL (12.0-16.0) 06/22/20 19:41 Hct 47.6 % (36.0-47.0) H 06/22/20 19:41 MCV 88.9 fL (78.0-98.0) 06/22/20 19:41 MCH 26.8 pg (27.0-31.0) L 06/22/20 19:41 MCHC 30.2 g/dL (32.0-36.0) L 06/22/20 19:41 RDW 16.9 % (11.5-14.5) H 06/22/20 19:41 Plt Count 212 thou/uL (130-400) 06/22/20 19:41 MPV 9.8 fL (7.4-10.4) 06/22/20 19:41 Neutrophils % 67.6 % (42.0-75.0) 06/22/20 19:41 Lymphocytes % 19.7 % (21.0-51.0) L 06/22/20 19:41 Monocytes % 8.7 % (0.0-10.0) 06/22/20 19:41 Eosinophils % 3.1 % (0.0-10.0) 06/22/20 19:41 Basophils % 0.9 % (0.0-1.0) 06/22/20 19:41 Neutrophils # 5.8 thou/uL (1.40-6.50) 06/22/20 19:41 Lymphocytes # 1.7 thou/uL (1.20-3.40) 06/22/20 19:41 Monocytes # 0.8 thou/uL (0.11-0.59) H 06/22/20 19:41 Eosinophils # 0.3 thou/uL (0.0-0.7) 06/22/20 19:41 Basophils # 0.1 thou/uL (0.0-0.2) 06/22/20 19:41 Sodium 142 mmol/L (136-145) 06/22/20 19:41 Potassium 4.1 mmol/L (3.5-5.1) 06/22/20 19:41 Chloride 104 mmol/L (98-107) 06/22/20 19:41 Carbon Dioxide 31 mmol/L (22-29) H 06/22/20 19:41 Anion Gap 11 mmol/L (10-20) 06/22/20 19:41 BUN 17 mg/dL (9.8-20.1) 06/22/20 19:41 Creatinine 0.73 mg/dL (0.6-1.1) 06/22/20 19:41 Estimated GFR (MDRD) Greater than 90 06/22/20 19:41 Glucose 96 mg/dL (70-105) 06/22/20 19:41 Lactic Acid 0.8 mmol/L (0.5-2.2) 06/22/20 19:41 Calcium 9.4 mg/dL (7.8-10.44) 06/22/20 19:41 Total Bilirubin 0.4 mg/dL (0.2-1.2) 06/22/20 19:41 AST 22 U/L (5-34) 06/22/20 19:41 ALT 38 U/L (8-55) 06/22/20 19:41 Alkaline Phosphatase 72 U/L (40-110) 06/22/20 19:41 Troponin I Less than 0.010 ng/mL (< 0.028) 06/22/20 19:41 B-Natriuretic Peptide 47.4 pg/mL (0-100) 06/22/20 19:41 Serum Total Protein 7.6 g/dL (6.0-8.3) 06/22/20 19:41 Albumin 3.7 g/dL (3.5-5.0) 06/22/20 19:41 Globulin 3.9 g/dL (2.4-3.5) H 06/22/20 19:41 Albumin/Globulin Ratio 0.9 g/dL (1.2-2.2) L 06/22/20 19:41 Hospitalist H&P A/P (1) Acute and chronic respiratory failure Code(s): J96.20 - ACUTE AND CHR RESP FAILURE, UNSP W HYPOXIA OR HYPERCAPNIA Status: Acute (2) Congestive heart failure (CHF) Code(s): I50.9 - HEART FAILURE, UNSPECIFIED Status: Acute Qualifiers: Heart failure chronicity: acute (3) Morbid obesity with BMI of 50.0-59.9, adult Code(s): E66.01 - MORBID (SEVERE) OBESITY DUE TO EXCESS CALORIES; Z68.43 - BODY MASS INDEX [BMI] 50.0-59.9, ADULT Status: Chronic (4) Neurofibromatosis Status: Chronic (5) Obesity hypoventilation syndrome Code(s): E66.2 - MORBID (SEVERE) OBESITY WITH ALVEOLAR HYPOVENTILATION Status: Chronic Plan: #Acute on chronic hypoxic respiratory failurecontinue supplemental O2 May be due to component of interstitial lung disease with obesity hypoventilation syndrome/superimposed on baseline diastolic CHF Despite normal BMP, will continue IV diuretics Supplemental O2 Case management for home O2 Diastolic CHFcontinue diuretics COPDstable Advanced directivefull code DVT prophylaxissubcutaneous Lovenox Dispositionwill admit to observation status, possible DC in 24 hours
[2020-06-23] MEDS ORDERED: Ondansetron PF 4 MG/2 ML Vial IVP PRN (02:08)
[2020-06-23] MEDS ORDERED: Acetaminophen 325 MG TAB PO PRN (02:08)
[2020-06-23] MEDS ORDERED: Enoxaparin Sodium 40 MG/0.4 ML SYRINGE SC SCH (02:15)
[2020-06-23] MEDS ORDERED: Albuterol 200 PUFF (6.7GM INHALER) INH PRN (02:36)
[2020-06-23 05:44] LABS: #Basophils 0.1 thou/uL (0.0-0.2); #Eosinphils 0.2 thou/uL (0.0-0.7); #Lymphocytes 1.7 thou/uL (1.20-3.40); #Monocytes 0.6 thou/uL (0.11-0.59); #Neutrophils 5.2 thou/uL (1.40-6.50); %Basophils 0.8 % (0.0-1.0); %Eosinophils 2.7 % (0.0-10.0); %Lymphocytes 22.2 % (21.0-51.0); %Monocytes 7.8 % (0.0-10.0); %Neutrophils 66.6 % (42.0-75.0); Hemoglobin 12.8 g/dL (12.0-16.0); Mean Corpuscular HGB CONC 30.3 g/dL (32.0-36.0); Mean Corpuscular Hemoglobin 27.1 pg (27.0-31.0); Mean Corpuscular Volume 89.3 fL (78.0-98.0); Mean Platelet Volume 9.3 fL (7.4-10.4); Platelet Count 195 thou/uL (130-400); Red Blood Cell (RBC) Count 4.72 mill/uL (4.20-5.40); White Blood Cell (WBC) Count 7.7 thou/uL (4.8-10.8)
[2020-06-23 06:05] LABS: Anion Gap 12 mmol/L (10-20); BUN (Urea Nitrogen) 14 mg/dL (9.8-20.1); Calc. Creatinine Clearance 177 mL/min (70-130); Calcium 9.1 mg/dL (7.8-10.44); Carbon Dioxide 25 mmol/L (22-29); Chloride 105 mmol/L (98-107); Glucose 99 mg/dL (70-105); Potassium 4.1 mmol/L (3.5-5.1); Sodium 138 mmol/L (136-145)
[2020-06-23] MEDS: Mometasone 200 MCG/Formoterol 5 MCG 120 PUFF INHALER INH SCH ×2 (08:15→18:36)
[2020-06-23] MEDS ORDERED: Torsemide 20 MG TAB PO SCH (09:00)
[2020-06-23] MEDS: Carvedilol 6.25 MG TAB PO SCH ×2 (09:50→21:06)
[2020-06-23] MEDS: Pregabalin 75 MG CAP PO SCH ×2 (09:50→21:05)
[2020-06-23] MEDS: DULoxetine 30 MG CAP PO SCH ×2 (09:50→09:56)
[2020-06-23] MEDS: Spironolactone 100 MG TAB PO SCH (09:50)
[2020-06-23] MEDS: Topiramate 25 MG TAB PO SCH ×2 (09:51→21:05)
--- NOTE | 2020-06-23 15:26 | PDOC.HOSPP ---
- Subjective Encounter Date: 06/23/20 Encounter Time: 13:40 Subjective: feels better, is saturating well off nasal canula says she quit smoking after her dc last week from here no chest pain or palp or fever - Objective Vital Signs & Weight: Vital Signs (12 hours) Temp Pulse Resp BP Pulse Ox 06/23/20 14:57 97 18 96 06/23/20 14:34 99.0 F 102 H 22 H 108/71 97 06/23/20 12:00 92 L 06/23/20 11:48 99.2 F 96 16 109/68 93 L 06/23/20 08:15 91 20 96 06/23/20 08:11 98.8 F 93 16 105/69 95 Weight Weight 234 lb 1.6 oz I&O: 06/22/20 06/23/20 06/24/20 06:59 06:59 06:59 Intake Total 120 Balance 120 Result Diagrams: 06/23/20 05:14 06/23/20 05:14 Hospitalist ROS - Medication Medications: Active Medications Generic Name Dose Route Start Last Admin Trade Name Stiven PRN Reason Stop Dose Admin Carvedilol 6.25 mg 06/23/20 09:00 06/23/20 09:50 Carvedilol 6.25 Mg Tab PO 6.25 mg BID HALIE Administration Duloxetine HCl 30 mg 06/23/20 09:00 06/23/20 09:56 Duloxetine 30 Mg Cap PO Not Given DAILY HALIE Mometasone Furoate/Formoterol Fumar 2 puff 06/23/20 06:30 06/23/20 08:15 Mometasone 200 Mcg/Formoterol 5 Mcg 120 Puff Inhaler INH 2 puff BID-RT HALIE Administration Pregabalin 300 mg 06/23/20 09:00 06/23/20 09:50 Pregabalin 75 Mg Cap PO 300 mg BID HALIE Administration Spironolactone 100 mg 06/23/20 08:00 06/23/20 09:50 Spironolactone 100 Mg Tab PO 100 mg QAM-WM HALIE Administration Topiramate 50 mg 06/23/20 09:00 06/23/20 09:51 Topiramate 25 Mg Tab PO Not Given BID HALIE Hospitalist Exam Vitals: Vital Signs (12 hours) Temp Pulse Resp BP Pulse Ox 06/23/20 14:57 97 18 96 06/23/20 14:34 99.0 F 102 H 22 H 108/71 97 06/23/20 12:00 92 L 06/23/20 11:48 99.2 F 96 16 109/68 93 L 06/23/20 08:15 91 20 96 06/23/20 08:11 98.8 F 93 16 105/69 95 Weight Weight 234 lb 1.6 oz General Appearance: awake alert Eye: PERRL, anicteric sclera ENT: no oropharyngeal lesions, moist mucosa Neck: supple, no JVD Heart: RRR, no murmur Respiratory: no wheezes, no rales, rhonchi Gastrointestinal: soft, non-tender, non-distended, normal bowel sounds Extremities: no cyanosis, 1+ LE edema Skin - other findings: has neurofibromas all over Neurological: cranial nerve grossly intact, no focal deficits Psychiatric: normal affect, A&O x 3 Hosp A/P (1) Acute and chronic respiratory failure Code(s): J96.20 - ACUTE AND CHR RESP FAILURE, UNSP W HYPOXIA OR HYPERCAPNIA Status: Acute Qualifiers: Respiratory failure complication: hypoxia Qualified Code(s): J96.21 - Acute and chronic respiratory failure with hypoxia (2) Acute on chronic diastolic heart failure Code(s): I50.33 - ACUTE ON CHRONIC DIASTOLIC (CONGESTIVE) HEART FAILURE Status: Acute (3) Neurofibromatosis Status: Chronic (4) Obesity Code(s): E66.9 - OBESITY, UNSPECIFIED Status: Chronic Qualifiers: Obesity type: unspecified obesity type Obesity classification: adult class 3 (BMI >= 40) Body mass index: BMI 40.0-44.9 (5) Obesity hypoventilation syndrome Code(s): E66.2 - MORBID (SEVERE) OBESITY WITH ALVEOLAR HYPOVENTILATION Status: Chronic - Plan gentle diuresis, prior ef is normal (echo on 05/29/20), has right heart failure with obesity hypoventilation and underlying copd quit smoking a week back to ambulate as tolerated continue coreg, alb and dulera inh, lyrica, cymbalta, topamax as before hemostable dc plan in am if stable to wear cpap when sleeping (has run out of distilled water at home and her cpap is not working with tap water)
[2020-06-23] MEDS ORDERED: Furosemide 40 MG/4 ML VIAL SLOW IVP SCH (15:30)
[2020-06-23 18:04] LABS: SARS-CoV-2 PCR NAA for Saliva Not Detected (NotDetected)
[2020-06-23] MEDS ORDERED: FLU VACC QS2020-21(6MOS UP)/PF 60 MCG/0.5 ML SYRINGE IM ONE (21:00)
[2020-06-23] MEDS: Cepastat Lozenges 1 LOZ PO PRN (21:07)
[2020-06-24] MEDS: Furosemide 20 MG/2 ML VIAL SLOW IVP SCH ×2 (06:12→14:33)
[2020-06-24] MEDS: Cepastat Lozenges 1 LOZ PO PRN ×4 (06:13→20:09)
[2020-06-24 07:42] LABS: Anion Gap 13 mmol/L (10-20); BUN (Urea Nitrogen) 14 mg/dL (9.8-20.1); Calc. Creatinine Clearance 162 mL/min (70-130); Calcium 9.3 mg/dL (7.8-10.44); Carbon Dioxide 30 mmol/L (22-29); Chloride 100 mmol/L (98-107); Glucose 94 mg/dL (70-105); Potassium 3.8 mmol/L (3.5-5.1); Sodium 139 mmol/L (136-145)
[2020-06-24] MEDS: Mometasone 200 MCG/Formoterol 5 MCG 120 PUFF INHALER INH SCH ×2 (07:56→19:20)
[2020-06-24] MEDS: Carvedilol 6.25 MG TAB PO SCH ×2 (08:37→20:04)
[2020-06-24] MEDS: Pregabalin 75 MG CAP PO SCH ×2 (08:38→20:04)
[2020-06-24] MEDS: DULoxetine 30 MG CAP PO SCH (08:39)
[2020-06-24] MEDS: Topiramate 25 MG TAB PO SCH ×2 (08:39→20:06)
[2020-06-24] MEDS: Spironolactone 100 MG TAB PO SCH (09:46)
--- NOTE | 2020-06-24 13:59 | PDOC.HOSPP ---
- Subjective Encounter Date: 06/24/20 Encounter Time: 12:30 Subjective: sob is better, is amb in room no chest pain or palp - Objective Vital Signs & Weight: Vital Signs (12 hours) Temp Pulse Resp BP BP Pulse Ox 06/24/20 11:35 99.0 F 85 16 102/71 92 L 06/24/20 08:37 115/74 06/24/20 08:01 99.2 F 86 16 115/74 95 06/24/20 08:00 95 06/24/20 03:50 99.4 F 92 18 112/75 94 L Weight Weight 228 lb 1.6 oz I&O: 06/23/20 06/24/20 06/25/20 06:59 06:59 06:59 Intake Total 1939 Balance 194 Result Diagrams: 06/23/20 05:14 06/24/20 07:11 Hospitalist ROS - Medication Medications: Active Medications Generic Name Dose Route Start Last Admin Trade Name Freq PRN Reason Stop Dose Admin Albuterol Sulfate 2 puff 06/23/20 02:36 06/23/20 22:11 Albuterol 200 Puff (6.7gm Inhaler) INH 2 puff Q6H PRN Administration SOB &/or Wheezing Carvedilol 6.25 mg 06/23/20 09:00 06/24/20 08:37 Carvedilol 6.25 Mg Tab PO 6.25 mg BID HALIE Administration Duloxetine HCl 30 mg 06/23/20 09:00 06/24/20 08:39 Duloxetine 30 Mg Cap PO Not Given DAILY HALIE Furosemide 20 mg 06/24/20 06:00 06/24/20 06:12 Furosemide 20 Mg/2 Ml Vial SLOW IVP 20 mg 0600,1400 HALIE Administration Mometasone Furoate/Formoterol Fumar 2 puff 06/23/20 06:30 06/24/20 07:56 Mometasone 200 Mcg/Formoterol 5 Mcg 120 Puff Inhaler INH 2 puff BID-RT HALIE Administration Pregabalin 300 mg 06/23/20 09:00 06/24/20 08:38 Pregabalin 75 Mg Cap PO 300 mg BID HALIE Administration Spironolactone 100 mg 06/23/20 08:00 06/24/20 09:46 Spironolactone 100 Mg Tab PO 100 mg QAM-WM HALIE Administration Throat Lozenges 1 benjamin 06/23/20 02:10 06/24/20 08:40 Cepastat Lozenges 1 Benjamin PO 1 benjamin Q2H PRN Administration Sore Throat Topiramate 50 mg 06/23/20 09:00 06/24/20 08:39 Topiramate 25 Mg Tab PO Not Given BID [facility] Hospitalist Exam Vitals: Vital Signs (12 hours) Temp Pulse Resp BP BP Pulse Ox 06/24/20 11:35 99.0 F 85 16 102/71 92 L 06/24/20 08:37 115/74 06/24/20 08:01 99.2 F 86 16 115/74 95 06/24/20 08:00 95 06/24/20 03:50 99.4 F 92 18 112/75 94 L Weight Weight 228 lb 1.6 oz General Appearance: NAD, awake alert Eye: PERRL, anicteric sclera ENT: no oropharyngeal lesions, moist mucosa Neck: supple, no JVD Heart: RRR, no murmur Respiratory: no wheezes, no rales Gastrointestinal: soft, non-tender, non-distended, normal bowel sounds Extremities: no cyanosis, 1+ LE edema Neurological: cranial nerve grossly intact, no focal deficits Psychiatric: normal affect, A&O x 3 Hosp A/P (1) Acute and chronic respiratory failure Code(s): J96.20 - ACUTE AND CHR RESP FAILURE, UNSP W HYPOXIA OR HYPERCAPNIA Status: Acute Qualifiers: Respiratory failure complication: hypoxia Qualified Code(s): J96.21 - Acute and chronic respiratory failure with hypoxia (2) Acute on chronic diastolic heart failure Code(s): I50.33 - ACUTE ON CHRONIC DIASTOLIC (CONGESTIVE) HEART FAILURE Status: Acute (3) Neurofibromatosis Status: Chronic (4) Obesity Code(s): E66.9 - OBESITY, UNSPECIFIED Status: Chronic Qualifiers: Obesity type: unspecified obesity type Obesity classification: adult class 3 (BMI >= 40) Body mass index: BMI 40.0-44.9 (5) Obesity hypoventilation syndrome Code(s): E66.2 - MORBID (SEVERE) OBESITY WITH ALVEOLAR HYPOVENTILATION Status: Chronic - Plan gentle diuresis, prior ef is normal (echo on 05/29/20), has right heart failure with obesity hypoventilation and underlying copd quit smoking a week back to ambulate as tolerated continue coreg, alb and dulera inh, lyrica, cymbalta, topamax as before hemostable dc plan in am, continue diuresis, is on room air and saturating better. to wear cpap when sleeping (has run out of distilled water at home and her cpap is not working with tap water)
[2020-06-25] MEDS ORDERED: Diclofenac 1% 100 GM GEL TP PRN (00:43)
[2020-06-25] MEDS: Furosemide 20 MG/2 ML VIAL SLOW IVP SCH ×2 (06:13→14:10)
[2020-06-25 06:16] VITALS: BMI 38.0
[2020-06-25 07:19] LABS: Anion Gap 14 mmol/L (10-20); BUN (Urea Nitrogen) 15 mg/dL (9.8-20.1); Calc. Creatinine Clearance 157 mL/min (70-130); Calcium 9.5 mg/dL (7.8-10.44); Carbon Dioxide 25 mmol/L (22-29); Chloride 102 mmol/L (98-107); Glucose 103 mg/dL (70-105); Potassium 4.4 mmol/L (3.5-5.1); Sodium 137 mmol/L (136-145)
[2020-06-25] MEDS: Mometasone 200 MCG/Formoterol 5 MCG 120 PUFF INHALER INH SCH ×2 (07:25→19:17)
[2020-06-25] MEDS: Pregabalin 75 MG CAP PO SCH ×2 (08:20→20:07)
[2020-06-25] MEDS: Spironolactone 100 MG TAB PO SCH (08:20)
[2020-06-25] MEDS: Carvedilol 6.25 MG TAB PO SCH ×2 (08:22→20:07)
[2020-06-25] MEDS: DULoxetine 30 MG CAP PO SCH (08:23)
[2020-06-25] MEDS: Topiramate 25 MG TAB PO SCH ×2 (08:24→20:08)
--- NOTE | 2020-06-25 17:59 | PDOC.HOSPP ---
- Subjective Encounter Date: 06/25/20 Encounter Time: 14:00 Subjective: feels better, no sob is comfortable on nasal canula O2 ambulating and eating well - Objective Vital Signs & Weight: Vital Signs (12 hours) Temp Pulse Resp BP BP Pulse Ox 06/25/20 15:54 99.3 F 90 16 100/70 96 06/25/20 11:00 99 F 90 14 100/66 79 L 06/25/20 08:22 108/70 06/25/20 08:00 97 06/25/20 07:53 99.2 F 98 16 108/70 97 Weight Weight 221 lb 3.2 oz I&O: 06/24/20 06/25/20 06/26/20 06:59 06:59 06:59 Intake Total 1940 1342 Balance 1940 1342 Result Diagrams: 06/23/20 05:14 06/25/20 07:01 Hospitalist ROS - Medication Medications: Active Medications Generic Name Dose Route Start Last Admin Trade Name Freq PRN Reason Stop Dose Admin Albuterol Sulfate 2 puff 06/23/20 02:36 06/23/20 22:11 Albuterol 200 Puff (6.7gm Inhaler) INH 2 puff Q6H PRN Administration SOB &/or Wheezing Carvedilol 6.25 mg 06/23/20 09:00 06/25/20 08:22 Carvedilol 6.25 Mg Tab PO 6.25 mg BID HALIE Administration Diclofenac Sodium 2 gm 06/25/20 00:43 06/25/20 01:00 Diclofenac 1% 100 Gm Gel TP 2 gm QIDPRN PRN Administration Pain Duloxetine HCl 30 mg 06/23/20 09:00 06/25/20 08:23 Duloxetine 30 Mg Cap PO Not Given DAILY HALIE Furosemide 20 mg 06/24/20 06:00 06/25/20 14:10 Furosemide 20 Mg/2 Ml Vial SLOW IVP 20 mg 0600,1400 HALIE Administration Mometasone Furoate/Formoterol Fumar 2 puff 06/23/20 06:30 06/25/20 07:25 Mometasone 200 Mcg/Formoterol 5 Mcg 120 Puff Inhaler INH 2 puff BID-RT HALIE Administration Pregabalin 300 mg 06/23/20 09:00 06/25/20 08:20 Pregabalin 75 Mg Cap PO 300 mg BID HALIE Administration Spironolactone 100 mg 06/23/20 08:00 06/25/20 08:20 Spironolactone 100 Mg Tab PO 100 mg QAM-WM HALIE Administration Throat Lozenges 1 benjamin 06/23/20 02:10 06/24/20 20:09 Cepastat Lozenges 1 Benjamin PO 1 benjamin Q2H PRN Administration Sore Throat Topiramate 50 mg 06/23/20 09:00 06/25/20 08:24 Topiramate 25 Mg Tab PO Not Given BID [facility] Hospitalist Exam Vitals: Vital Signs (12 hours) Temp Pulse Resp BP BP Pulse Ox 06/25/20 15:54 99.3 F 90 16 100/70 96 06/25/20 11:00 99 F 90 14 100/66 79 L 06/25/20 08:22 108/70 06/25/20 08:00 97 06/25/20 07:53 99.2 F 98 16 108/70 97 Weight Weight 221 lb 3.2 oz General Appearance: awake alert Eye: PERRL, anicteric sclera ENT: no oropharyngeal lesions, moist mucosa Neck: supple, no JVD Heart: RRR, no murmur Respiratory: no wheezes, no rales Gastrointestinal: soft, non-tender, non-distended, normal bowel sounds Extremities: no cyanosis, no edema Skin - other findings: numerous neurofibromas all over Neurological: cranial nerve grossly intact, no focal deficits Psychiatric: normal affect, A&O x 3 Hosp A/P (1) Acute and chronic respiratory failure Code(s): J96.20 - ACUTE AND CHR RESP FAILURE, UNSP W HYPOXIA OR HYPERCAPNIA Status: Acute Qualifiers: Respiratory failure complication: hypoxia Qualified Code(s): J96.21 - Acute and chronic respiratory failure with hypoxia (2) Acute on chronic diastolic heart failure Code(s): I50.33 - ACUTE ON CHRONIC DIASTOLIC (CONGESTIVE) HEART FAILURE Status: Acute (3) Neurofibromatosis Status: Chronic (4) Obesity Code(s): E66.9 - OBESITY, UNSPECIFIED Status: Chronic Qualifiers: Obesity type: unspecified obesity type Obesity classification: adult class 3 (BMI >= 40) Body mass index: BMI 40.0-44.9 (5) Obesity hypoventilation syndrome Code(s): E66.2 - MORBID (SEVERE) OBESITY WITH ALVEOLAR HYPOVENTILATION Status: Chronic (6) COPD exacerbation Code(s): J44.1 - CHRONIC OBSTRUCTIVE PULMONARY DISEASE W (ACUTE) EXACERBATION Status: Acute - Plan gentle diuresis, prior ef is normal (echo on 05/29/20), has right heart failure with obesity hypoventilation and underlying copd quit smoking a week back to ambulate as tolerated continue coreg, alb and dulera inh, lyrica, cymbalta, topamax as before hemostable may dc anytime her home O2 is arranged. Per CM this will be delivered in am? to wear cpap when sleeping (has run out of distilled water at home and her cpap is not working with tap water)
[2020-06-25] MEDS: Cepastat Lozenges 1 LOZ PO PRN (22:29)
[2020-06-26] MEDS ORDERED: Melatonin 3 MG TAB PO SCH (03:45)
[2020-06-26] MEDS: Furosemide 20 MG TAB PO SCH ×2 (06:08→13:40)
[2020-06-26] MEDS: Mometasone 200 MCG/Formoterol 5 MCG 120 PUFF INHALER INH SCH (06:39)
[2020-06-26] MEDS: Pregabalin 75 MG CAP PO SCH (08:14)
[2020-06-26] MEDS: Spironolactone 100 MG TAB PO SCH (08:15)
[2020-06-26] MEDS: Carvedilol 6.25 MG TAB PO SCH (08:15)
[2020-06-26] MEDS: DULoxetine 30 MG CAP PO SCH (08:16)
[2020-06-26] MEDS: Topiramate 25 MG TAB PO SCH (08:16)
[2020-06-26 16:16] VITALS: BP 93/57; TEMP 98
--- NOTE | 2020-06-26 17:21 | DIS ---
DATE OF ADMISSION: 06/24/2020 DATE OF DISCHARGE: 06/26/2020 DISCHARGE DISPOSITION: To home. PRIMARY DISCHARGE DIAGNOSES: 1. Acute on chronic congestive heart failure exacerbation with diastolic dysfunction. 2. Chronic obstructive pulmonary disease exacerbation. 3. Obesity. 4. Generalized neurofibromatosis. 5. Obesity hypoventilation syndrome. 6. Sleep apnea, on CPAP. PROCEDURES DONE DURING HOSPITALIZATION: CT angio chest done showed no evidence of PE. H and H 12 and 42, platelet count 195. BUN 15, creatinine 0.6, albumin 3.7. BNP 47. COVID-19 PCR was not detected on 06/23/2020. DISCHARGE MEDICATIONS: 1. Torsemide 20 mg daily. 2. Spironolactone 100 mg p.o. daily. 3. Carvedilol 6.25 mg twice daily. 4. Albuterol inhaler 2 puffs q.6 hourly p.r.n. 5. Cymbalta 30 mg p.o. daily. 6. Dulera inhaler 2 puffs twice daily. 7. Lyrica 300 mg twice daily. ALLERGIES: TO ASPIRIN. DISCHARGE PLAN: The patient to follow up with her primary care physician, Dr. Ronald Vo in 1 week. BRIEF COURSE DURING HOSPITALIZATION: The patient initially got admitted on the with complaints of shortness of breath. She was essentially admitted for CHF exacerbation with diastolic dysfunction and acute respiratory failure with hypoxia with COPD exacerbation as well. She just quit smoking after her last hospitalization here. She was gently diuresed during her stay here. She was on nasal cannula oxygen and is requiring the same with room air saturations dropping down to 80% at rest. Case Management consultation was requested for setting up home oxygen. The patient is also noncompliant with her CPAP for obstructive sleep apnea. She was counseled with regard to medication compliance, dietary compliance, and followups with primary care physician. She is hemodynamically stable and will be shortly discharged home. Please note, I have seen and examined the patient on the day of discharge. Job ID: [id number]
--- NOTE | 2020-06-28 10:08 | EKG ---
Test Reason : Blood Pressure : / mmHG Vent. Rate : 094 BPM Atrial Rate : 094 BPM P-R Int : 136 ms QRS Dur : 066 ms QT Int : 342 ms P-R-T Axes : 054 099 065 degrees QTc Int : 427 ms Sinus rhythm with occasional Premature ventricular complexes Possible Left atrial enlargement Rightward axis Borderline ECG Confirmed by Armani PLATA ([id number]), field map editor SARABJIT MANE ([id number]) on 06/28/2020 10:08:11 AM Referred By: Confirmed By:Armani PLATA
== END 2020-06-26 16:33 | disposition home or self-care (01) | DRG 291 ==
LOC: ERS 19:01 → SURG A 06-23 00:48 → OBSVTOIN 06-24 07:04
PROVIDERS: ADMIT Internal Medicine; ATTEND Internal Medicine
DX: I50.33 Acute on chronic diastolic (congestive) heart failure (principal); J96.21 Acute and chronic respiratory failure with hypoxia; J44.1 Chronic obstructive pulmonary disease with (acute) exacerbation; Z68.43 Body mass index [BMI] 50.0-59.9, adult; E66.2 Morbid (severe) obesity with alveolar hypoventilation; Z20.822 Contact with and (suspected) exposure to COVID-19; G43.909 Migraine, unspecified, not intractable, without status migrainosus; Z28.21 Immunization not carried out because of patient refusal; Z88.8 Allergy status to other drugs, medicaments and biological substances; Z79.899 Other long term (current) drug therapy; Z79.52 Long term (current) use of systemic steroids; Z87.891 Personal history of nicotine dependence; Q85.00 Neurofibromatosis, unspecified; Z91.19 Patient's noncompliance with other medical treatment and regimen
CPT/HCPCS: 36415; 36416; 71045; 71275; 80048; 80053; 83605; 83880; 84484; 85025; 87635; 93005; 94760; 96372; 96374; 96376; G0378; J1650; J1940; Q9967; U0003; U0005

== ENCOUNTER 2021-08-05 19:24 | Emergency (ER) | payer OTHER, MEDICARE ==
[2021-08-05 20:11] LABS: #Eosinphils 0.1 thou/uL (0.0-0.7); #Monocytes 0.7 thou/uL (0.11-0.59); #Neutrophils 5.8 thou/uL (1.40-6.50); %Basophils 0.5 % (0.0-1.0); %Eosinophils 1.4 % (0.0-10.0); %Lymphocytes 23.4 % (21.0-51.0); %Monocytes 8.3 % (0.0-10.0); %Neutrophils 66.3 % (42.0-75.0); Hemoglobin 15.1 g/dL (12.0-16.0); Mean Corpuscular HGB CONC 29.2 g/dL (32.0-36.0); Mean Corpuscular Hemoglobin 28.5 pg (27.0-31.0); Mean Corpuscular Volume 97.7 fL (78.0-98.0); Platelet Count 222 thou/uL (130-400); RBC Distribution Width 14.3 % (11.5-14.5); Red Blood Cell (RBC) Count 5.28 mill/uL (4.20-5.40); White Blood Cell (WBC) Count 8.7 thou/uL (4.8-10.8)
[2021-08-05 20:27] LABS: Platelet Morphology Comment Appears Adequate; RBC Morphology Normal
[2021-08-05 20:28] LABS: ALT (SGPT) 34 U/L (8-55); AST (SGOT) 19 U/L (5-34); Alkaline Phosphatase 79 U/L (40-110); Anion Gap 12 mmol/L (10-20); BUN (Urea Nitrogen) 11 mg/dL (9.8-20.1); Bilirubin, Total 0.3 mg/dL (0.2-1.2); Calc. Creatinine Clearance 0 mL/min (70-130); Calcium 9.7 mg/dL (7.8-10.44); Carbon Dioxide 31 mmol/L (22-29); Chloride 101 mmol/L (98-107); Globulin 3.5 g/dL (2.4-3.5); Glucose 97 mg/dL (70-105); Potassium 4.7 mmol/L (3.5-5.1); Protein, Total 7.5 g/dL (6.0-8.3); Sodium 139 mmol/L (136-145)
[2021-08-05 20:56] LABS: Actual Bicarbonate (HCO3a) 31.9 mEq/L (22-28); Analyzer IN Cardio ER; Base Excess (BEa) 4.8 mEq/L (-2.0 to +3.0); CO2 Tension 56.7 mmHg (35.0-45.0); Calcium, Ionized (arterial) 1.23 mmol/L (1.12-1.30); Carboxyhemoglobin (COHb) 1.1 gm% (0.0-3.0); Hemoglobin (Hb) 15.2 g/dL (12.0-16.0); O2 Tension (PaO2), arterial 98.8 mmHg (80.0-100.0); Potassium - ABG Lab 4.49 mmol/L (3.70-5.30); pH, Arterial 7.37 (7.35-7.45)
[2021-08-05 20:57] LABS: ALV-art Gradient 115.525 mmHg (0-20); Puncture Site LRA
== END 2021-08-05 22:47 | disposition home or self-care (01) ==
LOC: ERS 19:24
DX: J44.1 Chronic obstructive pulmonary disease with (acute) exacerbation (principal); I50.9 Heart failure, unspecified; F17.210 Nicotine dependence, cigarettes, uncomplicated; Z79.899 Other long term (current) drug therapy
CPT/HCPCS: 36415; 36600; 71045; 71275; 80053; 82805; 83605; 83880; 84484; 85025; 87040; 93005; 94660; 94760

== ENCOUNTER 2021-09-12 20:20 | Inpatient (IN) | payer MEDICARE, OTHER ==
[2021-09-12] MEDS ORDERED: Furosemide 40 MG/4 ML VIAL ONE (21:05)
[2021-09-12 21:40] LABS: Hemoglobin 14.2 g/dL (12.0-16.0); Mean Corpuscular HGB CONC 29.8 g/dL (32.0-36.0); Mean Corpuscular Hemoglobin 29.2 pg (27.0-31.0); Mean Platelet Volume 8.2 fL (7.4-10.4); Platelet Count 201 thou/uL (130-400); RBC Distribution Width 13.9 % (11.5-14.5); Red Blood Cell (RBC) Count 4.87 mill/uL (4.20-5.40); White Blood Cell (WBC) Count 8.3 thou/uL (4.8-10.8)
[2021-09-12 21:44] LABS: ALT (SGPT) 50 U/L (8-55); AST (SGOT) 36 U/L (5-34); Albumin 3.9 g/dL (3.5-5.0); Alkaline Phosphatase 89 U/L (40-110); Anion Gap 10 mmol/L (10-20); BUN (Urea Nitrogen) 19 mg/dL (9.8-20.1); Bilirubin, Total 0.3 mg/dL (0.2-1.2); Calc. Creatinine Clearance 0 mL/min (70-130); Calcium 8.7 mg/dL (7.8-10.44); Carbon Dioxide 32 mmol/L (22-29); Chloride 105 mmol/L (98-107); Globulin 3.2 g/dL (2.4-3.5); Glucose 103 mg/dL (70-105); Potassium 4.1 mmol/L (3.5-5.1); Protein, Total 7.1 g/dL (6.0-8.3); Sodium 143 mmol/L (136-145)
[2021-09-12 22:02] LABS: #Eosinphils 0.1 thou/uL (0.0-0.7); #Lymphocytes 1.7 thou/uL (1.20-3.40); #Monocytes 0.8 thou/uL (0.11-0.59); #Neutrophils 5.5 thou/uL (1.40-6.50); %Basophils 0.5 % (0.0-1.0); %Eosinophils 1.7 % (0.0-10.0); %Monocytes 9.3 % (0.0-10.0); %Neutrophils 67.5 % (42.0-75.0); Band 1 % (5-11); Eosinophils 3 % (0-10); Hypochromia MODERATE=16-30 cells (100X) (0-5/hpf); Lymphocytes 26 % (21-51); MDiff Complete? YES; Monocytes 6 % (0-10); Neutrophil 63 % (42-75); Platelet Morphology Comment Appears Adequate; Polychromasia SLIGHT = 2-3 cells (100X) (0-2/hpf); Reflex for Review?? NO; Stomatocytes SLIGHT = 2-5 cells (100X) (0-1/hpf)
[2021-09-12] MEDS ORDERED: Cefepime 2 GM VIAL ONE (22:05)
[2021-09-12] MEDS ORDERED: Ondansetron PF 4 MG/2 ML Vial IVP PRN (22:45)
[2021-09-12] MEDS ORDERED: Ondansetron ODT 4 MG TAB SL PRN (22:45)
[2021-09-12] MEDS ORDERED: Magnesium 2 GM/50 ML BAG (IN WATER) ONE (23:07)
[2021-09-12] MEDS ORDERED: Guaifenesin DM 100-10/5 ML UDCUP PO PRN (23:15)
[2021-09-12] MEDS ORDERED: Bisacodyl 5 MG TAB PO PRN (23:15)
[2021-09-12] MEDS ORDERED: HYDROcodone/Acetaminophen 5/325 mg Tablet PO PRN (23:15)
[2021-09-12] MEDS ORDERED: Acetaminophen 325 MG TAB PO PRN (23:15)
[2021-09-12] MEDS ORDERED: Benzonatate 100 MG CAP PO PRN (23:21)
[2021-09-12] MEDS ORDERED: Metolazone 5 MG TAB PO SCH (23:59)
[2021-09-12] MEDS ORDERED: guaiFENesin ER 600 MG TAB PO SCH (23:59)
[2021-09-13 00:08] VITALS: BMI 44.9
[2021-09-13] MEDS: cefTRIAXone\\ROCEPHIN 2 GM in Sodium Chloride 0.9% 100 ML IVPB SCH (01:56)
[2021-09-13] MEDS: Azithromycin 500 MG in Sodium Chloride 0.9% 250 ML 250 ML IVPB SCH (03:03)
[2021-09-13] MEDS ORDERED: Pregabalin 75 MG CAP PO PRN (03:31)
[2021-09-13] MEDS: Furosemide 40 MG/4 ML VIAL SLOW IVP SCH ×2 (05:35→13:03)
[2021-09-13 06:19] LABS: #Lymphocytes 0.7 thou/uL (1.20-3.40); #Monocytes 0.1 thou/uL (0.11-0.59); %Basophils 0.2 % (0.0-1.0); %Eosinophils 0.2 % (0.0-10.0); %Lymphocytes 8.2 % (21.0-51.0); %Monocytes 0.8 % (0.0-10.0); %Neutrophils 90.6 % (42.0-75.0); Hemoglobin 15.5 g/dL (12.0-16.0); Mean Corpuscular HGB CONC 30.7 g/dL (32.0-36.0); Mean Corpuscular Hemoglobin 29.8 pg (27.0-31.0); Mean Corpuscular Volume 96.8 fL (78.0-98.0); Mean Platelet Volume 8.4 fL (7.4-10.4); Platelet Count 226 thou/uL (130-400); RBC Distribution Width 13.8 % (11.5-14.5); Red Blood Cell (RBC) Count 5.22 mill/uL (4.20-5.40); White Blood Cell (WBC) Count 8.8 thou/uL (4.8-10.8)
[2021-09-13 07:04] LABS: ALT (SGPT) 54 U/L (8-55); AST (SGOT) 33 U/L (5-34); Albumin 4.3 g/dL (3.5-5.0); Alkaline Phosphatase 96 U/L (40-110); Anion Gap 14 mmol/L (10-20); BUN (Urea Nitrogen) 19 mg/dL (9.8-20.1); Bilirubin, Total 0.3 mg/dL (0.2-1.2); Calc. Creatinine Clearance 145 mL/min (70-130); Calcium 9.6 mg/dL (7.8-10.44); Carbon Dioxide 29 mmol/L (22-29); Chloride 100 mmol/L (98-107); Globulin 4.3 g/dL (2.4-3.5); Glucose 141 mg/dL (70-105); Potassium 4.4 mmol/L (3.5-5.1); Protein, Total 8.6 g/dL (6.0-8.3); Sodium 139 mmol/L (136-145)
[2021-09-13] MEDS: Mometasone 200 MCG/Formoterol 5 MCG 120 PUFF INHALER INH SCH (07:05)
[2021-09-13] MEDS ORDERED: Iopamidol-370 76% 500 ML 1 ML ONE (10:16)
[2021-09-13] MEDS: guaiFENesin ER 600 MG TAB PO SCH ×2 (10:19→20:06)
[2021-09-13] MEDS: Spironolactone 100 MG TAB PO SCH (10:19)
[2021-09-13] MEDS: Carvedilol 6.25 MG TAB PO SCH ×2 (10:19→20:07)
[2021-09-13] MEDS: Metolazone 5 MG TAB PO SCH (10:19)
[2021-09-13] MEDS: Enoxaparin Sodium 40 MG/0.4 ML SYRINGE SC SCH (10:20)
[2021-09-13 18:53] LABS: SARS-CoV-2 PCR by NAA Not Detected (NotDetected)
[2021-09-13 18:53] LABS: Amphetamine Not Detected (NotDetected); Barbiturates Screen Not Detected (NotDetected); Benzodiazepine Screen Not Detected (NotDetected); Cocaine Metabolite Screen Detected (NotDetected); Methadone Not Detected (NotDetected); Methamphetamine Not Detected (NotDetected); Opiate Screen Not Detected (NotDetected); Oxycodone Screen Not Detected (NotDetected); Phencyclidine (PCP) Not Detected (NotDetected); THC/Cannabinoid Screen Not Detected (NotDetected); Tricyclic Screen Not Detected (NotDetected)
[2021-09-13] MEDS: Zolpidem Tartrate 5 MG TAB PO PRN (22:13)
[2021-09-14] MEDS: cefTRIAXone\\ROCEPHIN 2 GM in Sodium Chloride 0.9% 100 ML IVPB SCH (01:13)
[2021-09-14] MEDS: Azithromycin 500 MG in Sodium Chloride 0.9% 250 ML 250 ML IVPB SCH (02:17)
[2021-09-14] MEDS: Furosemide 40 MG/4 ML VIAL SLOW IVP SCH ×2 (06:31→14:16)
[2021-09-14 06:51] LABS: #Lymphocytes 2.1 thou/uL (1.20-3.40); #Neutrophils 6.9 thou/uL (1.40-6.50); %Basophils 0.4 % (0.0-1.0); %Eosinophils 0.4 % (0.0-10.0); %Lymphocytes 20.3 % (21.0-51.0); %Monocytes 10.1 % (0.0-10.0); %Neutrophils 68.8 % (42.0-75.0); Hemoglobin 15.3 g/dL (12.0-16.0); Mean Corpuscular HGB CONC 31.3 g/dL (32.0-36.0); Mean Corpuscular Hemoglobin 30.4 pg (27.0-31.0); Mean Corpuscular Volume 97.3 fL (78.0-98.0); Mean Platelet Volume 7.9 fL (7.4-10.4); Platelet Count 222 thou/uL (130-400); RBC Distribution Width 14.8 % (11.5-14.5); Red Blood Cell (RBC) Count 5.02 mill/uL (4.20-5.40); White Blood Cell (WBC) Count 10.1 thou/uL (4.8-10.8)
[2021-09-14] MEDS: Mometasone 200 MCG/Formoterol 5 MCG 120 PUFF INHALER INH SCH (07:10)
[2021-09-14 07:20] LABS: Troponin I Less than 0.010 ng/mL (< 0.028)
[2021-09-14 07:47] LABS: Anion Gap 13 mmol/L (10-20); BUN (Urea Nitrogen) 21 mg/dL (9.8-20.1); Calc. Creatinine Clearance 153 mL/min (70-130); Calcium 9.6 mg/dL (7.8-10.44); Carbon Dioxide 36 mmol/L (22-29); Chloride 95 mmol/L (98-107); Glucose 101 mg/dL (70-105); Sodium 140 mmol/L (136-145)
[2021-09-14] MEDS: Carvedilol 6.25 MG TAB PO SCH ×2 (08:16→20:38)
[2021-09-14] MEDS: guaiFENesin ER 600 MG TAB PO SCH ×2 (08:17→20:38)
[2021-09-14] MEDS: Enoxaparin Sodium 40 MG/0.4 ML SYRINGE SC SCH (08:17)
[2021-09-14] MEDS: Spironolactone 100 MG TAB PO SCH (08:17)
[2021-09-14] MEDS: Metolazone 5 MG TAB PO SCH (08:17)
[2021-09-14] MEDS ORDERED: Furosemide 40 MG/4 ML VIAL SLOW IVP SCH (14:15)
[2021-09-14] MEDS: Zolpidem Tartrate 5 MG TAB PO PRN (20:40)
[2021-09-15] MEDS: Mometasone 200 MCG/Formoterol 5 MCG 120 PUFF INHALER INH SCH (06:29)
[2021-09-15 07:59] LABS: #Basophils 0.1 thou/uL (0.0-0.2); #Eosinphils 0.1 thou/uL (0.0-0.7); #Lymphocytes 2.2 thou/uL (1.20-3.40); #Monocytes 0.9 thou/uL (0.11-0.59); #Neutrophils 5.6 thou/uL (1.40-6.50); %Basophils 0.6 % (0.0-1.0); %Eosinophils 1.5 % (0.0-10.0); %Lymphocytes 24.6 % (21.0-51.0); %Monocytes 10.4 % (0.0-10.0); %Neutrophils 62.9 % (42.0-75.0); Hemoglobin 15.8 g/dL (12.0-16.0); Mean Corpuscular HGB CONC 30.3 g/dL (32.0-36.0); Mean Corpuscular Hemoglobin 29.6 pg (27.0-31.0); Mean Corpuscular Volume 97.6 fL (78.0-98.0); Mean Platelet Volume 7.8 fL (7.4-10.4); Platelet Count 234 thou/uL (130-400); RBC Distribution Width 13.8 % (11.5-14.5); Red Blood Cell (RBC) Count 5.34 mill/uL (4.20-5.40); White Blood Cell (WBC) Count 8.8 thou/uL (4.8-10.8)
[2021-09-15 08:14] VITALS: BP 127/84; TEMP 98.9
[2021-09-15 08:16] LABS: BUN (Urea Nitrogen) 23 mg/dL (9.8-20.1); Calc. Creatinine Clearance 142 mL/min (70-130); Calcium 9.7 mg/dL (7.8-10.44); Glucose 106 mg/dL (70-105)
[2021-09-15 08:25] LABS: Anion Gap 17 mmol/L (10-20); Carbon Dioxide 34 mmol/L (22-29); Chloride 89 mmol/L (98-107); Potassium 4.2 mmol/L (3.5-5.1); Sodium 136 mmol/L (136-145)
[2021-09-15] MEDS: Metolazone 5 MG TAB PO SCH (08:31)
[2021-09-15] MEDS: Spironolactone 100 MG TAB PO SCH (08:32)
[2021-09-15] MEDS: guaiFENesin ER 600 MG TAB PO SCH (08:32)
[2021-09-15] MEDS: Enoxaparin Sodium 40 MG/0.4 ML SYRINGE SC SCH (08:32)
[2021-09-15] MEDS: Carvedilol 6.25 MG TAB PO SCH (08:32)
[2021-09-15] MEDS ORDERED: Furosemide 20 MG TAB PO SCH (09:00)
== END 2021-09-15 16:03 | disposition home or self-care (01) | DRG 917 ==
LOC: ERS 20:20 → T4-B 22:31
PROVIDERS: ADMIT Hospitalist; ATTEND Hospitalist
DX: T40.5X1A Poisoning by cocaine, accidental (unintentional), initial encounter (principal); J96.21 Acute and chronic respiratory failure with hypoxia; I50.43 Acute on chronic combined systolic (congestive) and diastolic (congestive) heart failure; E66.2 Morbid (severe) obesity with alveolar hypoventilation; Z68.41 Body mass index [BMI] 40.0-44.9, adult; Z23 Encounter for immunization; Z20.822 Contact with and (suspected) exposure to COVID-19; I11.0 Hypertensive heart disease with heart failure; I27.20 Pulmonary hypertension, unspecified; F14.10 Cocaine abuse, uncomplicated; J44.9 Chronic obstructive pulmonary disease, unspecified; Z99.81 Dependence on supplemental oxygen; Z88.6 Allergy status to analgesic agent; Z79.52 Long term (current) use of systemic steroids; Z79.899 Other long term (current) drug therapy; Q85.01 Neurofibromatosis, type 1; Z86.74 Personal history of sudden cardiac arrest; Q05.9 Spina bifida, unspecified; Z91.19 Patient's noncompliance with other medical treatment and regimen
CPT/HCPCS: 36415; 71045; 71260; 80048; 80053; 80306; 83605; 83735; 83880; 84145; 84443; 84484; 85025; 87040; 93005; 94640; 96365; 96367; 96375; J0456; J0692; J0696; J1650; J1940; J3475; J3490; J7050; J7620; Q9967; U0003; U0005

== ENCOUNTER 2021-10-13 23:49 | Emergency (ER) | payer MEDICARE, OTHER ==
[2021-10-14 01:01] LABS: Hemoglobin 14.7 g/dL (12.0-16.0); Mean Corpuscular HGB CONC 29.7 g/dL (32.0-36.0); Mean Corpuscular Hemoglobin 29.6 pg (27.0-31.0); Mean Corpuscular Volume 99.6 fL (78.0-98.0); Platelet Count 182 thou/uL (130-400); Red Blood Cell (RBC) Count 4.97 mill/uL (4.20-5.40); White Blood Cell (WBC) Count 6.1 thou/uL (4.8-10.8)
[2021-10-14 01:14] LABS: Lymphocytes 20 % (21-51); MDiff Complete? YES; Monocytes 16 % (0-10); Neutrophil 64 % (42-75); Platelet Morphology Comment Appears Adequate; RBC Morphology Normal
[2021-10-14 01:16] LABS: ALT (SGPT) 19 U/L (8-55); AST (SGOT) 15 U/L (5-34); Albumin 3.8 g/dL (3.5-5.0); Alkaline Phosphatase 74 U/L (40-110); Anion Gap 13 mmol/L (10-20); BUN (Urea Nitrogen) 15 mg/dL (9.8-20.1); Bilirubin, Total 0.3 mg/dL (0.2-1.2); Calc. Creatinine Clearance 0 mL/min (70-130); Calcium 9.5 mg/dL (7.8-10.44); Carbon Dioxide 27 mmol/L (22-29); Chloride 103 mmol/L (98-107); Globulin 3.7 g/dL (2.4-3.5); Glucose 91 mg/dL (70-105); Potassium 4.4 mmol/L (3.5-5.1); Protein, Total 7.5 g/dL (6.0-8.3); Sodium 139 mmol/L (136-145)
[2021-10-14] MEDS ORDERED: Furosemide 20 MG/2 ML VIAL ONE (01:50)
== END 2021-10-14 03:51 | disposition home or self-care (01) ==
LOC: ERS 23:49
DX: R06.02 Shortness of breath (principal); G43.909 Migraine, unspecified, not intractable, without status migrainosus; J44.9 Chronic obstructive pulmonary disease, unspecified; I50.9 Heart failure, unspecified; F17.210 Nicotine dependence, cigarettes, uncomplicated; Z79.899 Other long term (current) drug therapy
CPT/HCPCS: 36415; 71045; 80053; 83880; 84484; 85025; 93005; 96374; J1940

== ENCOUNTER 2021-11-25 07:32 | Emergency (ER) | payer OTHER ==
[2021-11-25 08:40] LABS: #Eosinphils 0.1 thou/uL (0.0-0.7); #Lymphocytes 1.2 thou/uL (1.20-3.40); #Monocytes 0.3 thou/uL (0.11-0.59); #Neutrophils 3.6 thou/uL (1.40-6.50); %Basophils 0.6 % (0.0-1.0); %Eosinophils 2.6 % (0.0-10.0); %Lymphocytes 23.1 % (21.0-51.0); %Monocytes 6.5 % (0.0-10.0); %Neutrophils 67.3 % (42.0-75.0); Hemoglobin 14.1 g/dL (12.0-16.0); Mean Corpuscular HGB CONC 29.3 g/dL (32.0-36.0); Platelet Count 204 thou/uL (130-400); RBC Distribution Width 13.2 % (11.5-14.5); Red Blood Cell (RBC) Count 4.85 mill/uL (4.20-5.40); White Blood Cell (WBC) Count 5.3 thou/uL (4.8-10.8)
[2021-11-25] MEDS ORDERED: Iopamidol-370 76% 500 ML 1 ML ONE (08:45)
[2021-11-25 08:53] LABS: Platelet Morphology Comment Appears Adequate; RBC Morphology Normal
[2021-11-25 08:58] LABS: ALT (SGPT) 25 U/L (8-55); AST (SGOT) 18 U/L (5-34); Albumin 3.9 g/dL (3.5-5.0); Alkaline Phosphatase 86 U/L (40-110); Anion Gap 10 mmol/L (10-20); BUN (Urea Nitrogen) 11 mg/dL (9.8-20.1); Bilirubin, Total 0.4 mg/dL (0.2-1.2); Calc. Creatinine Clearance 0 mL/min (70-130); Calcium 9.5 mg/dL (7.8-10.44); Carbon Dioxide 33 mmol/L (22-29); Chloride 101 mmol/L (98-107); Estimated GFR 101; Globulin 3.7 g/dL (2.4-3.5); Glucose 92 mg/dL (70-105); Lipase 6 U/L (8-78); Potassium 4.1 mmol/L (3.5-5.1); Protein, Total 7.6 g/dL (6.0-8.3); Sodium 140 mmol/L (136-145)
[2021-11-25] MEDS ORDERED: Ketorolac Tromethamine 30 MG/ML VIAL ONE (08:58)
[2021-11-25 09:10] LABS: Pregnancy Test - Urine (BHCG) Negative (Negative); Pregu Control Background? CLEAR/WHITE (CLR/WHITE); Pregu Control Bar Appear? YES (CONTROL BAR); Specific Gravity 1.014 (1.002-1.036)
[2021-11-25 09:25] LABS: Bilirubin Negative (Negative); Blood, Urine Negative (Negative); Clarity Clear (Clear); Glucose, Urine (Dipstick) Normal (Negative); Ketone, Urine Negative (Negative); Leukocyte Negative Leu/uL (Negative); Nitrite Negative (Negative); Protein, Urine (Dipstick) Negative (Neg-Trace); Specific Gravity, Urine 1.014 (1.002-1.036); Urobilinogen Normal mg/dL (Less than 2); pH, Urine 7.5 (5.0-9.0)
[2021-11-25] MEDS ORDERED: Fentanyl 100 MCG/2 ML VIAL ONE (11:37)
== END 2021-11-25 13:56 | disposition home or self-care (01) ==
LOC: ERS 07:32
DX: K80.20 Calculus of gallbladder without cholecystitis without obstruction (principal); J44.9 Chronic obstructive pulmonary disease, unspecified; I50.9 Heart failure, unspecified; F17.210 Nicotine dependence, cigarettes, uncomplicated; Z79.899 Other long term (current) drug therapy
CPT/HCPCS: 36415; 74177; 76705; 80053; 81003; 81025; 83690; 85025; 96374; 96375; J1885; J3010; Q9967

== ENCOUNTER 2022-05-25 14:01 | Inpatient (IN) | payer OTHER ==
[2022-05-25] MEDS ORDERED: Morphine 4 MG/ML VIAL ONE (14:29)
[2022-05-25] MEDS ORDERED: Piperacillin/Tazobactam 3.375 GM VIAL ONE (14:29)
[2022-05-25 14:37] LABS: #Eosinphils 0.1 thou/uL (0.0-0.7); #Lymphocytes 1.8 thou/uL (1.20-3.40); #Monocytes 0.6 thou/uL (0.11-0.59); %Basophils 0.1 % (0.0-1.0); %Lymphocytes 21.2 % (21.0-51.0); %Monocytes 7.2 % (0.0-10.0); %Neutrophils 70.4 % (42.0-75.0); Hemoglobin 14.3 g/dL (12.0-16.0); Mean Corpuscular HGB CONC 30.4 g/dL (32.0-36.0); Mean Corpuscular Hemoglobin 29.5 pg (27.0-31.0); Mean Platelet Volume 8.4 fL (7.4-10.4); Platelet Count 226 10x3/uL (130-400); Red Blood Cell (RBC) Count 4.86 mill/uL (4.20-5.40); White Blood Cell (WBC) Count 8.5 10x3/uL (4.8-10.8)
[2022-05-25 14:39] LABS: Actual Bicarbonate (HCO3v) 28 mEq/L (22-28); Analyzer IN Cardio ER; Calcium, Ionized (venous) 1.06 mmol/L (1.16-1.32); Chloride (VBG) 103 mmol/L (98-106); Hemoglobin (Hb) 15.7 g/dL (11.7-16.0); Potassium (VBG) 4.57 mmol/L (3.70-5.30); Sodium 140.8 mmol/L (133-146); pH (venous) 7.33 (7.32-7.43)
[2022-05-25 15:05] LABS: ALT (SGPT) 25 U/L (8-55); AST (SGOT) 24 U/L (5-34); Albumin 3.9 g/dL (3.5-5.0); Alkaline Phosphatase 90 U/L (40-110); Anion Gap 11 mmol/L (10-20); BUN (Urea Nitrogen) 12 mg/dL (9.8-20.1); Bilirubin, Total 0.4 mg/dL (0.2-1.2); Calc. Creatinine Clearance 0 mL/min (70-130); Calcium 9.2 mg/dL (7.8-10.44); Carbon Dioxide 29 mmol/L (22-29); Chloride 103 mmol/L (98-107); Estimated GFR 85; Globulin 4.2 g/dL (2.4-3.5); Glucose 118 mg/dL (70-105); Potassium 4.4 mmol/L (3.5-5.1); Protein, Total 8.1 g/dL (6.0-8.3); Sodium 139 mmol/L (136-145)
[2022-05-25] MEDS ORDERED: Vancomycin 1 GM/200 ML (FROZEN) BAG ONE (15:33)
[2022-05-25] MEDS ORDERED: Naloxone HCl 0.4 mg/ml Vial IV PRN (17:57)
[2022-05-25] MEDS ORDERED: Ondansetron ODT 4 MG TAB PO PRN (17:59)
[2022-05-25] MEDS ORDERED: Ondansetron PF 4 MG/2 ML Vial IVP PRN (17:59)
[2022-05-25] MEDS ORDERED: Piperacillin/Tazobactam 3.375 GM in Sodium Chloride 0.9% 100 ML IVPB SCH (18:00)
[2022-05-25] MEDS: Piperacillin/Tazobactam 3.375 GM in Sodium Chloride 0.9% 100 ML IVPB SCH (19:34)
[2022-05-25] MEDS ORDERED: Famotidine 20 MG TAB ONE (22:21)
[2022-05-25] MEDS ORDERED: HumaLOG 300 UNITS/3 ML VIAL ONE (22:22)
[2022-05-25] MEDS: Sodium Chloride 0.9% 1,000 ML IV SCH (23:13)
[2022-05-25] MEDS: Famotidine 20 MG TAB PO SCH (23:13)
[2022-05-26] MEDS ORDERED: Morphine 4 MG/ML VIAL ONE ×2 (01:03→05:37)
[2022-05-26] MEDS: Morphine 4 MG/ML VIAL SLOW IVP PRN ×2 (01:10→05:40)
[2022-05-26] MEDS ORDERED: Piperacillin/Tazobactam 3.375 GM VIAL ONE ×2 (01:58→11:11)
[2022-05-26] MEDS: Piperacillin/Tazobactam 3.375 GM in Sodium Chloride 0.9% 100 ML IVPB SCH ×3 (02:10→17:06)
[2022-05-26] MEDS: Sodium Chloride 0.9% 1,000 ML IV SCH ×2 (05:52→15:00)
[2022-05-26 06:12] LABS: #Eosinphils 0.1 thou/uL (0.0-0.7); #Lymphocytes 1.3 thou/uL (1.20-3.40); #Monocytes 0.7 thou/uL (0.11-0.59); #Neutrophils 6.4 thou/uL (1.40-6.50); %Basophils 0.2 % (0.0-1.0); %Eosinophils 1.6 % (0.0-10.0); %Monocytes 8.1 % (0.0-10.0); Hemoglobin 13.9 g/dL (12.0-16.0); Mean Corpuscular HGB CONC 29.8 g/dL (32.0-36.0); Mean Corpuscular Hemoglobin 29.3 pg (27.0-31.0); Mean Corpuscular Volume 98.4 fl (78.0-98.0); Mean Platelet Volume 8.4 fL (7.4-10.4); Platelet Count 183 10x3/uL (130-400); RBC Distribution Width 14.3 % (11.5-14.5); Red Blood Cell (RBC) Count 4.75 mill/uL (4.20-5.40); White Blood Cell (WBC) Count 8.5 10x3/uL (4.8-10.8)
[2022-05-26 06:33] LABS: Anion Gap 14 mmol/L (10-20); BUN (Urea Nitrogen) 11 mg/dL (9.8-20.1); Calc. Creatinine Clearance 167 mL/min (70-130); Calcium 8.8 mg/dL (7.8-10.44); Carbon Dioxide 26 mmol/L (22-29); Chloride 105 mmol/L (98-107); Estimated GFR 102; Glucose 105 mg/dL (70-105); Potassium 4.7 mmol/L (3.5-5.1); Sodium 140 mmol/L (136-145)
[2022-05-26] MEDS ORDERED: Ipratropium/Albuterol 3 ML NEB NEB PRN (08:06)
[2022-05-26] MEDS: Carvedilol 6.25 MG TAB PO SCH ×2 (11:04→23:15)
[2022-05-26] MEDS: Famotidine 20 MG TAB PO SCH ×2 (11:04→22:15)
[2022-05-26] MEDS ORDERED: Famotidine 20 MG TAB ONE (11:11)
[2022-05-26] MEDS ORDERED: Furosemide 40 MG/4 ML VIAL SLOW IVP SCH (11:15)
[2022-05-26] MEDS: Furosemide 40 MG/4 ML VIAL SLOW IVP SCH (15:00)
[2022-05-26] MEDS ORDERED: Dexamethasone 10 MG/ML VIAL SLOW IVP SCH (15:00)
[2022-05-26] MEDS ORDERED: FLU VACC QS2022-23(6MOS UP)/PF 60 MCG/0.5 ML SYRINGE IM ONE (15:00)
[2022-05-26] MEDS ORDERED: Pantoprazole 40 MG VIAL IVP SCH (15:01)
[2022-05-26] MEDS ORDERED: Sodium Chloride 0.9% 1,000 ML IV SCH (15:45)
[2022-05-26] MEDS: Dexamethasone 4 mg/ml Vial SLOW IVP SCH (21:30)
[2022-05-26] MEDS: Acetaminophen 325 MG TAB PO PRN (23:16)
[2022-05-27] MEDS: Piperacillin/Tazobactam 3.375 GM in Sodium Chloride 0.9% 100 ML IVPB SCH (02:58)
[2022-05-27] MEDS: Dexamethasone 4 mg/ml Vial SLOW IVP SCH ×2 (02:58→08:48)
[2022-05-27 03:19] LABS: #Lymphocytes 0.7 thou/uL (1.20-3.40); #Monocytes 0.2 thou/uL (0.11-0.59); #Neutrophils 10.5 thou/uL (1.40-6.50); %Eosinophils 0.3 % (0.0-10.0); %Lymphocytes 6.4 % (21.0-51.0); %Monocytes 1.3 % (0.0-10.0); Mean Corpuscular HGB CONC 32.2 g/dL (32.0-36.0); Mean Corpuscular Hemoglobin 31.5 pg (27.0-31.0); Mean Platelet Volume 8.5 fL (7.4-10.4); Platelet Count 201 10x3/uL (130-400); RBC Distribution Width 13.9 % (11.5-14.5); Red Blood Cell (RBC) Count 4.45 mill/uL (4.20-5.40); White Blood Cell (WBC) Count 11.5 10x3/uL (4.8-10.8)
[2022-05-27 03:38] LABS: Anion Gap 13 mmol/L (10-20); BUN (Urea Nitrogen) 11 mg/dL (9.8-20.1); Calc. Creatinine Clearance 160 mL/min (70-130); Calcium 9.2 mg/dL (7.8-10.44); Carbon Dioxide 29 mmol/L (22-29); Chloride 102 mmol/L (98-107); Estimated GFR 100; Glucose 112 mg/dL (70-105); Potassium 4.7 mmol/L (3.5-5.1); Sodium 139 mmol/L (136-145)
[2022-05-27] MEDS: Morphine 4 MG/ML VIAL SLOW IVP PRN (05:12)
[2022-05-27] MEDS: Furosemide 40 MG/4 ML VIAL SLOW IVP SCH ×2 (06:36→14:25)
[2022-05-27] MEDS: Mometasone 200 MCG/Formoterol 5 MCG 120 PUFF INHALER INH SCH (08:28)
[2022-05-27] MEDS: Carvedilol 6.25 MG TAB PO SCH ×3 (08:47→23:37)
[2022-05-27] MEDS: Spironolactone 100 MG TAB PO SCH (08:47)
[2022-05-27] MEDS: Cefdinir 300 MG CAP PO SCH (08:48)
[2022-05-27] MEDS ORDERED: Pantoprazole 40 MG VIAL IVP SCH (09:00)
[2022-05-27] MEDS ORDERED: Magnevist 469MG/ML 20 ML VIAL ONE (09:47)
[2022-05-27] MEDS: Pregabalin 75 MG CAP PO PRN (10:01)
[2022-05-28 06:19] LABS: #Lymphocytes 1.5 thou/uL (1.20-3.40); #Neutrophils 10.4 thou/uL (1.40-6.50); %Basophils 0.2 % (0.0-1.0); %Eosinophils 0.2 % (0.0-10.0); %Lymphocytes 11.5 % (21.0-51.0); %Monocytes 7.9 % (0.0-10.0); %Neutrophils 80.1 % (42.0-75.0); Hemoglobin 14.1 g/dL (12.0-16.0); Mean Corpuscular HGB CONC 30.1 g/dL (32.0-36.0); Mean Corpuscular Hemoglobin 29.3 pg (27.0-31.0); Mean Corpuscular Volume 97.5 fl (78.0-98.0); Mean Platelet Volume 8.6 fL (7.4-10.4); Platelet Count 219 10x3/uL (130-400); RBC Distribution Width 14.3 % (11.5-14.5); Red Blood Cell (RBC) Count 4.81 mill/uL (4.20-5.40); White Blood Cell (WBC) Count 12.9 10x3/uL (4.8-10.8)
[2022-05-28 06:39] LABS: Anion Gap 12 mmol/L (10-20); BUN (Urea Nitrogen) 23 mg/dL (9.8-20.1); Calc. Creatinine Clearance 156 mL/min (70-130); Calcium 9.3 mg/dL (7.8-10.44); Carbon Dioxide 36 mmol/L (22-29); Chloride 98 mmol/L (98-107); Estimated GFR 96; Glucose 106 mg/dL (70-105); Potassium 3.8 mmol/L (3.5-5.1); Sodium 142 mmol/L (136-145)
[2022-05-28] MEDS: Mometasone 200 MCG/Formoterol 5 MCG 120 PUFF INHALER INH SCH (07:22)
[2022-05-28] MEDS: Furosemide 20 MG TAB PO SCH ×2 (08:43→14:21)
[2022-05-28] MEDS: Cefdinir 300 MG CAP PO SCH (08:43)
[2022-05-28] MEDS: Spironolactone 100 MG TAB PO SCH (08:44)
[2022-05-28] MEDS: Carvedilol 6.25 MG TAB PO SCH ×2 (08:45→20:49)
[2022-05-28] MEDS: Pregabalin 75 MG CAP PO PRN (15:06)
[2022-05-28] MEDS: Acetaminophen 325 MG TAB PO PRN (20:50)
[2022-05-28] MEDS: traMADol HCl 50 MG TAB PO PRN (21:52)
[2022-05-29 07:46] LABS: SARS-CoV-2 NAA Rapid Test Not Detected (NotDetected)
[2022-05-29] MEDS: Mometasone 200 MCG/Formoterol 5 MCG 120 PUFF INHALER INH SCH (08:01)
[2022-05-29] MEDS: Spironolactone 100 MG TAB PO SCH (09:27)
[2022-05-29] MEDS: Carvedilol 6.25 MG TAB PO SCH ×2 (09:27→21:58)
[2022-05-29] MEDS: Furosemide 20 MG TAB PO SCH ×2 (09:28→15:30)
[2022-05-29] MEDS: Cefdinir 300 MG CAP PO SCH (09:28)
[2022-05-29 09:29] LABS: Anion Gap 14 mmol/L (10-20); BUN (Urea Nitrogen) 21 mg/dL (9.8-20.1); Calc. Creatinine Clearance 146 mL/min (70-130); Calcium 9.8 mg/dL (7.8-10.44); Carbon Dioxide 33 mmol/L (22-29); Chloride 98 mmol/L (98-107); Estimated GFR 89; Glucose 85 mg/dL (70-105); Potassium 4.2 mmol/L (3.5-5.1); Sodium 141 mmol/L (136-145)
[2022-05-29 09:49] LABS: Eosinophils 1 % (0-10); Hemoglobin 15.3 g/dL (12.0-16.0); Hypochromia SLIGHT = 6-15 cells (100X) (0-5/hpf); Lymphocytes 22 % (21-51); MDiff Complete? YES; Mean Corpuscular HGB CONC 30.5 g/dL (32.0-36.0); Mean Corpuscular Hemoglobin 29.4 pg (27.0-31.0); Mean Corpuscular Volume 96.5 fl (78.0-98.0); Mean Platelet Volume 8.8 fL (7.4-10.4); Monocytes 6 % (0-10); Neutrophil 71 % (42-75); Platelet Count 244 10x3/uL (130-400); Platelet Morphology Comment Appears Adequate; Polychromasia SLIGHT = 2-3 cells (100X) (0-2/hpf); RBC Distribution Width 14.2 % (11.5-14.5); Red Blood Cell (RBC) Count 5.21 mill/uL (4.20-5.40); Stomatocytes SLIGHT = 2-5 cells (100X) (0-1/hpf); White Blood Cell (WBC) Count 8.9 10x3/uL (4.8-10.8)
[2022-05-29] MEDS ORDERED: Heparin 5,000 UNITS/ML VIAL SC SCH (11:15)
[2022-05-29] MEDS ORDERED: CEFAZOLIN 1 GM in Sodium Chloride 0.9% 100 ML IVPB SCH (11:15)
[2022-05-29] MEDS ORDERED: Heparin 5,000 UNITS/ML VIAL ONE (11:48)
[2022-05-29] MEDS ORDERED: fentaNYL PF 100 MCG/2 ML SYRINGE ONE (12:04)
[2022-05-29] MEDS ORDERED: Midazolam HCl 2 mg/2 ml Vial ONE (12:04)
[2022-05-29] MEDS ORDERED: Bupivacaine/Epinephrine 0.25% 30 ML VIAL ONE ×2 (12:11→12:32)
[2022-05-29] MEDS ORDERED: EPINEPHrine 1 MG/ML AMP ONE (12:15)
[2022-05-29] MEDS ORDERED: Neomycin-Polymyxin 1 ML AMP ONE (12:15)
[2022-05-29] MEDS ORDERED: CEFAZOLIN 2 GM VIAL ONE (12:26)
[2022-05-29] MEDS ORDERED: Sodium Chloride 0.9% 100 ML ONE (12:26)
[2022-05-29] MEDS ORDERED: PHENYLEPHRINE-NS 100 MCG/ML 10 ML SYRINGE ONE (12:33)
[2022-05-29] MEDS ORDERED: Dexamethasone 20 MG/5 ML VIAL ONE (12:33)
[2022-05-29] MEDS ORDERED: Rocuronium Bromide 10 MG/ML (10ML VIAL) ONE (12:33)
[2022-05-29] MEDS ORDERED: Lidocaine 1% PF 5 ML VIAL ONE (12:33)
[2022-05-29] MEDS ORDERED: PROPOFOL 200 MG/20 ML VIAL ONE (12:33)
[2022-05-29] MEDS ORDERED: Ondansetron PF 4 MG/2 ML Vial ONE (12:33)
[2022-05-29] MEDS ORDERED: SUGAMMADEX SODIUM 200 MG/2 ML VIAL ONE (13:10)
[2022-05-29] MEDS ORDERED: Promethazine HCl 25 MG/ML VIAL IM PRN (13:19)
[2022-05-29] MEDS ORDERED: Ondansetron HCl/PF 4 MG/2 ML Vial IVP PRN (13:19)
[2022-05-29] MEDS: Acetaminophen 325 MG TAB PO PRN (21:58)
[2022-05-30] MEDS: traMADol HCl 50 MG TAB PO PRN ×2 (02:49→21:54)
[2022-05-30 06:20] LABS: #Lymphocytes 1.6 thou/uL (1.20-3.40); #Monocytes 0.9 thou/uL (0.11-0.59); #Neutrophils 7.3 thou/uL (1.40-6.50); %Basophils 0.3 % (0.0-1.0); %Eosinophils 0.1 % (0.0-10.0); %Monocytes 9.2 % (0.0-10.0); %Neutrophils 74.5 % (42.0-75.0); Hemoglobin 14.4 g/dL (12.0-16.0); Mean Corpuscular HGB CONC 31.9 g/dL (32.0-36.0); Mean Corpuscular Hemoglobin 31.2 pg (27.0-31.0); Mean Platelet Volume 8.3 fL (7.4-10.4); Platelet Count 242 10x3/uL (130-400); RBC Distribution Width 13.9 % (11.5-14.5); White Blood Cell (WBC) Count 9.8 10x3/uL (4.8-10.8)
[2022-05-30 06:35] LABS: Anion Gap 14 mmol/L (10-20); BUN (Urea Nitrogen) 26 mg/dL (9.8-20.1); Calc. Creatinine Clearance 156 mL/min (70-130); Carbon Dioxide 31 mmol/L (22-29); Chloride 98 mmol/L (98-107); Estimated GFR 96; Glucose 107 mg/dL (70-105); Potassium 4.5 mmol/L (3.5-5.1); Sodium 138 mmol/L (136-145)
[2022-05-30] MEDS: Mometasone 200 MCG/Formoterol 5 MCG 120 PUFF INHALER INH SCH (09:31)
[2022-05-30] MEDS: Cefdinir 300 MG CAP PO SCH (09:38)
[2022-05-30] MEDS: Spironolactone 100 MG TAB PO SCH (09:39)
[2022-05-30] MEDS: Carvedilol 6.25 MG TAB PO SCH ×2 (09:40→21:55)
[2022-05-30] MEDS: Furosemide 20 MG TAB PO SCH ×2 (09:40→15:40)
[2022-05-30] MEDS: Pregabalin 75 MG CAP PO PRN (09:44)
[2022-05-30] MEDS ORDERED: CEFAZOLIN 2 GM in Sodium Chloride 0.9% 100 ML IVPB SCH (14:00)
[2022-05-30] MEDS: Melatonin 3 MG TAB PO PRN (21:55)
[2022-05-31] MEDS: traMADol HCl 50 MG TAB PO PRN ×3 (05:53→20:28)
[2022-05-31 06:22] LABS: Hemoglobin 13.9 g/dL (12.0-16.0); Mean Corpuscular HGB CONC 30.7 g/dL (32.0-36.0); Mean Corpuscular Hemoglobin 29.8 pg (27.0-31.0); Mean Platelet Volume 8.5 fL (7.4-10.4); Platelet Count 236 10x3/uL (130-400); Red Blood Cell (RBC) Count 4.66 mill/uL (4.20-5.40); White Blood Cell (WBC) Count 9.4 10x3/uL (4.8-10.8)
[2022-05-31 06:32] LABS: Anion Gap 13 mmol/L (10-20); BUN (Urea Nitrogen) 26 mg/dL (9.8-20.1); Calc. Creatinine Clearance 154 mL/min (70-130); Calcium 9.2 mg/dL (7.8-10.44); Carbon Dioxide 31 mmol/L (22-29); Chloride 100 mmol/L (98-107); Estimated GFR 95; Glucose 89 mg/dL (70-105); Potassium 4.3 mmol/L (3.5-5.1); Sodium 140 mmol/L (136-145)
[2022-05-31] MEDS: Mometasone 200 MCG/Formoterol 5 MCG 120 PUFF INHALER INH SCH (06:47)
[2022-05-31 07:05] LABS: Eosinophils 1 % (0-10); Lymphocytes 33 % (21-51); MDiff Complete? YES; Monocytes 8 % (0-10); Neutrophil 58 % (42-75)
[2022-05-31] MEDS: Pregabalin 75 MG CAP PO PRN (09:47)
[2022-05-31] MEDS: Cefdinir 300 MG CAP PO SCH (09:47)
[2022-05-31] MEDS: Carvedilol 6.25 MG TAB PO SCH ×2 (09:47→20:28)
[2022-05-31] MEDS: Spironolactone 100 MG TAB PO SCH (09:47)
[2022-05-31] MEDS: Furosemide 20 MG TAB PO SCH ×2 (09:48→15:26)
[2022-06-01] MEDS: traMADol HCl 50 MG TAB PO PRN ×2 (05:03→09:05)
[2022-06-01 06:19] LABS: Anion Gap 13 mmol/L (10-20); BUN (Urea Nitrogen) 32 mg/dL (9.8-20.1); Calc. Creatinine Clearance 141 mL/min (70-130); Calcium 9.8 mg/dL (7.8-10.44); Carbon Dioxide 32 mmol/L (22-29); Chloride 98 mmol/L (98-107); Estimated GFR 85; Glucose 97 mg/dL (70-105); Potassium 4.8 mmol/L (3.5-5.1); Sodium 138 mmol/L (136-145)
[2022-06-01] MEDS: Mometasone 200 MCG/Formoterol 5 MCG 120 PUFF INHALER INH SCH (07:20)
[2022-06-01 08:58] LABS: Eosinophils 2 % (0-10); Lymphocytes 28 % (21-51); MDiff Complete? YES; Monocytes 10 % (0-10); Neutrophil 58 % (42-75); RBC Morphology Normal
[2022-06-01 08:59] LABS: Hemoglobin 14.5 g/dL (12.0-16.0); Mean Corpuscular HGB CONC 30.1 g/dL (32.0-36.0); Mean Corpuscular Hemoglobin 29.2 pg (27.0-31.0); Mean Platelet Volume 8.6 fL (7.4-10.4); Platelet Count 256 10x3/uL (130-400); RBC Distribution Width 13.9 % (11.5-14.5); Red Blood Cell (RBC) Count 4.98 mill/uL (4.20-5.40)
[2022-06-01] MEDS: Carvedilol 6.25 MG TAB PO SCH ×2 (09:01→20:38)
[2022-06-01] MEDS: Cefdinir 300 MG CAP PO SCH (09:01)
[2022-06-01] MEDS: Furosemide 20 MG TAB PO SCH ×2 (09:01→15:53)
[2022-06-01] MEDS: Spironolactone 100 MG TAB PO SCH (09:02)
[2022-06-01] MEDS: Morphine 4 MG/ML VIAL SLOW IVP PRN (09:41)
[2022-06-01 15:22] VITALS: BMI 42.1
[2022-06-01] MEDS: Pregabalin 75 MG CAP PO PRN (20:38)
[2022-06-01] MEDS: Acetaminophen 325 MG TAB PO PRN (20:39)
[2022-06-02] MEDS: Mometasone 200 MCG/Formoterol 5 MCG 120 PUFF INHALER INH SCH (07:38)
[2022-06-02] MEDS: Spironolactone 100 MG TAB PO SCH (07:56)
[2022-06-02] MEDS: Furosemide 20 MG TAB PO SCH ×2 (07:56→14:43)
[2022-06-02] MEDS: Carvedilol 6.25 MG TAB PO SCH ×2 (07:56→20:56)
[2022-06-02] MEDS: Cefdinir 300 MG CAP PO SCH (07:56)
[2022-06-02] MEDS: Acetaminophen 325 MG TAB PO PRN (07:57)
[2022-06-02] MEDS: Pregabalin 75 MG CAP PO PRN ×2 (08:01→20:56)
[2022-06-02] MEDS: traMADol HCl 50 MG TAB PO PRN (14:46)
[2022-06-02] MEDS: Melatonin 3 MG TAB PO PRN (22:34)
[2022-06-03] MEDS: Mometasone 200 MCG/Formoterol 5 MCG 120 PUFF INHALER INH SCH (07:20)
[2022-06-03 07:34] LABS: Hemoglobin 14.4 g/dL (12.0-16.0); Mean Corpuscular HGB CONC 30.4 g/dL (32.0-36.0); Mean Corpuscular Hemoglobin 29.9 pg (27.0-31.0); Mean Corpuscular Volume 98.3 fl (78.0-98.0); Mean Platelet Volume 8.2 fL (7.4-10.4); Platelet Count 292 10x3/uL (130-400); RBC Distribution Width 13.9 % (11.5-14.5); Red Blood Cell (RBC) Count 4.84 mill/uL (4.20-5.40); White Blood Cell (WBC) Count 8.4 10x3/uL (4.8-10.8)
[2022-06-03 07:43] LABS: Anion Gap 12 mmol/L (10-20); BUN (Urea Nitrogen) 25 mg/dL (9.8-20.1); Calc. Creatinine Clearance 154 mL/min (70-130); Calcium 9.7 mg/dL (7.8-10.44); Carbon Dioxide 31 mmol/L (22-29); Chloride 99 mmol/L (98-107); Estimated GFR 95; Glucose 101 mg/dL (70-105); Potassium 4.8 mmol/L (3.5-5.1); Sodium 137 mmol/L (136-145)
[2022-06-03] MEDS: Carvedilol 6.25 MG TAB PO SCH ×2 (08:11→20:34)
[2022-06-03] MEDS: Spironolactone 100 MG TAB PO SCH (08:11)
[2022-06-03] MEDS: Cefdinir 300 MG CAP PO SCH (08:11)
[2022-06-03] MEDS: Furosemide 20 MG TAB PO SCH ×3 (08:11→15:36)
[2022-06-03 11:21] LABS: Eosinophils 4 % (0-10); Lymphocytes 33 % (21-51); MDiff Complete? YES; Monocytes 5 % (0-10); Neutrophil 58 % (42-75); RBC Morphology Normal
[2022-06-03] MEDS: Pregabalin 75 MG CAP PO PRN (15:37)
[2022-06-03] MEDS: traMADol HCl 50 MG TAB PO PRN ×2 (15:41→20:37)
[2022-06-03] MEDS: Acetaminophen 325 MG TAB PO PRN (20:37)
[2022-06-03] MEDS: Topiramate 25 MG TAB PO SCH (20:38)
[2022-06-04] MEDS: Mometasone 200 MCG/Formoterol 5 MCG 120 PUFF INHALER INH SCH (07:41)
[2022-06-04] MEDS: Topiramate 25 MG TAB PO SCH ×2 (07:54→20:53)
[2022-06-04] MEDS: Furosemide 20 MG TAB PO SCH ×2 (07:55→15:29)
[2022-06-04] MEDS: Spironolactone 100 MG TAB PO SCH (07:55)
[2022-06-04] MEDS: Carvedilol 6.25 MG TAB PO SCH ×2 (07:55→20:54)
[2022-06-04] MEDS: Pregabalin 75 MG CAP PO PRN (07:58)
[2022-06-04] MEDS: Morphine 4 MG/ML VIAL SLOW IVP PRN (12:51)
[2022-06-04] MEDS: traMADol HCl 50 MG TAB PO PRN (20:53)
[2022-06-05] MEDS: Mometasone 200 MCG/Formoterol 5 MCG 120 PUFF INHALER INH SCH (07:05)
[2022-06-05] MEDS: Furosemide 20 MG TAB PO SCH ×2 (09:35→15:06)
[2022-06-05] MEDS: Spironolactone 100 MG TAB PO SCH (09:35)
[2022-06-05] MEDS: Carvedilol 6.25 MG TAB PO SCH ×2 (09:35→21:02)
[2022-06-05] MEDS: Morphine 4 MG/ML VIAL SLOW IVP PRN ×2 (09:38→21:01)
[2022-06-05] MEDS: Topiramate 25 MG TAB PO SCH ×2 (09:38→20:58)
[2022-06-05] MEDS ORDERED: Heparin 5,000 UNITS/ML VIAL ONE (13:32)
[2022-06-05] MEDS ORDERED: EPINEPHrine 1 MG/10 ML Abboject SYRINGE ONE (14:34)
[2022-06-05] MEDS ORDERED: Bupivacaine/Epinephrine 0.25% 30 ML VIAL ONE ×2 (14:34→15:08)
[2022-06-05] MEDS ORDERED: EPINEPHrine 1 MG/ML AMP ONE (14:35)
[2022-06-05] MEDS ORDERED: Dexmedetomidine 200 MCG/2 ML VIAL ONE (14:40)
[2022-06-05] MEDS ORDERED: Ketamine 50 MG/ML (10ML VIAL) ONE ×2 (14:40→14:54)
[2022-06-05] MEDS ORDERED: CEFAZOLIN 2 GM VIAL ONE (14:48)
[2022-06-05] MEDS ORDERED: Sodium Chloride 0.9% 100 ML ONE (14:48)
[2022-06-05] MEDS ORDERED: fentaNYL PF 100 MCG/2 ML SYRINGE ONE ×2 (14:53→14:59)
[2022-06-05] MEDS ORDERED: Lidocaine 1% PF 5 ML VIAL ONE (15:04)
[2022-06-05] MEDS ORDERED: NEOSTIGMINE 3 MG/3 ML SYR 3 MG/3 ML SYRINGE ONE (15:04)
[2022-06-05] MEDS ORDERED: Dexamethasone 20 MG/5 ML VIAL ONE (15:04)
[2022-06-05] MEDS ORDERED: Rocuronium Bromide 10 MG/ML (10ML VIAL) ONE (15:04)
[2022-06-05] MEDS ORDERED: Ondansetron PF 4 MG/2 ML Vial ONE (15:04)
[2022-06-05] MEDS ORDERED: PROPOFOL 200 MG/20 ML VIAL ONE (15:04)
[2022-06-05] MEDS ORDERED: PHENYLEPHRINE-NS 100 MCG/ML 10 ML SYRINGE ONE (15:04)
[2022-06-05] MEDS ORDERED: Glycopyrrolate 0.2 MG/ML 5 ML SYRINGE ONE (15:04)
[2022-06-05] MEDS ORDERED: Fentanyl 100 MCG/2 ML VIAL ONE (17:21)
[2022-06-05] MEDS ORDERED: CEFAZOLIN 2 GM in Sodium Chloride 0.9% 100 ML IVPB SCH (17:30)
[2022-06-05] MEDS: Melatonin 3 MG TAB PO PRN (20:57)
[2022-06-05] MEDS: Acetaminophen 325 MG TAB PO PRN (20:57)
[2022-06-06] MEDS: traMADol HCl 50 MG TAB PO PRN ×2 (04:10→22:40)
[2022-06-06] MEDS: Mometasone 200 MCG/Formoterol 5 MCG 120 PUFF INHALER INH SCH (06:46)
[2022-06-06] MEDS ORDERED: SUGAMMADEX SODIUM 200 MG/2 ML VIAL ONE (06:50)
[2022-06-06] MEDS: Furosemide 20 MG TAB PO SCH ×2 (09:03→15:28)
[2022-06-06] MEDS: Spironolactone 100 MG TAB PO SCH (09:03)
[2022-06-06] MEDS: Carvedilol 6.25 MG TAB PO SCH ×3 (09:03→22:00)
[2022-06-06] MEDS: Topiramate 25 MG TAB PO SCH ×2 (09:04→21:59)
[2022-06-06] MEDS: HYDROcodone/Acetaminophen 5/325 mg Tablet PO PRN (09:04)
[2022-06-06] MEDS ORDERED: Zolpidem Tartrate 5 MG TAB PO PRN (10:21)
[2022-06-06] MEDS: Pregabalin 75 MG CAP PO PRN (11:03)
[2022-06-07] MEDS: Mometasone 200 MCG/Formoterol 5 MCG 120 PUFF INHALER INH SCH (07:28)
[2022-06-07] MEDS: Pregabalin 75 MG CAP PO PRN (08:13)
[2022-06-07] MEDS: Carvedilol 6.25 MG TAB PO SCH (08:14)
[2022-06-07] MEDS: Furosemide 20 MG TAB PO SCH ×2 (08:15→14:14)
[2022-06-07] MEDS: Spironolactone 100 MG TAB PO SCH (08:15)
[2022-06-07] MEDS: Topiramate 25 MG TAB PO SCH (08:15)
[2022-06-07] MEDS: traMADol HCl 50 MG TAB PO PRN (08:20)
[2022-06-07] MEDS ORDERED: Aquaphor 3.5 oz (99 G) JAR TOP SCH (10:15)
[2022-06-07] MEDS: HYDROcodone/Acetaminophen 5/325 mg Tablet PO PRN (10:41)
[2022-06-07 13:29] VITALS: BP 115/78; TEMP 97.9
[2022-07-03] MEDS ORDERED: Heparin 5,000 UNITS/ML VIAL SC SCH (17:45)
== END 2022-06-07 15:19 | disposition home or self-care (01) | DRG 853 ==
LOC: ERS 14:01 → ERHOLD 16:54 → CCU 05-26 13:50 → SURG B 05-27 17:06
PROVIDERS: ADMIT Internal Medicine; ATTEND Internal Medicine
PROC: 5A09357 Assistance with Respiratory Ventilation, Less than 24 Consecutive Hours, Continuous Positive Airway Pressure (ICD-10-PCS; 2022-05-26)
PROC: 0JBL0ZZ Excision of Right Upper Leg Subcutaneous Tissue and Fascia, Open Approach (ICD-10-PCS; 2022-05-29)
PROC: 0HRHX74 Replacement of Right Upper Leg Skin with Autologous Tissue Substitute, Partial Thickness, External Approach (ICD-10-PCS; principal; 2022-06-05)
PROC: 0JBL0ZZ Excision of Right Upper Leg Subcutaneous Tissue and Fascia, Open Approach (ICD-10-PCS; 2022-06-05)
PROC: 0HBHXZZ Excision of Right Upper Leg Skin, External Approach (ICD-10-PCS; 2022-06-05)
DX: A41.9 Sepsis, unspecified organism (principal); G93.6 Cerebral edema; I50.33 Acute on chronic diastolic (congestive) heart failure; J96.01 Acute respiratory failure with hypoxia; J69.0 Pneumonitis due to inhalation of food and vomit; G93.40 Encephalopathy, unspecified; T24.211A Burn of second degree of right thigh, initial encounter; T31.0 Burns involving less than 10% of body surface; I48.91 Unspecified atrial fibrillation; I11.0 Hypertensive heart disease with heart failure; J44.9 Chronic obstructive pulmonary disease, unspecified; G47.33 Obstructive sleep apnea (adult) (pediatric); G43.909 Migraine, unspecified, not intractable, without status migrainosus; Z20.822 Contact with and (suspected) exposure to COVID-19; I27.20 Pulmonary hypertension, unspecified; G47.00 Insomnia, unspecified; Z98.890 Other specified postprocedural states; Z88.8 Allergy status to other drugs, medicaments and biological substances; Z79.899 Other long term (current) drug therapy; Q85.00 Neurofibromatosis, unspecified
CPT/HCPCS: 36415; 36416; 70450; 70553; 71045; 80048; 80053; 82805; 83605; 83880; 85025; 87040; 87811; 93005; 93306; 94660; 96374; 96375; 97139; A9579; C9113; G0390; J0171; J1100; J1644; J1815; J1940; J2250; J2270; J2405; J2543; J2704; J3010; J3370-JW; J3490; J7050; U0002

== ENCOUNTER 2022-06-21 07:40 | Emergency (ER) | payer OTHER ==
[2022-06-21 10:25] LABS: Hemoglobin 12.8 g/dL (12.0-16.0); Mean Corpuscular HGB CONC 30.9 g/dL (32.0-36.0); Mean Corpuscular Hemoglobin 30.2 pg (27.0-31.0); Mean Corpuscular Volume 97.9 fl (78.0-98.0); RBC Distribution Width 14.6 % (11.5-14.5); Red Blood Cell (RBC) Count 4.23 mill/uL (4.20-5.40)
[2022-06-21 10:26] LABS: ALT (SGPT) 11 U/L (8-55); AST (SGOT) 16 U/L (5-34); Albumin 3.1 g/dL (3.5-5.0); Alkaline Phosphatase 88 U/L (40-110); Anion Gap 12 mmol/L (10-20); BUN (Urea Nitrogen) 20 mg/dL (9.8-20.1); Bilirubin, Total 0.3 mg/dL (0.2-1.2); CK (CPK) 38 U/L (29-168); Calc. Creatinine Clearance 0 mL/min (70-130); Carbon Dioxide 30 mmol/L (22-29); Chloride 101 mmol/L (98-107); Estimated GFR 88; Globulin 3.1 g/dL (2.4-3.5); Glucose 83 mg/dL (70-105); Potassium 4.4 mmol/L (3.5-5.1); Protein, Total 6.2 g/dL (6.0-8.3); Sodium 139 mmol/L (136-145)
[2022-06-21 10:41] LABS: Anisocytosis SLIGHT = 6-15 cells (100X) (0-5/hpf); Lymphocytes 16 % (21-51); MDiff Complete? YES; Monocytes 10 % (0-10); Neutrophil 74 % (42-75); Nucleated RBC 4 % (0); Ovalocytes SLIGHT = 2-5 cells (100X) (0-1/hpf); Platelet Count 199 10x3/uL (130-400); Platelet Morphology Comment Appears Adequate; Polychromasia MODERATE = 3-4 cells (100X) (0-2/hpf); White Blood Cell (WBC) Count 7.3 10x3/uL (4.8-10.8)
[2022-06-21] MEDS ORDERED: Furosemide 40 MG/4 ML VIAL ONE (12:09)
[2022-06-21] MEDS ORDERED: Furosemide 40 MG TAB ONE (12:38)
== END 2022-06-21 14:06 | disposition home or self-care (01) ==
LOC: ERS 07:40
DX: R53.1 Weakness (principal); T24.011D Burn of unspecified degree of right thigh, subsequent encounter; I50.9 Heart failure, unspecified; J44.9 Chronic obstructive pulmonary disease, unspecified
CPT/HCPCS: 36415; 71045; 80053; 82550; 83880; 84484; 85025; 93005; 96374; J1940

== ENCOUNTER 2022-07-10 01:29 | Emergency (ER) | payer OTHER, MEDICARE ==
[2022-07-10] MEDS ORDERED: Lidocaine 1% PF 5 ML VIAL ONE (03:02)
== END 2022-07-10 03:55 | disposition home or self-care (01) ==
LOC: ERS 01:29
DX: L02.91 Cutaneous abscess, unspecified (principal); J44.9 Chronic obstructive pulmonary disease, unspecified; I50.9 Heart failure, unspecified
CPT/HCPCS: 10060

== ENCOUNTER 2022-10-10 10:24 | Inpatient (IN) | payer OTHER ==
[2022-10-10 11:03] LABS: Hemoglobin 14.3 g/dL (12.0-16.0); Mean Corpuscular HGB CONC 30.5 g/dL (32.0-36.0); Mean Corpuscular Hemoglobin 28.9 pg (27.0-31.0); Mean Corpuscular Volume 94.7 fl (78.0-98.0); Mean Platelet Volume 11.2 fL (7.4-10.4); Platelet Count 203 10x3/uL (130-400); RBC Distribution Width 15.8 % (11.5-14.5); Red Blood Cell (RBC) Count 4.95 mill/uL (4.20-5.40); White Blood Cell (WBC) Count 13.1 10x3/uL (4.8-10.8)
[2022-10-10 11:07] LABS: Delete Auto Diff?? YES; Manual Diff?? YES
[2022-10-10 11:27] LABS: ALT (SGPT) 587 U/L (8-55); AST (SGOT) 631 U/L (5-34); Albumin 3.9 g/dL (3.5-5.0); Alkaline Phosphatase 113 U/L (40-110); Anion Gap 13 mmol/L (10-20); BUN (Urea Nitrogen) 50 mg/dL (9.8-20.1); Bilirubin, Total 0.9 mg/dL (0.2-1.2); Calc. Creatinine Clearance 0 mL/min (70-130); Calcium 8.9 mg/dL (7.8-10.44); Carbon Dioxide 26 mmol/L (22-29); Chloride 101 mmol/L (98-107); Estimated GFR 44; Globulin 3.7 g/dL (2.4-3.5); Glucose 101 mg/dL (70-105); Potassium 4.8 mmol/L (3.5-5.1); Protein, Total 7.6 g/dL (6.0-8.3); Sodium 135 mmol/L (136-145)
[2022-10-10 11:30] LABS: Actual Bicarbonate (HCO3v) 27.7 mEq/L (22-28); Analyzer IN Cardio ER; Base Excess -0.6 mEq/L (-2.0 to +3.0); Calcium, Ionized (venous) 1.01 mmol/L (1.16-1.32); Chloride (VBG) 100 mmol/L (98-106); Hematocrit-VBG 45 % (36.0-47.0); Hemoglobin (Hb) 15.4 g/dL (11.7-16.0); Sodium 135.2 mmol/L (133-146); pH (venous) 7.277 (7.32-7.43)
[2022-10-10 11:35] LABS: Anisocytosis SLIGHT = 6-15 cells HPF (0-5); Band 1 % (5-11); CellaVision Operator ID LAB.NR; Lymphocytes 9 % (21-51); Monocytes 10 % (0-10); Neutrophil 80 % (42-75); Nucleated RBC (Manual Ct) 5 % (0); Ovalocytes SLIGHT = 2-5 cells HPF (0-1); Platelet Adequacy Comment Platelets Normal; Polychromasia MODERATE = 3-4 cells HPF (0-2); Total Cell Count 100
[2022-10-10 11:36] LABS: Potassium (VBG) 7.49 mmol/L (3.70-5.30)
[2022-10-10 11:49] LABS: CKMB 1.9 ng/mL (0-6.6)
[2022-10-10] MEDS ORDERED: methylPREDNISolone Sod Succ/PF 125 MG/2 ML VIAL ONE ×2 (12:34→12:36)
[2022-10-10] MEDS ORDERED: Magnesium 2 GM/50 ML BAG (IN WATER) ONE (12:34)
[2022-10-10] MEDS ORDERED: Furosemide 40 MG/4 ML VIAL ONE (12:34)
[2022-10-10] MEDS ORDERED: cefTRIAXone (ROCEPHIN) 2 GM VIAL ONE (12:34)
[2022-10-10 13:23] LABS: Actual Bicarbonate (HCO3v) 28.1 mEq/L (22-28); Analyzer IN Cardio ER; Base Excess -0.4 mEq/L (-2.0 to +3.0); Calcium, Ionized (venous) 1.02 mmol/L (1.16-1.32); Chloride (VBG) 100 mmol/L (98-106); Hematocrit-VBG 46 % (36.0-47.0); Hemoglobin (Hb) 15.8 g/dL (11.7-16.0); Potassium (VBG) 5.19 mmol/L (3.70-5.30); Sodium 138.1 mmol/L (133-146); pH (venous) 7.273 (7.32-7.43)
[2022-10-10] MEDS ORDERED: Ipratropium/Albuterol 3 ML NEB EZPAP PRN (13:24)
[2022-10-10 14:51] LABS: Troponin I 0.038 ng/mL (< 0.028)
[2022-10-10 14:54] VITALS: BMI 43.5
[2022-10-10] MEDS: Azithromycin 500 MG in Sodium Chloride 0.9% 250 ML 250 ML IVPB SCH (15:54)
[2022-10-10 17:11] LABS: Bacteria/HPF None Seen HPF (None Seen); Bilirubin Negative (Negative); Blood, Urine Negative (Negative); CAUTI Indications for Culture Fever or rigors; Clarity Clear (Clear); Glucose, Urine (Dipstick) Normal (Negative); Ketone, Urine Negative (Negative); Leukocyte Negative Leu/uL (Negative); Nitrite Negative (Negative); Protein, Urine (Dipstick) Negative (Neg-Trace); RBC/HPF None Seen HPF (0-3); Specific Gravity, Urine 1.007 (1.002-1.036); Squamous Epithelial 0-3 HPF (0-3); Urobilinogen Normal mg/dL (Less than 2); WBC/HPF 0-3 HPF (0-3)
[2022-10-10 17:13] LABS: Amphetamine Not Detected (NotDetected); Barbiturates Screen Not Detected (NotDetected); Benzodiazepine Screen Not Detected (NotDetected); Cocaine Metabolite Screen Detected (NotDetected); Methadone Not Detected (NotDetected); Methamphetamine Not Detected (NotDetected); Opiate Screen Not Detected (NotDetected); Oxycodone Screen Not Detected (NotDetected); Phencyclidine (PCP) Not Detected (NotDetected); THC/Cannabinoid Screen Not Detected (NotDetected); Tricyclic Screen Not Detected (NotDetected); Urine Culture Reflex No No
[2022-10-10] MEDS ORDERED: traMADol HCl 50 MG TAB PO PRN (17:29)
[2022-10-10] MEDS: HYDROcodone/Acetaminophen 5/325 mg Tablet PO PRN (17:39)
[2022-10-10] MEDS: Topiramate 25 MG TAB PO SCH (20:40)
[2022-10-10] MEDS: Carvedilol 6.25 MG TAB PO SCH (20:40)
[2022-10-11 04:03] LABS: #Monocytes 0.5 thou/uL (0.11-0.59); #Neutrophils 9.2 thou/uL (1.40-6.50); %Basophils 0.2 % (0.0-1.0); %Monocytes 4.5 % (0.0-10.0); %Neutrophils 83.9 % (42.0-75.0); Hemoglobin 13.7 g/dL (12.0-16.0); Mean Corpuscular HGB CONC 29.8 g/dL (32.0-36.0); Mean Corpuscular Hemoglobin 28.7 pg (27.0-31.0); Mean Corpuscular Volume 96.2 fl (78.0-98.0); Mean Platelet Volume 11.2 fL (7.4-10.4); Platelet Count 187 10x3/uL (130-400); RBC Distribution Width 15.7 % (11.5-14.5); Red Blood Cell (RBC) Count 4.77 mill/uL (4.20-5.40)
[2022-10-11 04:16] LABS: Manual Diff?? YES
[2022-10-11 04:25] LABS: ALT (SGPT) 624 U/L (8-55); AST (SGOT) 493 U/L (5-34); Albumin 3.7 g/dL (3.5-5.0); Alkaline Phosphatase 105 U/L (40-110); Anion Gap 10 mmol/L (10-20); BUN (Urea Nitrogen) 38 mg/dL (9.8-20.1); Bilirubin, Total 0.4 mg/dL (0.2-1.2); Calc. Creatinine Clearance 104 mL/min (70-130); Calcium 8.7 mg/dL (7.8-10.44); Carbon Dioxide 35 mmol/L (22-29); Chloride 99 mmol/L (98-107); Estimated GFR 60; Globulin 3.7 g/dL (2.4-3.5); Glucose 115 mg/dL (70-105); Potassium 5.7 mmol/L (3.5-5.1); Protein, Total 7.4 g/dL (6.0-8.3); Sodium 138 mmol/L (136-145)
[2022-10-11] MEDS: methylPREDNISolone Sod Succ 40 MG VIAL IVP SCH ×3 (05:24→21:02)
[2022-10-11] MEDS: Furosemide 40 MG/4 ML VIAL SLOW IVP SCH (05:24)
[2022-10-11 05:26] LABS: Anisocytosis SLIGHT = 6-15 cells HPF (0-5); Band 6 % (5-11); Eosinophils 1 % (0-10); Hypochromia SLIGHT = 6-15 cells HPF (0-5); Lymphocytes 6 % (21-51); Monocytes 3 % (0-10); Neutrophil 81 % (42-75); Platelet Adequacy Comment Platelets Normal; Polychromasia MODERATE = 3-4 cells HPF (0-2); Target Cells SLIGHT = 2-5 cells HPF (0-1); Total Cell Count 100
[2022-10-11 05:29] LABS: Reflex for Review?? YES
[2022-10-11] MEDS: Mometasone 200 MCG/Formoterol 5 MCG 120 PUFF INHALER INH SCH (07:19)
[2022-10-11] MEDS ORDERED: Spironolactone 100 MG TAB PO SCH (08:00)
[2022-10-11] MEDS: HYDROcodone/Acetaminophen 5/325 mg Tablet PO PRN (08:57)
[2022-10-11] MEDS: Carvedilol 6.25 MG TAB PO SCH ×2 (08:58→21:02)
[2022-10-11] MEDS: Topiramate 25 MG TAB PO SCH ×2 (13:40→21:02)
[2022-10-11] MEDS: cefTRIAXone\\ROCEPHIN 1 GM in Sodium Chloride 0.9% 100 ML IVPB SCH (13:54)
[2022-10-11] MEDS: Azithromycin 500 MG in Sodium Chloride 0.9% 250 ML 250 ML IVPB SCH (15:36)
[2022-10-11] MEDS: Promethazine HCl 6.25 MG/5 ML Syrup PO PRN (21:03)
[2022-10-12] MEDS ORDERED: hydrOXYzine 25 MG TAB PO SCH (04:30)
[2022-10-12] MEDS: methylPREDNISolone Sod Succ 40 MG VIAL IVP SCH ×2 (05:12→13:58)
[2022-10-12] MEDS: Furosemide 40 MG/4 ML VIAL SLOW IVP SCH (05:12)
[2022-10-12] MEDS: HYDROcodone/Acetaminophen 5/325 mg Tablet PO PRN ×3 (05:12→22:59)
[2022-10-12 05:50] LABS: Hemoglobin 13.9 g/dL (12.0-16.0); Mean Corpuscular HGB CONC 30.3 g/dL (32.0-36.0); Mean Corpuscular Hemoglobin 28.7 pg (27.0-31.0); Mean Corpuscular Volume 94.6 fl (78.0-98.0); Mean Platelet Volume 11.3 fL (7.4-10.4); Platelet Count 188 10x3/uL (130-400); RBC Distribution Width 15.6 % (11.5-14.5); Red Blood Cell (RBC) Count 4.85 mill/uL (4.20-5.40); White Blood Cell (WBC) Count 9.8 10x3/uL (4.8-10.8)
[2022-10-12 06:21] LABS: ALT (SGPT) 851 U/L (8-55); AST (SGOT) 500 U/L (5-34); Albumin 3.5 g/dL (3.5-5.0); Alkaline Phosphatase 89 U/L (40-110); Anion Gap 12 mmol/L (10-20); BUN (Urea Nitrogen) 31 mg/dL (9.8-20.1); Bilirubin, Total 0.4 mg/dL (0.2-1.2); Calc. Creatinine Clearance 140 mL/min (70-130); Calcium 8.8 mg/dL (7.8-10.44); Carbon Dioxide 29 mmol/L (22-29); Chloride 102 mmol/L (98-107); Estimated GFR 86; Globulin 4.1 g/dL (2.4-3.5); Glucose 123 mg/dL (70-105); Potassium 4.8 mmol/L (3.5-5.1); Protein, Total 7.6 g/dL (6.0-8.3); Sodium 138 mmol/L (136-145)
[2022-10-12] MEDS: Mometasone 200 MCG/Formoterol 5 MCG 120 PUFF INHALER INH SCH (08:21)
[2022-10-12] MEDS: Amlodipine 10 MG TAB PO SCH (09:31)
[2022-10-12] MEDS: Topiramate 25 MG TAB PO SCH ×2 (09:32→20:58)
[2022-10-12] MEDS: Promethazine HCl 6.25 MG/5 ML Syrup PO PRN (10:56)
[2022-10-12] MEDS: cefTRIAXone\\ROCEPHIN 1 GM in Sodium Chloride 0.9% 100 ML IVPB SCH (13:58)
[2022-10-12] MEDS: Azithromycin 500 MG in Sodium Chloride 0.9% 250 ML 250 ML IVPB SCH (15:34)
[2022-10-12] MEDS: hydrOXYzine 25 MG TAB PO PRN ×2 (16:43→23:00)
[2022-10-13] MEDS ORDERED: methylPREDNISolone Sod Succ 40 MG VIAL IVP SCH (02:00)
[2022-10-13] MEDS: Furosemide 40 MG/4 ML VIAL SLOW IVP SCH (05:46)
[2022-10-13] MEDS: Amlodipine 10 MG TAB PO SCH (08:28)
[2022-10-13] MEDS: Topiramate 25 MG TAB PO SCH (08:28)
[2022-10-13] MEDS ORDERED: Non-Formulary Item 1 EACH (Pregabalin [Lyrica] 300 MG Capsule) PO PRN (09:59)
[2022-10-13] MEDS ORDERED: predniSONE 20 MG TAB PO SCH ×2 (10:00→10:15)
[2022-10-13] MEDS ORDERED: Pregabalin 75 MG CAP PO PRN (10:09)
[2022-10-13] MEDS: Mometasone 200 MCG/Formoterol 5 MCG 120 PUFF INHALER INH SCH (10:36)
[2022-10-13 11:40] VITALS: BP 113/63; TEMP 97.7
[2022-10-13 11:41] LABS: ALT (SGPT) 941 U/L (8-55); AST (SGOT) 333 U/L (5-34); Albumin 3.7 g/dL (3.5-5.0); Alkaline Phosphatase 87 U/L (40-110); Bilirubin, Direct 0.3 mg/dL (0.1-0.3); Bilirubin, Total 0.4 mg/dL (0.2-1.2); Protein, Total 7.4 g/dL (6.0-8.3)
[2022-10-13] MEDS: cefTRIAXone\\ROCEPHIN 1 GM in Sodium Chloride 0.9% 100 ML IVPB SCH (13:35)
[2022-10-13] MEDS: Azithromycin 500 MG in Sodium Chloride 0.9% 250 ML 250 ML IVPB SCH (14:59)
[2022-10-14] MEDS ORDERED: predniSONE 20 MG TAB PO SCH (08:00)
== END 2022-10-13 16:25 | disposition home or self-care (01) | DRG 291 ==
LOC: ERS 10:24 → IMCU/EMU 14:34 → NEURO 10-11 10:09
PROVIDERS: ADMIT Internal Medicine Nephrology; ATTEND Internal Medicine
DX: I11.0 Hypertensive heart disease with heart failure (principal); I50.33 Acute on chronic diastolic (congestive) heart failure; J96.01 Acute respiratory failure with hypoxia; J96.02 Acute respiratory failure with hypercapnia; J44.1 Chronic obstructive pulmonary disease with (acute) exacerbation; N17.9 Acute kidney failure, unspecified; I24.8 Other forms of acute ischemic heart disease; Z68.41 Body mass index [BMI] 40.0-44.9, adult; I48.91 Unspecified atrial fibrillation; G43.909 Migraine, unspecified, not intractable, without status migrainosus; F14.90 Cocaine use, unspecified, uncomplicated; E87.5 Hyperkalemia; E66.01 Morbid (severe) obesity due to excess calories; I07.1 Rheumatic tricuspid insufficiency; R91.1 Solitary pulmonary nodule; Z88.8 Allergy status to other drugs, medicaments and biological substances; Z79.899 Other long term (current) drug therapy; Z98.890 Other specified postprocedural states
CPT/HCPCS: 36415; 36416; 71045; 71250; 76705; 80053; 80076; 80306; 81001; 82553; 82805; 83605; 83880; 84484; 85025; 85027; 85060; 87040; 93005; 93306; 94640; 96374; 96375; J0456; J0696; J1650; J1940; J2920; J2930; J3475; J3490; J7050; J7512; J7620; Q0169

== ENCOUNTER 2023-04-04 06:03 | Emergency (ER) | payer OTHER ==
[2023-04-04 06:50] LABS: #Monocytes 0.8 thou/uL (0.11-0.59); #Neutrophils 3.3 thou/uL (1.40-6.50); %Basophils 0.7 % (0.0-1.0); %Eosinophils 0.7 % (0.0-10.0); %Monocytes 14.5 % (0.0-10.0); %Neutrophils 57.2 % (42.0-75.0); Hematocrit 51.6 % (36.0-47.0); Mean Corpuscular HGB CONC 29.1 g/dL (32.0-36.0); Mean Corpuscular Volume 96.3 fl (78.0-98.0); Platelet Count 174 10x3/uL (130-400); RBC Distribution Width 18.3 % (11.5-14.5); Red Blood Cell (RBC) Count 5.36 mill/uL (4.20-5.40); White Blood Cell (WBC) Count 5.8 10x3/uL (4.8-10.8)
[2023-04-04] MEDS ORDERED: methylPREDNISolone Sod Succ/PF 125 MG/2 ML VIAL ONE (06:50)
[2023-04-04 07:02] LABS: ALT (SGPT) 51 U/L (8-55); AST (SGOT) 35 U/L (5-34); Albumin 3.6 g/dL (3.5-5.0); Alkaline Phosphatase 97 U/L (40-110); Anion Gap 12 mmol/L (10-20); BUN (Urea Nitrogen) 25 mg/dL (9.8-20.1); Bilirubin, Total 0.3 mg/dL (0.2-1.2); Calc. Creatinine Clearance 0 mL/min (70-130); Calcium 8.6 mg/dL (7.8-10.44); Carbon Dioxide 29 mmol/L (22-29); Chloride 102 mmol/L (98-107); Estimated GFR 67; Globulin 3.7 g/dL (2.4-3.5); Glucose 93 mg/dL (70-105); Potassium 4.7 mmol/L (3.5-5.1); Protein, Total 7.3 g/dL (6.0-8.3); Sodium 138 mmol/L (136-145)
[2023-04-04 07:13] LABS: Troponin I Less than 0.010 ng/mL (< 0.028)
[2023-04-04] MEDS ORDERED: Ipratropium Bromide 2.5 ml Neb ONE (07:22)
[2023-04-04] MEDS ORDERED: Albuterol 2.5 MG/0.5 ML NEB ONE (07:22)
[2023-04-04 10:47] LABS: Amphetamine Not Detected (NotDetected); Barbiturates Screen Not Detected (NotDetected); Benzodiazepine Screen Not Detected (NotDetected); Cocaine Metabolite Screen Detected (NotDetected); Methadone Not Detected (NotDetected); Methamphetamine Not Detected (NotDetected); Opiate Screen Not Detected (NotDetected); Oxycodone Screen Not Detected (NotDetected); Phencyclidine (PCP) Not Detected (NotDetected); THC/Cannabinoid Screen Not Detected (NotDetected); Tricyclic Screen Not Detected (NotDetected)
== END 2023-04-04 10:47 | disposition home or self-care (01) ==
LOC: ERS 06:03
DX: J84.10 Pulmonary fibrosis, unspecified (principal); I50.31 Acute diastolic (congestive) heart failure; J44.9 Chronic obstructive pulmonary disease, unspecified
CPT/HCPCS: 36415; 71045; 80053; 80306; 83605; 83880; 84484; 85025; 86140; 93005; 94644; 96374; J2930; J7611